=== PATIENT | female | born 1960 | race African-American/Black ===

== ENCOUNTER 2016-05-11 22:55 | Emergency (ER) | payer OTHER ==
[~2016-05-11] VITALS: Ht 167.6 cm; Wt 92.1 kg
[~2016-05-11 22:55] MED LIST: DIPHTAB; ESOM40CA39; FLUT250M9; HYDR10TA35; OXCA300T26; ROSU10TA16; VALS160T43; [UNRECOGNIZED DRUG - CODE]
[2016-05-12] LABS: Basophils # (auto) 0.1 uL; Eosinophils # (auto) 0 uL; Eosinophils % (auto) 0.5 % (0.0-7.0); Hematocrit 42.5 % (36.0-46.0); Hemoglobin 13.8 g/dL (12.2-16.2); Lymphocytes # (auto) 1.7 uL; Lymphocytes % (auto) 40.3 % (10.0-50.0); Mean Corpuscular Hemoglobin 29.3 pg (28.0-32.0); Mean Corpuscular Hgb Conc. 32.6 g/dL (32.0-36.0); Mean Platelet Volume 6.6 fL (7.4-10.4); Monocytes # (auto) 0.5 uL; Monocytes % (auto) 13.6 % (0.0-12.0); Neutrophils # (auto) 1.6 uL; Neutrophils % (auto) 42.6 % (37.0-80.0); Platelet Count (auto) 285 10^3/uL (140-450); Red Cell Distribution Width 15.3 % (11.6-16.0); White Blood Cell 3.9 10^3/uL (4.4-10.8)
[2016-05-12 00:10] LABS: Albumin 3.5 g/dL (3.4-5.0); Magnesium 2.1 mg/dL (1.6-2.6)
[2016-05-12 00:16] LABS: Potassium 2.9 mmol/L (3.5-5.1)
[2016-05-12 00:24] LABS: Bilirubin, Total 0.3 mg/dL (0.2-1.0); Calcium 8.1 mg/dL (8.5-10.1)
[2016-05-12] MEDS ORDERED: LEVETIRACETAM 500 MG TAB PO ONE (00:30)
[2016-05-12] MEDS ORDERED: POTASSIUM CHL 10% (20 MEQ/15ML) ORAL SOLN PO ONE (00:30)
[2016-05-12 01:47] VITALS: BP 108/70
== END 2016-05-12 02:18 | disposition home or self-care (01) ==
LOC: ER 23:02
DX: G40.909 Epilepsy, unspecified, not intractable, without status epilepticus (principal); E11.9 Type 2 diabetes mellitus without complications; I10 Essential (primary) hypertension; I25.2 Old myocardial infarction; F10.129 Alcohol abuse with intoxication, unspecified; F12.10 Cannabis abuse, uncomplicated; Y90.6 Blood alcohol level of 120-199 mg/100 ml; F17.210 Nicotine dependence, cigarettes, uncomplicated; Z98.61 Coronary angioplasty status
CPT/HCPCS: 36415; 80053; 80320; 82542; 83735; 85025

== ENCOUNTER 2017-04-25 13:41 | Emergency (ER) | payer OTHER ==
[~2017-04-25] VITALS: Ht 167.6 cm; Wt 88.5 kg
[2017-04-25 15:54] VITALS: BP 100/73
== END 2017-04-25 15:57 | disposition home or self-care (01) ==
LOC: ER 13:41
DX: M54.5 Low back pain (principal); G89.29 Other chronic pain; E11.9 Type 2 diabetes mellitus without complications; E78.5 Hyperlipidemia, unspecified; I10 Essential (primary) hypertension; I25.2 Old myocardial infarction; F17.210 Nicotine dependence, cigarettes, uncomplicated; Z76.0 Encounter for issue of repeat prescription

== ENCOUNTER 2017-09-25 12:37 | Emergency (ER) | payer OTHER ==
[~2017-09-25] VITALS: Ht 167.6 cm; Wt 95.3 kg
[2017-09-25 14:00] VITALS: BP 111/81
== END 2017-09-25 14:33 | disposition home or self-care (01) ==
LOC: ER 12:43
DX: G89.29 Other chronic pain (principal); M54.5 Low back pain; E11.9 Type 2 diabetes mellitus without complications; K21.9 Gastro-esophageal reflux disease without esophagitis; E78.5 Hyperlipidemia, unspecified; F17.210 Nicotine dependence, cigarettes, uncomplicated; F12.10 Cannabis abuse, uncomplicated; Z88.8 Allergy status to other drugs, medicaments and biological substances

== ENCOUNTER 2022-11-07 12:53 | Inpatient (IN) | payer OTHER ==
[~2022-11-07] VITALS: Ht 167.6 cm; Wt 131.1 kg
[~2022-11-07 12:53] MED LIST changes: -OXCA300T26; +OXCA300T4; -VALS160T43; +VALS160T6
[2022-11-07 17:00] VITALS: BP 134/77
[2022-11-07] MEDS ORDERED: ALBUTEROL SULF 2.5 MG/0.5ML(0.5%) NEB SOLN NEB ONE (17:15)
[2022-11-07] MEDS ORDERED: IPRATROPIUM BROM 0.5 MG/2.5ML INH SOL NEB ONE (17:15)
[2022-11-07] MEDS ORDERED: LORazepam 2MG/ML-1ML VIAL IV PRN (17:45)
[2022-11-07] MEDS ORDERED: ONDANSETRON HCL 4 MG/2 ML VIAL IV PRN (17:45)
[2022-11-07] MEDS ORDERED: DEXTROSE (50%) 50ML SYRG IV PRN (17:45)
[2022-11-07] MEDS ORDERED: DOCUSATE SOD 100 MG CAP PO PRN (17:45)
[2022-11-07] MEDS ORDERED: GABA-1250 PO (17:55)
[2022-11-07] MEDS ORDERED: FURO1TAB33 PO (17:55)
[2022-11-07] MEDS ORDERED: DOXY100C4 PO (17:55)
[2022-11-07] MEDS ORDERED: HYDR-3682 PO (17:55)
[2022-11-07] MEDS ORDERED: PAR20T PO (17:55)
[2022-11-07] MEDS ORDERED: ASPI-543 PO (17:55)
[2022-11-07] MEDS ORDERED: HYDR-4902 PO (17:55)
[2022-11-07] MEDS ORDERED: MAGN400T40 PO (17:55)
[2022-11-07] MEDS ORDERED: OME20T PO (17:55)
[2022-11-07] MEDS ORDERED: POTA1TAB61 PO (17:55)
[2022-11-07] MEDS ORDERED: KEP500T PO (17:55)
[2022-11-07] MEDS ORDERED: PREG200C19 PO (17:55)
[2022-11-07] MEDS: ALBUTEROL SULF 2.5 MG/0.5ML(0.5%) NEB SOLN NEB SCH ×2 (18:00→22:08)
[2022-11-07] MEDS: IPRATROPIUM BROM 0.5 MG/2.5ML INH SOL NEB SCH ×2 (18:00→22:08)
[2022-11-07 20:26] LABS: Mean Corpuscular Hemoglobin 25.8 pg (28.0-32.0)
[2022-11-07 20:28] LABS: Hematocrit 40.7 % (36.0-46.0); Hemoglobin 12.9 g/dL (12.2-16.2); Mean Corpuscular Hgb Conc. 31.7 g/dL (32.0-36.0); Mean Corpuscular Volume 81.3 fL (80.0-100.0); White Blood Cell 2.5 10^3/uL (4.4-10.8)
[2022-11-07 20:30] LABS: Albumin 2.6 g/dL (3.4-5.0); Calcium 7.6 mg/dL (8.5-10.1); Magnesium 1.2 mg/dL (1.6-2.6); Phosphorus 3.9 mg/dL (2.5-4.90); Potassium 3.5 mmol/L (3.5-5.1)
[2022-11-07 20:33] LABS: Bilirubin, Total 0.8 mg/dL (0.2-1.0)
[2022-11-07 20:40] LABS: Folate (Folic Acid) 7.43 ng/mL (5.38-24)
[2022-11-07 20:48] LABS: Band Neutrophils % (manual) 0; Basophils % (manual) 0 (0.0-2.0); Blast Cells 0; Eosinophils % (manual) 0 (0-7); Metamyelocytes % 0; Myelocytes % 0; Promyelocytes % 0; Reactive Lymphocytes 0
[2022-11-07 21:24] VITALS: BP 134/77
[2022-11-07 22:00] VITALS: BP 134/57
[2022-11-07] MEDS ORDERED: GABAPENTIN 300 MG CAP PO SCH (22:00)
[2022-11-07] MEDS ORDERED: OXcarbazepine 300 MG TAB PO SCH (22:00)
[2022-11-07] MEDS ORDERED: ATORVASTATIN 20 MG TAB PO SCH (22:00)
[2022-11-07 22:11] LABS: Lymphocytes % (manual) 13 (10.0-50.0); Monocytes % (manual) 10 (0-12)
[2022-11-08] MEDS: ENOXAPARIN SOD 40 MG/0.4 ML SYRINGE SC SCH ×2 (01:22→09:49)
[2022-11-08] MEDS: levETIRAcetam 500 MG TAB PO SCH ×2 (01:23→09:49)
[2022-11-08] MEDS: FUROSEMIDE 20 MG TAB PO SCH ×2 (01:24→09:49)
[2022-11-08] MEDS: HYDROcodone-ACET 5/325MG TAB PO SCH ×3 (01:25→13:59)
[2022-11-08] MEDS: InsuLIN REG 1unit/0.01ml Soln (100units/ml) SC SCH ×4 (01:34→16:48)
[2022-11-08] MEDS: ACCU-CHEK COMFORT CURVE STRIP VI SCH ×4 (01:35→16:48)
[2022-11-08] MEDS: PREGABALIN 200 MG PO SCH ×3 (01:38→14:45)
[2022-11-08] MEDS: NYSTATIN TOPICAL CREAM 15GM TOP SCH ×2 (01:44→09:53)
[2022-11-08] MEDS: ALBUTEROL SULF 2.5 MG/0.5ML(0.5%) NEB SOLN NEB SCH ×4 (01:58→14:00)
[2022-11-08] MEDS: IPRATROPIUM BROM 0.5 MG/2.5ML INH SOL NEB SCH ×4 (01:58→14:00)
[2022-11-08 04:49] VITALS: BP 157/88
[2022-11-08 05:35] LABS: Mean Corpuscular Volume 82.5 fL (80.0-100.0); White Blood Cell 2.4 10^3/uL (4.4-10.8)
[2022-11-08 05:38] LABS: Hematocrit 39.5 % (36.0-46.0); Hemoglobin 12.3 g/dL (12.2-16.2); Mean Corpuscular Hemoglobin 25.8 pg (28.0-32.0); Mean Corpuscular Hgb Conc. 31.2 g/dL (32.0-36.0); Red Blood Cells 4.79 10^6/uL (4.0-5.20)
[2022-11-08 05:59] LABS: Albumin 2.1 g/dL (3.4-5.0); Calcium 7.4 mg/dL (8.5-10.1); Potassium 3.1 mmol/L (3.5-5.1)
[2022-11-08 06:03] LABS: Bilirubin, Total 0.8 mg/dL (0.2-1.0); Total Protein 5.6 g/dL (6.4-8.2)
[2022-11-08 06:33] LABS: Red Cell Distribution Width 21.5 % (11.8-14.3)
[2022-11-08 06:34] LABS: Basophils % (manual) 0 (0.0-2.0); Blast Cells 0; Metamyelocytes % 0; Myelocytes % 0; Promyelocytes % 0; Reactive Lymphocytes 0
[2022-11-08 09:20] LABS: Band Neutrophils % (manual) 2; Eosinophils % (manual) 3 (0-7); Lymphocytes % (manual) 23 (10.0-50.0); Monocytes % (manual) 15 (0-12)
[2022-11-08] MEDS ORDERED: VALSARTAN 80 MG TAB PO SCH (10:00)
[2022-11-08] MEDS ORDERED: NICOTINE 21MG/24 HR TOPICAL PATCH TD SCH (10:00)
[2022-11-08] MEDS ORDERED: ASPirin-EC 81 mg tab PO SCH (10:00)
[2022-11-08] MEDS ORDERED: PARoxetine 20 MG TAB PO SCH (10:00)
[2022-11-08] MEDS ORDERED: POTASSIUM CHL 20 Meq TABLET PO ONE (10:15)
[2022-11-08 13:01] VITALS: BP 137/59
[2022-11-09] MEDS ORDERED: POTASSIUM CHL 20 Meq TABLET PO SCH (10:00)
== END 2022-11-08 17:54 | disposition home or self-care (01) | DRG 948 ==
LOC: TELE-CENTR 16:38
PROVIDERS: ADMIT Nurse Practitioner Family; ATTEND Internal Medicine Geriatric Medicine
DX: R53.1 Weakness (principal); I69.351 Hemiplegia and hemiparesis following cerebral infarction affecting right dominant side; J44.1 Chronic obstructive pulmonary disease with (acute) exacerbation; Z68.42 Body mass index [BMI] 45.0-49.9, adult; I50.42 Chronic combined systolic (congestive) and diastolic (congestive) heart failure; B35.6 Tinea cruris; F17.200 Nicotine dependence, unspecified, uncomplicated; E11.9 Type 2 diabetes mellitus without complications; E66.01 Morbid (severe) obesity due to excess calories; R56.9 Unspecified convulsions; E87.6 Hypokalemia; G89.4 Chronic pain syndrome; Z74.01 Bed confinement status; Z88.6 Allergy status to analgesic agent
CPT/HCPCS: 36415; 71045; 80053; 80320; 82607; 82746; 82962; 83735; 83880; 84100; 85007; 85027; 93971; 94640; 97163; G0378

== ENCOUNTER → 2022-11-21 | Outpatient (CLI) | payer OTHER ==
[~2022-11-21] MED LIST changes: +ASPI-543 PO; +DOXY100C4 PO; +FURO1TAB33 PO; +GABA-1250 PO; +HYDR-3682 PO; +HYDR-4902 PO; +KEP500T PO; +MAGN400T40 PO; +OME20T PO; +PAR20T PO; +POTA1TAB61 PO; +PREG200C19 PO
[2022-11-21 13:19] LABS: BUN/Creatinine Ratio 6.3 (10.0-20.0); Calcium 8.4 mg/dL (8.5-10.1); Potassium 4.3 mmol/L (3.5-5.1)
[2022-11-21 14:21] LABS: Micro Albumin 59.7 mg/L (0-30.0)
== END | disposition home or self-care (01) ==
LOC: LAB 12:12
PROVIDERS: ATTEND Nurse Practitioner Family
DX: E11.42 Type 2 diabetes mellitus with diabetic polyneuropathy (principal)
CPT/HCPCS: 36415; 80048; 82043; 82570

== ENCOUNTER 2022-12-28 17:23 | Inpatient (IN) | payer OTHER ==
[~2022-12-28] VITALS: Ht 165.1 cm; Wt 146.7 kg
[2022-12-28] MEDS ORDERED: ASPirin 81 mg TAB PO ONE (17:45)
[2022-12-28 18:17] LABS: Eosinophils # (auto) 0 10 ^3/uL (0-0.8); Hemoglobin 12.4 g/dL (12.2-16.2); Monocytes # (auto) 0.3 10 ^3/uL (0-1.3)
[2022-12-28 18:20] LABS: Basophils # (auto) 0.1 10 ^3/uL (0-0.2); Basophils % (auto) 1.7 % (0.0-2.0); Eosinophils % (auto) 0.3 % (0.0-7.0); Hematocrit 39.3 % (36.0-46.0); Lymphocytes # (auto) 1.4 10 ^3/uL (0.4-5.4); Lymphocytes % (auto) 29.8 % (10.0-50.0); Mean Corpuscular Hemoglobin 24.2 pg (28.0-32.0); Mean Corpuscular Hgb Conc. 31.5 g/dL (32.0-36.0); Mean Corpuscular Volume 76.7 fL (80.0-100.0); Neutrophils # (auto) 2.8 10 ^3/uL (1.6-8.6); Neutrophils % (auto) 61.2 % (37.0-80.0); Nucleated Red Blood Cells % 0.3 %; Red Blood Cells 5.13 10^6/uL (4.0-5.20); White Blood Cell 4.7 10^3/uL (4.4-10.8)
[2022-12-28 18:30] LABS: Red Cell Distribution Width 20.6 % (11.8-14.3)
[2022-12-28 18:35] LABS: INR 1.3 (0.9-1.15); Partial Thromboplastin Time 27.9 SEC (24.5-34.5); Prothrombin Time 13.4 sec (9.3-11.8)
[2022-12-28 18:46] LABS: Albumin 2.4 g/dL (3.4-5.0); Magnesium 1.7 mg/dL (1.6-2.6); Potassium 4.2 mmol/L (3.5-5.1)
[2022-12-28 18:49] VITALS: PULSE 108; RESP 20; O2SAT 98
[2022-12-28 18:49] LABS: BUN/Creatinine Ratio 20.8 (10.0-20.0); Bilirubin, Total 0.7 mg/dL (0.2-1.0); Total Protein 6.7 g/dL (6.4-8.2)
[2022-12-28 18:57] LABS: Anisocytosis Slight; Hypochromia Slight; Large Platelets FEW; Platelet Estimate Decreased
[2022-12-28 18:58] LABS: Ovalocytes FEW; Tear Drop Cells FEW
[2022-12-28] MEDS ORDERED: ASPirin 325 MG TAB PO ONE (19:15)
[2022-12-28 20:00] VITALS: RESP 20; O2SAT 98
[2022-12-28] MEDS ORDERED: ACETAMINOPHEN 500 MG TAB PO PRN (22:30)
[2022-12-28] MEDS ORDERED: DOCUSATE SOD 100 MG CAP PO PRN (22:30)
[2022-12-28] MEDS ORDERED: ONDANSETRON HCL 4 MG/2 ML VIAL IV PRN (22:30)
[2022-12-28] MEDS ORDERED: NITROGLYCERIN 0.4 MG SL TAB SL PRN (23:45)
[2022-12-29] MEDS ORDERED: IOHEXOL 350 MG/ML 100ML IJ ONE (02:05)
[2022-12-29 06:15] LABS: Albumin 2.2 g/dL (3.4-5.0); Calcium 7.7 mg/dL (8.5-10.1); Potassium 4.4 mmol/L (3.5-5.1)
[2022-12-29 06:17] LABS: Basophils # (auto) 0 10 ^3/uL (0-0.2); Eosinophils # (auto) 0 10 ^3/uL (0-0.8); Eosinophils % (auto) 0.4 % (0.0-7.0)
[2022-12-29 06:18] LABS: BUN/Creatinine Ratio 21.4 (10.0-20.0); Bilirubin, Total 1.2 mg/dL (0.2-1.0); Total Protein 6.2 g/dL (6.4-8.2)
[2022-12-29 06:19] LABS: Basophils % (auto) 0.6 % (0.0-2.0); Hematocrit 38.5 % (36.0-46.0); Hemoglobin 11.9 g/dL (12.2-16.2); Lymphocytes # (auto) 0.8 10 ^3/uL (0.4-5.4); Lymphocytes % (auto) 10.7 % (10.0-50.0); Mean Corpuscular Hemoglobin 23.6 pg (28.0-32.0); Mean Corpuscular Hgb Conc. 30.8 g/dL (32.0-36.0); Mean Corpuscular Volume 76.6 fL (80.0-100.0); Monocytes # (auto) 0.5 10 ^3/uL (0-1.3); Monocytes % (auto) 7.1 % (0.0-12.0); Neutrophils # (auto) 6.1 10 ^3/uL (1.6-8.6); Neutrophils % (auto) 81.2 % (37.0-80.0); Nucleated Red Blood Cells % 0.2 %; Red Blood Cells 5.02 10^6/uL (4.0-5.20); White Blood Cell 7.6 10^3/uL (4.4-10.8)
[2022-12-29 06:24] LABS: Red Cell Distribution Width 20.9 % (11.8-14.3)
[2022-12-29] MEDS: SODIUM CHLOR 0.9% PF (SALINE LOCK) 10ML VIAL/SYR IV SCH ×3 (06:28→23:19)
[2022-12-29 08:16] LABS: Platelet Estimate Decreased
[2022-12-29 08:17] LABS: Anisocytosis Slight; Hypochromia Moderate
[2022-12-29 08:18] LABS: Tear Drop Cells FEW
[2022-12-29 08:19] LABS: Ovalocytes FEW; Stomatocytes Mode
[2022-12-29] MEDS: HYDROcodone-ACET 5/325MG TAB PO PRN (08:33)
[2022-12-29 09:58] VITALS: PULSE 102; RESP 15; O2SAT 100
[2022-12-29] MEDS ORDERED: FUROSEMIDE 20 MG/2 ML VIAL IV SCH (10:00)
[2022-12-29] MEDS ORDERED: FUROSEMIDE 40 MG/4 ML VIAL IV SCH (10:00)
[2022-12-29] MEDS: ASPirin 81 mg TAB PO SCH (10:05)
[2022-12-29] MEDS: FAMOTIDINE (10MG/ML) 2ML VL IV SCH ×2 (10:05→23:19)
[2022-12-29 14:05] LABS: Cholesterol 136 mg/dL (< 200)
[2022-12-29 14:10] LABS: HDL Cholesterol 61 mg/dL (40-59); LDL Cholesterol 66 mg/dL (< 100); Triglycerides 79 mg/dL (< 150)
[2022-12-29 16:51] LABS: Urine Bacteria NONE SEEN /hpf (None Seen); Urine Blood Negative /uL (Negative); Urine Clarity Clear (Clear); Urine Color Yellow (Yellow); Urine Protein, UAD 1+ (Negative); Urine Specific Gravity 1.042 (1.001-1.035); Urine Urobilinogen Normal (Negative); Urine WBC 1 /hpf (0 - 5)
[2022-12-29 19:35] VITALS: PULSE 100; RESP 16; O2SAT 100
[2022-12-29] MEDS: MORPHINE SULFATE INJ 2 MG/ml SYRG IV PRN (21:14)
[2022-12-29] MEDS ORDERED: levETIRAcetam 500 MG/5ML INJ IV ONE (23:15)
[2022-12-30] MEDS: SODIUM CHLOR 0.9% PF (SALINE LOCK) 10ML VIAL/SYR IV SCH ×3 (05:43→22:02)
[2022-12-30] MEDS: FAMOTIDINE (10MG/ML) 2ML VL IV SCH ×2 (10:01→21:53)
[2022-12-30] MEDS: ASPirin 81 mg TAB PO SCH (10:01)
[2022-12-30] MEDS: MORPHINE SULFATE INJ 2 MG/ml SYRG IV PRN ×2 (10:11→21:54)
[2022-12-30 10:49] VITALS: PULSE 99; RESP 15; O2SAT 92
[2022-12-30 12:00] VITALS: BP 106/68; PULSE 98; RESP 20; TEMP 98.4; O2SAT 100
[2022-12-30 16:30] VITALS: BP 123/70; PULSE 84; RESP 19; TEMP 98.6; O2SAT 94
[2022-12-30 20:00] VITALS: BP 113/64; PULSE 107; PULSE 110; RESP 22; TEMP 98.4; O2SAT 99
[2022-12-30 22:00] VITALS: BP 113/64; PULSE 114; RESP 22; TEMP 98.4; O2SAT 100
[2022-12-31] VITALS (7 sets, daily range): BP systolic 110–154; BP diastolic 59–96; PULSE 92–110; RESP 15–22; TEMP 97.6–98.7; O2SAT 93–100
[2022-12-31] MEDS: SODIUM CHLOR 0.9% PF (SALINE LOCK) 10ML VIAL/SYR IV SCH ×3 (07:07→21:31)
[2022-12-31] MEDS: ASPirin 81 mg TAB PO SCH (10:47)
[2022-12-31] MEDS: FAMOTIDINE (10MG/ML) 2ML VL IV SCH ×2 (10:48→21:31)
[2022-12-31] MEDS: HYDROcodone-ACET 5/325MG TAB PO PRN ×2 (10:58→19:49)
[2022-12-31] MEDS ORDERED: POTA10TA51 PO (11:20)
[2022-12-31] MEDS ORDERED: FURO1TAB31 PO (11:20)
[2022-12-31] MEDS ORDERED: ASPI-498 OR (11:20)
[2023-01-01 04:50] VITALS: BP 148/90; PULSE 100; RESP 20; TEMP 97.6; O2SAT 86
[2023-01-01] MEDS: SODIUM CHLOR 0.9% PF (SALINE LOCK) 10ML VIAL/SYR IV SCH ×2 (05:44→14:00)
[2023-01-01 08:00] VITALS: BP 154/96; PULSE 102; PULSE 109; RESP 20; TEMP 98.7; O2SAT 98
[2023-01-01 09:00] VITALS: BP 140/89; PULSE 99; RESP 20; TEMP 98.3; O2SAT 100
[2023-01-01] MEDS: FAMOTIDINE (10MG/ML) 2ML VL IV SCH (10:21)
[2023-01-01] MEDS: ASPirin 81 mg TAB PO SCH (10:21)
[2023-01-01] MEDS: HYDROcodone-ACET 5/325MG TAB PO PRN (11:46)
[2023-01-01 12:10] LABS: COVID19 ANTIGEN SOFIA FIA NEGATIVE (NEGATIVE)
[2023-01-01 13:00] VITALS: BP 140/84; PULSE 96; RESP 18; TEMP 98.2; O2SAT 98
[2023-01-01 17:00] VITALS: BP 151/97; PULSE 93; RESP 19; TEMP 98; O2SAT 97
== END 2023-01-01 19:10 | DRG 292 ==
LOC: EDBD 17:23 → ER 17:23 → TELE 23:33 → TELE-EAST 12-30 11:13
PROVIDERS: ADMIT Nurse Practitioner Family; ATTEND Family Medicine
DX: I11.0 Hypertensive heart disease with heart failure (principal); J90 Pleural effusion, not elsewhere classified; Z68.43 Body mass index [BMI] 50.0-59.9, adult; R07.89 Other chest pain; E11.9 Type 2 diabetes mellitus without complications; E78.00 Pure hypercholesterolemia, unspecified; E66.01 Morbid (severe) obesity due to excess calories; K21.9 Gastro-esophageal reflux disease without esophagitis; Z20.822 Contact with and (suspected) exposure to COVID-19; J45.909 Unspecified asthma, uncomplicated; F17.210 Nicotine dependence, cigarettes, uncomplicated; D69.6 Thrombocytopenia, unspecified; I27.20 Pulmonary hypertension, unspecified; R56.9 Unspecified convulsions; I50.9 Heart failure, unspecified; I25.2 Old myocardial infarction; Z88.6 Allergy status to analgesic agent; Z98.61 Coronary angioplasty status; Z83.3 Family history of diabetes mellitus; Z82.49 Family history of ischemic heart disease and other diseases of the circulatory system
CPT/HCPCS: 36415; 71045; 71275; 80053; 80061; 81001; 83036; 83735; 83880; 84443; 84484; 85025; 85379; 85610; 85730; 87081; 87426; 93005; 93306; 93970; G0378; J3490; J7060

== ENCOUNTER 2023-05-13 14:46 | Inpatient (IN) | payer MEDICARE, OTHER ==
[~2023-05-13] VITALS: Ht 165.1 cm; Wt 122.7 kg
[~2023-05-13 14:46] MED LIST changes: +ASPI-498 OR; +FURO1TAB31 PO; +POTA10TA51 PO
[2023-05-13] MEDS ORDERED: SODIUM CHLORIDE 0.9% 500 ML IV ONE (21:00)
[2023-05-13 21:57] LABS: Basophils # (auto) 0 10 ^3/uL (0-0.2); Eosinophils # (auto) 0.1 10 ^3/uL (0-0.8); Eosinophils % (auto) 4.3 % (0.0-7.0); Lymphocytes # (auto) 0.6 10 ^3/uL (0.4-5.4); Monocytes # (auto) 0.4 10 ^3/uL (0-1.3); Neutrophils # (auto) 2.2 10 ^3/uL (1.6-8.6); Red Blood Cells 4.95 10^6/uL (4.0-5.20); Red Cell Distribution Width 15.4 % (11.8-14.3); White Blood Cell 3.4 10^3/uL (4.4-10.8)
[2023-05-13 21:58] LABS: Basophils % (auto) 0.9 % (0.0-2.0); Lymphocytes % (auto) 17.8 % (10.0-50.0); Mean Corpuscular Hemoglobin 26.3 pg (28.0-32.0); Mean Corpuscular Hgb Conc. 32.5 g/dL (32.0-36.0); Mean Corpuscular Volume 80.9 fL (80.0-100.0); Monocytes % (auto) 12.5 % (0.0-12.0); Neutrophils % (auto) 64.5 % (37.0-80.0); Nucleated Red Blood Cells % 0.3 %
[2023-05-13 22:16] LABS: Alanine Aminotransferase 33 U/L (7-40); Albumin 3.9 g/dL (3.2-4.8); Alkaline Phosphatase 144 U/L (46-116); Anion Gap 7 (5-15); Aspartate Aminotransferase 27 U/L (13-40); BUN/Creatinine Ratio 24.2 (10.0-20.0); Bilirubin, Total 0.3 mg/dL (0.2-1.0); Blood Urea Nitrogen 22 mg/dL (9-23); Calcium 10.9 mg/dL (8.5-10.1); Carbon Dioxide 29 mmol/L (20-30); Chloride 102 mmol/L (98-107); Glucose 107 mg/dL (74-106); Potassium 3.9 mmol/L (3.5-5.1); Sodium 138 mmol/L (136-145); Total Protein 7.3 g/dL (5.7-8.2)
[2023-05-13] MEDS ORDERED: MORPHINE SULFATE 4 MG/ML SYR/VIAL IV ONE (23:30)
[2023-05-13] MEDS ORDERED: ONDANSETRON HCL 4 MG/2 ML VIAL IV ONE (23:30)
[2023-05-14] MEDS ORDERED: DOCUSATE SOD 100 MG CAP PO PRN (05:00)
[2023-05-14] MEDS ORDERED: TEMAZEPAM 15 MG CAP PO PRN (05:00)
[2023-05-14] MEDS ORDERED: NITROGLYCERIN 0.4 MG SL TAB SL PRN (05:00)
[2023-05-14] MEDS ORDERED: ACETAMINOPHEN 325 MG TAB PO PRN (05:00)
[2023-05-14] MEDS ORDERED: FUROSEMIDE 40 MG/4 ML VIAL IV SCH (06:00)
[2023-05-14 08:04] LABS: Urine Bacteria NONE SEEN /hpf (None Seen); Urine Blood 1+ /uL (Negative); Urine Clarity Clear (Clear); Urine Color Yellow (Yellow); Urine Hyaline Cast FEW /lpf (0 - 2); Urine Mucus FEW (None Seen); Urine Protein, UAD TRACE (Negative); Urine Specific Gravity 1.021 (1.001-1.035); Urine Urobilinogen Normal (Negative); Urine WBC 6 /hpf (0 - 5)
[2023-05-14 08:07] LABS: Amphetamine Screen, Urine Neg (NEGATIVE); Barbiturate Scree,Urine Neg (NEGATIVE); Benzodiazephine Screen, Urine Neg (NEGATIVE); Cannabinoid Screen, Urine Neg (NEGATIVE); Cocaine Screen, Urine Neg (NEGATIVE); Opiate Scree,Urine Pos (NEGATIVE); Phencyclidine Screen, Urine Neg (NEGATIVE)
[2023-05-14] MEDS: ONDANSETRON HCL 4 MG/2 ML VIAL IV PRN ×2 (08:07→13:58)
[2023-05-14] MEDS: MORPHINE SULFATE INJ 2 MG/ml SYRG IV PRN ×3 (08:08→18:34)
[2023-05-14 09:02] LABS: INR 1.13 (0.9-1.15); Partial Thromboplastin Time 26.8 SEC (24.5-34.5)
[2023-05-14] MEDS ORDERED: IOHEXOL 350 MG/ML 100ML IJ ONE (12:02)
[2023-05-14] MEDS: ZINC SULFATE 220mg CAP or TAB PO SCH (12:57)
[2023-05-14] MEDS: ASCORBIC ACID 500 MG TAB PO SCH ×2 (12:57→21:11)
[2023-05-14] MEDS: MULTIPLE VITAMIN TAB PO SCH (12:57)
[2023-05-14 13:00] VITALS: PULSE 72; RESP 12; O2SAT 96
[2023-05-14] MEDS: GABAPENTIN 300 MG CAP PO SCH ×2 (15:32→21:11)
[2023-05-14 16:58] VITALS: PULSE 87
[2023-05-14 18:05] VITALS: BP 104/58; PULSE 78; RESP 20
[2023-05-14] MEDS: FUROSEMIDE 40 MG/4 ML VIAL IV SCH (18:25)
[2023-05-14 20:00] VITALS: PULSE 87
[2023-05-14 20:49] LABS: Rapid Influenza A Negative (Negative); Rapid Influenza B Negative (Negative); Respiratory Syncytial Virus Ag Negative
[2023-05-14 20:50] LABS: COVID19 ANTIGEN SOFIA FIA NEGATIVE (NEGATIVE)
[2023-05-14] MEDS: levETIRAcetam 500 MG TAB PO SCH (21:11)
[2023-05-14 22:00] VITALS: BP 99/64; PULSE 87; RESP 16; TEMP 98.2; O2SAT 100
[2023-05-15] VITALS (7 sets, daily range): BP systolic 100–117; BP diastolic 51–70; PULSE 69–84; RESP 16–22; TEMP 97.7–98; O2SAT 91–100
[2023-05-15] MEDS: MORPHINE SULFATE INJ 2 MG/ml SYRG IV PRN ×3 (02:31→17:30)
[2023-05-15] MEDS: FUROSEMIDE 40 MG/4 ML VIAL IV SCH ×2 (05:38→17:42)
[2023-05-15] MEDS: GABAPENTIN 300 MG CAP PO SCH ×3 (05:42→22:00)
[2023-05-15 06:44] LABS: Alanine Aminotransferase 32 U/L (7-40); Albumin 3.9 g/dL (3.2-4.8); Alkaline Phosphatase 137 U/L (46-116); Anion Gap 8 (5-15); Aspartate Aminotransferase 39 U/L (13-40); BUN/Creatinine Ratio 30.3 (10.0-20.0); Bilirubin, Total 0.3 mg/dL (0.2-1.0); Blood Urea Nitrogen 27 mg/dL (9-23); Calcium 10.6 mg/dL (8.7-10.4); Carbon Dioxide 29 mmol/L (20-30); Chloride 102 mmol/L (98-107); Glucose 86 mg/dL (74-106); Potassium 4.5 mmol/L (3.5-5.1); Sodium 139 mmol/L (136-145)
[2023-05-15 07:06] LABS: Basophils # (auto) 0 10 ^3/uL (0-0.2); Eosinophils # (auto) 0.2 10 ^3/uL (0-0.8); Eosinophils % (auto) 4.6 % (0.0-7.0); Hemoglobin 13.2 g/dL (12.2-16.2); Lymphocytes # (auto) 0.7 10 ^3/uL (0.4-5.4); Lymphocytes % (auto) 19.5 % (10.0-50.0); Mean Corpuscular Hgb Conc. 33.1 g/dL (32.0-36.0); Mean Corpuscular Volume 81.4 fL (80.0-100.0); Monocytes # (auto) 0.6 10 ^3/uL (0-1.3); Neutrophils # (auto) 1.9 10 ^3/uL (1.6-8.6); Neutrophils % (auto) 57.9 % (37.0-80.0); Nucleated Red Blood Cells % 0.7 %; Red Blood Cells 4.91 10^6/uL (4.0-5.20); Red Cell Distribution Width 14.9 % (11.8-14.3); White Blood Cell 3.4 10^3/uL (4.4-10.8)
[2023-05-15] MEDS: MULTIPLE VITAMIN TAB PO SCH (09:21)
[2023-05-15] MEDS: PARoxetine 20 MG TAB PO SCH (09:21)
[2023-05-15] MEDS: ASPirin-EC 81 mg tab PO SCH (09:21)
[2023-05-15] MEDS: ASCORBIC ACID 500 MG TAB PO SCH ×2 (09:21→22:00)
[2023-05-15] MEDS: levETIRAcetam 500 MG TAB PO SCH ×2 (09:22→22:00)
[2023-05-15] MEDS: ZINC SULFATE 220mg CAP or TAB PO SCH (09:22)
[2023-05-16] VITALS (7 sets, daily range): BP systolic 101–124; BP diastolic 56–69; PULSE 71–109; RESP 16–18; TEMP 98–98.3; O2SAT 92–100
[2023-05-16] MEDS: MORPHINE SULFATE INJ 2 MG/ml SYRG IV PRN ×4 (05:10→22:53)
[2023-05-16] MEDS: GABAPENTIN 300 MG CAP PO SCH (05:11)
[2023-05-16] MEDS: FUROSEMIDE 40 MG/4 ML VIAL IV SCH ×2 (05:11→18:11)
[2023-05-16] MEDS: levETIRAcetam 500 MG TAB PO SCH ×2 (10:04→22:49)
[2023-05-16] MEDS: ENOXAPARIN SOD 40 MG/0.4 ML SYRINGE SC SCH (10:04)
[2023-05-16] MEDS: PARoxetine 20 MG TAB PO SCH (10:04)
[2023-05-16] MEDS: ZINC SULFATE 220mg CAP or TAB PO SCH (10:04)
[2023-05-16] MEDS: MULTIPLE VITAMIN TAB PO SCH (10:05)
[2023-05-16] MEDS: ASCORBIC ACID 500 MG TAB PO SCH ×2 (10:05→22:49)
[2023-05-16] MEDS: ASPirin-EC 81 mg tab PO SCH (10:06)
[2023-05-16] MEDS ORDERED: cefTRIAXone 1GM/50ML D5W 50 ML IV ONE (11:30)
[2023-05-16] MEDS ORDERED: AZITHROMYCIN 500MG/ 250ML 250 ML IV ONE (12:30)
[2023-05-16] MEDS: PREGABALIN 25 MG CAP PO SCH ×2 (14:30→22:52)
[2023-05-17] VITALS (7 sets, daily range): BP systolic 100–153; BP diastolic 59–95; PULSE 74–125; RESP 16–22; TEMP 97.4–98.6; O2SAT 95–99
[2023-05-17] MEDS: FUROSEMIDE 40 MG/4 ML VIAL IV SCH ×2 (06:12→18:04)
[2023-05-17] MEDS: PREGABALIN 25 MG CAP PO SCH ×3 (06:14→22:04)
[2023-05-17] MEDS: cefTRIAXone 1GM/50ML D5W 50 ML IV SCH (09:51)
[2023-05-17] MEDS: PANTOPRAZOLE 40 MG TAB PO SCH (10:43)
[2023-05-17] MEDS: ASPirin-EC 81 mg tab PO SCH (10:43)
[2023-05-17] MEDS: MULTIPLE VITAMIN TAB PO SCH (10:43)
[2023-05-17] MEDS: PARoxetine 20 MG TAB PO SCH (10:43)
[2023-05-17] MEDS: levETIRAcetam 500 MG TAB PO SCH ×2 (10:44→22:04)
[2023-05-17] MEDS: ASCORBIC ACID 500 MG TAB PO SCH ×2 (10:44→22:04)
[2023-05-17] MEDS: ZINC SULFATE 220mg CAP or TAB PO SCH (10:44)
[2023-05-17] MEDS: ENOXAPARIN SOD 40 MG/0.4 ML SYRINGE SC SCH (10:46)
[2023-05-17] MEDS: AZITHROMYCIN 500MG/ 250ML 250 ML IV SCH (10:48)
[2023-05-17] MEDS: MORPHINE SULFATE INJ 2 MG/ml SYRG IV PRN ×2 (11:34→18:04)
[2023-05-18] VITALS (8 sets, daily range): BP systolic 95–121; BP diastolic 47–64; PULSE 72–88; RESP 17–20; TEMP 97.6–98.6; O2SAT 91–99
[2023-05-18] MEDS: PREGABALIN 25 MG CAP PO SCH ×3 (06:17→22:03)
[2023-05-18] MEDS: FUROSEMIDE 40 MG/4 ML VIAL IV SCH ×2 (06:17→17:24)
[2023-05-18] MEDS: MORPHINE SULFATE INJ 2 MG/ml SYRG IV PRN ×2 (06:31→13:15)
[2023-05-18] MEDS: ASCORBIC ACID 500 MG TAB PO SCH ×2 (09:02→22:03)
[2023-05-18] MEDS: ASPirin-EC 81 mg tab PO SCH (09:02)
[2023-05-18] MEDS: PARoxetine 20 MG TAB PO SCH (09:02)
[2023-05-18] MEDS: cefTRIAXone 1GM/50ML D5W 50 ML IV SCH (09:02)
[2023-05-18] MEDS: levETIRAcetam 500 MG TAB PO SCH ×2 (09:02→22:04)
[2023-05-18] MEDS: ENOXAPARIN SOD 40 MG/0.4 ML SYRINGE SC SCH (09:02)
[2023-05-18] MEDS: MULTIPLE VITAMIN TAB PO SCH (09:03)
[2023-05-18] MEDS: PANTOPRAZOLE 40 MG TAB PO SCH (09:03)
[2023-05-18] MEDS: ZINC SULFATE 220mg CAP or TAB PO SCH (09:03)
[2023-05-18] MEDS: AZITHROMYCIN 500MG/ 250ML 250 ML IV SCH (09:50)
[2023-05-18] MEDS: HYDROcodone-ACET 5/325MG TAB PO PRN (19:46)
[2023-05-19] VITALS (7 sets, daily range): BP systolic 91–129; BP diastolic 50–88; PULSE 71–112; RESP 17–20; TEMP 97.7–98.1; O2SAT 94–100
[2023-05-19] MEDS: FUROSEMIDE 40 MG/4 ML VIAL IV SCH (06:30)
[2023-05-19] MEDS: PREGABALIN 25 MG CAP PO SCH ×3 (06:30→20:40)
[2023-05-19] MEDS: HYDROcodone-ACET 5/325MG TAB PO PRN ×2 (06:32→15:15)
[2023-05-19] MEDS: cefTRIAXone 1GM/50ML D5W 50 ML IV SCH (09:00)
[2023-05-19] MEDS: ENOXAPARIN SOD 40 MG/0.4 ML SYRINGE SC SCH (09:39)
[2023-05-19] MEDS: PANTOPRAZOLE 40 MG TAB PO SCH (09:40)
[2023-05-19] MEDS: levETIRAcetam 500 MG TAB PO SCH ×2 (09:40→20:40)
[2023-05-19] MEDS: MULTIPLE VITAMIN TAB PO SCH (09:40)
[2023-05-19] MEDS: ASCORBIC ACID 500 MG TAB PO SCH ×2 (09:40→20:41)
[2023-05-19] MEDS: ZINC SULFATE 220mg CAP or TAB PO SCH (09:40)
[2023-05-19] MEDS: ASPirin-EC 81 mg tab PO SCH (09:40)
[2023-05-19] MEDS: PARoxetine 20 MG TAB PO SCH (09:40)
[2023-05-19] MEDS: AZITHROMYCIN 500MG/ 250ML 250 ML IV SCH (10:00)
[2023-05-19] MEDS: MORPHINE SULFATE INJ 2 MG/ml SYRG IV PRN (11:49)
[2023-05-19 13:52] LABS: COVID19 ANTIGEN SOFIA FIA NEGATIVE (NEGATIVE)
[2023-05-20 05:00] VITALS: BP 108/45; PULSE 89; RESP 16; TEMP 98.4; O2SAT 97
[2023-05-20] MEDS: PREGABALIN 25 MG CAP PO SCH ×2 (06:00→14:00)
[2023-05-20 08:00] VITALS: PULSE 90
[2023-05-20 09:00] VITALS: BP 107/63; PULSE 88; RESP 17; TEMP 97.9; O2SAT 96
[2023-05-20] MEDS: PARoxetine 20 MG TAB PO SCH (09:06)
[2023-05-20] MEDS: ASCORBIC ACID 500 MG TAB PO SCH (09:06)
[2023-05-20] MEDS: levETIRAcetam 500 MG TAB PO SCH (09:06)
[2023-05-20] MEDS: ASPirin-EC 81 mg tab PO SCH (09:06)
[2023-05-20] MEDS: ZINC SULFATE 220mg CAP or TAB PO SCH (09:06)
[2023-05-20] MEDS: MULTIPLE VITAMIN TAB PO SCH (09:06)
[2023-05-20] MEDS: PANTOPRAZOLE 40 MG TAB PO SCH (09:06)
[2023-05-20] MEDS: ENOXAPARIN SOD 40 MG/0.4 ML SYRINGE SC SCH (09:07)
[2023-05-20] MEDS: AZITHROMYCIN 500MG/ 250ML 250 ML IV SCH (09:07)
[2023-05-20] MEDS: cefTRIAXone 1GM/50ML D5W 50 ML IV SCH (09:07)
[2023-05-20] MEDS: HYDROcodone-ACET 5/325MG TAB PO PRN (09:07)
== END 2023-05-20 14:43 | DRG 177 ==
LOC: EDBD 14:46 → ER 14:46 → TELE 05-14 04:54 → TELE-WESTW 05-14 16:55
PROVIDERS: ADMIT Internal Medicine; ATTEND Family Medicine
DX: J15.69 Pneumonia due to other Gram-negative bacteria (principal); J96.21 Acute and chronic respiratory failure with hypoxia; Z68.43 Body mass index [BMI] 50.0-59.9, adult; J15.9 Unspecified bacterial pneumonia; E11.65 Type 2 diabetes mellitus with hyperglycemia; E66.01 Morbid (severe) obesity due to excess calories; E78.5 Hyperlipidemia, unspecified; I25.10 Atherosclerotic heart disease of native coronary artery without angina pectoris; F10.10 Alcohol abuse, uncomplicated; J84.10 Pulmonary fibrosis, unspecified; E11.42 Type 2 diabetes mellitus with diabetic polyneuropathy; F17.210 Nicotine dependence, cigarettes, uncomplicated; F32.A Depression, unspecified; G89.29 Other chronic pain; I27.20 Pulmonary hypertension, unspecified; J45.909 Unspecified asthma, uncomplicated; F12.90 Cannabis use, unspecified, uncomplicated; G40.909 Epilepsy, unspecified, not intractable, without status epilepticus; K21.9 Gastro-esophageal reflux disease without esophagitis; Z71.6 Tobacco abuse counseling; I50.9 Heart failure, unspecified; I11.0 Hypertensive heart disease with heart failure; M25.551 Pain in right hip; M54.50 Low back pain, unspecified; Z20.822 Contact with and (suspected) exposure to COVID-19; M79.605 Pain in left leg; G47.33 Obstructive sleep apnea (adult) (pediatric); Z74.01 Bed confinement status; Z79.899 Other long term (current) drug therapy; Z82.49 Family history of ischemic heart disease and other diseases of the circulatory system; Z83.3 Family history of diabetes mellitus; Z88.6 Allergy status to analgesic agent; Z98.61 Coronary angioplasty status; Z71.3 Dietary counseling and surveillance
CPT/HCPCS: 36415; 71045; 71275; 72131; 73502; 80053; 80307; 81001; 83880; 84484; 85025; 85379; 85610; 85730; 87081; 87426; 87804; 87807; 93005; 93306; 93925; 93970; 96361; 96374; 96375; 96376; 97110; 97116; 97163; 97530; G0378; J2405

== ENCOUNTER 2023-07-13 15:22 | Inpatient (IN) | payer OTHER ==
[~2023-07-13] VITALS: Ht 167.6 cm; Wt 122.7 kg
[~2023-07-13 15:22] MED LIST changes: +PRED20TA2 PO
[2023-07-13 16:42] VITALS: PULSE 70
[2023-07-13] MEDS: SODIUM CHLORIDE 0.9% 1,000 ML IV ONE (17:09)
[2023-07-13] MEDS: CEFEPIME 1GM/ 50ML 50 ML IV ONE (17:42)
[2023-07-13 18:05] LABS: Hemoglobin 12.6 g/dL (12.2-16.2); Mean Corpuscular Hemoglobin 25.3 pg (28.0-32.0); Mean Corpuscular Hgb Conc. 32.4 g/dL (32.0-36.0); Mean Corpuscular Volume 77.9 fL (80.0-100.0); Red Cell Distribution Width 16.8 % (11.8-14.3); White Blood Cell 9.7 10^3/uL (4.4-10.8)
[2023-07-13 18:13] LABS: Basophils % (manual) 0 (0.0-2.0); Blast Cells 0; Eosinophils % (manual) 0 (0-7); Metamyelocytes % 0; Myelocytes % 0; Promyelocytes % 0; Reactive Lymphocytes 0
[2023-07-13 18:32] LABS: Anisocytosis Slight; Band Neutrophils % (manual) 3; Lymphocytes % (manual) 12 (10.0-50.0); Monocytes % (manual) 14 (0-12); Platelet Estimate Adequate
[2023-07-13 19:11] LABS: Alanine Aminotransferase 48 U/L (7-40); Alkaline Phosphatase 216 U/L (46-116); Calcium 9.8 mg/dL (8.7-10.4); Chloride 97 mmol/L (98-107)
[2023-07-13 19:12] LABS: Albumin 4.3 g/dL (3.2-4.8); Anion Gap 6 (5-15); Aspartate Aminotransferase 34 U/L (13-40); BUN/Creatinine Ratio 20.2 (10.0-20.0); Bilirubin, Total 0.4 mg/dL (0.2-1.0); Blood Urea Nitrogen 17 mg/dL (9-23); Carbon Dioxide 30 mmol/L (20-30); Glucose 154 mg/dL (74-106); Magnesium 1.8 mg/dL (1.6-2.6); Sodium 133 mmol/L (136-145); Total Protein 8.3 g/dL (5.7-8.2)
[2023-07-13] MEDS ORDERED: ONDANSETRON HCL 4 MG/2 ML VIAL IV PRN (21:00)
[2023-07-13] MEDS ORDERED: DEXTROSE (50%) 50ML SYRG IV PRN (21:00)
[2023-07-13] MEDS ORDERED: ALBUTEROL SULF 2.5 MG/0.5ML(0.5%) NEB SOLN NEB PRN (21:00)
[2023-07-13 22:45] VITALS: PULSE 114; RESP 25; O2SAT 94
[2023-07-13] MEDS: TEMAZEPAM 15 MG CAP PO PRN (22:50)
[2023-07-13] MEDS: GABAPENTIN 300 MG CAP PO SCH (22:50)
[2023-07-13] MEDS: levETIRAcetam 500 MG TAB PO SCH (22:50)
[2023-07-13 23:27] VITALS: BP 131/77; PULSE 77; RESP 19; TEMP 98.1; O2SAT 99
[2023-07-13 23:30] VITALS: O2SAT 100
[2023-07-14] VITALS (9 sets, daily range): BP systolic 62–114; BP diastolic 51–70; PULSE 104–123; RESP 16–20; TEMP 98–103; O2SAT 90–100
[2023-07-14] MEDS: CEFEPIME 1GM/ 50ML 50 ML IV SCH (02:04)
[2023-07-14 05:19] LABS: Basophils # (auto) 0 10 ^3/uL (0-0.2); Eosinophils # (auto) 0 10 ^3/uL (0-0.8); Eosinophils % (auto) 0.1 % (0.0-7.0); Mean Corpuscular Hemoglobin 25.4 pg (28.0-32.0); Mean Corpuscular Hgb Conc. 32.4 g/dL (32.0-36.0); Mean Corpuscular Volume 78.5 fL (80.0-100.0); Monocytes # (auto) 1.2 10 ^3/uL (0-1.3)
[2023-07-14 05:24] LABS: Basophils % (auto) 0.4 % (0.0-2.0); Hematocrit 34.5 % (36.0-46.0); Hemoglobin 11.2 g/dL (12.2-16.2); Lymphocytes # (auto) 0.5 10 ^3/uL (0.4-5.4); Monocytes % (auto) 14.7 % (0.0-12.0); Neutrophils # (auto) 6.1 10 ^3/uL (1.6-8.6); Neutrophils % (auto) 77.8 % (37.0-80.0); Nucleated Red Blood Cells % 0.2 %; Red Blood Cells 4.39 10^6/uL (4.0-5.20); Red Cell Distribution Width 16.4 % (11.8-14.3); White Blood Cell 7.9 10^3/uL (4.4-10.8)
[2023-07-14 05:26] LABS: Chloride 100 mmol/L (98-107); Potassium 3.9 mmol/L (3.5-5.1); Sodium 131 mmol/L (136-145)
[2023-07-14 05:27] LABS: Anion Gap 6 (5-15); Carbon Dioxide 25 mmol/L (20-30)
[2023-07-14 05:32] LABS: BUN/Creatinine Ratio 16.1 (10.0-20.0); Blood Urea Nitrogen 15 mg/dL (9-23); Glucose 186 mg/dL (74-106)
[2023-07-14] MEDS: FUROSEMIDE 20 MG TAB PO SCH (05:50)
[2023-07-14] MEDS: ACETAMINOPHEN 325 MG TAB PO PRN (05:51)
[2023-07-14] MEDS: InsuLIN REG 1unit/0.01ml Soln (100units/ml) SC SCH (06:00)
[2023-07-14] MEDS: ACCU-CHEK COMFORT CURVE STRIP VI SCH (06:00)
[2023-07-14 08:43] LABS: Hepatitis B Surface Antigen Negative (Negative)
[2023-07-14 09:04] LABS: Hepatitis C Antibody Negative (Negative)
[2023-07-14] MEDS: ASPirin 81 mg TAB PO SCH (09:23)
[2023-07-14] MEDS: PARoxetine 20 MG TAB PO SCH (09:23)
[2023-07-14] MEDS: VALSARTAN 80 MG TAB PO SCH (09:35)
[2023-07-14] MEDS: levoFLOXacin 750MG 150 ML IV ONE (11:31)
[2023-07-14] MEDS ORDERED: LEVE100020 PO (17:09)
[2023-07-14] MEDS ORDERED: PARO-135 PO (17:09)
[2023-07-14] MEDS ORDERED: PREG-110 PO (17:09)
[2023-07-14] MEDS ORDERED: ESCI10TA PO (17:13)
[2023-07-14] MEDS ORDERED: TEMA15CA2 PO (17:13)
[2023-07-14] MEDS: PANTOPRAZOLE 40 MG TAB PO ONE (17:36)
[2023-07-14 21:17] LABS: COVID19 ANTIGEN SOFIA FIA NEGATIVE (NEGATIVE)
[2023-07-15] VITALS (9 sets, daily range): BP systolic 97–113; BP diastolic 59–69; PULSE 97–122; RESP 15–19; TEMP 97.7–101.7; O2SAT 92–97
[2023-07-15 05:31] LABS: Basophils # (auto) 0 10 ^3/uL (0-0.2); Basophils % (auto) 0.3 % (0.0-2.0); Eosinophils # (auto) 0 10 ^3/uL (0-0.8); Eosinophils % (auto) 0.1 % (0.0-7.0); Lymphocytes # (auto) 0.7 10 ^3/uL (0.4-5.4); Monocytes # (auto) 1.4 10 ^3/uL (0-1.3); White Blood Cell 11.2 10^3/uL (4.4-10.8)
[2023-07-15 05:35] LABS: Chloride 100 mmol/L (98-107); Potassium 3.3 mmol/L (3.5-5.1); Sodium 133 mmol/L (136-145)
[2023-07-15 05:36] LABS: Anion Gap 8 (5-15); Calcium 9.6 mg/dL (8.7-10.4); Carbon Dioxide 25 mmol/L (20-30)
[2023-07-15 05:37] LABS: Hematocrit 33.7 % (36.0-46.0); Lymphocytes % (auto) 5.9 % (10.0-50.0); Mean Corpuscular Hemoglobin 25.5 pg (28.0-32.0); Mean Corpuscular Hgb Conc. 32.7 g/dL (32.0-36.0); Mean Corpuscular Volume 77.9 fL (80.0-100.0); Monocytes % (auto) 12.6 % (0.0-12.0); Neutrophils # (auto) 9.1 10 ^3/uL (1.6-8.6); Neutrophils % (auto) 81.1 % (37.0-80.0); Nucleated Red Blood Cells % 0.1 %; Red Blood Cells 4.32 10^6/uL (4.0-5.20); Red Cell Distribution Width 17.3 % (11.8-14.3)
[2023-07-15 05:41] LABS: BUN/Creatinine Ratio 19.8 (10.0-20.0); Blood Urea Nitrogen 17 mg/dL (9-23); Glucose 132 mg/dL (74-106); Magnesium 1.5 mg/dL (1.6-2.6)
[2023-07-15 09:07] LABS: INR 1.39 (0.9-1.15); Partial Thromboplastin Time 33.5 SEC (24.5-34.5); Prothrombin Time 14.3 sec (9.3-11.8)
[2023-07-15] MEDS: POTASSIUM EFFERVESENT TAB 25 MEQ PO ONE (10:48)
[2023-07-15] MEDS: MAGNESIUM OXIDE 400 MG TAB PO ONE (10:48)
[2023-07-15] MEDS: levoFLOXacin 750MG 150 ML IV SCH (10:49)
[2023-07-15] MEDS: PANTOPRAZOLE 40 MG TAB PO SCH (10:49)
[2023-07-15] MEDS: ENOXAPARIN SOD 40 MG/0.4 ML SYRINGE SC ONE (10:51)
[2023-07-15] MEDS: ERTAPENEM SOD INJ 1 GM in SODIUM CHL 0.9% 50 ML IV ONE (13:15)
[2023-07-16] VITALS (9 sets, daily range): BP systolic 98–121; BP diastolic 61–68; PULSE 78–100; RESP 17–19; TEMP 98.4–98.8; O2SAT 94–100
[2023-07-16 06:24] LABS: Urine Bacteria FEW /hpf (None Seen); Urine Blood 1+ /uL (Negative); Urine Clarity HAZY (Clear); Urine Color Yellow (Yellow); Urine Hyaline Cast FEW /lpf (0 - 2); Urine Mucus FEW (None Seen); Urine Protein, UAD 1+ (Negative); Urine Specific Gravity 1.018 (1.001-1.035); Urine WBC 174 /hpf (0 - 5)
[2023-07-16 06:33] LABS: Amphetamine Screen, Urine Neg (NEGATIVE); Barbiturate Scree,Urine Neg (NEGATIVE); Benzodiazephine Screen, Urine Neg (NEGATIVE); Cocaine Screen, Urine Neg (NEGATIVE)
[2023-07-16 06:34] LABS: Cannabinoid Screen, Urine Neg (NEGATIVE); Opiate Scree,Urine Neg (NEGATIVE); Phencyclidine Screen, Urine Neg (NEGATIVE)
[2023-07-16 08:27] LABS: Chloride 102 mmol/L (98-107); Potassium 3.5 mmol/L (3.5-5.1); Sodium 134 mmol/L (136-145); White Blood Cell 12.5 10^3/uL (4.4-10.8)
[2023-07-16 08:28] LABS: Anion Gap 8 (5-15); Carbon Dioxide 24 mmol/L (20-30); Hematocrit 35.7 % (36.0-46.0); Hemoglobin 11.5 g/dL (12.2-16.2); Mean Corpuscular Hemoglobin 25.3 pg (28.0-32.0); Mean Corpuscular Hgb Conc. 32.1 g/dL (32.0-36.0); Mean Corpuscular Volume 78.9 fL (80.0-100.0); Red Blood Cells 4.52 10^6/uL (4.0-5.20); Red Cell Distribution Width 17.1 % (11.8-14.3)
[2023-07-16 08:29] LABS: Calcium 9.6 mg/dL (8.5-10.1)
[2023-07-16 08:30] LABS: Basophils % (manual) 0 (0.0-2.0); Blast Cells 0; Eosinophils % (manual) 0 (0-7); Metamyelocytes % 0; Myelocytes % 0; Promyelocytes % 0; Reactive Lymphocytes 0
[2023-07-16 08:33] LABS: BUN/Creatinine Ratio 18.4 (10.0-20.0); Blood Urea Nitrogen 16 mg/dL (9-23); Glucose 104 mg/dL (74-106)
[2023-07-16 09:16] LABS: Band Neutrophils % (manual) 8; Lymphocytes % (manual) 13 (10.0-50.0); Monocytes % (manual) 6 (0-12); Platelet Estimate Adequate
[2023-07-16] MEDS: ERTAPENEM SOD INJ 1 GM in SODIUM CHL 0.9% 50 ML IV SCH (09:29)
[2023-07-16] MEDS: ENOXAPARIN SOD 40 MG/0.4 ML SYRINGE SC SCH (09:30)
[2023-07-16 10:55] LABS: Magnesium 1.4 mg/dL (1.6-2.6)
[2023-07-16] MEDS: HYDROcodone-ACET 5/325MG TAB PO PRN (12:43)
[2023-07-16] MEDS: MAGNESIUM OXIDE 400 MG TAB PO ONE (15:17)
[2023-07-16] MEDS: POTASSIUM EFFERVESENT TAB 25 MEQ PO ONE (15:17)
[2023-07-16] MEDS: SODIUM CHLORIDE 0.9% 250 ML IV SCH (15:17)
[2023-07-16] MEDS: MAGNESIUM OXIDE 400 MG TAB PO SCH (21:29)
[2023-07-17] VITALS (8 sets, daily range): BP systolic 101–131; BP diastolic 58–75; PULSE 83–98; RESP 16–18; TEMP 36.9; O2SAT 95–100
[2023-07-17 05:50] LABS: Hematocrit 33.8 % (36.0-46.0); Mean Corpuscular Hemoglobin 25.4 pg (28.0-32.0); Mean Corpuscular Hgb Conc. 32.6 g/dL (32.0-36.0); Red Blood Cells 4.33 10^6/uL (4.0-5.20); Red Cell Distribution Width 17.1 % (11.8-14.3); White Blood Cell 11.3 10^3/uL (4.4-10.8)
[2023-07-17 06:01] LABS: Basophils % (manual) 0 (0.0-2.0); Blast Cells 0; Promyelocytes % 0; Reactive Lymphocytes 0
[2023-07-17 06:10] LABS: Chloride 102 mmol/L (98-107); Potassium 3.8 mmol/L (3.5-5.1); Sodium 136 mmol/L (136-145)
[2023-07-17 06:11] LABS: Anion Gap 10 (5-15); Calcium 9.6 mg/dL (8.7-10.4); Carbon Dioxide 24 mmol/L (20-30)
[2023-07-17 06:16] LABS: BUN/Creatinine Ratio 23.6 (10.0-20.0); Blood Urea Nitrogen 17 mg/dL (9-23); Glucose 100 mg/dL (74-106)
[2023-07-17 06:17] LABS: Magnesium 1.5 mg/dL (1.6-2.6)
[2023-07-17 07:01] LABS: Band Neutrophils % (manual) 2; Eosinophils % (manual) 1 (0-7); Lymphocytes % (manual) 10 (10.0-50.0); Metamyelocytes % 1; Monocytes % (manual) 11 (0-12); Myelocytes % 2; Platelet Estimate Adequate
[2023-07-17 07:02] LABS: Large Platelets FEW
== END 2023-07-17 18:45 | DRG 872 ==
LOC: EDBD 15:22 → ER 15:22 → OVERFLOW 21:02 → EAST 23:43
PROVIDERS: ADMIT Internal Medicine; ATTEND Internal Medicine
PROC: 05HC33Z Insertion of Infusion Device into Left Basilic Vein, Percutaneous Approach (ICD-10-PCS; principal; 2023-07-17)
PROC: B54NZZA Ultrasonography of Left Upper Extremity Veins, Guidance (ICD-10-PCS; 2023-07-17)
DX: A41.51 Sepsis due to Escherichia coli [E. coli] (principal); I50.32 Chronic diastolic (congestive) heart failure; N39.0 Urinary tract infection, site not specified; Z16.12 Extended spectrum beta lactamase (ESBL) resistance; Z68.41 Body mass index [BMI] 40.0-44.9, adult; J44.9 Chronic obstructive pulmonary disease, unspecified; K21.9 Gastro-esophageal reflux disease without esophagitis; E11.9 Type 2 diabetes mellitus without complications; E78.5 Hyperlipidemia, unspecified; I11.0 Hypertensive heart disease with heart failure; F17.210 Nicotine dependence, cigarettes, uncomplicated; Z20.822 Contact with and (suspected) exposure to COVID-19; E66.01 Morbid (severe) obesity due to excess calories; B96.89 Other specified bacterial agents as the cause of diseases classified elsewhere; I25.2 Old myocardial infarction; Z88.6 Allergy status to analgesic agent; Z95.5 Presence of coronary angioplasty implant and graft; Z86.73 Personal history of transient ischemic attack (TIA), and cerebral infarction without residual deficits
CPT/HCPCS: 36415; 36600; 71045; 80048; 80053; 80307; 81001; 82306; 82805; 82962; 83036; 83605; 83735; 83986; 84443; 85007; 85025; 85027; 85048; 85610; 85730; 86803; 87040; 87081; 87086; 87340; 87426; 87804; 93005; 94640; 96365; 96366; 96372; 96375; 97163; G0378; J1100; J1335; J1815; J1956

== ENCOUNTER 2024-10-09 05:46 | Inpatient (IN) | payer OTHER, MEDICAID ==
[~2024-10-09] VITALS: Ht 167.6 cm; Wt 148.8 kg
[2024-10-09] VITALS (7 sets, daily range): BP systolic 86–111; BP diastolic 61–86; PULSE 70–138; RESP 17–22; TEMP 96.5–98; O2SAT 92–98
[~2024-10-09 05:46] MED LIST changes: -ASPI-498 OR; -DOXY100C4 PO; +ESCI10TA PO; -FURO1TAB31 PO; -HYDR-4902 PO; -KEP500T PO; +LEVE100020 PO; -OME20T PO; -PAR20T PO; +PARO-135 PO; +POTA-215 PO; -POTA10TA51 PO; -POTA1TAB61 PO; +PREG100C66 PO; -PREG200C19 PO; +TEMA15CA2 PO
[2024-10-09 07:07] LABS: Basophils # (auto) 0 10 ^3/uL (0-0.2); Monocytes # (auto) 0.7 10 ^3/uL (0-1.3)
[2024-10-09 07:09] LABS: Basophils % (auto) 0.9 % (0.0-2.0); Eosinophils # (auto) 0 10 ^3/uL (0-0.8); Eosinophils % (auto) 0.4 % (0.0-7.0); Hematocrit 44.8 % (36.0-46.0); Hemoglobin 13.8 g/dL (12.2-16.2); Lymphocytes # (auto) 0.7 10 ^3/uL (0.4-5.4); Lymphocytes % (auto) 12.7 % (10.0-50.0); Mean Corpuscular Hemoglobin 23.6 pg (28.0-32.0); Mean Corpuscular Hgb Conc. 30.8 g/dL (32.0-36.0); Mean Corpuscular Volume 76.8 fL (80.0-100.0); Neutrophils # (auto) 4.2 10 ^3/uL (1.6-8.6); Nucleated Red Blood Cells % 0.5 %; Platelet Count (auto) 245 10^3/uL (140-450); Red Blood Cells 5.83 10^6/uL (4.0-5.20); Red Cell Distribution Width 21.6 % (11.8-14.3); White Blood Cell 5.8 10^3/uL (4.4-10.8)
--- NOTE | 2024-10-09 07:09 | ED.PDOC ---
HPI Comments 64F BIBA from home w/ prior MHx of Depression, Asthma, CHF, COPD, CVA-left sided deficits, DM, GERD, High Lipids, HTN, OR, SZ, Takes 2L of Home O2;SHx of PTCA and the c/c of chest wall pain. EMS report that the pt has had N/V/D, for 2 days and sternal chest wall pain w/ palpitations, and left flank pain which started yesterday. Pain type of a 9/10 CP. Pt notes that she is bed bound. Denies chills, fever, SOB. Denies any other associated symptom's, modifiers, or recent injuries or sick contact at this time. Chief Complaint: Chest Pain Time Seen by MD: 06:40 Primary Care Provider: YARIEL Reviewed Notes: Nurses Notes, Chemical Processing Laborer Notes, Medications, Allergies Allergies: Coded Allergies: Ibuprofen (Verified Allergy, Severe, SKIN RASHES, 02/01/10) Home Meds Active Scripts Prednisone (Prednisone) 20 Mg Tab, 60 MG PO DAILY, #15 TAB Prov:ANTHONY PERES MD 07/12/23 Reported Medications Temazepam (Restoril) 15 Mg Cp, 1 CAP PO QPM 07/14/23 Escitalopram Oxalate (Lexapro) 10 Mg Tab, 1 TAB PO DAILY 07/14/23 Paroxetine Hydrochloride (Paroxetine Hydrochloride) 40 Mg Tab, 1 TAB PO DAILY 07/14/23 Levetiracetam (Levetiracetam) 1,000 Mg Tab, 1 TAB PO BID 07/14/23 Pregabalin (Pregabalin) 100 Mg Cap, 1 CAP PO TID 07/14/23 Hydroxyzine Hcl (Hydroxyzine Hcl) 25 Mg Tab, 1 TAB PO DAILY, #30 TAB 11/07/22 Magnesium Oxide (MAGNESIUM OXIDE) 400 Mg Tab, 500 MG PO DAILY, TAB 11/07/22 Potassium Chloride (Klor-Con M10) 10 Meq Tab, 1 TAB PO BID, #30 TAB 5 Refills 11/07/22 Gabapentin (Gabapentin) 300 Mg Cap, 300 MG PO TID for 30 Days, MG 11/07/22 Furosemide (Lasix) 20 Mg Tb, 1 TAB PO BID, #90 TAB 1 Refill 11/07/22 Aspirin (Aspir-Low) 81 Mg Tab, 81 MG PO DAILY for 30 Days, MG 11/07/22 Valsartan-Hydrochlorothiazide (Diovan Hct) 160 Mg/25 Mg Tab 01/29/10 Fluticasone-Salmeterol (Advair Diskus) 250/50 Mis 01/29/10 Hydrocodone-Acetaminophen (Hydrocodone Bitartrate/Ac) 1 Tab Tab 01/29/10 Rosuvastatin Calcium (Crestor) 10 Mg Tab 01/29/10 Esomeprazole Magnesium Trihydr (Nexium) 40 Mg Cap 01/29/10 Aspirin (Aspir-Fany) 325 Mg Tab Change to 81mg daily 01/29/10 Diphenhydramine Hcl (Twilite) 50 Mg Tab 01/29/10 Oxcarbazepine (Trileptal) 300 Mg Tab 01/29/10 Information Source: Patient, Emergency Med Personnel Mode of Arrival: EMS Severity: Moderate Timing: Days Duration: Since onset, Days Prehospital treatment: None Location: Substernal Radiation: No Radiation Quality: Aching Onset: At Rest Cardiac Risk Factors: Hyperlipidemia, HTN, Diabetes PE Risk Factors: None History of: OR Associated Signs and Symptoms: Abdominal Pain, N/V Past Medical History PAST MEDICAL HISTORY: Asthma, CHF, COPD, CVA (Left Sided Deficits), Depression, DM, GERD, High Lipids, HTN, OR, Seizures Surgical History: PTCA 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 History Family History Family History: Reviewed,noncontributory to illness, Unknown Social History Smoker: Unknown Alcohol: Unknown Drugs: Unknown Lives In: Home, Assisted Care Constitutional: denies: chills, diaphoresis, fatigue, fever, malaise, sweats, weakness, others EENTM: denies: blurred vision, double vision, ear bleeding, ear discharge, ear drainage, ear pain, ear ringing, eye pain, eye redness, hearing loss, mouth pain, mouth swelling, nasal discharge, nose bleeding, nose congestion, nose pain, photophobia, tearing, throat pain, throat swelling, voice changes, others Respiratory: denies: cough, hemoptysis, orthopnea, SOB at rest, shortness of breath, SOB with excertion, stridor, wheezing, others Cardiovascular: reports: chest pain; denies: dizzy spells, diaphoresis, Dyspnea on exertion, edema, irregular heart beat, left arm pain, lightheadedness, palpitations, PND, syncope, others Gastrointestinal: reports: diarrhea, nausea, vomiting; denies: abdomen distended, abdominal pain, blood streaked bowels, constipated, dysphagia, difficulty swallowing, hematemesis, melena, poor appetite, poor fluid intake, rectal bleeding, rectal pain, others Genitourinary: reports: flank pain (left sided); denies: abnormal vagina bleeding, burning, dyspareunia, dysuria, frequency, hematuria, incontinence, pain, , vagina discharge, urgency, others Neurological: denies: dizziness, fainting, headache, left sided numbness, left sided weakness, numbness, paresthesia, pre-existing deficit, right sided numbness, right sided weakness, seizure, speech problems, tingling, tremors, weakness, others Musculoskeletal: denies: back pain, gout, joint pain, joint swelling, muscle pain, muscle stiffness, neck pain, others Integumetry: denies: bruises, change in color, change in hair/nails, dryness, laceration, lesions, lumps, rash, wounds, others Allergic/Immunocompromised: denies: Difficulty Healing, Frequent Infections, Hives, Itching, others Hematologic/Lymphatic: denies: anemia, blood clots, easy bleeding, easy bruising, swollen glands, others Endocrine: denies: excessive hunger, excessive sweating, excessive thirst, excessive urination, flushing, intolerance to cold, intolerance to heat, unexplained weight gain, unexplained weight loss, others Psychiatric: denies: anxiety, bipolar disorder, depression, hopeless, panic disorder, schizophrenia, sleepless, suicidal, others All Other Systems: Reviewed and Negative Physical Exam General Appearance: Mild Distress, Moderate Distress, Obese HEENT: Normal ENT Inspection, PERRL/EOMI, TMs Normal Neck: Limited Range of Motion, Normal, Normal Inspection, Tender Lateral Respiratory: Chest Non-Tender, Lungs Clear, No Accessory Muscle Use, No Respiratory Distress, Normal Breath Sounds Cardiovascular: Irregular, No Edema, No JVD, No Murmur, No Gallop, Normal Per ipheral Pulses, Regular Rate/Rhythm, Tachycardia, Other (Sternal pain patient tender to touch everywhere) Breast Exam: Deferred Gastrointestinal: No Organomegaly, Non Tender, No Pulsatile Mass, Normal Bowel Sounds, Soft, Other (Patient extremely obese and bed ridden) Genitalia: Deferred Pelvic: Deferred Rectal: Deferred Extremities: Decreased range of motion, Leg edema, No calf tenderness, Pedal edema, Swelling, Tender Musculoskeletal : Apperance: Normal Neurologic: Alert, hassock maker II-XII nml as Tested, Motor Weakness, Normal Affect, Normal Mood, Sensory Deficit Cerebellar Function: Unable to Test Reflexes: NOT DONE Skin: Dry, Warm, Wounds (Venous stasis dermatitis) Peripheral Pulses: 1+ carotid (R), 1+ carotid (L) Lymphatic: No Adenopathy EKG EKG : Pulse Rate (adult): 115 [place]: Normal Cardiac Rhythm: ST Block: None Hypertrophy: None ST: Normal Comments EKG #2: 156 Afib Was a procedure done? Was a procedure done?: No CP Differential Dx Differential Diagnosis: A-fib, Angina, Anxiety / Panic Attack, Electrolyte Disorder, Heart Failure, Hyperthyroidism, Hyperventilation, Pulmonary Embolus, Sinus Tachycardia Differential Diagnosis: CHF, HTN Essential Differential Diagnosis: Angina, Chest Wall Pain, Costochondritis, Esophageal reflux/spasm, Myocardial Infarction, Pneumonia, Pulmonary Embolus X-Ray, Labs, Meds, VS Vital Signs Date Time Temp Pulse Resp B/P (MAP) Pulse Ox O2 Delivery O2 Flow Rate FiO2 10/09/24 08:00 138 22 92 Nasal Cannula* 2 28 10/09/24 08:00 98.3 138 22 90/61 (71) 92 98.3 10/09/24 07:26 115 10/09/24 07:11 156 10/09/24 06:02 115 10/09/24 05:46 98.9 120 24 100/74 (83) 94 98.9 Lab Test 10/09/24 10:55 10/09/24 10:22 10/09/24 06:13 Range/Units Urine Color Pending Urine Clarity Pending Urine pH Pending Urine Specific [place] Pending Urine Protein Pending Urine Ketones Pending Urine Blood Pending Urine Nitrite Pending Urine Bilirubin Pending Urine Urobilinogen Pending Urine Leukocyte Esterase Pending Urine RBC Pending Urine Microscopic WBC Pending Urine Squamous Epithelial Cells Pending Urine Bacteria Pending Urine Glucose Pending Troponin I High Sensitivity 10 9 </=34 ng/L White Blood Count 5.8 4.4-10.8 10^3/uL Red Blood Count 5.83 H 4.0-5.20 10^6/uL Hemoglobin 13.8 12.2-16.2 g/dL Hematocrit 44.8 36.0-46.0 % Mean Corpuscular Volume 76.8 L 80.0-100.0 fL Mean Corpuscular Hemoglobin 23.6 L 28.0-32.0 pg Mean Corpuscular Hemoglobin Concent 30.8 L 32.0-36.0 g/dL Red Cell Distribution Width 21.6 H 11.8-14.3 % Platelet Count 245 140-450 10^3/uL Mean Platelet Volume 7.6 6.9-10.8 fL Neutrophils (%) (Auto) 73.0 37.0-80.0 % Lymphocytes (%) (Auto) 12.7 10.0-50.0 % Monocytes (%) (Auto) 13.0 H 0.0-12.0 % Eosinophils (%) (Auto) 0.4 0.0-7.0 % Basophils (%) (Auto) 0.9 0.0-2.0 % Neutrophils # (Auto) 4.2 1.6-8.6 10 ^3/uL Lymphocytes # (Auto) 0.7 0.4-5.4 10 ^3/uL Monocytes # (Auto) 0.7 0-1.3 10 ^3/uL Eosinophils # (Auto) 0 0-0.8 10 ^3/uL Basophils # (Auto) 0 0-0.2 10 ^3/uL Nucleated Red Blood Cells 0.5 % Platelet Estimate Adequate Clumped Platelets Few Hypochromasia (manual) Slight Anisocytosis (manual) Moderate Microcytosis Slight D-Dimer, Quantitative 2.24 H 0.0-0.49 mg/L FEU Sodium Level 142 136-145 mmol/L Potassium Level 3.8 3.5-5.1 mmol/L Chloride Level 103 98-107 mmol/L Carbon Dioxide Level 27 20-31 mmol/L Anion Gap 12 5-15 Blood Urea Nitrogen 7 L 9-23 mg/dL Creatinine 1.02 0.550-1.02 mg/dL Glomerular Filtration Rate Calc 61 >90 mL/min BUN/Creatinine Ratio 6.9 L 10.0-20.0 Serum Glucose 124 H 74-106 mg/dL Calcium Level 7.7 L 8.7-10.4 mg/dL Magnesium Level 0.8 *L 1.6-2.6 mg/dL Total Bilirubin 0.5 0.2-1.0 mg/dL Aspartate Amino Transferase (AST) 23 13-40 U/L Alanine Aminotransferase (ALT) 9 7-40 U/L Alkaline Phosphatase 104 46-116 U/L Total Protein 7.1 5.7-8.2 g/dL Albumin 3.9 3.2-4.8 g/dL Thyroid Stimulating Hormone (TSH) 0.66 0.55-4.78 uIU/mL Current Medications Medications (Trade) Dose Ordered Sig/Marck Route Start Time Stop Time Status Last Admin Aspirin 162 mg ONCE ONCE PO 10/09/24 07:00 10/09/24 07:01 DC 10/09/24 08:37 Ondansetron HCl (Zofran) 4 mg ONCE ONCE IV 10/09/24 07:00 10/09/24 07:01 DC 10/09/24 08:38 Sodium Chloride 1,000 ml @ 150 mls/hr Q6H40M ONCE IV 10/09/24 07:00 10/09/24 13:39 10/09/24 08:37 Ketorolac Tromethamine (Toradol Injection) 30 mg ONCE ONCE IV 10/09/24 07:00 10/09/24 07:01 DC 10/09/24 08:38 Diltiazem HCl (Cardizem Injection) 20 mg ONCE ONCE IV 10/09/24 11:15 10/09/24 11:16 DC 10/09/24 11:10 X-Ray, Labs, Meds, VS Comment Course in the emergency department eventful patient came in complaining of chest pain nausea vomiting diarrhea and history of seizure disorder high cholesterol CVA diabetes COPD CHF myocardial infarction hypertension GERD and depression The chest x-ray shows cardiomegaly with a pulmonary vascular congestion EKG shows sinus tachycardia at 1:15 a.m. with left ventricular hypertrophy and a QT interval prolonged the 2nd EKG shows uncontrolled atrial fibrillation at 1:56 a.m. with a bundle-branch block and right axis deviation CBC 5800 with 73% neutrophils and normal H&H D-dimer elevated at 2.24 CMP vision 0.8 Troponin nine TSH 0.66 Patient will be admitted for further care We will order V/Q scan with the patient is stable Time of 1ST Reevaluation: 07:10 Reevaluation 1ST: Unchanged Time of 2ND Reevaluation: 11:20 Reevaluation 2ND: Unchanged Patient Education/Counseling: Diagnosis, Treatment, Prognosis Family Education/Counseling: Diagnosis, Treatment, Prognosis, No Family Present Departure 1 Departure Time of Disposition: 11:22 Impression: Primary Impression: Chest pain Qualified Codes: I20.0 - Unstable angina Additional Impressions: D-dimer, elevated Generalized weakness Hypomagnesemia History of myocardial infarction Morbid obesity due to excess calories Fluid retention in legs Body fluid retention Disposition: ADMITTED INPATIENT Admit to: Tele Condition: Serious Critical Care Note Critical Care Time?: No Stability Stability form required: Yes Unstable for transfer: Telemetry monitoring (Telemetry monitoring required), Requires medication (Requires Med for stabilization) Heart Score Heart Score: Heart Score Response (Comments) Value History Moderate Suspicious 1 EKG Repolarization Disturb 1 Age 45-64 1 Risk Factors >3 or Hx ASHD 2 Troponin Normal limit 0 Total 5 I personally scribed for DAISY GARCIAS MD ([email or web address]) on 10/09/24 at 07:09. Electronically submitted by Kendrick Lieberman ([employer]). I personally scribed for DAISY GARCIAS MD ([email or web address]) on 10/09/24 at 07:26. Electronically submitted by Kendrick Lieberman ([employer]). DAISY GARCIAS MD October 09, 2024 07:09
[2024-10-09 07:21] LABS: Alkaline Phosphatase 104 U/L (46-116); Anion Gap 12 (5-15); Aspartate Aminotransferase 23 U/L (13-40); BUN/Creatinine Ratio 6.9 (10.0-20.0); Carbon Dioxide 27 mmol/L (20-31); Chloride 103 mmol/L (98-107); Potassium 3.8 mmol/L (3.5-5.1); Sodium 142 mmol/L (136-145); Total Protein 7.1 g/dL (5.7-8.2)
[2024-10-09 07:22] LABS: Alanine Aminotransferase 9 U/L (7-40); Albumin 3.9 g/dL (3.2-4.8); Bilirubin, Total 0.5 mg/dL (0.2-1.0); Blood Urea Nitrogen 7 mg/dL (9-23); Calcium 7.7 mg/dL (8.7-10.4); Glucose 124 mg/dL (74-106)
[2024-10-09 07:23] LABS: Magnesium 0.8 mg/dL (1.6-2.6)
--- NOTE | 2024-10-09 08:06 | DVH ---
EXAM: XR Chest, 1 View CLINICAL INDICATION: cp TECHNIQUE: Frontal view of the chest. COMPARISON: XY CHEST PORTABLE on DOS: 07/14/23, XY CHEST PORTABLE on DOS: 07/12/23, XY CHEST XRAY 1 VIE W on DOS: 05/19/23, XY CHEST PORTABLE on DOS: 05/13/23, XY CHEST PORTABLE on DOS: 12/28/22 FINDINGS: LUNGS AND PLEURAL SPACES: See below. HEART: Cardiomegaly with mild congestion. MEDIASTINUM: Unremarkable. Normal mediastinal contour. BONES/JOINTS: Unremarkable. No acute fracture. OTHER FINDINGS: . . . IMPRESSION: Cardiomegaly with mild congestion.
[2024-10-09] MEDS: SODIUM CHLORIDE 0.9% 1,000 ML IV ONE (08:37)
[2024-10-09] MEDS: ASPirin 81 mg TAB PO ONE (08:37)
[2024-10-09] MEDS: ONDANSETRON HCL 4 MG/2 ML VIAL IV ONE (08:38)
[2024-10-09] MEDS: KETOROLAC TROMETH 30 MG/ML 1ML VIAL IV ONE (08:38)
[2024-10-09 09:16] LABS: Anisocytosis Moderate; Hypochromia Slight; Platelet Estimate Adequate
[2024-10-09] MEDS: dilTIAZem 25 MG/5 ML VIAL IV ONE (11:10)
[2024-10-09 11:23] LABS: Urine Bacteria FEW /hpf (None Seen); Urine Blood Negative /uL (Negative); Urine Clarity Clear (Clear); Urine Color Yellow (Yellow); Urine Hyaline Cast FEW /lpf (0 - 2); Urine Mucus FEW (None Seen); Urine Protein, UAD 1+ (Negative); Urine Specific Gravity 1.018 (1.001-1.035); Urine Squamous Epithelial Cell MANY /hpf (<5); Urine Urobilinogen 3 mg/dL (Negative); Urine WBC 3 /HPF (0-5); Urine pH 5.5 (5.0-9.0)
[2024-10-09] MEDS ORDERED: NITROGLYCERIN 0.4 MG SL TAB SL PRN ×2 (11:45)
[2024-10-09] MEDS ORDERED: MORPHINE SULFATE INJ 2 MG/ml SYRG IV PRN (11:45)
[2024-10-09] MEDS ORDERED: ONDANSETRON HCL 4 MG/2 ML VIAL IV PRN (11:45)
[2024-10-09] MEDS ORDERED: MORPHINE SULFATE 4 MG/ML SYR/VIAL IV PRN (11:45)
[2024-10-09] MEDS ORDERED: MULT-1056 PO (12:15)
[2024-10-09] MEDS ORDERED: PANT40T PO (12:15)
[2024-10-09] MEDS ORDERED: AMLO1TAB23 PO (12:15)
[2024-10-09] MEDS ORDERED: DEXTROSE (50%) 50ML SYRG IV PRN (13:00)
[2024-10-09 13:05] LABS: Amphetamine Screen, Urine Neg (NEGATIVE)
[2024-10-09 13:06] LABS: Barbiturate Scree,Urine Neg (NEGATIVE); Benzodiazephine Screen, Urine Neg (NEGATIVE); Cannabinoid Screen, Urine Neg (NEGATIVE); Cocaine Screen, Urine Neg (NEGATIVE); Opiate Scree,Urine Neg (NEGATIVE); Phencyclidine Screen, Urine Neg (NEGATIVE)
[2024-10-09] MEDS: MAGNESIUM SULFATE 1GM/100ML 100 ML IV SCH (13:15)
[2024-10-09] MEDS: cefTRIAXone 1GM/50ML D5W 50 ML IV SCH (13:17)
--- NOTE | 2024-10-09 13:38 | DVHHP2 ---
History of Present Illness Reason for Visit: Chest pain History of Present Illness Sugar Hanson is a 64-year-old female with past medical history of hypertension, diabetes, COPD, CHF, MO, stroke with left-sided deficits, depression, GERD, seizure, gastritis, hiatal hernia, EGD, and status post PTCA couple years ago who presents to the ED with chest pain, nausea and vomiting x2 days. Patient reports that she was lying in bed when the pain suddenly happened. She states that that time. Pain was 9/10 pressure-like and constant however upon examination she states that there is no pain. She also reports that he she uses 2 L of oxygen via nasal cannula at home. Patient is also states that she vapes and does not smoke cigarettes but she does use marijuana and drinks occasionally. Patient reports that she lives alone in his bed-bound. She also stated that she is a paraplegic however she still able to move her lower extremities and upper extremities equally. Also when discussed about her stroke she stated that she had some left-sided deficits but both sides are equal upon examination. Patient does report left-sided flank pain. Patient denies any shortness of breath, fever, chills, recent trauma or injury, recent sick contacts, recent ingestion of spoiled food, recent travels, abdominal pain, nausea, vomiting, diarrhea, lightheadedness, weakness, or dizziness. Patient also states that she does not take any anticoagulants for the stent that she had placed in previously. 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 Psych: Depression Endocrine: Diabetes Past Medical History GERD Gastritis Hiatal hernia Past Surgical History: Other (EGDPTCA couple years ago states that she does not remember it was done) Smoke: <1 pack per day (Vape) ALCOHOL: none Drugs: Marijuana Lives: Alone Domestic Violence: Neg Review of Systems Cardiovascular: Chest Pain, Palpitations Gastrointestinal: Nausea, Vomiting Allergies: Coded Allergies: Ibuprofen (Verified Allergy, Severe, SKIN RASHES, 02/01/10) Medications Current Medications Medications Dose Ordered Sig/Marck Route Start Time Stop Time Status Last Admin Dose Admin Magnesium Sulfate/ Dextrose 100 ml @ 100 mls/hr Q1H IV 10/09/24 11:00 10/09/24 14:59 Aspirin 81 mg DAILY PO 10/10/24 10:00 UNV Atorvastatin Calcium 40 mg HS PO 10/09/24 22:00 UNV Morphine Sulfate 2 mg Q30MP PRN IV 10/09/24 11:45 UNV Acetaminophen 650 mg Q6HP PRN PO 10/09/24 11:45 UNV Nitroglycerin 0.4 mg Q5MINP PRN SL 10/09/24 11:45 UNV Ondansetron HCl 4 mg Q4HP PRN IV 10/09/24 11:45 UNV Nitroglycerin 0.4 mg Q5MINP PRN SL 10/09/24 11:45 UNV Morphine Sulfate 2 mg Q30M PRN IV 10/09/24 11:45 UNV Ceftriaxone Sodium 50 ml @ 100 mls/hr DAILY@09 IV 10/09/24 11:45 UNV Furosemide 20 mg BID PO 10/09/24 22:00 UNV Gabapentin 300 mg TID PO 10/09/24 14:00 UNV Temazepam 15 mg QPM PO 10/09/24 18:00 UNV Patient Own Medication 1 tab DAILY PO 10/10/24 10:00 UNV Patient Own Medication 1 tab BID PO 10/09/24 22:00 UNV Patient Own Medication 1 tab DAILY PO 10/10/24 10:00 UNV Patient Own Medication 1 cap TID PO 10/09/24 14:00 UNV Exam Vital Signs Vital Signs Date Time Temp Pulse Resp B/P (MAP) Pulse Ox O2 Delivery O2 Flow Rate FiO2 10/09/24 08:00 138 22 92 Nasal Cannula* 2 28 10/09/24 08:00 98.3 90/61 (71) 98.3 General Appearance: Alert, Oriented X3, Cooperative, No acute distress HEENT: Atraumatic, PERRLA, EOMI, Mucous membr. moist/pink Respiratory: Normal air movement Cardiovascular: Normal S1, Normal S2 Abdominal: Normal bowel sounds, Soft Extremities: No clubbing, No cyanosis Neuro: Normal speech, Normal tone, Sensation intact Psych/Mental Status: Mental status NL, Mood NL Labs/Xrays Labs Test 10/09/24 10:55 10/09/24 10:22 10/09/24 06:13 Range/Units Urine Color Yellow Yellow Urine Clarity Clear Clear Urine pH 5.5 5.0-9.0 Urine Specific [place] 1.018 1.001-1.035 Urine Protein 1+ H Negative Urine Ketones Negative Negative Urine Blood Negative Negative /uL Urine Nitrite Negative Negative Urine Bilirubin Negative Negative Urine Urobilinogen 3 H Negative mg/dL Urine Leukocyte Esterase Trace Negative /uL Urine RBC 2 0 - 4 /hpf Urine Microscopic WBC 3 0-5 /HPF Urine Squamous Epithelial Cells Many <5 /hpf Urine Bacteria Few H None Seen /hpf Urine Hyaline Casts Few 0 - 2 /lpf Urine Mucus Few None Seen Urine Glucose Normal Normal mg/dL Troponin I High Sensitivity 10 </=34 ng/L White Blood Count 5.8 4.4-10.8 10^3/uL Red Blood Count 5.83 H 4.0-5.20 10^6/uL Hemoglobin 13.8 12.2-16.2 g/dL Hematocrit 44.8 36.0-46.0 % Mean Corpuscular Volume 76.8 L 80.0-100.0 fL Mean Corpuscular Hemoglobin 23.6 L 28.0-32.0 pg Mean Corpuscular Hemoglobin Concent 30.8 L 32.0-36.0 g/dL Red Cell Distribution Width 21.6 H 11.8-14.3 % Platelet Count 245 140-450 10^3/uL Mean Platelet Volume 7.6 6.9-10.8 fL Neutrophils (%) (Auto) 73.0 37.0-80.0 % Lymphocytes (%) (Auto) 12.7 10.0-50.0 % Monocytes (%) (Auto) 13.0 H 0.0-12.0 % Eosinophils (%) (Auto) 0.4 0.0-7.0 % Basophils (%) (Auto) 0.9 0.0-2.0 % Neutrophils # (Auto) 4.2 1.6-8.6 10 ^3/uL Lymphocytes # (Auto) 0.7 0.4-5.4 10 ^3/uL Monocytes # (Auto) 0.7 0-1.3 10 ^3/uL Eosinophils # (Auto) 0 0-0.8 10 ^3/uL Basophils # (Auto) 0 0-0.2 10 ^3/uL Nucleated Red Blood Cells 0.5 % Platelet Estimate Adequate Clumped Platelets Few Hypochromasia (manual) Slight Anisocytosis (manual) Moderate Microcytosis Slight D-Dimer, Quantitative 2.24 H 0.0-0.49 mg/L FEU Sodium Level 142 136-145 mmol/L Potassium Level 3.8 3.5-5.1 mmol/L Chloride Level 103 98-107 mmol/L Carbon Dioxide Level 27 20-31 mmol/L Anion Gap 12 5-15 Blood Urea Nitrogen 7 L 9-23 mg/dL Creatinine 1.02 0.550-1.02 mg/dL Glomerular Filtration Rate Calc 61 >90 mL/min BUN/Creatinine Ratio 6.9 L 10.0-20.0 Serum Glucose 124 H 74-106 mg/dL Calcium Level 7.7 L 8.7-10.4 mg/dL Magnesium Level 0.8 *L 1.6-2.6 mg/dL Total Bilirubin 0.5 0.2-1.0 mg/dL Aspartate Amino Transferase (AST) 23 13-40 U/L Alanine Aminotransferase (ALT) 9 7-40 U/L Alkaline Phosphatase 104 46-116 U/L Total Protein 7.1 5.7-8.2 g/dL Albumin 3.9 3.2-4.8 g/dL Thyroid Stimulating Hormone (TSH) 0.66 0.55-4.78 uIU/mL US KIDNEY HISTORY: flank pain COMPARISON: None TECHNIQUE: Transverse and longitudinal grayscale and color doppler images were obtained of the kidneys and bladder. FINDINGS: Right kidney: Size: 10.7 cm Cortical thickness: Normal Echogenicity: Normal Stones: None Masses: None Hydronephrosis: None Ureters: Not well visualized. Other: None Left kidney: Size: 11.1 cm Cortical thickness: Normal Echogenicity: Normal Stones: None Masses: None Hydronephrosis: None Ureters: Not well visualized. Other: None Bladder: Mary. Other: None. IMPRESSION: Unremarkable renal ultrasound. EXAM: XR Chest, 1 View CLINICAL INDICATION: cp TECHNIQUE: Frontal view of the chest. COMPARISON: XY CHEST PORTABLE on DOS: 07/14/23, XY CHEST PORTABLE on DOS: 07/12/23, XY CHEST XRAY 1 VIEW on DOS: 05/19/23, XY CHEST PORTABLE on DOS: 05/13/23, XY CHEST PORTABLE on DOS: 12/28/22 FINDINGS: LUNGS AND PLEURAL SPACES: See below. HEART: Cardiomegaly with mild congestion. MEDIASTINUM: Unremarkable. Normal mediastinal contour. BONES/JOINTS: Unremarkable. No acute fracture. OTHER FINDINGS: . . . IMPRESSION: Cardiomegaly with mild congestion. Assessment/Plan Assessment/Plan Assessment Chest pain with nausea and vomiting Palpitations Intractable left flank pain Acute hypoxic respiratory failure UTI Hypomagnesemia Marijuana use Vaping use History of hypertension History of diabetes type 2 History of COPD History of CHF History of MO History of stroke with left-sided weakness History of depression History of GERD History of seizures History of gastritis History of hiatal hernia History of EGD History of PTCA couple years ago does not remember where it was done Chronic bed-bound ?Paraplegia reported per patient Plan Admit to tele Unable to find chart EKG ordered Replete lytes Supportive oxygen IV antibiotics-ceftriaxone Hemoglobin A1c ISS and Accu-Cheks Diurese Diltiazem given in ED Pain management Antiemetics Aspirin NM V/Q scan Troponin negative x2 TSH Mary catheter D-dimer RBC morphology Echo ordered Lipid panel Mag level UDS TSH Renal ultrasound Diet DVT prophylaxis-Lovenox PUD prophylaxis-PPIs Discussed plan of care with patient and nurse Rounding team Consider cardiac consult if symptoms do not improve or if troponins elevated Social work-home safety patient states that she lives alone but unsure who helps her Plan discussed with: Patient My Orders Orders - [facility] LICENSED PRACTICAL NURSE Procedure Category Date Status Time Admit ADMIT 10/09/24 Transmitted 11:32 Code Status CODE 10/09/24 Transmitted 11:32 Vital Signs STAN 10/09/24 In Process 11:32 Agents' Records Clerk STAN 10/09/24 In Process 11:32 Cardiac DIET 10/09/24 Transmitted Diet-2gna,Lofat,Lochol Lunch Aspirin Tablet PHA 10/10/24 Logged 10:00 Atorvastatin (Lipitor) PHA 10/09/24 Logged 22:00 Morphine Sulfate PHA 10/09/24 Logged Injection 11:45 Acetaminophen Tablet PHA 10/09/24 Logged (Tylenol Tablet) 11:45 Complete Blood Count LAB 10/10/24 Verified 04:00 Basic Metabolic Panel LAB 10/10/24 Verified 04:00 Magnesium LAB 10/10/24 Verified 04:00 Lipid Panel LAB 10/10/24 Verified 04:00 Echo 2d Mode Cardiac US 10/09/24 Logged DOP 11:32 Nitroglycerin PHA 10/09/24 Logged Sublingual (Ntrostat 11:45 Ondansetron Hcl PHA 10/09/24 Logged (Zofran) 11:45 Electrocardigram EKG 10/10/24 Logged 04:00 Cardiac STAN 10/09/24 In Process Rehabilitation - Outpa Nitroglycerin PHA 10/09/24 Logged Sublingual (Ntrostat 11:45 Morphine Sulfate PHA 10/09/24 Logged Injection 11:45 Stat Ekg For Chest STAN 10/09/24 In Process Pain 11:32 Notify Of Changes [facility] 10/09/24 In Process From Base 11:32 Fishing Instructor For STAN 10/09/24 In Process 24 Hours 11:32 Emergency Dysrhythmia STAN 10/09/24 In Process Protocol 11:32 Rhythm Strips Once [facility] 10/09/24 In Process Every Shift 11:32 Oxygen By Nasal RT 10/09/24 Transmitted Cannula 11:32 Drug Screen LAB 10/09/24 Logged 11:32 Hemoglobin A1c LAB 10/09/24 In Process 11:32 Ceftriaxone 1gm/50ml PHA 10/09/24 Logged D5w (Rocephin) 11:45 Furosemide Tablet PHA 10/09/24 Logged (Lasix Tablet) 22:00 Gabapentin Capsule PHA 10/09/24 Logged (Neurontin Capsule) 14:00 Temazepam (Restoril) PHA 10/09/24 Logged 18:00 (Nf) Escitalopram PHA 10/10/24 Logged Oxalate (Lexapro) 10:00 (Nf) Levetiracetam PHA 10/09/24 Logged 22:00 (Nf) Paroxetine PHA 10/10/24 Logged Hydrochloride 10:00 (Nf) Pregabalin PHA 10/09/24 Logged 14:00 Date of Service: October 09, 2024 Billing Provider: HARESH KUMAR Common Visit Codes: [id number] INP/OBS CARE (HIGH) HARESH KUMAR October 09, 2024 13:38
--- NOTE | 2024-10-09 13:40 | DVH ---
US KIDNEY HISTORY: flank pain COMPARISON: None TECHNIQUE: Transverse and longitudinal grayscale and color doppler images were obtained of the kidney s and bladder. FINDINGS: Right kidney: Size: 10.7 cm Cortical thickness: Normal Echogenicity: Normal Stones: None Masses: None Hydronephrosis: None Ureters: Not well visualized. Other: None Left kidney: Size: 11.1 cm Cortical thickness: Normal Echogenicity: Normal Stones: None Masses: None Hydronephrosis: None Ureters: Not well visualized. Other: None Bladder: Mary. Other: None. IMPRESSION: Unremarkable renal ultrasound.
[2024-10-09] MEDS: GABAPENTIN 300 MG CAP PO SCH (14:11)
[2024-10-09] MEDS: PREGABALIN 25 MG CAP PO SCH (14:12)
[2024-10-09] MEDS: FUROSEMIDE 40 MG/4 ML VIAL IV SCH (15:05)
[2024-10-09] MEDS: ACCU-CHEK COMFORT CURVE STRIP VI SCH (17:00)
[2024-10-09] MEDS: InsuLIN REG 1unit/0.01ml Soln (100units/ml) SC SCH (17:00)
--- NOTE | 2024-10-09 18:57 | ECG ---
[facility] Test Date: 2024-10-09 Test Time: 06:02:59 Pat Name: WICHO SMITH Department: ED Room: 0236T A Gender: F Patient Escort: PAUL : 1960 Requested By: MARIKA MORAN Order Number: [id number] Reading MD: Carlitos Parada Measurements Intervals [place] Rate: 115 P: 80 AK: 156 QRS: 131 QRSD: 85 T: 57 QT: 367 QTc: 508 Interpretive Statements Sinus tachycardia Low voltage, precordial leads Probable right ventricular hypertrophy Prolonged QT interval Electronically Signed On 10-10-2024 22:28:56 PDT by Carlitos Parada Please click the below link to view image of tracing.
--- NOTE | 2024-10-09 18:57 | ECG ---
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
--- NOTE | 2024-10-09 18:58 | ECG ---
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
[2024-10-09] MEDS ORDERED: FUROSEMIDE 20 MG TAB PO SCH (22:00)
[2024-10-09] MEDS ORDERED: MAGNESIUM SULFATE 1GM/100ML 100 ML IV SCH (22:00)
[2024-10-09] MEDS: levETIRAcetam 500 MG TAB PO SCH (22:08)
[2024-10-09] MEDS: ATORVASTATIN 20 MG TAB PO SCH (22:08)
[2024-10-09] MEDS: TEMAZEPAM 15 MG CAP PO SCH (22:09)
[2024-10-10] VITALS (8 sets, daily range): BP systolic 101–116; BP diastolic 64–83; PULSE 69–118; RESP 16–18; TEMP 97.1–98.4; O2SAT 93–98
[2024-10-10 06:30] LABS: Basophils # (auto) 0 10 ^3/uL (0-0.2); Basophils % (auto) 0.6 % (0.0-2.0); Eosinophils # (auto) 0.1 10 ^3/uL (0-0.8); Monocytes # (auto) 0.9 10 ^3/uL (0-1.3)
[2024-10-10 06:34] LABS: Eosinophils % (auto) 2.4 % (0.0-7.0); Hematocrit 40.6 % (36.0-46.0); Hemoglobin 12.5 g/dL (12.2-16.2); Lymphocytes # (auto) 0.6 10 ^3/uL (0.4-5.4); Lymphocytes % (auto) 12.2 % (10.0-50.0); Mean Corpuscular Hemoglobin 23.8 pg (28.0-32.0); Mean Corpuscular Hgb Conc. 30.9 g/dL (32.0-36.0); Mean Corpuscular Volume 77.1 fL (80.0-100.0); Monocytes % (auto) 16.9 % (0.0-12.0); Neutrophils # (auto) 3.6 10 ^3/uL (1.6-8.6); Neutrophils % (auto) 67.9 % (37.0-80.0); Nucleated Red Blood Cells % 0.4 %; Platelet Count (auto) 228 10^3/uL (140-450); Red Blood Cells 5.27 10^6/uL (4.0-5.20); Red Cell Distribution Width 21.3 % (11.8-14.3); White Blood Cell 5.3 10^3/uL (4.4-10.8)
[2024-10-10 06:40] LABS: Anion Gap 6 (5-15); Carbon Dioxide 30 mmol/L (20-31); Chloride 104 mmol/L (98-107); Sodium 140 mmol/L (136-145)
[2024-10-10 06:41] LABS: Calcium 7.8 mg/dL (8.7-10.4)
[2024-10-10 06:46] LABS: BUN/Creatinine Ratio 12.6 (10.0-20.0); Blood Urea Nitrogen 14 mg/dL (9-23); Glucose 129 mg/dL (74-106); LDL Cholesterol 63 mg/dL (< 100); Magnesium 1.5 mg/dL (1.6-2.6); Triglycerides 94 mg/dL (< 150)
[2024-10-10 06:47] LABS: Cholesterol 153 mg/dL (< 200); HDL Cholesterol 65 mg/dL (40-59)
[2024-10-10] MEDS: ASPirin 81 mg TAB PO SCH (08:33)
[2024-10-10] MEDS ORDERED: [UNRECOGNIZED DRUG - OTHER] PO SCH (10:00)
[2024-10-10] MEDS ORDERED: Escitalopram Oxalate (Lexapro) 10 MG TABLET PO SCH (10:00)
--- NOTE | 2024-10-10 10:42 | DVHSR ---
APPROVED REPORT EXAM: Two-dimensional and M-mode echocardiogram with Doppler and color Doppler. Blood Pressure: 90/61 mmHg INDICATION Chest Pain RISK FACTORS Obesity: Height: 5' 6", Weight: 299 DIMENSIONS LVDd4.7 (3.8-5.7cm)LA (2D)3.8 (1.9-4.0cm)Aortic Root2.9 (2.0-3.7cm) LVDs3.7 (2.5-4.0cm)LA (MM) (1.9-4.0cm)Aortic Cusp Exc1.7 (1.5-2.0cm) EF (%) 60.0 (55-70%)Rt. Atrium5.5 (1.9-4.0cm)Asc. Aorta cm IVSd0.9 (0.7-1.1cm)RV (D) (1.8-2.4cm) PWd1.0 (0.7-1.1cm) Mitral Valve MitralMitral Stenosis E wave1.00m/sMV Mean GR.mmHg A wave0.80m/sMV Peak GR.mmHg E/A ratio1.32D MVAcm2 Aortic Valve Aortic ValveAortic Stenosis V11.00m/Susanna Mean GR.12mmHg V22.50m/Susanna Peak GR.25mmHg LVOT Diameter2.2 (1.8-2.4cm)Doppler AVA1.52cm2 Pulmonic Valve V20.60m/s Tricuspid Valve TR Velocity3.70m/s [id number] Other Information Quality : Technically LimitedRhythm : Technically limited study due to body habitus. Conclusion lvef 55% flattened IV septum c/w RV overload RV marked enlarged with mild dysfunction biatrial enlargement mild tricuspd regurg moderate pulm htn, pasp > 52 mmhg
--- NOTE | 2024-10-10 13:59 | DVH ---
Indication: elevated d dimer Technique: CT axial images of the chest are obtained with intravenous contrast per CT angiogram prot ocol. Coronal and sagittal reformats were obtained. Radiation Dose Information: CTDI volume is 28.33 mGy. Dose-length product is 846.0 mGy*cm Comparison: CT CT ANGIO CHEST CONTRAST on DOS: 05/14/23, CT CT ANGIO CHEST CONTRAST on DOS: 12/29/22 FINDINGS: Pulmonary embolism within the distal right main pulmonary artery extending to the subsegmental branch es. Overall the bilateral segmental and subsegmental branches are suboptimally opacified/characterize . Trachea patent. No pneumothorax. Left upper, lower lobe airspace consolidation. Bilateral atelectasi s. Small left and tiny right pleural effusions. Cardiomegaly. Small pericardial effusion. There is a right hilar lymph node measuring 2.1 cm. Subcarinal lymph node measuring 2 cm. Pretracheal lymph node measuring 11 mm. Prevascular lymph nodes measuring up to 11 mm. No supraclavicular or axillary lymphadenopathy. Spleen measures 13 cm AP. No aggressive osseous process. IMPRESSION: 1. Pulmonary embolism to the distal right main pulmonary extending of the right lower lobe segmental branches. 2. Left upper and lower lobe airspace consolidation. Small left and tiny right pleural effusions. 3. Cardiomegaly, small pericardial effusion. 4. Mediastinal/hilar lymphadenopathy. 5. Splenomegaly. [ Pulmonary embolism finding discussed with nurse Rosales at 10/10/2024 03:55 PM, and acknowledged rece ipt and understanding of the findings. Findings will be communicated to patient's ordering doctor. ..
[2024-10-10] MEDS ORDERED: HEPARIN SODIUM (PORCINE) 5000 UNITS/ML 1ML VIAL IV ONE (14:00)
[2024-10-10 14:54] LABS: Mean Corpuscular Hemoglobin 23.3 pg (28.0-32.0); Neutrophils # (auto) 4.4 10 ^3/uL (1.6-8.6)
[2024-10-10 14:55] LABS: Basophils # (auto) 0 10 ^3/uL (0-0.2); Basophils % (auto) 0.7 % (0.0-2.0); Eosinophils # (auto) 0.1 10 ^3/uL (0-0.8); Eosinophils % (auto) 2.2 % (0.0-7.0); Hematocrit 38.8 % (36.0-46.0); Lymphocytes # (auto) 0.6 10 ^3/uL (0.4-5.4); Lymphocytes % (auto) 10.6 % (10.0-50.0); Mean Corpuscular Hgb Conc. 30.9 g/dL (32.0-36.0); Mean Corpuscular Volume 75.4 fL (80.0-100.0); Monocytes # (auto) 0.8 10 ^3/uL (0-1.3); Monocytes % (auto) 13.6 % (0.0-12.0); Neutrophils % (auto) 72.9 % (37.0-80.0); Platelet Count (auto) 228 10^3/uL (140-450); Red Blood Cells 5.14 10^6/uL (4.0-5.20); Red Cell Distribution Width 21.6 % (11.8-14.3); White Blood Cell 6.1 10^3/uL (4.4-10.8)
[2024-10-10 15:09] LABS: INR 1.33 (0.9-1.15); Partial Thromboplastin Time 29.1 SEC (24.5-34.5); Prothrombin Time 13.7 sec (9.3-11.8)
[2024-10-10] MEDS ORDERED: MORPHINE SULFATE INJ 2 MG/ml SYRG IV PRN (15:15)
[2024-10-10] MEDS ORDERED: MORPHINE SULFATE 4 MG/ML SYR/VIAL IV PRN (15:30)
[2024-10-10] MEDS: MORPHINE SULFATE 4 MG/ML SYR/VIAL IV PRN (15:32)
[2024-10-10] MEDS: HEPARIN DRIP/D5W 100UNITS/ML 250 ML IV SCH (15:42)
--- NOTE | 2024-10-10 17:53 | DVHPN2 ---
Subjective Having some SOB Reviewed: H&P, Labs Changes from previous H/P or p: No Changes Cardiovascular: Chest Pain, Palpitations Gastrointestinal: Nausea, Vomiting Objective Vitals Vital Signs Date Time Temp Pulse Resp B/P (MAP) Pulse Ox O2 Delivery O2 Flow Rate FiO2 10/10/24 17:00 98.1 118 16 108/65 (79) 98 98.1 10/10/24 08:00 Nasal Cannula* 3 32 Intake/Output Intake and Output 10/10/24 07:00 Intake Total 550 ml Output Total 550 ml Balance 0 ml Intake Oral 200 ml IV Total 350 ml Output Urine Total 550 ml # Voids 1 # Bowel Movements 1 General Appearance: Alert, Oriented X3 Cardiovascular: Regular rate, Normal S1, Normal S2 Abdomen: Normal bowel sounds Medications Current Medications Medications Dose Ordered Sig/Marck Route Start Time Stop Time Status Last Admin Dose Admin Aspirin 81 mg DAILY PO 10/10/24 10:00 10/10/24 08:33 81 MG Atorvastatin Calcium 40 mg HS PO 10/09/24 22:00 10/09/24 22:08 40 MG Acetaminophen 650 mg Q6HP PRN PO 10/09/24 11:45 Ondansetron HCl 4 mg Q4HP PRN IV 10/09/24 11:45 Nitroglycerin 0.4 mg Q5MINP PRN SL 10/09/24 11:45 Morphine Sulfate 2 mg Q30M PRN IV 10/09/24 11:45 Cancel Ceftriaxone Sodium 50 ml @ 100 mls/hr DAILY@09 IV 10/09/24 11:45 10/10/24 08:33 100 MLS/HR Gabapentin 300 mg TID PO 10/09/24 14:00 10/10/24 15:13 300 MG Temazepam 15 mg HS PO 10/09/24 22:00 10/09/24 22:09 15 MG Patient Own Medication 1 tab DAILY PO 10/10/24 10:00 Cancel Levetiracetam 1,000 mg BID PO 10/09/24 22:00 10/10/24 08:33 1,000 MG Patient Own Medication 1 tab DAILY PO 10/10/24 10:00 Cancel Pregabalin 100 mg TID PO 10/09/24 14:00 10/10/24 15:13 100 MG Diagnostic Test (Pha) 1 strip ACHS 10/09/24 17:00 10/10/24 11:30 1 STRIP Insulin Human Regular ACHS SC 10/09/24 17:00 10/10/24 11:30 2 UNITS Dextrose 50 ml UD PRN IV 10/09/24 13:00 Furosemide 40 mg DAILY IV 10/09/24 14:45 10/10/24 08:33 40 MG Heparin Sodium/ Dextrose 250 ml @ 20 mls/hr [id number] IV 10/10/24 14:00 10/10/24 15:42 20 MLS/HR Morphine Sulfate 2 mg Q4HPRN PRN IV 10/10/24 15:15 UNV Morphine Sulfate 2 mg Q4HPRN PRN IV 10/10/24 15:30 10/10/24 15:32 2 MG Morphine Sulfate 2 mg Q30M PRN IV 10/10/24 15:30 Citalopram Hydrobromide 20 mg DAILY PO 10/11/24 10:00 Paroxetine HCl 40 mg DAILY PO 10/11/24 10:00 Laboratory Results Laboratory Tests 10/10/24 05:01 10/10/24 14:47 Chemistry Test 10/10/24 05:01 Calcium Level 7.8 mg/dL (8.7-10.4) L Magnesium Level 1.5 mg/dL (1.6-2.6) L Coagulation Test 10/10/24 14:47 Prothrombin Time 13.7 sec (9.3-11.8) H Prothrombin Time INR 1.33 (0.9-1.15) H Activated Partial Thromboplast Time 29.1 SEC (24.5-34.5) Lipid panel Test 10/10/24 05:01 Cholesterol Level 153 mg/dL (< 200) HDL Cholesterol 65 mg/dL (40-59) H Triglycerides Level 94 mg/dL (< 150) Urinalysis Test 10/09/24 10:55 Urine Color Yellow (Yellow) Urine Clarity Clear (Clear) Urine pH 5.5 (5.0-9.0) Urine Specific [place] 1.018 (1.001-1.035) Urine Protein 1+ (Negative) H Urine Ketones Negative (Negative) Urine Blood Negative /uL (Negative) Urine Nitrite Negative (Negative) Urine Bilirubin Negative (Negative) Urine Urobilinogen 3 mg/dL (Negative) H Urine Leukocyte Esterase Trace /uL (Negative) Urine RBC 2 /hpf (0 - 4) Urine Microscopic WBC 3 /HPF (0-5) Urine Squamous Epithelial Cells Many /hpf (<5) Urine Bacteria Few /hpf (None Seen) H Urine Hyaline Casts Few /lpf (0 - 2) Urine Mucus Few (None Seen) Urine Glucose Normal mg/dL (Normal) Microbiology Microbiology Date/Time Source Procedure Growth Status 10/10/24 01:10 Nose MRSA Screen - Final Complete Assessment/Plan Assessment/Plan #Acute hypoxic respiratory failure #Acute PE #Chest pain CT showed right main pulmonary artery to lower lobe PE Continue oxygen echo consult pulmonary Heparin drip Chronic problems Hypomagnesemia Marijuana use Vaping use History of hypertension History of diabetes type 2 History of COPD History of CHF History of ME History of stroke with left-sided weakness History of depression History of GERD History of seizures History of gastritis History of hiatal hernia History of EGD History of PTCA couple years ago does not remember where it was done Chronic bed-bound ?Paraplegia reported per patient Plan discussed with: Patient My Orders Orders - JEN GONSALEZ MD Procedure Category Date Status Time Ct Angio Chest CT 10/10/24 Resulted Contrast 11:01 Platelet Monitoring [facility] 10/10/24 In Process 13:59 Vte Protocol Initiated [facility] 10/10/24 In Process 13:59 Heparin Per [facility] 10/10/24 In Process Standardized Proce 13:59 Discontinue All Im [facility] 10/10/24 In Process Injections 13:59 Heparin Drip/D5w [facility] 10/10/24 In Process 100units/Ml 14:00 PTPTT LAB 10/10/24 Logged 21:00 Complete Blood Count LAB 10/11/24 Verified 04:00 Heparin Per Pharmacy [facility] 10/10/24 In Process Protocol 14:42 Morphine Sulfate PHA 10/10/24 In Process Injection 15:30 Date of Service: Oct 10, 2024 Billing Provider: JEN GONSALEZ MD Common Visit Codes: [id number] INP/OBS CARE(HIGH) JEN GONSALEZ MD Oct 10, 2024 17:52
[2024-10-10 21:20] LABS: INR 1.31 (0.9-1.15); Partial Thromboplastin Time 55.5 SEC (24.5-34.5); Prothrombin Time 13.5 sec (9.3-11.8)
[2024-10-11] VITALS (8 sets, daily range): BP systolic 108–134; BP diastolic 73–89; PULSE 93–104; RESP 12–17; TEMP 95.6–98.2; O2SAT 93–97
[2024-10-11 03:13] LABS: Basophils # (auto) 0 10 ^3/uL (0-0.2); Eosinophils # (auto) 0.2 10 ^3/uL (0-0.8); Hemoglobin 11.4 g/dL (12.2-16.2); Lymphocytes # (auto) 0.8 10 ^3/uL (0.4-5.4); Mean Corpuscular Hemoglobin 23.9 pg (28.0-32.0); Monocytes # (auto) 0.6 10 ^3/uL (0-1.3); Nucleated Red Blood Cells % 0.1 %; Red Blood Cells 4.77 10^6/uL (4.0-5.20)
[2024-10-11 03:15] LABS: Basophils % (auto) 0.7 % (0.0-2.0); Eosinophils % (auto) 3.7 % (0.0-7.0); Hematocrit 37.1 % (36.0-46.0); Lymphocytes % (auto) 16.7 % (10.0-50.0); Mean Corpuscular Hgb Conc. 30.7 g/dL (32.0-36.0); Mean Corpuscular Volume 77.7 fL (80.0-100.0); Monocytes % (auto) 13.9 % (0.0-12.0); Platelet Count (auto) 190 10^3/uL (140-450); Red Cell Distribution Width 21.7 % (11.8-14.3); White Blood Cell 4.7 10^3/uL (4.4-10.8)
[2024-10-11 03:26] LABS: INR 1.31 (0.9-1.15); Partial Thromboplastin Time 59.4 SEC (24.5-34.5); Prothrombin Time 13.5 sec (9.3-11.8)
--- NOTE | 2024-10-11 08:19 | ECG ---
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
[2024-10-11] MEDS: PARoxetine 20 MG TAB PO SCH (09:36)
[2024-10-11] MEDS: CITALOPRAM HYDROBR 20 MG TAB PO SCH (09:37)
[2024-10-11 11:04] LABS: INR 1.31 (0.9-1.15); Prothrombin Time 13.5 sec (9.3-11.8)
[2024-10-11 11:10] LABS: Partial Thromboplastin Time 73.7 SEC (24.5-34.5)
--- NOTE | 2024-10-11 13:21 | DVHPN2 ---
Subjective She was diagnosed with a PE She is on heparin drip She is on oxygen She has home O2 also for her COPD She is also complaining of swelling of her left flank area that she says she had for the last month On the x-rays she also has left upper and lower lobe pneumonia She is bed-bound at home Reviewed: H&P, Labs Changes from previous H/P or p: Changes Cardiovascular: Chest Pain, Palpitations Gastrointestinal: Nausea, Vomiting Objective Vitals Vital Signs Date Time Temp Pulse Resp B/P (MAP) Pulse Ox O2 Delivery O2 Flow Rate FiO2 10/11/24 10:05 99 15 124/73 10/11/24 09:00 98.2 94 98.2 10/11/24 08:00 Nasal Cannula* 3 32 Intake/Output Intake and Output 10/11/24 07:00 Intake Total 1620 ml Output Total 1600 ml Balance 20 ml Intake Oral 1570 ml IV Total 50 ml Output Urine Total 1600 ml # Bowel Movements 1 General Appearance: Alert, Oriented X3 Cardiovascular: Regular rate, Normal S1, Normal S2 Abdomen: Normal bowel sounds Medications Current Medications Medications Dose Ordered Sig/Marck Route Start Time Stop Time Status Last Admin Dose Admin Aspirin 81 mg DAILY PO 10/10/24 10:00 10/11/24 09:37 81 MG Atorvastatin Calcium 40 mg HS PO 10/09/24 22:00 10/10/24 21:07 40 MG Acetaminophen 650 mg Q6HP PRN PO 10/09/24 11:45 Ondansetron HCl 4 mg Q4HP PRN IV 10/09/24 11:45 Nitroglycerin 0.4 mg Q5MINP PRN SL 10/09/24 11:45 Morphine Sulfate 2 mg Q30M PRN IV 10/09/24 11:45 Cancel Ceftriaxone Sodium 50 ml @ 100 mls/hr DAILY@09 IV 10/09/24 11:45 10/11/24 09:33 100 MLS/HR Gabapentin 300 mg TID PO 10/09/24 14:00 10/11/24 06:03 300 MG Temazepam 15 mg HS PO 10/09/24 22:00 10/10/24 21:08 15 MG Patient Own Medication 1 tab DAILY PO 10/10/24 10:00 Cancel Levetiracetam 1,000 mg BID PO 10/09/24 22:00 10/11/24 09:36 1,000 MG Patient Own Medication 1 tab DAILY PO 10/10/24 10:00 Cancel Pregabalin 100 mg TID PO 10/09/24 14:00 10/11/24 06:03 100 MG Diagnostic Test (Pha) 1 strip ACHS 10/09/24 17:00 10/11/24 11:30 1 STRIP Insulin Human Regular ACHS SC 10/09/24 17:00 10/11/24 12:35 2 UNITS Dextrose 50 ml UD PRN IV 10/09/24 13:00 Furosemide 40 mg DAILY IV 10/09/24 14:45 10/11/24 09:36 40 MG Heparin Sodium/ Dextrose 250 ml @ 20 mls/hr [id number] IV 10/10/24 14:00 10/11/24 04:56 20 MLS/HR Morphine Sulfate 2 mg Q4HPRN PRN IV 10/10/24 15:15 UNV Morphine Sulfate 2 mg Q4HPRN PRN IV 10/10/24 15:30 10/11/24 09:35 2 MG Morphine Sulfate 2 mg Q30M PRN IV 10/10/24 15:30 Citalopram Hydrobromide 20 mg DAILY PO 10/11/24 10:00 10/11/24 09:37 20 MG Paroxetine HCl 40 mg DAILY PO 10/11/24 10:00 10/11/24 09:36 40 MG Laboratory Results Laboratory Tests 10/10/24 05:01 10/11/24 02:55 Coagulation Test 10/10/24 14:47 10/10/24 20:53 10/11/24 02:55 10/11/24 10:06 Prothrombin Time 13.7 sec (9.3-11.8) H 13.5 sec (9.3-11.8) H 13.5 sec (9.3-11.8) H 13.5 sec (9.3-11.8) H Prothrombin Time INR 1.33 (0.9-1.15) H 1.31 (0.9-1.15) H 1.31 (0.9-1.15) H 1.31 (0.9-1.15) H Activated Partial Thromboplast Time 29.1 SEC (24.5-34.5) 55.5 SEC (24.5-34.5) H 59.4 SEC (24.5-34.5) H 73.7 SEC (24.5-34.5) *H Urinalysis Test 10/09/24 10:55 Urine Color Yellow (Yellow) Urine Clarity Clear (Clear) Urine pH 5.5 (5.0-9.0) Urine Specific [place] 1.018 (1.001-1.035) Urine Protein 1+ (Negative) H Urine Ketones Negative (Negative) Urine Blood Negative /uL (Negative) Urine Nitrite Negative (Negative) Urine Bilirubin Negative (Negative) Urine Urobilinogen 3 mg/dL (Negative) H Urine Leukocyte Esterase Trace /uL (Negative) Urine RBC 2 /hpf (0 - 4) Urine Microscopic WBC 3 /HPF (0-5) Urine Squamous Epithelial Cells Many /hpf (<5) Urine Bacteria Few /hpf (None Seen) H Urine Hyaline Casts Few /lpf (0 - 2) Urine Mucus Few (None Seen) Urine Glucose Normal mg/dL (Normal) Microbiology Microbiology Date/Time Source Procedure Growth Status 10/10/24 01:10 Nose MRSA Screen - Final Complete Assessment/Plan Assessment/Plan Acute pulmonary embolism Acute hypoxic respiratory failure Chronic respiratory failure on home O2 COPD Old CVA Bed-bound Left upper lobe pneumonia and left lower lobe pneumonia, most likely mixed Gram- negative and Gram-positive bacteria Hypertension Morbid obesity Type 2 diabetes Paraplegia Left flank swelling and pain Hypomagnesemia Chronic kidney disease Coronary artery disease status post stents on aspirin Seizures Plan IV antibiotics Rocephin Add doxycycline Discontinue heparin and start Eliquis No need for V/Q scan Oxygen as needed Get CT scan of the abdomen and pelvis to evaluate left flank swelling Continue aspirin Lasix 40 mg IV daily Continue gabapentin Continue Keppra Lipitor Monitor closely The rest of the management will depend on the hospital course Full code Advance directives discussed for 22 minutes Plan discussed with: Patient Date of Service: Oct 11, 2024 Billing Provider: JUSTA POWELL MD Common Visit Codes: [id number] INP/OBS CARE(HIGH) Secondary Visit Codes: [id number] CARE PLAN 30 MINUTES JUSTA POWELL MD Oct 11, 2024 13:21
--- NOTE | 2024-10-11 15:19 | DVH ---
Indication: abd swelling Technique: CT axial images of the abdomen and pelvis are obtained without contrast. Coronal and sagit ezekiel reformats were obtained. Radiation Dose Information: CTDI volume is 26.86 mGy. Dose-length product is 1571.37 mGy*cm Comparison: None FINDINGS: There is limited interpretation of the abdomen and pelvis without administration of intravenous contr ast. The lung bases demonstrate bibasilar atelectasis/ consolidation. Small left pleural effusion. Small p ericardial effusion. Cardiomegaly. Adrenal glands, pancreas unremarkable in shape. Liver unremarkable in shape. No CT evidence for cho lelithiasis. Borderline splenomegaly. Contrast within the kidneys from previous examination consistent with underlying renal dysfunction. Stomach partially distended. Small bowel loops are normal in caliber. Moderate volume stool within the colon. No secondary signs for appendicitis. Abdominal aortic atherosclerotic disease. Calcified uterine leiomyomas. Bladder decompressed by Fole y catheter. Contrast within the bladder. No inguinal lymphadenopathy. Soft tissue edema / anasarca. Moderate thoracolumbar degenerative disc disease chronic appearing L1 compression deformity with schm orl's node, 20% loss height. Similar chronic L4 deformity with schmorl's node, 20% loss height. IMPRESSION: 1. Bibasilar atelectasis/consolidation, [id number]. Small left pleural effusion. Follow- up to resolution to exclude underlying pulmonary lesion. 2. Soft tissue edema/ anasarca. 3. Moderate volume stool within the colon. 4. Aortic atherosclerosis, calcified leiomyomas noted. 5. Retained contrast within the kidneys from previous examination suggesting renal dysfunction. 6. Borderline splenomegaly. 7. Other findings as described.
[2024-10-11] MEDS: DOXYCYCLINE 100MG/100ML 100 ML IV SCH (16:21)
--- NOTE | 2024-10-11 21:00 | DVHINCON2 ---
Date of service: Oct 11, 2024 Referring Physician Silvana Bazan MD Reason for Consultation Acute on chronic hypoxic respiratory failure 2/2 pulmonary embolism. History of Present Illness A 64-year-old woman with past medical history of COPD, hypertension, diabetes, CHF, PA, stroke with reported left-sided deficits, depression, GERD, and seizure who presented to ED on 10/09/24 with c/o chest pain, nausea and vomiting x2 days. Patient reported lying in bed when the pain suddenly happened; pain was 9/10, pressure-like and constant. Upon examination in ED, patient denied any pain. She reported using 2 L NC at home. Patient also reported left-sided flank pain but denied any other acute complaints. She was admitted for further care, and pulmonary consultation is requested for evaluation and management of acute on chronic hypoxic respiratory failure 2/2 pulmonary embolism. Review of Systems: 14-point review of systems negative unless otherwise noted above. Past Medical History: COPD, hypertension, diabetes, CHF, PA, stroke with left-sided deficits, depression, GERD, seizure, gastritis, hiatal hernia Past Surgical History: EGD; PTCA couple years ago Medications: Reviewed. Allergies: Ibuprofen Family History: DM and hypertension. Social History: Smoker, <1 pack per day (Vape). Occasional alcohol use. Positive Marijuana use. Family History: Family history: Diabetes mellitus G8 MOTHER Family history: Hypertension G8 FATHER Allergies: Coded Allergies: Ibuprofen (Verified Allergy, Severe, SKIN RASHES, 02/01/10) Home Meds Active Scripts Furosemide (Lasix) 40 Mg Tab, 40 MG PO DAILY for 30 Days, #30 TAB 5 Refills Prov:SILVANA BAZAN MD 10/18/24 Apixaban Base (ELIQUIS) 5 Mg Tab, 5 MG PO BID for 30 Days, #60 TAB 5 Refills Prov:SILVANA BAZAN MD 10/18/24 Prednisone (Prednisone) 20 Mg Tab, 60 MG PO DAILY, #15 TAB Prov:ANTHONY PERES MD 07/12/23 Reported Medications Amlodipine Besylate (Amlodipine Besylate) 10 Mg Tab, 1 TAB PO 10/09/24 Multiple Vitamin (Multivitamin) 1 Tab Tab, 1 TAB PO DAILY 10/09/24 Pantoprazole Sodium Sesquihydr (Pantoprazole Sodium) 40 Mg Tab, 1 TAB PO DAILY 10/09/24 Temazepam (Restoril) 15 Mg Cp, 1 CAP PO QPM 07/14/23 Escitalopram Oxalate (Lexapro) 10 Mg Tab, 1 TAB PO DAILY 07/14/23 Paroxetine Hydrochloride (Paroxetine Hydrochloride) 40 Mg Tab, 1 TAB PO DAILY 07/14/23 Levetiracetam (Levetiracetam) 1,000 Mg Tab, 1 TAB PO BID 07/14/23 Pregabalin (Pregabalin) 100 Mg Cap, 1 CAP PO TID 07/14/23 Hydroxyzine Hcl (Hydroxyzine Hcl) 25 Mg Tab, 1 TAB PO DAILY, #30 TAB 11/07/22 Magnesium Oxide (MAGNESIUM OXIDE) 400 Mg Tab, 500 MG PO DAILY, TAB 11/07/22 Potassium Chloride (Klor-Con M10) 10 Meq Tab, 1 TAB PO BID, #30 TAB 5 Refills 11/07/22 Gabapentin (Gabapentin) 300 Mg Cap, 300 MG PO TID for 30 Days, MG 11/07/22 Furosemide (Lasix) 20 Mg Tb, 1 TAB PO BID, #90 TAB 1 Refill 11/07/22 Aspirin (Aspir-Low) 81 Mg Tab, 81 MG PO DAILY for 30 Days, MG 11/07/22 Valsartan-Hydrochlorothiazide (Diovan Hct) 160 Mg/25 Mg Tab 01/29/10 Fluticasone-Salmeterol (Advair Diskus) 250/50 Mis 01/29/10 Hydrocodone-Acetaminophen (Hydrocodone Bitartrate/Ac) 1 Tab Tab 01/29/10 Rosuvastatin Calcium (Crestor) 10 Mg Tab 01/29/10 Esomeprazole Magnesium Trihydr (Nexium) 40 Mg Cap 01/29/10 Aspirin (Aspir-Fany) 325 Mg Tab Change to 81mg daily 01/29/10 Diphenhydramine Hcl (Twilite) 50 Mg Tab 01/29/10 Oxcarbazepine (Trileptal) 300 Mg Tab 01/29/10 Current Medications Current Medications Medications (Trade) Dose Ordered Sig/Marck Route PRN Reason Start Time Stop Time Status Last Admin Citalopram Hydrobromide (CeleXA TABLET) 20 mg DAILY PO 10/11/24 10:00 10/11/24 09:37 Paroxetine HCl (Paxil Tablet) 40 mg DAILY PO 10/11/24 10:00 10/11/24 09:36 Apixaban (Eliquis) 10 mg BID PO 10/11/24 22:00 10/18/24 10:01 Apixaban (Eliquis) 5 mg BID PO 10/18/24 22:00 Doxycycline Hyclate 100 ml @ 50 mls/hr Q12H IV 10/11/24 13:30 10/11/24 16:21 Vital Signs Vital Signs Date Time Temp Pulse Resp B/P (MAP) Pulse Ox O2 Delivery O2 Flow Rate FiO2 10/11/24 20:00 Nasal Cannula* 3 32 10/11/24 16:58 95 12 125/75 10/11/24 16:56 97.8 97 97.8 Physical Exam Gen.: Patient lying in bed in no apparent distress. On supplemental oxygen. Head: Normocephalic, atraumatic. Eyes: EOMI/PERRLA. Ears: Normal hearing. Normal anatomy. Neck/trachea: Trachea midline, supple. Nose: Normal external anatomy. Mouth: Moist mucous membranes. Chest: Decreased air entry bilaterally. No wheezing or rhonchi. Cardiovascular: Positive S1, positive S2. Regular rate and rhythm. Abdomen: Positive bowel sounds in all 4 quadrants. Soft, non-tender, non- distended. : Deferred. Rectal: Deferred. Skin: Warm, dry. Intact. Extremities: 2+ radial pulses bilaterally. No lower extremity edema. Neuro: Awake, alert, oriented x3. No gross motor or sensory deficits. Cranial nerves II through XII intact. Gait not assessed. Labs/Diagnostic Data Labs Test 10/11/24 16:56 10/11/24 10:06 10/11/24 02:55 10/10/24 05:01 Range/Units POC Glucose 134 H 70-106 mg/dl Prothrombin Time 13.5 H 9.3-11.8 sec Prothrombin Time INR 1.31 H 0.9-1.15 Activated Partial Thromboplast Time 73.7 *H 24.5-34.5 SEC White Blood Count 4.7 4.4-10.8 10^3/uL Red Blood Count 4.77 4.0-5.20 10^6/uL Hemoglobin 11.4 L 12.2-16.2 g/dL Hematocrit 37.1 36.0-46.0 % Mean Corpuscular Volume 77.7 L 80.0-100.0 fL Mean Corpuscular Hemoglobin 23.9 L 28.0-32.0 pg Mean Corpuscular Hemoglobin Concent 30.7 L 32.0-36.0 g/dL Red Cell Distribution Width 21.7 H 11.8-14.3 % Platelet Count 190 140-450 10^3/uL Mean Platelet Volume 7.1 6.9-10.8 fL Neutrophils (%) (Auto) 65.0 37.0-80.0 % Lymphocytes (%) (Auto) 16.7 10.0-50.0 % Monocytes (%) (Auto) 13.9 H 0.0-12.0 % Eosinophils (%) (Auto) 3.7 0.0-7.0 % Basophils (%) (Auto) 0.7 0.0-2.0 % Neutrophils # (Auto) 3.0 1.6-8.6 10 ^3/uL Lymphocytes # (Auto) 0.8 0.4-5.4 10 ^3/uL Monocytes # (Auto) 0.6 0-1.3 10 ^3/uL Eosinophils # (Auto) 0.2 0-0.8 10 ^3/uL Basophils # (Auto) 0 0-0.2 10 ^3/uL Nucleated Red Blood Cells 0.1 % Sodium Level 140 136-145 mmol/L Potassium Level 4.0 3.5-5.1 mmol/L Chloride Level 104 98-107 mmol/L Carbon Dioxide Level 30 20-31 mmol/L Anion Gap 6 5-15 Blood Urea Nitrogen 14 9-23 mg/dL Creatinine 1.11 H 0.550-1.02 mg/dL Glomerular Filtration Rate Calc 56 >90 mL/min BUN/Creatinine Ratio 12.6 10.0-20.0 Serum Glucose 129 H 74-106 mg/dL Calcium Level 7.8 L 8.7-10.4 mg/dL Magnesium Level 1.5 L 1.6-2.6 mg/dL Triglycerides Level 94 < 150 mg/dL Cholesterol Level 153 < 200 mg/dL LDL Cholesterol 63 < 100 mg/dL HDL Cholesterol 65 H 40-59 mg/dL Test 10/09/24 12:27 10/09/24 10:55 10/09/24 06:13 Range/Units Troponin I High Sensitivity 9 </=34 ng/L Urine Color Yellow Yellow Urine Clarity Clear Clear Urine pH 5.5 5.0-9.0 Urine Specific Catarina 1.018 1.001-1.035 Urine Protein 1+ H Negative Urine Ketones Negative Negative Urine Blood Negative Negative /uL Urine Nitrite Negative Negative Urine Bilirubin Negative Negative Urine Urobilinogen 3 H Negative mg/dL Urine Leukocyte Esterase Trace Negative /uL Urine RBC 2 0 - 4 /hpf Urine Microscopic WBC 3 0-5 /HPF Urine Squamous Epithelial Cells Many <5 /hpf Urine Bacteria Few H None Seen /hpf Urine Hyaline Casts Few 0 - 2 /lpf Urine Mucus Few None Seen Urine Glucose Normal Normal mg/dL Urine Opiates Screen Neg NEGATIVE Urine Fentanyl Screen Neg NEGATIVE Urine Barbiturates Screen Neg NEGATIVE Urine Phencyclidine Screen Neg NEGATIVE Urine Amphetamines Screen Neg NEGATIVE Urine Benzodiazepines Screen Neg NEGATIVE Urine Cocaine Screen Neg NEGATIVE Urine Cannabinoids Screen Neg NEGATIVE Platelet Estimate Adequate Clumped Platelets Few Hypochromasia (manual) Slight Anisocytosis (manual) Moderate Microcytosis Slight D-Dimer, Quantitative 2.24 H 0.0-0.49 mg/L FEU Hemoglobin A1c 5.9 H <5.7 % A1C Total Bilirubin 0.5 0.2-1.0 mg/dL Aspartate Amino Transferase (AST) 23 13-40 U/L Alanine Aminotransferase (ALT) 9 7-40 U/L Alkaline Phosphatase 104 46-116 U/L Total Protein 7.1 5.7-8.2 g/dL Albumin 3.9 3.2-4.8 g/dL Thyroid Stimulating Hormone (TSH) 0.66 0.55-4.78 uIU/mL Microbiology Date/Time Source Procedure Growth Status 10/10/24 01:10 Nose MRSA Screen - Final Complete Assessment Impression: Acute on chronic hypoxic respiratory failure 2/2 pulmonary embolism Dependence on supplemental oxygen Acute pulmonary embolism Chronic obstructive pulmonary disease Pneumonia due to GN/GP Super morbid obesity, BMI 57.3 Pulmonary hypertension, WHO Class III Venous thromboembolism Plan: Supplemental oxygen 3 L;PM NC Titrate to keep O2 sats above 92%. Taper O2 as tolerated. Continue antibiotics Eliquis BID for PE. Diurese with Lasix Monitor renal function. Monitor electrolytes. Supplement as necessary. Monitor ins and outs. Diet and lifestyle modifications for weight reduction Super morbid obesity - complicates all care DVT prophylaxis. Prognosis: Poor given patient's multiple co-morbidities. Rest of plan per hospitalist and other consultants. Thank you Dr. Bazan, for allowing me to participate in this patient's care. Further recommendations will depend on the patient's clinical course. Please do not hesitate to contact me if you have any questions or concerns. This medical document was created using an electronic medical record system with [employer] dictation system. Although these documentations are being carefully reviewed, there may still be some phonetic and typographical changes. The errors are purely typographical, due to imperfection on the software program, and do not reflect any compromise in the patient's medical care. Plan discussed with: Patient, Other (MAYE Julien/Dr. Bazan) CHRIS FREEMAN MD Oct 11, 2024 21:00
[2024-10-11] MEDS: APIXABAN 5 MG TAB PO SCH (22:09)
[2024-10-12] VITALS (8 sets, daily range): BP systolic 105–126; BP diastolic 70–87; PULSE 82–105; RESP 17–20; TEMP 97.5–98.1; O2SAT 92–98
[2024-10-12 06:10] LABS: Alanine Aminotransferase 16 U/L (7-40); Albumin 3.9 g/dL (3.2-4.8); Alkaline Phosphatase 99 U/L (46-116); Anion Gap 9 (5-15); Bilirubin, Total 0.4 mg/dL (0.2-1.0); Blood Urea Nitrogen 15 mg/dL (9-23); Calcium 9.3 mg/dL (8.7-10.4); Carbon Dioxide 28 mmol/L (20-31); Chloride 105 mmol/L (98-107); Magnesium 1.8 mg/dL (1.6-2.6); Potassium 3.8 mmol/L (3.5-5.1); Sodium 142 mmol/L (136-145)
[2024-10-12 06:25] LABS: Aspartate Aminotransferase 9 U/L (13-40); Glucose 183 mg/dL (74-106)
--- NOTE | 2024-10-12 10:19 | DVHPN2 ---
Subjective No new complaints CT scan of the abdomen and pelvis showed no significant findings Reviewed: H&P, Labs Changes from previous H/P or p: Changes Cardiovascular: Chest Pain, Palpitations Gastrointestinal: Nausea, Vomiting Objective Vitals Vital Signs Date Time Temp Pulse Resp B/P (MAP) Pulse Ox O2 Delivery O2 Flow Rate FiO2 10/12/24 08:47 126/83 10/12/24 08:12 98.1 105 20 97 98.1 10/12/24 07:54 Nasal Cannula* 3 32 Intake/Output Intake and Output 10/12/24 07:00 Intake Total 2394 ml Output Total 2080 ml Balance 314 ml Intake Oral 2394 ml Output Urine Total 2080 ml General Appearance: Alert, Oriented X3 Cardiovascular: Regular rate, Normal S1, Normal S2 Abdomen: Normal bowel sounds Medications Current Medications Medications Dose Ordered Sig/Marck Route Start Time Stop Time Status Last Admin Dose Admin Aspirin 81 mg DAILY PO 10/10/24 10:00 10/12/24 08:46 81 MG Atorvastatin Calcium 40 mg HS PO 10/09/24 22:00 10/11/24 22:09 40 MG Acetaminophen 650 mg Q6HP PRN PO 10/09/24 11:45 Ondansetron HCl 4 mg Q4HP PRN IV 10/09/24 11:45 Nitroglycerin 0.4 mg Q5MINP PRN SL 10/09/24 11:45 Morphine Sulfate 2 mg Q30M PRN IV 10/09/24 11:45 Cancel Ceftriaxone Sodium 50 ml @ 100 mls/hr DAILY@09 IV 10/09/24 11:45 10/12/24 08:46 100 MLS/HR Gabapentin 300 mg TID PO 10/09/24 14:00 10/12/24 06:12 300 MG Temazepam 15 mg HS PO 10/09/24 22:00 10/11/24 22:08 15 MG Patient Own Medication 1 tab DAILY PO 10/10/24 10:00 Cancel Levetiracetam 1,000 mg BID PO 10/09/24 22:00 10/12/24 08:45 1,000 MG Patient Own Medication 1 tab DAILY PO 10/10/24 10:00 Cancel Pregabalin 100 mg TID PO 10/09/24 14:00 10/12/24 06:12 100 MG Diagnostic Test (Pha) 1 strip ACHS 10/09/24 17:00 10/12/24 07:10 1 STRIP Insulin Human Regular ACHS SC 10/09/24 17:00 10/11/24 22:10 2 UNITS Dextrose 50 ml UD PRN IV 10/09/24 13:00 Furosemide 40 mg DAILY IV 10/09/24 14:45 10/12/24 08:47 40 MG Morphine Sulfate 2 mg Q4HPRN PRN IV 10/10/24 15:15 UNV Morphine Sulfate 2 mg Q4HPRN PRN IV 10/10/24 15:30 10/12/24 06:29 2 MG Morphine Sulfate 2 mg Q30M PRN IV 10/10/24 15:30 Citalopram Hydrobromide 20 mg DAILY PO 10/11/24 10:00 10/12/24 08:46 20 MG Paroxetine HCl 40 mg DAILY PO 10/11/24 10:00 10/12/24 08:46 40 MG Apixaban 10 mg BID PO 10/11/24 22:00 10/18/24 10:01 10/12/24 08:49 10 MG Apixaban 5 mg BID PO 10/18/24 22:00 Doxycycline Hyclate 100 ml @ 50 mls/hr Q12H IV 10/11/24 13:30 10/12/24 01:45 50 MLS/HR Laboratory Results Laboratory Tests 10/11/24 02:55 10/12/24 05:11 Chemistry Test 10/12/24 05:11 Albumin 3.9 g/dL (3.2-4.8) Calcium Level 9.3 mg/dL (8.7-10.4) Magnesium Level 1.8 mg/dL (1.6-2.6) Total Protein 6.0 g/dL (5.7-8.2) LFT Test 10/12/24 05:11 Alanine Aminotransferase (ALT) 16 U/L (7-40) Alkaline Phosphatase 99 U/L (46-116) Aspartate Amino Transferase (AST) 9 U/L (13-40) L Total Bilirubin 0.4 mg/dL (0.2-1.0) Urinalysis Test 10/09/24 10:55 Urine Color Yellow (Yellow) Urine Clarity Clear (Clear) Urine pH 5.5 (5.0-9.0) Urine Specific Marshall 1.018 (1.001-1.035) Urine Protein 1+ (Negative) H Urine Ketones Negative (Negative) Urine Blood Negative /uL (Negative) Urine Nitrite Negative (Negative) Urine Bilirubin Negative (Negative) Urine Urobilinogen 3 mg/dL (Negative) H Urine Leukocyte Esterase Trace /uL (Negative) Urine RBC 2 /hpf (0 - 4) Urine Microscopic WBC 3 /HPF (0-5) Urine Squamous Epithelial Cells Many /hpf (<5) Urine Bacteria Few /hpf (None Seen) H Urine Hyaline Casts Few /lpf (0 - 2) Urine Mucus Few (None Seen) Urine Glucose Normal mg/dL (Normal) Microbiology Microbiology Date/Time Source Procedure Growth Status 10/10/24 01:10 Nose MRSA Screen - Final Complete Assessment/Plan Assessment/Plan Acute pulmonary embolism Acute hypoxic respiratory failure Chronic respiratory failure on home O2 COPD Old CVA Bed-bound Left upper lobe pneumonia and left lower lobe pneumonia, most likely mixed Gram- negative and Gram-positive bacteria Hypertension Morbid obesity Type 2 diabetes Paraplegia Left flank swelling and pain Hypomagnesemia Chronic kidney disease Coronary artery disease status post stents on aspirin Seizures Plan IV antibiotics Rocephin Add doxycycline Discontinue heparin and start Eliquis No need for V/Q scan Oxygen as needed Get CT scan of the abdomen and pelvis to evaluate left flank swelling Continue aspirin Lasix 40 mg IV daily Continue gabapentin Continue Keppra Lipitor Monitor closely The rest of the management will depend on the hospital course Full code Advance directives discussed for 22 minutes 10/12/2024: Generalized edema: Increase Lasix to 40 mg IV twice a day Continue IV antibiotics Oxygen as needed Monitor in the hospital 1 more day Continue Eliquis Plan discussed with: Patient My Orders Orders - JUSTA POWELL MD Procedure Category Date Status Time Ct Ab Pel Wo Con-No CT 10/11/24 Resulted Oral Or Iv 13:15 Apixaban (Eliquis) PHA 10/11/24 In Process 22:00 Doxycycline PHA 10/11/24 In Process 100mg/100ml 13:30 Apixaban (Eliquis) PHA 10/18/24 In Process 22:00 Date of Service: Oct 12, 2024 Billing Provider: JUSTA POWELL MD Common Visit Codes: [id number] INP/OBS CARE(HIGH) JUSTA POWELL MD Oct 12, 2024 10:19
[2024-10-12] MEDS: FUROSEMIDE 40 MG/4 ML VIAL IV SCH (17:50)
--- NOTE | 2024-10-12 21:46 | DVHPN2 ---
Progress Note - Dictate Date Seen: Oct 12, 2024 Medical Necessity Reason Pt with a Central, PICC or Fol: Yes The following are medically ne: Lau Catheter Reason for lau catheter: Strict I&O Subjective Patient seen and examined at bedside. Remains on supplemental oxygen Overnight events reviewed. vital signs Vital Sign Date Time Temp Pulse Resp B/P (MAP) Pulse Ox O2 Delivery O2 Flow Rate FiO2 10/12/24 20:00 88 Nasal Cannula* 3 32 10/12/24 17:50 114/87 10/12/24 17:00 97.8 20 98 97.8 Total Intake and Output 10/11/24 10/11/24 10/12/24 15:00 23:00 07:00 Intake Total 1794 ml 600 ml Output Total 1530 ml 550 ml Balance 264 ml 50 ml medications Current Medications Medications Dose Ordered Sig/Marck Route Start Time Stop Time Status Last Admin Dose Admin Aspirin 81 mg DAILY PO 10/10/24 10:00 10/12/24 08:46 81 MG Atorvastatin Calcium 40 mg HS PO 10/09/24 22:00 10/11/24 22:09 40 MG Acetaminophen 650 mg Q6HP PRN PO 10/09/24 11:45 Ondansetron HCl 4 mg Q4HP PRN IV 10/09/24 11:45 Nitroglycerin 0.4 mg Q5MINP PRN SL 10/09/24 11:45 Morphine Sulfate 2 mg Q30M PRN IV 10/09/24 11:45 Cancel Ceftriaxone Sodium 50 ml @ 100 mls/hr DAILY@09 IV 10/09/24 11:45 10/12/24 08:46 100 MLS/HR Gabapentin 300 mg TID PO 10/09/24 14:00 10/12/24 14:01 300 MG Temazepam 15 mg HS PO 10/09/24 22:00 10/11/24 22:08 15 MG Patient Own Medication 1 tab DAILY PO 10/10/24 10:00 Cancel Levetiracetam 1,000 mg BID PO 10/09/24 22:00 10/12/24 08:45 1,000 MG Patient Own Medication 1 tab DAILY PO 10/10/24 10:00 Cancel Pregabalin 100 mg TID PO 10/09/24 14:00 10/12/24 14:01 100 MG Diagnostic Test (Pha) 1 strip ACHS 10/09/24 17:00 10/12/24 17:00 1 STRIP Insulin Human Regular ACHS SC 10/09/24 17:00 10/11/24 22:10 2 UNITS Dextrose 50 ml UD PRN IV 10/09/24 13:00 Morphine Sulfate 2 mg Q4HPRN PRN IV 10/10/24 15:15 UNV Morphine Sulfate 2 mg Q4HPRN PRN IV 10/10/24 15:30 10/12/24 14:01 2 MG Morphine Sulfate 2 mg Q30M PRN IV 10/10/24 15:30 Citalopram Hydrobromide 20 mg DAILY PO 10/11/24 10:00 10/12/24 08:46 20 MG Paroxetine HCl 40 mg DAILY PO 10/11/24 10:00 10/12/24 08:46 40 MG Apixaban 10 mg BID PO 10/11/24 22:00 10/18/24 10:01 10/12/24 08:49 10 MG Apixaban 5 mg BID PO 10/18/24 22:00 Doxycycline Hyclate 100 ml @ 50 mls/hr Q12H IV 10/11/24 13:30 10/12/24 13:59 50 MLS/HR Furosemide 40 mg BIDD IV 10/12/24 18:00 10/12/24 17:50 40 MG objective Gen.: Patient lying in bed in no apparent distress. On supplemental oxygen. Head: Normocephalic, atraumatic. Eyes: EOMI/PERRLA. Ears: Normal hearing. Normal anatomy. Neck/trachea: Trachea midline, supple. Nose: Normal external anatomy. Mouth: Moist mucous membranes. Chest: Decreased air entry bilaterally. No wheezing or rhonchi. Cardiovascular: Positive S1, positive S2. Regular rate and rhythm. Abdomen: Positive bowel sounds in all 4 quadrants. Soft, non-tender, non- distended. : Deferred. Rectal: Deferred. Skin: Warm, dry. Intact. Extremities: 2+ radial pulses bilaterally. No lower extremity edema. Neuro: Awake, alert, oriented x3. No gross motor or sensory deficits. Cranial nerves II through XII intact. Gait not assessed laboratory and microbiology Laboratory Tests 10/12/24 05:11 10/11/24 02:55 Test 10/12/24 05:11 Range/Units Serum Glucose 183 H 74-106 mg/dL Assessment/Plan Impression: Acute on chronic hypoxic respiratory failure 2/2 pulmonary embolism Dependence on supplemental oxygen Acute pulmonary embolism Chronic obstructive pulmonary disease Pneumonia due to GN/GP Super morbid obesity, BMI 57.3 Pulmonary hypertension, WHO Class III Venous thromboembolism Events: Remains on supplemental oxygen, 3 LPM NC Taper O2 as tolerated Head of bed elevation Aspiration precautions Continue Eliquis Off heparin drip. Continue bronchodilators Continue antibiotics Incentive spirometry Diurese with Lasix Monitor renal function. Monitor electrolytes. Supplement as necessary. Labs and imaging reviewed. Rest of plan as noted below. Plan: Supplemental oxygen Titrate to keep O2 sats above 92%. Bronchodilators for COPD. Continue antibiotics for pneumonia Continue Eliquis BID for PE. Head of bed elevation Aspiration precautions Diurese with Lasix Monitor renal function. Monitor electrolytes. Supplement as necessary. Monitor ins and outs. Diet and lifestyle modifications for weight reduction Super morbid obesity - complicates all care DVT prophylaxis. Prognosis: Guarded given patient's multiple co-morbidities. Rest of plan per hospitalist and other consultants. Thank you Dr. Bazan, for allowing me to participate in this patient's care. Further recommendations will depend on the patient's clinical course. Please do not hesitate to contact me if you have any questions or concerns. This medical document was created using an electronic medical record system with [employer] dictation system. Although these documentations are being carefully reviewed, there may still be some phonetic and typographical changes. The errors are purely typographical, due to imperfection on the software program, and do not reflect any compromise in the patient's medical care. Plan discussed with: Patient, Other (MAYE Julien) CHRIS FREEMAN MD Oct 12, 2024 21:46
[2024-10-13] VITALS (9 sets, daily range): BP systolic 101–134; BP diastolic 59–77; PULSE 76–89; RESP 14–18; TEMP 97.5–98.3; O2SAT 94–98
[2024-10-13 06:07] LABS: Anion Gap 5 (5-15); Chloride 100 mmol/L (98-107); Potassium 4.4 mmol/L (3.5-5.1); Sodium 140 mmol/L (136-145)
[2024-10-13 06:08] LABS: Calcium 8.8 mg/dL (8.7-10.4)
[2024-10-13 06:09] LABS: Carbon Dioxide 35 mmol/L (20-31)
[2024-10-13 06:13] LABS: BUN/Creatinine Ratio 17.9 (10.0-20.0); Blood Urea Nitrogen 12 mg/dL (9-23)
[2024-10-13 06:17] LABS: Glucose 106 mg/dL (74-106)
--- NOTE | 2024-10-13 19:32 | DVHPN2 ---
Subjective No new complaints Reviewed: H&P, Labs Changes from previous H/P or p: Changes Cardiovascular: Chest Pain, Palpitations Gastrointestinal: Nausea, Vomiting Objective Vitals Vital Signs Date Time Temp Pulse Resp B/P (MAP) Pulse Ox O2 Delivery O2 Flow Rate FiO2 10/13/24 19:01 126/72 10/13/24 17:00 97.8 77 16 98 97.8 10/13/24 08:20 Nasal Cannula* 3 32 Intake/Output Intake and Output 10/13/24 07:00 Intake Total 1630 ml Output Total 4900 ml Balance -3270 ml Intake Oral 1380 ml IV Total 250 ml Output Urine Total 4900 ml General Appearance: Alert, Oriented X3 Cardiovascular: Regular rate, Normal S1, Normal S2 Abdomen: Normal bowel sounds Medications Current Medications Medications Dose Ordered Sig/Marck Route Start Time Stop Time Status Last Admin Dose Admin Aspirin 81 mg DAILY PO 10/10/24 10:00 10/13/24 11:09 81 MG Atorvastatin Calcium 40 mg HS PO 10/09/24 22:00 10/12/24 21:47 40 MG Acetaminophen 650 mg Q6HP PRN PO 10/09/24 11:45 Ondansetron HCl 4 mg Q4HP PRN IV 10/09/24 11:45 Nitroglycerin 0.4 mg Q5MINP PRN SL 10/09/24 11:45 Morphine Sulfate 2 mg Q30M PRN IV 10/09/24 11:45 Cancel Ceftriaxone Sodium 50 ml @ 100 mls/hr DAILY@09 IV 10/09/24 11:45 10/13/24 11:08 100 MLS/HR Gabapentin 300 mg TID PO 10/09/24 14:00 10/13/24 15:28 300 MG Temazepam 15 mg HS PO 10/09/24 22:00 10/12/24 21:47 15 MG Patient Own Medication 1 tab DAILY PO 10/10/24 10:00 Cancel Levetiracetam 1,000 mg BID PO 10/09/24 22:00 10/13/24 11:09 1,000 MG Patient Own Medication 1 tab DAILY PO 10/10/24 10:00 Cancel Pregabalin 100 mg TID PO 10/09/24 14:00 10/13/24 15:26 100 MG Diagnostic Test (Pha) 1 strip ACHS 10/09/24 17:00 10/13/24 17:19 1 STRIP Insulin Human Regular ACHS SC 10/09/24 17:00 10/11/24 22:10 2 UNITS Dextrose 50 ml UD PRN IV 10/09/24 13:00 Morphine Sulfate 2 mg Q4HPRN PRN IV 10/10/24 15:15 UNV Morphine Sulfate 2 mg Q4HPRN PRN IV 10/10/24 15:30 10/13/24 13:48 2 MG Morphine Sulfate 2 mg Q30M PRN IV 10/10/24 15:30 Citalopram Hydrobromide 20 mg DAILY PO 10/11/24 10:00 10/13/24 11:09 20 MG Paroxetine HCl 40 mg DAILY PO 10/11/24 10:00 10/13/24 11:08 40 MG Apixaban 10 mg BID PO 10/11/24 22:00 10/18/24 10:01 10/13/24 11:10 10 MG Apixaban 5 mg BID PO 10/18/24 22:00 Doxycycline Hyclate 100 ml @ 50 mls/hr Q12H IV 10/11/24 13:30 10/13/24 13:53 50 MLS/HR Furosemide 40 mg BIDD IV 10/12/24 18:00 10/13/24 19:01 40 MG Laboratory Results Laboratory Tests 10/11/24 02:55 10/13/24 05:00 Chemistry Test 10/13/24 05:00 Calcium Level 8.8 mg/dL (8.7-10.4) Urinalysis Test 10/09/24 10:55 Urine Color Yellow (Yellow) Urine Clarity Clear (Clear) Urine pH 5.5 (5.0-9.0) Urine Specific [place] 1.018 (1.001-1.035) Urine Protein 1+ (Negative) H Urine Ketones Negative (Negative) Urine Blood Negative /uL (Negative) Urine Nitrite Negative (Negative) Urine Bilirubin Negative (Negative) Urine Urobilinogen 3 mg/dL (Negative) H Urine Leukocyte Esterase Trace /uL (Negative) Urine RBC 2 /hpf (0 - 4) Urine Microscopic WBC 3 /HPF (0-5) Urine Squamous Epithelial Cells Many /hpf (<5) Urine Bacteria Few /hpf (None Seen) H Urine Hyaline Casts Few /lpf (0 - 2) Urine Mucus Few (None Seen) Urine Glucose Normal mg/dL (Normal) Microbiology Microbiology Date/Time Source Procedure Growth Status 10/10/24 01:10 Nose MRSA Screen - Final Complete Assessment/Plan Assessment/Plan Acute pulmonary embolism Acute hypoxic respiratory failure Chronic respiratory failure on home O2 COPD Old CVA Bed-bound Left upper lobe pneumonia and left lower lobe pneumonia, most likely mixed Gram- negative and Gram-positive bacteria Hypertension Morbid obesity Type 2 diabetes Paraplegia Left flank swelling and pain Hypomagnesemia Chronic kidney disease Coronary artery disease status post stents on aspirin Seizures Plan IV antibiotics Rocephin Add doxycycline Discontinue heparin and start Eliquis No need for V/Q scan Oxygen as needed Get CT scan of the abdomen and pelvis to evaluate left flank swelling Continue aspirin Lasix 40 mg IV daily Continue gabapentin Continue Keppra Lipitor Monitor closely The rest of the management will depend on the hospital course Full code Advance directives discussed for 22 minutes 10/12/2024: Generalized edema: Increase Lasix to 40 mg IV twice a day Continue IV antibiotics Oxygen as needed Monitor in the hospital 1 more day Continue Eliquis 10/13/24: Continue IV Rocephin and Doxycycline IV Lasix Keppra Plan discussed with: Patient Date of Service: Oct 13, 2024 Billing Provider: JUSTA POWELL MD Common Visit Codes: [id number] INP/OBS CARE(HIGH) JUSTA POWELL MD Oct 13, 2024 19:32
--- NOTE | 2024-10-13 21:15 | DVHPN2 ---
Progress Note - Dictate Date Seen: Oct 13, 2024 Medical Necessity Reason Pt with a Central, PICC or Fol: Yes The following are medically ne: Lau Catheter Reason for lau catheter: Strict I&O Subjective Patient seen and examined at bedside. Remains on supplemental oxygen Overnight events reviewed. vital signs Vital Sign Date Time Temp Pulse Resp B/P (MAP) Pulse Ox O2 Delivery O2 Flow Rate FiO2 10/13/24 20:42 97.6 78 18 108/67 (81) 98 97.6 10/13/24 08:20 Nasal Cannula* 3 32 Total Intake and Output 10/12/24 10/12/24 10/13/24 15:00 23:00 07:00 Intake Total 830 ml 800 ml Output Total 2000 ml 2900 ml Balance -1170 ml -2100 ml medications Current Medications Medications Dose Ordered Sig/Marck Route Start Time Stop Time Status Last Admin Dose Admin Aspirin 81 mg DAILY PO 10/10/24 10:00 10/13/24 11:09 81 MG Atorvastatin Calcium 40 mg HS PO 10/09/24 22:00 10/13/24 21:05 40 MG Acetaminophen 650 mg Q6HP PRN PO 10/09/24 11:45 Ondansetron HCl 4 mg Q4HP PRN IV 10/09/24 11:45 Nitroglycerin 0.4 mg Q5MINP PRN SL 10/09/24 11:45 Morphine Sulfate 2 mg Q30M PRN IV 10/09/24 11:45 Cancel Ceftriaxone Sodium 50 ml @ 100 mls/hr DAILY@09 IV 10/09/24 11:45 10/13/24 11:08 100 MLS/HR Gabapentin 300 mg TID PO 10/09/24 14:00 10/13/24 21:05 300 MG Temazepam 15 mg HS PO 10/09/24 22:00 10/13/24 21:05 15 MG Patient Own Medication 1 tab DAILY PO 10/10/24 10:00 Cancel Levetiracetam 1,000 mg BID PO 10/09/24 22:00 10/13/24 21:05 1,000 MG Patient Own Medication 1 tab DAILY PO 10/10/24 10:00 Cancel Pregabalin 100 mg TID PO 10/09/24 14:00 10/13/24 21:05 100 MG Diagnostic Test (Pha) 1 strip ACHS 10/09/24 17:00 10/13/24 21:05 1 STRIP Insulin Human Regular ACHS SC 10/09/24 17:00 10/13/24 21:10 2 UNITS Dextrose 50 ml UD PRN IV 10/09/24 13:00 Morphine Sulfate 2 mg Q4HPRN PRN IV 10/10/24 15:15 UNV Morphine Sulfate 2 mg Q4HPRN PRN IV 10/10/24 15:30 10/13/24 13:48 2 MG Morphine Sulfate 2 mg Q30M PRN IV 10/10/24 15:30 Citalopram Hydrobromide 20 mg DAILY PO 10/11/24 10:00 10/13/24 11:09 20 MG Paroxetine HCl 40 mg DAILY PO 10/11/24 10:00 10/13/24 11:08 40 MG Apixaban 10 mg BID PO 10/11/24 22:00 10/18/24 10:01 10/13/24 21:05 10 MG Apixaban 5 mg BID PO 10/18/24 22:00 Doxycycline Hyclate 100 ml @ 50 mls/hr Q12H IV 10/11/24 13:30 10/13/24 13:53 50 MLS/HR Furosemide 40 mg BIDD IV 10/12/24 18:00 10/13/24 19:01 40 MG objective Gen.: Patient lying in bed in no apparent distress. On supplemental oxygen. Head: Normocephalic, atraumatic. Eyes: EOMI/PERRLA. Ears: Normal hearing. Normal anatomy. Neck/trachea: Trachea midline, supple. Nose: Normal external anatomy. Mouth: Moist mucous membranes. Chest: Decreased air entry bilaterally. No wheezing or rhonchi. Cardiovascular: Positive S1, positive S2. Regular rate and rhythm. Abdomen: Positive bowel sounds in all 4 quadrants. Soft, non-tender, non- distended. : Deferred. Rectal: Deferred. Skin: Warm, dry. Intact. Extremities: 2+ radial pulses bilaterally. No lower extremity edema. Neuro: Awake, alert, oriented x3. No gross motor or sensory deficits. Cranial nerves II through XII intact. 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 Monitor electrolytes. Supplement as necessary. Maintain euvolemia Labs and imaging reviewed. Rest of plan as noted below. Plan: Supplemental oxygen Titrate to keep O2 sats above 92%. Bronchodilators for COPD. Continue antibiotics for pneumonia Continue Eliquis BID for PE. Head of bed elevation Aspiration precautions Diurese with Lasix Monitor renal function. Monitor electrolytes. Supplement as necessary. Monitor ins and outs. Diet and lifestyle modifications for weight reduction Super morbid obesity - complicates all care DVT prophylaxis. Prognosis: Guarded given patient's multiple co-morbidities. Rest of plan per hospitalist and other consultants. Thank you Dr. Bazan, for allowing me to participate in this patient's care. Further recommendations will depend on the patient's clinical course. Please do not hesitate to contact me if you have any questions or concerns. This medical document was created using an electronic medical record system with [employer] dictation system. Although these documentations are being carefully reviewed, there may still be some phonetic and typographical changes. The errors are purely typographical, due to imperfection on the software program, and do not reflect any compromise in the patient's medical care. Dietary Evaluation Review Comments: Wt reducing diet with 2GNA restriction Expected Outcomes/Goals: Gradual wt loss Plan discussed with: Patient, Other (MAYE Herr) CHRIS FREEMAN MD Oct 13, 2024 21:15
[2024-10-14] VITALS (8 sets, daily range): BP systolic 103–121; BP diastolic 60–83; PULSE 62–94; RESP 16–18; TEMP 97.2–98; O2SAT 94–98
--- NOTE | 2024-10-14 09:44 | DVHPN2 ---
Subjective No new complaints Edema is better Reviewed: H&P, Labs Changes from previous H/P or p: Changes Cardiovascular: Chest Pain, Palpitations Gastrointestinal: Nausea, Vomiting Objective Vitals Vital Signs Date Time Temp Pulse Resp B/P (MAP) Pulse Ox O2 Delivery O2 Flow Rate FiO2 10/14/24 09:00 97.9 84 16 121/81 (94) 98 97.9 10/13/24 20:00 Nasal Cannula* 3 32 Intake/Output Intake and Output 10/14/24 07:00 Intake Total 2700 ml Output Total 2700 ml Balance 0 ml Intake Oral 950 ml IV Total 1750 ml Output Urine Total 2700 ml # Bowel Movements 1 General Appearance: Alert, Oriented X3 Cardiovascular: Regular rate, Normal S1, Normal S2 Abdomen: Normal bowel sounds Medications Current Medications Medications Dose Ordered Sig/Marck Route Start Time Stop Time Status Last Admin Dose Admin Aspirin 81 mg DAILY PO 10/10/24 10:00 10/14/24 09:17 81 MG Atorvastatin Calcium 40 mg HS PO 10/09/24 22:00 10/13/24 21:05 40 MG Acetaminophen 650 mg Q6HP PRN PO 10/09/24 11:45 Ondansetron HCl 4 mg Q4HP PRN IV 10/09/24 11:45 Nitroglycerin 0.4 mg Q5MINP PRN SL 10/09/24 11:45 Morphine Sulfate 2 mg Q30M PRN IV 10/09/24 11:45 Cancel Ceftriaxone Sodium 50 ml @ 100 mls/hr DAILY@09 IV 10/09/24 11:45 10/14/24 09:16 100 MLS/HR Gabapentin 300 mg TID PO 10/09/24 14:00 10/14/24 06:01 300 MG Temazepam 15 mg HS PO 10/09/24 22:00 10/13/24 21:05 15 MG Patient Own Medication 1 tab DAILY PO 10/10/24 10:00 Cancel Levetiracetam 1,000 mg BID PO 10/09/24 22:00 10/14/24 09:17 1,000 MG Patient Own Medication 1 tab DAILY PO 10/10/24 10:00 Cancel Pregabalin 100 mg TID PO 10/09/24 14:00 10/14/24 06:01 100 MG Diagnostic Test (Pha) 1 strip ACHS 10/09/24 17:00 10/14/24 06:02 1 STRIP Insulin Human Regular ACHS SC 10/09/24 17:00 10/13/24 21:10 2 UNITS Dextrose 50 ml UD PRN IV 10/09/24 13:00 Morphine Sulfate 2 mg Q4HPRN PRN IV 10/10/24 15:15 UNV Morphine Sulfate 2 mg Q4HPRN PRN IV 10/10/24 15:30 10/13/24 22:07 2 MG Morphine Sulfate 2 mg Q30M PRN IV 10/10/24 15:30 Citalopram Hydrobromide 20 mg DAILY PO 10/11/24 10:00 10/14/24 09:16 20 MG Paroxetine HCl 40 mg DAILY PO 10/11/24 10:00 10/14/24 09:16 40 MG Apixaban 10 mg BID PO 10/11/24 22:00 10/18/24 10:01 10/14/24 09:17 10 MG Apixaban 5 mg BID PO 10/18/24 22:00 Doxycycline Hyclate 100 ml @ 50 mls/hr Q12H IV 10/11/24 13:30 10/14/24 01:25 50 MLS/HR Furosemide 40 mg BIDD IV 10/12/24 18:00 10/14/24 06:01 40 MG Laboratory Results Laboratory Tests 10/11/24 02:55 10/13/24 05:00 Urinalysis Test 10/09/24 10:55 Urine Color Yellow (Yellow) Urine Clarity Clear (Clear) Urine pH 5.5 (5.0-9.0) Urine Specific [place] 1.018 (1.001-1.035) Urine Protein 1+ (Negative) H Urine Ketones Negative (Negative) Urine Blood Negative /uL (Negative) Urine Nitrite Negative (Negative) Urine Bilirubin Negative (Negative) Urine Urobilinogen 3 mg/dL (Negative) H Urine Leukocyte Esterase Trace /uL (Negative) Urine RBC 2 /hpf (0 - 4) Urine Microscopic WBC 3 /HPF (0-5) Urine Squamous Epithelial Cells Many /hpf (<5) Urine Bacteria Few /hpf (None Seen) H Urine Hyaline Casts Few /lpf (0 - 2) Urine Mucus Few (None Seen) Urine Glucose Normal mg/dL (Normal) Microbiology Microbiology Date/Time Source Procedure Growth Status 10/10/24 01:10 Nose MRSA Screen - Final Complete Assessment/Plan Assessment/Plan Acute pulmonary embolism Acute hypoxic respiratory failure Chronic respiratory failure on home O2 COPD Old CVA Bed-bound Left upper lobe pneumonia and left lower lobe pneumonia, most likely mixed Gram- negative and Gram-positive bacteria Hypertension Morbid obesity Type 2 diabetes Paraplegia Left flank swelling and pain Hypomagnesemia Chronic kidney disease Coronary artery disease status post stents on aspirin Seizures Acute on chronic diastolic HF Plan IV antibiotics Rocephin Add doxycycline Discontinue heparin and start Eliquis No need for V/Q scan Oxygen as needed Get CT scan of the abdomen and pelvis to evaluate left flank swelling Continue aspirin Lasix 40 mg IV daily Continue gabapentin Continue Keppra Lipitor Monitor closely The rest of the management will depend on the hospital course Full code Advance directives discussed for 22 minutes 10/12/2024: Generalized edema: Increase Lasix to 40 mg IV twice a day Continue IV antibiotics Oxygen as needed Monitor in the hospital 1 more day Continue Eliquis 10/13/24: Continue IV Rocephin and Doxycycline IV Lasix Keppra 10/14/24: Diastolic HF: Continue IV Lasix 40 mg bid IV antibiotics Edema is better, still has significant edema in buttocks and abdominal wall and legs Fluid restriction: 1500 ml/24h Plan discussed with: Patient Date of Service: Oct 14, 2024 Billing Provider: JUSTA POWELL MD Common Visit Codes: [id number] INP/OBS CARE(MOD) JUSTA POWELL MD Oct 14, 2024 09:44
--- NOTE | 2024-10-14 23:39 | DVHPN2 ---
Progress Note - Dictate Date Seen: Oct 14, 2024 Medical Necessity Reason Pt with a Central, PICC or Fol: Yes The following are medically ne: Lau Catheter Reason for lau catheter: Strict I&O Subjective Patient seen and examined at bedside. Remains on supplemental oxygen Overnight events reviewed. vital signs Vital Sign Date Time Temp Pulse Resp B/P (MAP) Pulse Ox O2 Delivery O2 Flow Rate FiO2 10/14/24 22:03 83 16 106/69 10/14/24 21:00 98.0 98 98.0 10/14/24 20:00 Nasal Cannula* 3 32 Total Intake and Output 10/13/24 10/13/24 10/14/24 15:00 23:00 07:00 Intake Total 50 ml 2400 ml 250 ml Output Total 2400 ml 300 ml Balance 50 ml 0 ml -50 ml medications Current Medications Medications Dose Ordered Sig/Marck Route Start Time Stop Time Status Last Admin Dose Admin Aspirin 81 mg DAILY PO 10/10/24 10:00 10/14/24 09:17 81 MG Atorvastatin Calcium 40 mg HS PO 10/09/24 22:00 10/14/24 21:46 40 MG Acetaminophen 650 mg Q6HP PRN PO 10/09/24 11:45 Ondansetron HCl 4 mg Q4HP PRN IV 10/09/24 11:45 Nitroglycerin 0.4 mg Q5MINP PRN SL 10/09/24 11:45 Morphine Sulfate 2 mg Q30M PRN IV 10/09/24 11:45 Cancel Ceftriaxone Sodium 50 ml @ 100 mls/hr DAILY@09 IV 10/09/24 11:45 10/14/24 09:16 100 MLS/HR Gabapentin 300 mg TID PO 10/09/24 14:00 10/14/24 21:45 300 MG Temazepam 15 mg HS PO 10/09/24 22:00 10/14/24 21:46 15 MG Patient Own Medication 1 tab DAILY PO 10/10/24 10:00 Cancel Levetiracetam 1,000 mg BID PO 10/09/24 22:00 10/14/24 21:46 1,000 MG Patient Own Medication 1 tab DAILY PO 10/10/24 10:00 Cancel Pregabalin 100 mg TID PO 10/09/24 14:00 10/14/24 21:45 100 MG Diagnostic Test (Pha) 1 strip ACHS 10/09/24 17:00 10/14/24 21:46 1 STRIP Insulin Human Regular ACHS SC 10/09/24 17:00 10/13/24 21:10 2 UNITS Dextrose 50 ml UD PRN IV 10/09/24 13:00 Morphine Sulfate 2 mg Q4HPRN PRN IV 10/10/24 15:15 UNV Morphine Sulfate 2 mg Q4HPRN PRN IV 10/10/24 15:30 10/14/24 21:33 2 MG Morphine Sulfate 2 mg Q30M PRN IV 10/10/24 15:30 Citalopram Hydrobromide 20 mg DAILY PO 10/11/24 10:00 10/14/24 09:16 20 MG Paroxetine HCl 40 mg DAILY PO 10/11/24 10:00 10/14/24 09:16 40 MG Apixaban 10 mg BID PO 10/11/24 22:00 10/18/24 10:01 10/14/24 21:46 10 MG Apixaban 5 mg BID PO 10/18/24 22:00 Doxycycline Hyclate 100 ml @ 50 mls/hr Q12H IV 10/11/24 13:30 10/14/24 13:19 50 MLS/HR Furosemide 40 mg BIDD IV 10/12/24 18:00 10/14/24 18:00 40 MG objective Gen.: Patient lying in bed in no apparent distress. On supplemental oxygen. Head: Normocephalic, atraumatic. Eyes: EOMI/PERRLA. Ears: Normal hearing. Normal anatomy. Neck/trachea: Trachea midline, supple. Nose: Normal external anatomy. Mouth: Moist mucous membranes. Chest: Decreased air entry bilaterally. No wheezing or rhonchi. Cardiovascular: Positive S1, positive S2. Regular rate and rhythm. Abdomen: Positive bowel sounds in all 4 quadrants. Soft, non-tender, non- distended. : Deferred. Rectal: Deferred. Skin: Warm, dry. Intact. Extremities: 2+ radial pulses bilaterally. No lower extremity edema. Neuro: Awake, alert, oriented x3. No gross motor or sensory deficits. Cranial nerves II through XII intact. 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 Monitor electrolytes. Supplement as necessary. Potassium at goal Maintain euvolemia Labs and imaging reviewed. Rest of plan as noted below. Plan: Supplemental oxygen Titrate to keep O2 sats above 92%. Bronchodilators for COPD. Continue antibiotics for pneumonia Continue Eliquis BID for PE. Head of bed elevation Aspiration precautions Diurese with Lasix Monitor renal function. Monitor electrolytes. Supplement as necessary. Monitor ins and outs. Diet and lifestyle modifications for weight reduction Super morbid obesity - complicates all care DVT prophylaxis. Prognosis: Guarded given patient's multiple co-morbidities. Rest of plan per hospitalist and other consultants. Thank you Dr. Bazan, for allowing me to participate in this patient's care. Further recommendations will depend on the patient's clinical course. Please do not hesitate to contact me if you have any questions or concerns. This medical document was created using an electronic medical record system with [employer] dictation system. Although these documentations are being carefully reviewed, there may still be some phonetic and typographical changes. The errors are purely typographical, due to imperfection on the software program, and do not reflect any compromise in the patient's medical care. Dietary Evaluation Review Comments: Wt reducing diet with 2GNA restriction Expected Outcomes/Goals: Gradual wt loss Plan discussed with: Patient, Other (MAYE Stoner) CHRIS FREEMAN MD Oct 14, 2024 23:39
[2024-10-15] VITALS (8 sets, daily range): BP systolic 101–144; BP diastolic 63–85; PULSE 70–85; RESP 15–18; TEMP 97.7–98.7; O2SAT 93–99
[2024-10-15 09:54] LABS: Calcium 9.6 mg/dL (8.7-10.4)
[2024-10-15 09:59] LABS: Blood Urea Nitrogen 13 mg/dL (9-23)
[2024-10-15 10:15] LABS: Anion Gap 3.99999 (5-15); Chloride 99 mmol/L (98-107); Glucose 107 mg/dL (74-106); Potassium 4.6 mmol/L (3.5-5.1); Sodium 143 mmol/L (136-145)
[2024-10-15 10:23] LABS: Carbon Dioxide > 40 mmol/L (20-31)
--- NOTE | 2024-10-15 14:45 | DVHPN2 ---
Subjective No new complaints Edema is better Reviewed: H&P, Labs Changes from previous H/P or p: Changes Cardiovascular: Chest Pain, Palpitations Gastrointestinal: Nausea, Vomiting Objective Vitals Vital Signs Date Time Temp Pulse Resp B/P (MAP) Pulse Ox O2 Delivery O2 Flow Rate FiO2 10/15/24 13:00 97.8 70 16 133/70 (91) 97 97.8 10/15/24 08:00 Nasal Cannula* 3 32 Intake/Output Intake and Output 10/15/24 07:00 Intake Total 920 ml Output Total 1050 ml Balance -130 ml Intake Oral 620 ml IV Total 300 ml Output Urine Total 1050 ml # Bowel Movements 2 General Appearance: Alert, Oriented X3 Cardiovascular: Regular rate, Normal S1, Normal S2 Abdomen: Normal bowel sounds Medications Current Medications Medications Dose Ordered Sig/Marck Route Start Time Stop Time Status Last Admin Dose Admin Aspirin 81 mg DAILY PO 10/10/24 10:00 10/15/24 10:43 81 MG Atorvastatin Calcium 40 mg HS PO 10/09/24 22:00 10/14/24 21:46 40 MG Acetaminophen 650 mg Q6HP PRN PO 10/09/24 11:45 Ondansetron HCl 4 mg Q4HP PRN IV 10/09/24 11:45 Nitroglycerin 0.4 mg Q5MINP PRN SL 10/09/24 11:45 Morphine Sulfate 2 mg Q30M PRN IV 10/09/24 11:45 Cancel Ceftriaxone Sodium 50 ml @ 100 mls/hr DAILY@09 IV 10/09/24 11:45 10/15/24 10:42 100 MLS/HR Gabapentin 300 mg TID PO 10/09/24 14:00 10/15/24 05:26 300 MG Temazepam 15 mg HS PO 10/09/24 22:00 10/14/24 21:46 15 MG Patient Own Medication 1 tab DAILY PO 10/10/24 10:00 Cancel Levetiracetam 1,000 mg BID PO 10/09/24 22:00 10/15/24 10:42 1,000 MG Patient Own Medication 1 tab DAILY PO 10/10/24 10:00 Cancel Pregabalin 100 mg TID PO 10/09/24 14:00 10/15/24 05:26 100 MG Diagnostic Test (Pha) 1 strip ACHS 10/09/24 17:00 10/15/24 11:35 1 STRIP Insulin Human Regular ACHS SC 10/09/24 17:00 10/13/24 21:10 2 UNITS Dextrose 50 ml UD PRN IV 10/09/24 13:00 Morphine Sulfate 2 mg Q4HPRN PRN IV 10/10/24 15:15 UNV Morphine Sulfate 2 mg Q4HPRN PRN IV 10/10/24 15:30 10/15/24 10:46 2 MG Morphine Sulfate 2 mg Q30M PRN IV 10/10/24 15:30 Citalopram Hydrobromide 20 mg DAILY PO 10/11/24 10:00 10/15/24 10:42 20 MG Paroxetine HCl 40 mg DAILY PO 10/11/24 10:00 10/15/24 10:42 40 MG Apixaban 10 mg BID PO 10/11/24 22:00 10/18/24 10:01 10/15/24 10:42 10 MG Apixaban 5 mg BID PO 10/18/24 22:00 Doxycycline Hyclate 100 ml @ 50 mls/hr Q12H IV 10/11/24 13:30 10/15/24 01:51 50 MLS/HR Furosemide 40 mg BIDD IV 10/12/24 18:00 10/15/24 05:25 40 MG Laboratory Results Laboratory Tests 10/11/24 02:55 10/15/24 09:25 Chemistry Test 10/15/24 09:25 Calcium Level 9.6 mg/dL (8.7-10.4) Magnesium Level 1.0 mg/dL (1.6-2.6) L Urinalysis Test 10/09/24 10:55 Urine Color Yellow (Yellow) Urine Clarity Clear (Clear) Urine pH 5.5 (5.0-9.0) Urine Specific [place] 1.018 (1.001-1.035) Urine Protein 1+ (Negative) H Urine Ketones Negative (Negative) Urine Blood Negative /uL (Negative) Urine Nitrite Negative (Negative) Urine Bilirubin Negative (Negative) Urine Urobilinogen 3 mg/dL (Negative) H Urine Leukocyte Esterase Trace /uL (Negative) Urine RBC 2 /hpf (0 - 4) Urine Microscopic WBC 3 /HPF (0-5) Urine Squamous Epithelial Cells Many /hpf (<5) Urine Bacteria Few /hpf (None Seen) H Urine Hyaline Casts Few /lpf (0 - 2) Urine Mucus Few (None Seen) Urine Glucose Normal mg/dL (Normal) Microbiology Microbiology Date/Time Source Procedure Growth Status 10/10/24 01:10 Nose MRSA Screen - Final Complete Assessment/Plan Assessment/Plan Acute pulmonary embolism Acute hypoxic respiratory failure Chronic respiratory failure on home O2 COPD Old CVA Bed-bound Left upper lobe pneumonia and left lower lobe pneumonia, most likely mixed Gram- negative and Gram-positive bacteria Hypertension Morbid obesity Type 2 diabetes Paraplegia Left flank swelling and pain due to edema Hypomagnesemia Chronic kidney disease Coronary artery disease status post stents on aspirin Seizures Acute on chronic diastolic HF Plan IV antibiotics Rocephin Add doxycycline Discontinue heparin and start Eliquis No need for V/Q scan Oxygen as needed Get CT scan of the abdomen and pelvis to evaluate left flank swelling Continue aspirin Lasix 40 mg IV daily Continue gabapentin Continue Keppra Lipitor Monitor closely The rest of the management will depend on the hospital course Full code Advance directives discussed for 22 minutes 10/12/2024: Generalized edema: Increase Lasix to 40 mg IV twice a day Continue IV antibiotics Oxygen as needed Monitor in the hospital 1 more day Continue Eliquis 10/13/24: Continue IV Rocephin and Doxycycline IV Lasix Keppra 10/14/24: Diastolic HF: Continue IV Lasix 40 mg bid IV antibiotics Edema is better, still has significant edema in buttocks and abdominal wall and legs Fluid restriction: 1500 ml/24h 10/15/2024: Severe hypomagnesemia: Replace IV and p.o. Generalized edema: Continue Lasix IV Pneumonia: Continue IV antibiotics Monitor the electrolytes closely and replace as needed Fluid restriction Monitor closely Plan discussed with: Patient My Orders Orders - JUSTA POWELL MD Procedure Category Date Status Time Magnesium Sulfate PHA 10/15/24 Logged 1gm/100ml 15:00 Date of Service: Oct 15, 2024 Billing Provider: JUSTA POWELL MD Common Visit Codes: [id number] INP/OBS CARE(HIGH) JUSTA POWELL MD Oct 15, 2024 14:45
[2024-10-15] MEDS: MAGNESIUM OXIDE 400 MG TAB PO ONE (16:35)
[2024-10-15] MEDS: MAGNESIUM SULFATE 1GM/100ML 100 ML IV SCH (16:36)
--- NOTE | 2024-10-15 21:03 | DVHPN2 ---
Progress Note - Dictate Date Seen: Oct 15, 2024 Medical Necessity Reason Pt with a Central, PICC or Fol: Yes The following are medically ne: Lau Catheter Reason for lau catheter: Strict I&O Subjective Patient seen and examined at bedside. Remains on supplemental oxygen Overnight events reviewed. vital signs Vital Sign Date Time Temp Pulse Resp B/P (MAP) Pulse Ox O2 Delivery O2 Flow Rate FiO2 10/15/24 17:45 133/70 10/15/24 17:00 97.8 77 16 97 97.8 10/15/24 08:00 Nasal Cannula* 3 32 Total Intake and Output 10/14/24 10/14/24 10/15/24 15:00 23:00 07:00 Intake Total 100 ml 520 ml 300 ml Output Total 600 ml 450 ml Balance 100 ml -80 ml -150 ml medications Current Medications Medications Dose Ordered Sig/Marck Route Start Time Stop Time Status Last Admin Dose Admin Aspirin 81 mg DAILY PO 10/10/24 10:00 10/15/24 10:43 81 MG Atorvastatin Calcium 40 mg HS PO 10/09/24 22:00 10/14/24 21:46 40 MG Acetaminophen 650 mg Q6HP PRN PO 10/09/24 11:45 Ondansetron HCl 4 mg Q4HP PRN IV 10/09/24 11:45 Nitroglycerin 0.4 mg Q5MINP PRN SL 10/09/24 11:45 Morphine Sulfate 2 mg Q30M PRN IV 10/09/24 11:45 Cancel Ceftriaxone Sodium 50 ml @ 100 mls/hr DAILY@09 IV 10/09/24 11:45 10/15/24 10:42 100 MLS/HR Gabapentin 300 mg TID PO 10/09/24 14:00 10/15/24 14:42 300 MG Temazepam 15 mg HS PO 10/09/24 22:00 10/14/24 21:46 15 MG Patient Own Medication 1 tab DAILY PO 10/10/24 10:00 Cancel Levetiracetam 1,000 mg BID PO 10/09/24 22:00 10/15/24 10:42 1,000 MG Patient Own Medication 1 tab DAILY PO 10/10/24 10:00 Cancel Pregabalin 100 mg TID PO 10/09/24 14:00 10/15/24 14:43 100 MG Diagnostic Test (Pha) 1 strip ACHS 5/31/25 17:00 10/15/24 16:39 1 STRIP Insulin Human Regular ACHS SC 10/09/24 17:00 10/13/24 21:10 2 UNITS Dextrose 50 ml UD PRN IV 10/09/24 13:00 Morphine Sulfate 2 mg Q4HPRN PRN IV 10/10/24 15:15 UNV Morphine Sulfate 2 mg Q4HPRN PRN IV 10/10/24 15:30 10/15/24 10:46 2 MG Morphine Sulfate 2 mg Q30M PRN IV 10/10/24 15:30 Citalopram Hydrobromide 20 mg DAILY PO 10/11/24 10:00 10/15/24 10:42 20 MG Paroxetine HCl 40 mg DAILY PO 10/11/24 10:00 10/15/24 10:42 40 MG Apixaban 10 mg BID PO 10/11/24 22:00 10/18/24 10:01 10/15/24 10:42 10 MG Apixaban 5 mg BID PO 10/18/24 22:00 Doxycycline Hyclate 100 ml @ 50 mls/hr Q12H IV 10/11/24 13:30 10/15/24 14:44 50 MLS/HR Furosemide 40 mg BIDD IV 10/12/24 18:00 10/15/24 17:45 40 MG Magnesium Oxide 400 mg BID PO 10/16/24 10:00 objective Gen.: Patient lying in bed in no apparent distress. On supplemental oxygen. Head: Normocephalic, atraumatic. Eyes: EOMI/PERRLA. Ears: Normal hearing. Normal anatomy. Neck/trachea: Trachea midline, supple. Nose: Normal external anatomy. Mouth: Moist mucous membranes. Chest: Decreased air entry bilaterally. No wheezing or rhonchi. Cardiovascular: Positive S1, positive S2. Regular rate and rhythm. Abdomen: Positive bowel sounds in all 4 quadrants. Soft, non-tender, non- distended. : Deferred. Rectal: Deferred. Skin: Warm, dry. Intact. Extremities: 2+ radial pulses bilaterally. No lower extremity edema. Neuro: Awake, alert, oriented x3. No gross motor or sensory deficits. Cranial nerves II through XII intact. 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 Monitor electrolytes. Supplement as necessary. Maintain euvolemia Labs and imaging reviewed. Rest of plan as noted below. Plan: Supplemental oxygen Titrate to keep O2 sats above 92%. Bronchodilators for COPD. Continue antibiotics for pneumonia Continue Eliquis BID for PE. Head of bed elevation Aspiration precautions Diurese with Lasix Monitor renal function. Monitor electrolytes. Supplement as necessary. Monitor ins and outs. Diet and lifestyle modifications for weight reduction Super morbid obesity - complicates all care DVT prophylaxis. Prognosis: Guarded given patient's multiple co-morbidities. Rest of plan per hospitalist and other consultants. Thank you Dr. Bazan, for allowing me to participate in this patient's care. Further recommendations will depend on the patient's clinical course. Please do not hesitate to contact me if you have any questions or concerns. This medical document was created using an electronic medical record system with [employer] dictation system. Although these documentations are being carefully reviewed, there may still be some phonetic and typographical changes. The errors are purely typographical, due to imperfection on the software program, and do not reflect any compromise in the patient's medical care. Dietary Evaluation Review Comments: Wt reducing diet with 2GNA restriction Expected Outcomes/Goals: Gradual wt loss Plan discussed with: Patient, Other (MAYE Mendoza) CHRIS FREEMAN MD Oct 15, 2024 21:03
[2024-10-15] MEDS: ACETAMINOPHEN 325 MG TAB PO PRN (21:11)
[2024-10-16] VITALS (8 sets, daily range): BP systolic 91–130; BP diastolic 53–76; PULSE 70–83; RESP 15–19; TEMP 97.7–98.3; O2SAT 92–100
[2024-10-16] MEDS: MAGNESIUM OXIDE 400 MG TAB PO SCH (08:16)
[2024-10-16 10:11] LABS: Albumin 3.8 g/dL (3.2-4.8); Alkaline Phosphatase 98 U/L (46-116); Aspartate Aminotransferase 16 U/L (13-40); BUN/Creatinine Ratio 16.2 (10.0-20.0); Bilirubin, Total 0.3 mg/dL (0.2-1.0); Blood Urea Nitrogen 11 mg/dL (9-23); Calcium 9.9 mg/dL (8.7-10.4); Potassium 4.1 mmol/L (3.5-5.1); Sodium 142 mmol/L (136-145)
[2024-10-16 10:16] LABS: Alanine Aminotransferase < 9 U/L (7-40); Anion Gap 6.99999 (5-15); Chloride 95 mmol/L (98-107); Glucose 128 mg/dL (74-106); Magnesium 1.4 mg/dL (1.6-2.6)
[2024-10-16 10:17] LABS: Carbon Dioxide > 40 mmol/L (20-31)
--- NOTE | 2024-10-16 12:48 | DVHPN2 ---
Subjective The edema is improving with IV Lasix Magnesium is 1.4 today Reviewed: H&P, Labs Changes from previous H/P or p: Changes Cardiovascular: Chest Pain, Palpitations Gastrointestinal: Nausea, Vomiting Objective Vitals Vital Signs Date Time Temp Pulse Resp B/P (MAP) Pulse Ox O2 Delivery O2 Flow Rate FiO2 10/16/24 08:36 97.8 77 15 123/65 (84) 97 97.8 10/16/24 08:00 Nasal Cannula* 3 32 Intake/Output Intake and Output 10/16/24 07:00 Intake Total 2050 ml Output Total 3801 ml Balance -1751 ml Intake Oral 1600 ml IV Total 450 ml Output Urine Total 3800 ml Stool Total 1 ml General Appearance: Alert, Oriented X3 Cardiovascular: Regular rate, Normal S1, Normal S2 Abdomen: Normal bowel sounds Medications Current Medications Medications Dose Ordered Sig/Marck Route Start Time Stop Time Status Last Admin Dose Admin Aspirin 81 mg DAILY PO 10/10/24 10:00 10/16/24 08:15 81 MG Atorvastatin Calcium 40 mg HS PO 10/09/24 22:00 10/15/24 21:12 40 MG Acetaminophen 650 mg Q6HP PRN PO 10/09/24 11:45 10/15/24 21:11 650 MG Ondansetron HCl 4 mg Q4HP PRN IV 10/09/24 11:45 Nitroglycerin 0.4 mg Q5MINP PRN SL 10/09/24 11:45 Morphine Sulfate 2 mg Q30M PRN IV 10/09/24 11:45 Cancel Ceftriaxone Sodium 50 ml @ 100 mls/hr DAILY@09 IV 10/09/24 11:45 10/16/24 08:11 100 MLS/HR Gabapentin 300 mg TID PO 10/09/24 14:00 10/16/24 05:09 300 MG Temazepam 15 mg HS PO 10/09/24 22:00 10/15/24 21:13 15 MG Patient Own Medication 1 tab DAILY PO 10/10/24 10:00 Cancel Levetiracetam 1,000 mg BID PO 10/09/24 22:00 10/16/24 08:16 1,000 MG Patient Own Medication 1 tab DAILY PO 10/10/24 10:00 Cancel Pregabalin 100 mg TID PO 10/09/24 14:00 10/16/24 05:08 100 MG Diagnostic Test (Pha) 1 strip ACHS 10/09/24 17:00 10/16/24 11:15 1 STRIP Insulin Human Regular ACHS SC 10/09/24 17:00 10/13/24 21:10 2 UNITS Dextrose 50 ml UD PRN IV 10/09/24 13:00 Morphine Sulfate 2 mg Q4HPRN PRN IV 10/10/24 15:15 UNV Morphine Sulfate 2 mg Q4HPRN PRN IV 10/10/24 15:30 10/16/24 05:19 2 MG Morphine Sulfate 2 mg Q30M PRN IV 10/10/24 15:30 Citalopram Hydrobromide 20 mg DAILY PO 10/11/24 10:00 10/16/24 08:16 20 MG Paroxetine HCl 40 mg DAILY PO 10/11/24 10:00 10/16/24 08:16 40 MG Apixaban 10 mg BID PO 10/11/24 22:00 10/18/24 10:01 10/16/24 08:15 10 MG Apixaban 5 mg BID PO 10/18/24 22:00 Doxycycline Hyclate 100 ml @ 50 mls/hr Q12H IV 10/11/24 13:30 10/16/24 01:50 50 MLS/HR Furosemide 40 mg BIDD IV 10/12/24 18:00 10/16/24 05:10 40 MG Magnesium Oxide 400 mg BID PO 10/16/24 10:00 10/16/24 08:16 400 MG Laboratory Results Laboratory Tests 10/11/24 02:55 10/16/24 09:42 Chemistry Test 10/16/24 09:42 Albumin 3.8 g/dL (3.2-4.8) Calcium Level 9.9 mg/dL (8.7-10.4) Magnesium Level 1.4 mg/dL (1.6-2.6) L Total Protein 7.0 g/dL (5.7-8.2) LFT Test 10/16/24 09:42 Alanine Aminotransferase (ALT) < 9 U/L (7-40) Alkaline Phosphatase 98 U/L (46-116) Aspartate Amino Transferase (AST) 16 U/L (13-40) Total Bilirubin 0.3 mg/dL (0.2-1.0) Urinalysis Test 10/09/24 10:55 Urine Color Yellow (Yellow) Urine Clarity Clear (Clear) Urine pH 5.5 (5.0-9.0) Urine Specific [place] 1.018 (1.001-1.035) Urine Protein 1+ (Negative) H Urine Ketones Negative (Negative) Urine Blood Negative /uL (Negative) Urine Nitrite Negative (Negative) Urine Bilirubin Negative (Negative) Urine Urobilinogen 3 mg/dL (Negative) H Urine Leukocyte Esterase Trace /uL (Negative) Urine RBC 2 /hpf (0 - 4) Urine Microscopic WBC 3 /HPF (0-5) Urine Squamous Epithelial Cells Many /hpf (<5) Urine Bacteria Few /hpf (None Seen) H Urine Hyaline Casts Few /lpf (0 - 2) Urine Mucus Few (None Seen) Urine Glucose Normal mg/dL (Normal) Microbiology Microbiology Date/Time Source Procedure Growth Status 10/10/24 01:10 Nose MRSA Screen - Final Complete Assessment/Plan Assessment/Plan Acute pulmonary embolism Acute hypoxic respiratory failure Chronic respiratory failure on home O2 COPD Old CVA Bed-bound Left upper lobe pneumonia and left lower lobe pneumonia, most likely mixed Gram- negative and Gram-positive bacteria Hypertension Morbid obesity Type 2 diabetes Paraplegia Left flank swelling and pain due to edema Hypomagnesemia Chronic kidney disease Coronary artery disease status post stents on aspirin Seizures Acute on chronic diastolic HF Plan IV antibiotics Rocephin Add doxycycline Discontinue heparin and start Eliquis No need for V/Q scan Oxygen as needed Get CT scan of the abdomen and pelvis to evaluate left flank swelling Continue aspirin Lasix 40 mg IV daily Continue gabapentin Continue Keppra Lipitor Monitor closely The rest of the management will depend on the hospital course Full code Advance directives discussed for 22 minutes 10/12/2024: Generalized edema: Increase Lasix to 40 mg IV twice a day Continue IV antibiotics Oxygen as needed Monitor in the hospital 1 more day Continue Eliquis 10/13/24: Continue IV Rocephin and Doxycycline IV Lasix Keppra 10/14/24: Diastolic HF: Continue IV Lasix 40 mg bid IV antibiotics Edema is better, still has significant edema in buttocks and abdominal wall and legs Fluid restriction: 1500 ml/24h 10/15/2024: Severe hypomagnesemia: Replace IV and p.o. Generalized edema: Continue Lasix IV Pneumonia: Continue IV antibiotics Monitor the electrolytes closely and replace as needed Fluid restriction Monitor closely 10/16/2024: Hypomagnesemia: Replace IV and p.o. Generalized edema: Continue Lasix Pneumonia: Continue IV antibiotics Monitor closely The rest of the management will depend on the hospital course Plan discussed with: Patient My Orders Orders - JUSTA POWELL MD Procedure Category Date Status Time Magnesium Oxide PHA 10/16/24 In Process Tablet (Mag-Ox Tablet) 10:00 Date of Service: Oct 16, 2024 Billing Provider: JUSTA POWELL MD Common Visit Codes: [id number] INP/OBS CARE(HIGH) JUSTA POWELL MD Oct 16, 2024 12:48
[2024-10-16] MEDS ORDERED: HYDROcodone-ACET 10/325MG TAB PO PRN (14:30)
[2024-10-16] MEDS: MAGNESIUM SULFATE 1GM/100ML 100 ML IV SCH (14:37)
--- NOTE | 2024-10-16 18:04 | DVHPN2 ---
Progress Note - Dictate Date Seen: Oct 16, 2024 Medical Necessity Reason Pt with a Central, PICC or Fol: Yes The following are medically ne: Lau Catheter Reason for lau catheter: Strict I&O Subjective Patient seen and examined at bedside. Remains on supplemental oxygen Overnight events reviewed. vital signs Vital Sign Date Time Temp Pulse Resp B/P (MAP) Pulse Ox O2 Delivery O2 Flow Rate FiO2 10/16/24 16:53 97.7 75 15 91/53 (66) 98 97.7 10/16/24 08:00 Nasal Cannula* 3 32 Total Intake and Output 10/15/24 10/15/24 10/16/24 15:00 23:00 07:00 Intake Total 50 ml 1460 ml 540 ml Output Total 1700 ml 2101 ml Balance 50 ml -240 ml -1561 ml medications Current Medications Medications Dose Ordered Sig/Marck Route Start Time Stop Time Status Last Admin Dose Admin Aspirin 81 mg DAILY PO 10/10/24 10:00 10/16/24 08:15 81 MG Atorvastatin Calcium 40 mg HS PO 10/09/24 22:00 10/15/24 21:12 40 MG Acetaminophen 650 mg Q6HP PRN PO 10/09/24 11:45 10/15/24 21:11 650 MG Ondansetron HCl 4 mg Q4HP PRN IV 10/09/24 11:45 Nitroglycerin 0.4 mg Q5MINP PRN SL 10/09/24 11:45 Morphine Sulfate 2 mg Q30M PRN IV 10/09/24 11:45 Cancel Ceftriaxone Sodium 50 ml @ 100 mls/hr DAILY@09 IV 10/09/24 11:45 10/16/24 08:11 100 MLS/HR Gabapentin 300 mg TID PO 10/09/24 14:00 10/16/24 14:37 300 MG Temazepam 15 mg HS PO 10/09/24 22:00 10/15/24 21:13 15 MG Patient Own Medication 1 tab DAILY PO 10/10/24 10:00 Cancel Levetiracetam 1,000 mg BID PO 10/09/24 22:00 10/16/24 08:16 1,000 MG Patient Own Medication 1 tab DAILY PO 10/10/24 10:00 Cancel Pregabalin 100 mg TID PO 10/09/24 14:00 10/16/24 14:37 100 MG Diagnostic Test (Pha) 1 strip ACHS 10/09/24 17:00 10/16/24 11:15 1 STRIP Insulin Human Regular ACHS SC 10/09/24 17:00 10/13/24 21:10 2 UNITS Dextrose 50 ml UD PRN IV 10/09/24 13:00 Morphine Sulfate 2 mg Q4HPRN PRN IV 10/10/24 15:15 UNV Morphine Sulfate 2 mg Q30M PRN IV 10/10/24 15:30 Citalopram Hydrobromide 20 mg DAILY PO 10/11/24 10:00 10/16/24 08:16 20 MG Paroxetine HCl 40 mg DAILY PO 10/11/24 10:00 10/16/24 08:16 40 MG Apixaban 10 mg BID PO 10/11/24 22:00 10/18/24 10:01 10/16/24 08:15 10 MG Apixaban 5 mg BID PO 10/18/24 22:00 Doxycycline Hyclate 100 ml @ 50 mls/hr Q12H IV 10/11/24 13:30 10/16/24 14:37 50 MLS/HR Furosemide 40 mg BIDD IV 10/12/24 18:00 10/16/24 05:10 40 MG Magnesium Oxide 400 mg BID PO 10/16/24 10:00 10/16/24 08:16 400 MG Acetaminophen/ Hydrocodone Bitart 1 tab Q6HP PRN PO 10/16/24 14:30 objective Gen.: Patient lying in bed in no apparent distress. On supplemental oxygen. Head: Normocephalic, atraumatic. Eyes: EOMI/PERRLA. Ears: Normal hearing. Normal anatomy. Neck/trachea: Trachea midline, supple. Nose: Normal external anatomy. Mouth: Moist mucous membranes. Chest: Decreased air entry bilaterally. No wheezing or rhonchi. Cardiovascular: Positive S1, positive S2. Regular rate and rhythm. Abdomen: Positive bowel sounds in all 4 quadrants. Soft, non-tender, non- distended. : Deferred. Rectal: Deferred. Skin: Warm, dry. Intact. Extremities: 2+ radial pulses bilaterally. No lower extremity edema. Neuro: Awake, alert, oriented x3. No gross motor or sensory deficits. Cranial nerves II through XII intact. 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 Continue Eliquis Continue antibiotics Incentive spirometry Lasix on hold d/t blood pressure Labs and imaging reviewed. Rest of plan as noted below. Plan: Supplemental oxygen Titrate to keep O2 sats above 92%. Bronchodilators for COPD. Continue antibiotics for pneumonia Continue Eliquis BID for PE. Head of bed elevation Aspiration precautions Monitor renal function. Monitor electrolytes. Supplement as necessary. Monitor ins and outs. Diet and lifestyle modifications for weight reduction Super morbid obesity - complicates all care DVT prophylaxis. Prognosis: Guarded given patient's multiple co-morbidities. Rest of plan per hospitalist and other consultants. Thank you Dr. Bazan, for allowing me to participate in this patient's care. Further recommendations will depend on the patient's clinical course. Please do not hesitate to contact me if you have any questions or concerns. This medical document was created using an electronic medical record system with [employer] dictation system. Although these documentations are being carefully reviewed, there may still be some phonetic and typographical changes. The errors are purely typographical, due to imperfection on the software program, and do not reflect any compromise in the patient's medical care. Dietary Evaluation Review Comments: Wt reducing diet with 2GNA restriction Expected Outcomes/Goals: Gradual wt loss Plan discussed with: Patient, Other (MAYE Mendoza) CHRIS FREEMAN MD Oct 16, 2024 18:04
[2024-10-17] VITALS (8 sets, daily range): BP systolic 103–127; BP diastolic 64–82; PULSE 63–74; RESP 17–20; TEMP 97.7–98.3; O2SAT 94–98
[2024-10-17 05:41] LABS: Potassium 4.6 mmol/L (3.5-5.1); Sodium 141 mmol/L (136-145)
[2024-10-17 05:43] LABS: Calcium 10.2 mg/dL (8.7-10.4)
[2024-10-17 05:47] LABS: Blood Urea Nitrogen 13 mg/dL (9-23); Glucose 102 mg/dL (74-106)
[2024-10-17 05:48] LABS: Chloride 95 mmol/L (98-107); Magnesium 1.9 mg/dL (1.6-2.6)
[2024-10-17 05:50] LABS: Anion Gap 5.99999 (5-15); Carbon Dioxide > 40 mmol/L (20-31)
--- NOTE | 2024-10-17 12:54 | DVHPN2 ---
Subjective The edema is improving with IV Lasix Magnesium is better Reviewed: H&P, Labs Changes from previous H/P or p: Changes Cardiovascular: Chest Pain, Palpitations Gastrointestinal: Nausea, Vomiting Objective Vitals Vital Signs Date Time Temp Pulse Resp B/P (MAP) Pulse Ox O2 Delivery O2 Flow Rate FiO2 10/17/24 09:00 97.8 64 18 103/67 (79) 96 97.8 10/17/24 08:00 Nasal Cannula* 3 32 Intake/Output Intake and Output 10/17/24 07:00 Intake Total 1290 ml Output Total 2400 ml Balance -1110 ml Intake Oral 840 ml IV Total 450 ml Output Urine Total 2400 ml General Appearance: Alert, Oriented X3 Cardiovascular: Regular rate, Normal S1, Normal S2 Abdomen: Normal bowel sounds Medications Current Medications Medications Dose Ordered Sig/Marck Route Start Time Stop Time Status Last Admin Dose Admin Aspirin 81 mg DAILY PO 10/10/24 10:00 10/17/24 09:48 81 MG Atorvastatin Calcium 40 mg HS PO 10/09/24 22:00 10/16/24 21:33 40 MG Acetaminophen 650 mg Q6HP PRN PO 10/09/24 11:45 10/15/24 21:11 650 MG Ondansetron HCl 4 mg Q4HP PRN IV 10/09/24 11:45 Nitroglycerin 0.4 mg Q5MINP PRN SL 10/09/24 11:45 Morphine Sulfate 2 mg Q30M PRN IV 10/09/24 11:45 Cancel Ceftriaxone Sodium 50 ml @ 100 mls/hr DAILY@09 IV 10/09/24 11:45 10/17/24 08:08 100 MLS/HR Gabapentin 300 mg TID PO 10/09/24 14:00 10/17/24 04:55 300 MG Patient Own Medication 1 tab DAILY PO 10/10/24 10:00 Cancel Levetiracetam 1,000 mg BID PO 10/09/24 22:00 10/17/24 09:50 1,000 MG Patient Own Medication 1 tab DAILY PO 10/10/24 10:00 Cancel Pregabalin 100 mg TID PO 10/09/24 14:00 10/17/24 04:55 100 MG Diagnostic Test (Pha) 1 strip ACHS 10/09/24 17:00 10/17/24 11:53 1 STRIP Insulin Human Regular ACHS SC 10/09/24 17:00 10/16/24 18:14 2 UNITS Dextrose 50 ml UD PRN IV 10/09/24 13:00 Morphine Sulfate 2 mg Q4HPRN PRN IV 10/10/24 15:15 UNV Morphine Sulfate 2 mg Q30M PRN IV 10/10/24 15:30 Citalopram Hydrobromide 20 mg DAILY PO 10/11/24 10:00 10/17/24 09:47 20 MG Paroxetine HCl 40 mg DAILY PO 10/11/24 10:00 10/17/24 09:48 40 MG Apixaban 10 mg BID PO 10/11/24 22:00 10/18/24 10:01 10/17/24 09:47 10 MG Apixaban 5 mg BID PO 10/18/24 22:00 Doxycycline Hyclate 100 ml @ 50 mls/hr Q12H IV 10/11/24 13:30 10/17/24 12:22 50 MLS/HR Furosemide 40 mg BIDD IV 10/12/24 18:00 10/17/24 04:55 40 MG Magnesium Oxide 400 mg BID PO 10/16/24 10:00 10/17/24 09:48 400 MG Acetaminophen/ Hydrocodone Bitart 1 tab Q6HP PRN PO 10/16/24 14:30 Laboratory Results Laboratory Tests 10/11/24 02:55 10/17/24 04:53 Chemistry Test 10/17/24 04:53 Calcium Level 10.2 mg/dL (8.7-10.4) Magnesium Level 1.9 mg/dL (1.6-2.6) Urinalysis Test 10/09/24 10:55 Urine Color Yellow (Yellow) Urine Clarity Clear (Clear) Urine pH 5.5 (5.0-9.0) Urine Specific [place] 1.018 (1.001-1.035) Urine Protein 1+ (Negative) H Urine Ketones Negative (Negative) Urine Blood Negative /uL (Negative) Urine Nitrite Negative (Negative) Urine Bilirubin Negative (Negative) Urine Urobilinogen 3 mg/dL (Negative) H Urine Leukocyte Esterase Trace /uL (Negative) Urine RBC 2 /hpf (0 - 4) Urine Microscopic WBC 3 /HPF (0-5) Urine Squamous Epithelial Cells Many /hpf (<5) Urine Bacteria Few /hpf (None Seen) H Urine Hyaline Casts Few /lpf (0 - 2) Urine Mucus Few (None Seen) Urine Glucose Normal mg/dL (Normal) Microbiology Microbiology Date/Time Source Procedure Growth Status 10/10/24 01:10 Nose MRSA Screen - Final Complete Assessment/Plan Assessment/Plan Acute pulmonary embolism Acute hypoxic respiratory failure Chronic respiratory failure on home O2 COPD Old CVA Bed-bound Left upper lobe pneumonia and left lower lobe pneumonia, most likely mixed Gram- negative and Gram-positive bacteria Hypertension Morbid obesity Type 2 diabetes Paraplegia Left flank swelling and pain due to edema Hypomagnesemia Chronic kidney disease Coronary artery disease status post stents on aspirin Seizures Acute on chronic diastolic HF Plan IV antibiotics Rocephin Add doxycycline Discontinue heparin and start Eliquis No need for V/Q scan Oxygen as needed Get CT scan of the abdomen and pelvis to evaluate left flank swelling Continue aspirin Lasix 40 mg IV daily Continue gabapentin Continue Keppra Lipitor Monitor closely The rest of the management will depend on the hospital course Full code Advance directives discussed for 22 minutes 10/12/2024: Generalized edema: Increase Lasix to 40 mg IV twice a day Continue IV antibiotics Oxygen as needed Monitor in the hospital 1 more day Continue Eliquis 10/13/24: Continue IV Rocephin and Doxycycline IV Lasix Keppra 10/14/24: Diastolic HF: Continue IV Lasix 40 mg bid IV antibiotics Edema is better, still has significant edema in buttocks and abdominal wall and legs Fluid restriction: 1500 ml/24h 10/15/2024: Severe hypomagnesemia: Replace IV and p.o. Generalized edema: Continue Lasix IV Pneumonia: Continue IV antibiotics Monitor the electrolytes closely and replace as needed Fluid restriction Monitor closely 10/16/2024: Hypomagnesemia: Replace IV and p.o. Generalized edema: Continue Lasix Pneumonia: Continue IV antibiotics Monitor closely The rest of the management will depend on the hospital course 10/17/2024: Continue IV Lasix IV antibiotics Monitor closely Morbid obesity Discharge planning for tomorrow Plan discussed with: Patient Date of Service: Oct 17, 2024 Billing Provider: JUSTA POWELL MD Common Visit Codes: [id number] INP/OBS CARE(HIGH) JUSTA POWELL MD Oct 17, 2024 12:53
--- NOTE | 2024-10-17 20:43 | DVHPN2 ---
Progress Note - Dictate Date Seen: Oct 17, 2024 Medical Necessity Reason Pt with a Central, PICC or Fol: Yes The following are medically ne: Lau Catheter Reason for lau catheter: Strict I&O Subjective Patient seen and examined at bedside. Remains on supplemental oxygen Overnight events reviewed. vital signs Vital Sign Date Time Temp Pulse Resp B/P (MAP) Pulse Ox O2 Delivery O2 Flow Rate FiO2 10/17/24 18:25 118/77 10/17/24 17:00 97.7 68 18 95 97.7 10/17/24 08:00 Nasal Cannula* 3 32 Total Intake and Output 10/16/24 10/16/24 10/17/24 15:00 23:00 07:00 Intake Total 50 ml 940 ml 300 ml Output Total 1600 ml 800 ml Balance 50 ml -660 ml -500 ml medications Current Medications Medications Dose Ordered Sig/Marck Route Start Time Stop Time Status Last Admin Dose Admin Aspirin 81 mg DAILY PO 10/10/24 10:00 10/17/24 09:48 81 MG Atorvastatin Calcium 40 mg HS PO 10/09/24 22:00 10/16/24 21:33 40 MG Acetaminophen 650 mg Q6HP PRN PO 10/09/24 11:45 10/15/24 21:11 650 MG Ondansetron HCl 4 mg Q4HP PRN IV 10/09/24 11:45 Nitroglycerin 0.4 mg Q5MINP PRN SL 10/09/24 11:45 Morphine Sulfate 2 mg Q30M PRN IV 10/09/24 11:45 Cancel Ceftriaxone Sodium 50 ml @ 100 mls/hr DAILY@09 IV 10/09/24 11:45 10/17/24 08:08 100 MLS/HR Gabapentin 300 mg TID PO 10/09/24 14:00 10/17/24 13:29 300 MG Patient Own Medication 1 tab DAILY PO 10/10/24 10:00 Cancel Levetiracetam 1,000 mg BID PO 10/09/24 22:00 10/17/24 09:50 1,000 MG Patient Own Medication 1 tab DAILY PO 10/10/24 10:00 Cancel Pregabalin 100 mg TID PO 10/09/24 14:00 10/17/24 13:29 100 MG Diagnostic Test (Pha) 1 strip ACHS 10/09/24 17:00 10/17/24 16:58 1 STRIP Insulin Human Regular ACHS SC 10/09/24 17:00 10/16/24 18:14 2 UNITS Dextrose 50 ml UD PRN IV 10/09/24 13:00 Morphine Sulfate 2 mg Q4HPRN PRN IV 10/10/24 15:15 UNV Morphine Sulfate 2 mg Q30M PRN IV 10/10/24 15:30 Citalopram Hydrobromide 20 mg DAILY PO 10/11/24 10:00 10/17/24 09:47 20 MG Paroxetine HCl 40 mg DAILY PO 10/11/24 10:00 10/17/24 09:48 40 MG Apixaban 10 mg BID PO 10/11/24 22:00 10/18/24 10:01 10/17/24 09:47 10 MG Apixaban 5 mg BID PO 10/18/24 22:00 Doxycycline Hyclate 100 ml @ 50 mls/hr Q12H IV 10/11/24 13:30 10/17/24 12:22 50 MLS/HR Furosemide 40 mg BIDD IV 10/12/24 18:00 10/17/24 18:25 40 MG Magnesium Oxide 400 mg BID PO 10/16/24 10:00 10/17/24 09:48 400 MG Acetaminophen/ Hydrocodone Bitart 1 tab Q6HP PRN PO 10/16/24 14:30 objective Gen.: Patient lying in bed in no apparent distress. On supplemental oxygen. Head: Normocephalic, atraumatic. Eyes: EOMI/PERRLA. Ears: Normal hearing. Normal anatomy. Neck/trachea: Trachea midline, supple. Nose: Normal external anatomy. Mouth: Moist mucous membranes. Chest: Decreased air entry bilaterally. No wheezing or rhonchi. Cardiovascular: Positive S1, positive S2. Regular rate and rhythm. Abdomen: Positive bowel sounds in all 4 quadrants. Soft, non-tender, non- distended. : Deferred. Rectal: Deferred. Skin: Warm, dry. Intact. Extremities: 2+ radial pulses bilaterally. No lower extremity edema. Neuro: Awake, alert, oriented x3. No gross motor or sensory deficits. Cranial nerves II through XII intact. Gait not assessed laboratory and microbiology Laboratory Tests 10/17/24 04:53 10/11/24 02:55 Test 10/17/24 04:53 Range/Units Serum Glucose 102 74-106 mg/dL Assessment/Plan Impression: Acute on chronic hypoxic respiratory failure 2/2 pulmonary embolism Dependence on supplemental oxygen Acute pulmonary embolism Chronic obstructive pulmonary disease Pneumonia due to GN/GP Super morbid obesity, BMI 57.3 Pulmonary hypertension, WHO Class III Venous thromboembolism Events: Remains on supplemental oxygen, 3 LPM NC Taper O2 as tolerated Head of bed elevation Aspiration precautions Pain control Avoid oversedation [place] 10/325 mg for severe pain. Continue Eliquis Continue antibiotics Incentive spirometry Diurese with Lasix Monitor renal function Monitor electrolytes. Supplement as necessary. Monitor ins and outs Labs and imaging reviewed. Rest of plan as noted below. Plan: Supplemental oxygen Titrate to keep O2 sats above 92%. Bronchodilators for COPD. Continue antibiotics for pneumonia Continue Eliquis BID for PE. Head of bed elevation Aspiration precautions Monitor renal function. Monitor electrolytes. Supplement as necessary. Monitor ins and outs. Diet and lifestyle modifications for weight reduction Super morbid obesity - complicates all care DVT prophylaxis. Prognosis: Guarded given patient's multiple co-morbidities. Rest of plan per hospitalist and other consultants. Thank you Dr. Bazan, for allowing me to participate in this patient's care. Further recommendations will depend on the patient's clinical course. Please do not hesitate to contact me if you have any questions or concerns. This medical document was created using an electronic medical record system with [employer] dictation system. Although these documentations are being carefully reviewed, there may still be some phonetic and typographical changes. The errors are purely typographical, due to imperfection on the software program, and do not reflect any compromise in the patient's medical care. Dietary Evaluation Review Comments: Wt reducing diet with 2GNA restriction Expected Outcomes/Goals: Gradual wt loss Plan discussed with: Patient, Other (MAYE Vazquez) CHRIS FREEMAN MD Oct 17, 2024 20:43
[2024-10-18 01:00] VITALS: BP 112/62; PULSE 78; RESP 17; TEMP 97.5; O2SAT 92
[2024-10-18 05:00] VITALS: BP 109/54; PULSE 72; RESP 17; TEMP 98.2; O2SAT 100
[2024-10-18 05:36] LABS: Potassium 4.3 mmol/L (3.5-5.1); Sodium 140 mmol/L (136-145)
[2024-10-18 05:37] LABS: Chloride 94 mmol/L (98-107)
[2024-10-18 05:38] LABS: Calcium 9.8 mg/dL (8.7-10.4)
[2024-10-18 05:43] LABS: BUN/Creatinine Ratio 20.5 (10.0-20.0); Blood Urea Nitrogen 15 mg/dL (9-23)
[2024-10-18 05:51] LABS: Glucose 112 mg/dL (74-106)
[2024-10-18 06:07] LABS: Anion Gap 7 (5-15)
[2024-10-18 06:11] LABS: Carbon Dioxide 39 mmol/L (20-31)
[2024-10-18 08:00] VITALS: PULSE 72
[2024-10-18 09:00] VITALS: BP 138/80; PULSE 81; RESP 18; TEMP 98.5; O2SAT 98
--- NOTE | 2024-10-18 10:35 | DVHDS2 ---
Discharge Summary Date of Admission October 09, 2024 at 11:32 Date of Discharge: Oct 18, 2024 Labs/Diagnostic Data: Laboratory Results Test 10/18/24 06:03 10/18/24 05:05 10/17/24 04:53 10/16/24 09:42 POC Glucose 117 mg/dl (70-106) Sodium Level 140 mmol/L (136-145) Potassium Level 4.3 mmol/L (3.5-5.1) Chloride Level 94 mmol/L (98-107) Carbon Dioxide Level 39 mmol/L (20-31) Anion Gap 7 (5-15) Blood Urea Nitrogen 15 mg/dL (9-23) Creatinine 0.73 mg/dL (0.550-1.02) Glomerular Filtration Rate Calc 92 mL/min (>90) BUN/Creatinine Ratio 20.5 (10.0-20.0) Serum Glucose 112 mg/dL (74-106) Calcium Level 9.8 mg/dL (8.7-10.4) Magnesium Level 1.9 mg/dL (1.6-2.6) Total Bilirubin 0.3 mg/dL (0.2-1.0) Aspartate Amino Transferase (AST) 16 U/L (13-40) Alanine Aminotransferase (ALT) < 9 U/L (7-40) Alkaline Phosphatase 98 U/L (46-116) Total Protein 7.0 g/dL (5.7-8.2) Albumin 3.8 g/dL (3.2-4.8) Test 10/11/24 10:06 10/11/24 02:55 10/10/24 05:01 10/09/24 12:27 Prothrombin Time 13.5 sec (9.3-11.8) Prothrombin Time INR 1.31 (0.9-1.15) Activated Partial Thromboplast Time 73.7 SEC (24.5-34.5) White Blood Count 4.7 10^3/uL (4.4-10.8) Red Blood Count 4.77 10^6/uL (4.0-5.20) Hemoglobin 11.4 g/dL (12.2-16.2) Hematocrit 37.1 % (36.0-46.0) Mean Corpuscular Volume 77.7 fL (80.0-100.0) Mean Corpuscular Hemoglobin 23.9 pg (28.0-32.0) Mean Corpuscular Hemoglobin Concent 30.7 g/dL (32.0-36.0) Red Cell Distribution Width 21.7 % (11.8-14.3) Platelet Count 190 10^3/uL (140-450) Mean Platelet Volume 7.1 fL (6.9-10.8) Neutrophils (%) (Auto) 65.0 % (37.0-80.0) Lymphocytes (%) (Auto) 16.7 % (10.0-50.0) Monocytes (%) (Auto) 13.9 % (0.0-12.0) Eosinophils (%) (Auto) 3.7 % (0.0-7.0) Basophils (%) (Auto) 0.7 % (0.0-2.0) Neutrophils # (Auto) 3.0 10 ^3/uL (1.6-8.6) Lymphocytes # (Auto) 0.8 10 ^3/uL (0.4-5.4) Monocytes # (Auto) 0.6 10 ^3/uL (0-1.3) Eosinophils # (Auto) 0.2 10 ^3/uL (0-0.8) Basophils # (Auto) 0 10 ^3/uL (0-0.2) Nucleated Red Blood Cells 0.1 % Triglycerides Level 94 mg/dL (< 150) Cholesterol Level 153 mg/dL (< 200) LDL Cholesterol 63 mg/dL (< 100) HDL Cholesterol 65 mg/dL (40-59) Troponin I High Sensitivity 9 ng/L (</=34) Test 10/09/24 10:55 10/09/24 06:13 Urine Color Yellow (Yellow) Urine Clarity Clear (Clear) Urine pH 5.5 (5.0-9.0) Urine Specific [place] 1.018 (1.001-1.035) Urine Protein 1+ (Negative) Urine Ketones Negative (Negative) Urine Blood Negative /uL (Negative) Urine Nitrite Negative (Negative) Urine Bilirubin Negative (Negative) Urine Urobilinogen 3 mg/dL (Negative) Urine Leukocyte Esterase Trace /uL (Negative) Urine RBC 2 /hpf (0 - 4) Urine Microscopic WBC 3 /HPF (0-5) Urine Squamous Epithelial Cells Many /hpf (<5) Urine Bacteria Few /hpf (None Seen) Urine Hyaline Casts Few /lpf (0 - 2) Urine Mucus Few (None Seen) Urine Glucose Normal mg/dL (Normal) Urine Opiates Screen Neg (NEGATIVE) Urine Fentanyl Screen Neg (NEGATIVE) Urine Barbiturates Screen Neg (NEGATIVE) Urine Phencyclidine Screen Neg (NEGATIVE) Urine Amphetamines Screen Neg (NEGATIVE) Urine Benzodiazepines Screen Neg (NEGATIVE) Urine Cocaine Screen Neg (NEGATIVE) Urine Cannabinoids Screen Neg (NEGATIVE) Platelet Estimate Adequate Clumped Platelets Few Hypochromasia (manual) Slight Anisocytosis (manual) Moderate Microcytosis Slight D-Dimer, Quantitative 2.24 mg/L FEU (0.0-0.49) Hemoglobin A1c 5.9 % A1C (<5.7) Thyroid Stimulating Hormone (TSH) 0.66 uIU/mL (0.55-4.78) Other Laboratory Tests 10/18/24 05:05 10/11/24 02:55 Brief Hx & Hospital Course: Final diagnoses: Acute pulmonary embolism Acute hypoxic respiratory failure Chronic respiratory failure on home O2 COPD Old CVA Bed-bound Left upper lobe pneumonia and left lower lobe pneumonia, most likely mixed Gram- negative and Gram-positive bacteria Hypertension Morbid obesity Type 2 diabetes Paraplegia Left flank swelling and pain due to edema Hypomagnesemia Chronic kidney disease Coronary artery disease status post stents on aspirin Seizures Acute on chronic diastolic HF 64-year-old female who was admitted for shortness of breaths and hypoxia She is on home O2 for COPD however she was more hypoxic here and she had fluid overload also due to acute on chronic diastolic heart failure She was started on anticoagulation and then she was switched to Eliquis After that she was also given IV Lasix Her edema improved significantly and she remained stable after that She is bed-bound and she lives in a board and assisted She had an old CVA and she is paraplegic She was taking Lasix 20 mg at home, it will be increased to 40 mg daily Also take Eliquis 5 mg twice a day Resume other home medications Follow up with the primary care physician as soon as possible Condition at Discharge: Stable Final Diagnosis/Problems List Acute pulmonary embolism Acute hypoxic respiratory failure Chronic respiratory failure on home O2 COPD Old CVA Bed-bound Left upper lobe pneumonia and left lower lobe pneumonia, most likely mixed Gram-negative and Gram-positive bacteria Hypertension Morbid obesity Type 2 diabetes Paraplegia Left flank swelling and pain due to edema Hypomagnesemia Chronic kidney disease Coronary artery disease status post stents on aspirin Seizures Acute on chronic diastolic HF Discharge Disposition: Home SNF Discharge Will this Physician continue t: No Discharge Statement: "Patient was advised to return to the ER or call 911 if any headaches, dizziness, shortness of breath, chest pain, abdominal pain, bleeding, fevers, or worsening of medical condition. Patient was counseled about treatment plan, medications, possible side effects, patientverbalized understanding. All questions were answered to the best of my ability. This discharge took greater then 30 minutes in planning, reviewing documentation, counseling the patient, and discussing with other team members." ASSESSMENT ASSESSMENT Assessment Date of Service: Oct 18, 2024 Billing Provider: JUSTA POWELL MD Common Visit Codes: [id number] DISCH DAY >30min JUSTA POWELL MD Oct 18, 2024 10:35
[2024-10-18] MEDS ORDERED: APIX5TAB PO (10:36)
[2024-10-18] MEDS ORDERED: FURO1TAB31 PO (10:36)
[2024-10-18 11:15] VITALS: BP 125/78; TEMP 36.9
[2024-10-18] MEDS ORDERED: HYDR-4902 PO (13:49)
--- NOTE | 2024-10-18 21:32 | DVHPN2 ---
Progress Note - Dictate Date Seen: Oct 18, 2024 Medical Necessity Reason Pt with a Central, PICC or Fol: Yes The following are medically ne: Lau Catheter Reason for lau catheter: Strict I&O Subjective Patient seen and examined at bedside. Remains on supplemental oxygen Overnight events reviewed. vital signs Vital Sign Date Time Temp Pulse Resp B/P (MAP) Pulse Ox O2 Delivery O2 Flow Rate FiO2 10/18/24 11:15 36.9 10/18/24 09:00 81 18 138/80 (99) 98 10/18/24 07:33 Nasal Cannula* 3 32 Total Intake and Output 10/17/24 10/17/24 10/18/24 15:00 23:00 07:00 Intake Total 150 ml 920 ml 700 ml Output Total 2300 ml 1800 ml Balance 150 ml -1380 ml -1100 ml medications Current Medications Medications Dose Ordered Sig/Marck Route Start Time Stop Time Status Last Admin Dose Admin Morphine Sulfate 2 mg Q30M PRN IV 10/09/24 11:45 Cancel Patient Own Medication 1 tab DAILY PO 10/10/24 10:00 Cancel Patient Own Medication 1 tab DAILY PO 10/10/24 10:00 Cancel Morphine Sulfate 2 mg Q4HPRN PRN IV 10/10/24 15:15 UNV objective Gen.: Patient lying in bed in no apparent distress. On supplemental oxygen. Head: Normocephalic, atraumatic. Eyes: EOMI/PERRLA. Ears: Normal hearing. Normal anatomy. Neck/trachea: Trachea midline, supple. Nose: Normal external anatomy. Mouth: Moist mucous membranes. Chest: Decreased air entry bilaterally. No wheezing or rhonchi. Cardiovascular: Positive S1, positive S2. Regular rate and rhythm. Abdomen: Positive bowel sounds in all 4 quadrants. Soft, non-tender, non- distended. : Deferred. Rectal: Deferred. Skin: Warm, dry. Intact. Extremities: 2+ radial pulses bilaterally. No lower extremity edema. Neuro: Awake, alert, oriented x3. No gross motor or sensory deficits. Cranial nerves II through XII intact. Gait not assessed laboratory and microbiology Laboratory Tests 10/18/24 05:05 10/11/24 02:55 Test 10/18/24 05:05 Range/Units Serum Glucose 112 H 74-106 mg/dL Assessment/Plan Impression: Acute on chronic hypoxic respiratory failure 2/2 pulmonary embolism Dependence on supplemental oxygen Acute pulmonary embolism Chronic obstructive pulmonary disease Pneumonia due to GN/GP Super morbid obesity, BMI 57.3 Pulmonary hypertension, WHO Class III Venous thromboembolism Events: Remains on supplemental oxygen, 3 LPM NC Taper O2 as tolerated Head of bed elevation Aspiration precautions Pain control Avoid oversedation [place] 10/325 mg PRN for severe pain. Continue Eliquis for PE. Complete antibiotics Incentive spirometry Maintain euvolemia with Lasix Monitor renal function Monitor electrolytes. Supplement as necessary. Monitor ins and outs Labs and imaging reviewed. Rest of plan as noted below. Plan: Supplemental oxygen Titrate to keep O2 sats above 92%. Bronchodilators for COPD. Continue antibiotics for pneumonia Continue Eliquis BID for PE. Head of bed elevation Aspiration precautions Monitor renal function. Monitor electrolytes. Supplement as necessary. Monitor ins and outs. Diet and lifestyle modifications for weight reduction Super morbid obesity - complicates all care DVT prophylaxis. Prognosis: Guarded given patient's multiple co-morbidities. Rest of plan per hospitalist and other consultants. Thank you Dr. Bazan, for allowing me to participate in this patient's care. Further recommendations will depend on the patient's clinical course. Please do not hesitate to contact me if you have any questions or concerns. This medical document was created using an electronic medical record system with [employer] dictation system. Although these documentations are being carefully reviewed, there may still be some phonetic and typographical changes. The errors are purely typographical, due to imperfection on the software program, and do not reflect any compromise in the patient's medical care. Dietary Evaluation Review Comments: Wt reducing diet with 2GNA restriction Expected Outcomes/Goals: Gradual wt loss Plan discussed with: Patient, Other (MAYE Vazquez) CHRIS FREEMAN MD Oct 18, 2024 21:32
[2024-10-18] MEDS ORDERED: APIXABAN 5 MG TAB PO SCH (22:00)
== END 2024-10-18 16:00 | disposition home or self-care (01) | DRG 177 ==
LOC: EDBD 05:46 → ER 05:50 → OVERFLOW 11:32 → TELE-EAST 17:30
PROVIDERS: ADMIT Internal Medicine Geriatric Medicine; ATTEND Internal Medicine Geriatric Medicine
DX: J15.69 Pneumonia due to other Gram-negative bacteria (principal); I26.99 Other pulmonary embolism without acute cor pulmonale; J96.21 Acute and chronic respiratory failure with hypoxia; I50.33 Acute on chronic diastolic (congestive) heart failure; I13.0 Hypertensive heart and chronic kidney disease with heart failure and stage 1 through stage 4 chronic kidney disease, or unspecified chronic kidney disease; N39.0 Urinary tract infection, site not specified; G82.20 Paraplegia, unspecified; Z68.43 Body mass index [BMI] 50.0-59.9, adult; I69.354 Hemiplegia and hemiparesis following cerebral infarction affecting left non-dominant side; I25.110 Atherosclerotic heart disease of native coronary artery with unstable angina pectoris; J44.0 Chronic obstructive pulmonary disease with (acute) lower respiratory infection; I74.9 Embolism and thrombosis of unspecified artery; J15.9 Unspecified bacterial pneumonia; F12.90 Cannabis use, unspecified, uncomplicated; E66.01 Morbid (severe) obesity due to excess calories; E83.42 Hypomagnesemia; F17.210 Nicotine dependence, cigarettes, uncomplicated; E11.22 Type 2 diabetes mellitus with diabetic chronic kidney disease; F32.A Depression, unspecified; K21.9 Gastro-esophageal reflux disease without esophagitis; I27.20 Pulmonary hypertension, unspecified; N18.9 Chronic kidney disease, unspecified; R56.9 Unspecified convulsions; Z74.01 Bed confinement status; I25.2 Old myocardial infarction; Z88.6 Allergy status to analgesic agent; Z79.899 Other long term (current) drug therapy; Z79.82 Long term (current) use of aspirin; Z79.1 Long term (current) use of non-steroidal anti-inflammatories (NSAID); Z83.3 Family history of diabetes mellitus; Z82.49 Family history of ischemic heart disease and other diseases of the circulatory system; Z99.81 Dependence on supplemental oxygen; Z79.01 Long term (current) use of anticoagulants; Z95.5 Presence of coronary angioplasty implant and graft
CPT/HCPCS: 36415; 71045; 71275; 74176; 76775; 80048; 80053; 80061; 80307; 81001; 82962; 83036; 83735; 84443; 84484; 85025; 85379; 85610; 85730; 87081; 93005; 93306; 96361; 96374; 96375; G0378; J1815; J1885; J2405

== ENCOUNTER 2024-12-31 18:13 | Inpatient (IN) | payer OTHER, MEDICAID ==
[~2024-12-31] VITALS: Ht 167.6 cm; Wt 155.0 kg
[~2024-12-31 18:13] MED LIST changes: +AMLO1TAB23 PO; +APIX5TAB PO; +FLUO-470 PO; +FURO1TAB31 PO; +HYDR-4902 PO; +MECL-126 PO; +MULT-1056 PO; +OMEP-448 PO; +PANT40T PO
--- NOTE | 2024-12-31 18:39 | ED.PDOC ---
HPI Comments HPI: 64-year-old female came to ER via EMS for palpitations. Patient is morbidly obese, wheelchair-bound, diagnosed with chronic back pain, neck pain, CHF, AFib, hypertension and diabetes. Patient has not been taking her Eliquis and Lasix for the past 2 months. She on home oxygen at 2.5 L/min. Patient was at a pain management clinic earlier, when she accidentally bumped her left toe, head, and lower abdomen on the door. Patient complaining of left toe pain so paramedics were called. Upon arrival patient, noted to be on AFib in RVR Patient denies any history of brain surgery, any recent surgeries, or any active GI bleeding at this time Patient discharged your last October 18, 2024, diagnosed with Final diagnoses: Acute pulmonary embolism Acute hypoxic respiratory failure Chronic respiratory failure on home O2 COPD Old CVA Bed-bound Left upper lobe pneumonia and left lower lobe pneumonia, most likely mixed Gram- negative and Gram-positive bacteria Hypertension Morbid obesity Type 2 diabetes Paraplegia Left flank swelling and pain due to edema Hypomagnesemia Chronic kidney disease Coronary artery disease status post stents on aspirin Seizures Acute on chronic diastolic HF Initial Vitals BP:103/70 HR: 146 RR: 22 O2: 90% Temp: 98.8 Past Medical History: chronic back pain, neck pain, CHF, COPD, AFib, hypertension and diabetes. Past Surgical History: Denies Social History: Denies ETOH, smoking, and drug use. Medications: Amlodipine, insulin, aspirin Allergies: COUNTS: HPI: Poor Historian. REVIEW OF SYSTEMS: CONSTITUTIONAL: Denies acute: fever, diaphoresis, chills, HEAD: Denies acute: headache, photophobia Eyes: Denies acute: Double vision, vision loss, eye pain, eye discharge. EARS: Denies acute: tinnitus, hearing loss, ear discharge, ear pain, THROAT: Denies acute: sore throat, swelling, difficulty swallowing , pain with swallowing, change in voice. NECK: Denies acute: neck pain, neck swelling, stiff neck. HEART: Denies acute : chest pain, palpitations, LUNGS: Denies acute: SOB, wheezing, cough, hemoptysis ABDOMEN: Denies acute: abdominal pain, Nausea, Vomiting, diarrhea, melena , hematemesis, hematochezia SKIN: Denies acute: rash, redness, lesions, itchiness. EXTREMITIES: Denies acute: calf pain, numbness, tingling, weakness, denies pain in extremity. Denies acute: Low back pain. Neuro: Denies acute: focal neurological deficit, motor or sensory focal neurological deficit, tremors, seizure like activity, confusion, dizziness, change in mental status, loss of bowel or bladder function, cauda equina like symptoms. : Denies acute: dysuria, hematuria, flank pain, increase in urinary frequency. PSYCH: Denies acute: hallucination, suicidal ideation, homicidal ideation. FEMALE: Denies acute: abnormal vaginal bleeding, foul odor, unusual discharge. PHYSICAL EXAM: General: -----moderate---acute distress, awake and alert. Head: normocephalic, atraumatic. Neck: supple, trachea is midline, no swelling. Throat: Normal phonation. Eyes:, no erythema, no purulent discharge, no proptosis, no icterus. Heart: regular tachycardia, no significant murmur appreciated. Lungs: no apparent respiratory distress, Able to speak in full sentences. No wheezing, no rhonchi, mild crackles. No stridors Clear to auscultation bilaterally. Abdomen: non tender to palpation, non distended, soft, no guarding, no rebound, + bowel sounds. morbidly obese. Neuro: Awake, Alert, oriented to name, self, situation, follows commands GCS=15. Speech is normal. Skin: no petechia, no purpura, no cyanosis, non-pale, not jaundice. Lower extremities: --2/4 b/l - Pitting edema no deformity, no focal swelling, no calf TTP. Makes eye contact. moves all four extremities. Face: no apparent facial droop. No nuchal rigidity, Kernig's sign, Brudzinski's sign, no meningeal signs. ED COURSE: DISCLAIMER: This medical document was created using an electronic medical record system with voice recognition software and computerized dictation system. Although this document has been carefully reviewed, there might still be some phonetic and typographical errors. Occasional wrong-word or "sound-alike" substitutions may have occurred due to the inherent limitations of voice recognition software. These areas are purely typographical due to imperfections of the software programs and do not reflect any compromise in the patient's medical care. Please read the chart carefully and recognize, using context, where these substitutions have occurred. 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, Allergies Allergies: Coded Allergies: Ibuprofen (Verified Allergy, Severe, SKIN RASHES, 02/01/10) Home Meds Active Scripts Furosemide (Lasix) 40 Mg Tab, 40 MG PO DAILY for 30 Days, #30 TAB 5 Refills Prov:JUSTA POWELL MD 10/18/24 Apixaban Base (ELIQUIS) 5 Mg Tab, 5 MG PO BID for 30 Days, #60 TAB 5 Refills Prov:JUSTA POWELL MD 10/18/24 Reported Medications Omeprazole (Omeprazole Dr) 40 Mg Cap, 1 CAP PO DAILY for 90 Days, #90 01/03/25 Fluoxetine HCl (Fluoxetine HCl) 20 Mg Cap, 1 CAP PO DAILY for 30 Days, #30 01/03/25 Meclizine HCl (Meclizine Hydrochloride) 25 Mg Tab, 1 TAB PO TID PRN for 30 Days, #90 01/03/25 Hydrocodone-Acetaminophen (Hydrocodone/Acetaminophen 10-325 mg) 1 Tab Tab, 1 TAB PO Q6HR PRN for PAIN IN THORACIC SPINE for 30 Days, #120 01/03/25 Amlodipine Besylate (Amlodipine Besylate) 10 Mg Tab, 1 TAB PO DAILY for 30 Days, #30 10/09/24 Multiple Vitamin (Multivitamin) 1 Tab Tab, 1 TAB PO DAILY for 30 Days, #30 10/09/24 Temazepam (Restoril) 15 Mg Cp, 1 CAP PO QPM 07/14/23 Escitalopram Oxalate (Lexapro) 10 Mg Tab, 1 TAB PO DAILY 07/14/23 Paroxetine Hydrochloride (Paroxetine Hydrochloride) 40 Mg Tab, 1 TAB PO DAILY 07/14/23 Levetiracetam (Levetiracetam) 1,000 Mg Tab, 1 TAB PO Q12HR for 30 Days, #60 07/14/23 Hydroxyzine Hcl (Hydroxyzine Hcl) 25 Mg Tab, 1 TAB PO DAILY, #30 TAB 11/07/22 Magnesium Oxide (MAGNESIUM OXIDE) 400 Mg Tab, 500 MG PO DAILY, TAB 11/07/22 Potassium Chloride (Klor-Con M10) 10 Meq Tab, 1 TAB PO BID, #30 TAB 5 Refills 11/07/22 Gabapentin (Gabapentin) 300 Mg Cap, 1 CAP PO TID for 30 Days, #90 11/07/22 Aspirin (Aspir-Low) 81 Mg Tab, 1 TAB PO DAILY for 30 Days, #30 11/07/22 Valsartan-Hydrochlorothiazide (Diovan Hct) 160 Mg/25 Mg Tab 01/29/10 Fluticasone-Salmeterol (Advair Diskus) 250/50 Mis 01/29/10 Rosuvastatin Calcium (Crestor) 10 Mg Tab 01/29/10 Esomeprazole Magnesium Trihydr (Nexium) 40 Mg Cap 01/29/10 Diphenhydramine Hcl (Twilite) 50 Mg Tab 01/29/10 Oxcarbazepine (Trileptal) 300 Mg Tab 01/29/10 Information Source: Patient, Emergency Med Personnel Mode of Arrival: EMS Past Medical History PAST MEDICAL HISTORY: Asthma, CHF, COPD, CVA, Depression, DM, GERD, High Lipids, HTN, CO, Seizures Surgical History: 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 Was a procedure done?: No CP Differential Dx Differential Diagnosis: A-fib, A-Flutter, Anxiety / Panic Attack, Atrial Dysrhythmia, Digoxin Toxicity, Electrolyte Disorder, Heart Failure, Hyperthyroidism, Hyperventilation, Hypoxia, MAT, CO, PAC's, Pacemaker Malfunction, PSVT, Pulmonary Embolus, PVC's, Renal Failure, Sinus Tachycardia, Torsades De Pointes, Ventricular Dysrhythmia, V-Fib, V-Tach X-Ray, Labs, Meds, VS Vital Signs Date Time Temp Pulse Resp B/P (MAP) Pulse Ox O2 Delivery O2 Flow Rate FiO2 01/01/25 00:00 146 12/31/24 20:00 148 12/31/24 19:15 92 Nasal Cannula* 2 28 12/31/24 19:10 151 18 92 Nasal Cannula* 2 28 12/31/24 19:09 98.7 155 19 116/54 (74) 92 98.7 12/31/24 19:05 116/46 12/31/24 18:47 151 12/31/24 18:16 98.8 146 22 103/70 90 98.8 12/31/24 18:14 151 Lab Test 12/31/24 21:30 12/31/24 19:34 12/31/24 18:41 Range/Units Prothrombin Time 15.6 H 9.3-11.8 sec Prothrombin Time INR 1.54 H 0.9-1.15 Activated Partial Thromboplast Time 28.3 24.5-34.5 SEC Troponin I High Sensitivity 30 28 24 </=34 ng/L White Blood Count 6.4 4.4-10.8 10^3/uL Red Blood Count 5.22 H 4.0-5.20 10^6/uL Hemoglobin 12.1 L 12.2-16.2 g/dL Hematocrit 39.1 36.0-46.0 % Mean Corpuscular Volume 75.0 L 80.0-100.0 fL Mean Corpuscular Hemoglobin 23.3 L 28.0-32.0 pg Mean Corpuscular Hemoglobin Concent 31.0 L 32.0-36.0 g/dL Red Cell Distribution Width 21.4 H 11.8-14.3 % Platelet Count 268 140-450 10^3/uL Mean Platelet Volume 8.0 6.9-10.8 fL Neutrophils (%) (Auto) 77.5 37.0-80.0 % Lymphocytes (%) (Auto) 9.5 L 10.0-50.0 % Monocytes (%) (Auto) 11.3 0.0-12.0 % Eosinophils (%) (Auto) 0.4 0.0-7.0 % Basophils (%) (Auto) 1.3 0.0-2.0 % Neutrophils # (Auto) 5.0 1.6-8.6 10 ^3/uL Lymphocytes # (Auto) 0.6 0.4-5.4 10 ^3/uL Monocytes # (Auto) 0.7 0-1.3 10 ^3/uL Eosinophils # (Auto) 0 0-0.8 10 ^3/uL Basophils # (Auto) 0.1 0-0.2 10 ^3/uL Nucleated Red Blood Cells 0.2 % Sodium Level 140 136-145 mmol/L Potassium Level 4.6 3.5-5.1 mmol/L Chloride Level 106 98-107 mmol/L Carbon Dioxide Level 22 20-31 mmol/L Anion Gap 12 5-15 Blood Urea Nitrogen 18 9-23 mg/dL Creatinine 0.83 0.550-1.02 mg/dL Glomerular Filtration Rate Calc 79 >90 mL/min BUN/Creatinine Ratio 21.7 H 10.0-20.0 Serum Glucose 82 74-106 mg/dL Calcium Level 8.2 L 8.7-10.4 mg/dL Magnesium Level 1.1 L 1.6-2.6 mg/dL Total Bilirubin 0.9 0.2-1.0 mg/dL Aspartate Amino Transferase (AST) 22 13-40 U/L Alanine Aminotransferase (ALT) 9 7-40 U/L Alkaline Phosphatase 124 H 46-116 U/L B-Type Natriuretic Peptide 812.39 0-100 pg/mL Total Protein 6.3 5.7-8.2 g/dL Albumin 3.4 3.2-4.8 g/dL Thyroid Stimulating Hormone (TSH) 2.02 0.55-4.78 uIU/mL [place] [address] Ph: [phone] DIAGNOSTIC IMAGING Diagnostic Imaging Report : [id number] Signed PATIENT: WICHO SMITH ACCT: [id number] UNIT: [id number] : 1960 LOC: ER ROOM / BED: / AGE / SEX: 64 / F ADM STATUS: REG ER SERVICE 1832 ORDERING PHYSICIAN: PARAM BERG DO PROCEDURE(s): LFOT2 - L FOOT 2 VIEW XRAY REASON: TOE NAIL INJURY ORDER NUMBER(s): [id number], ACCESSION NUMBER(s): [id number] CLINICAL INDICATION: TOE NAIL INJURY TECHNIQUE: 3 radiographic views of the left foot were obtained. Comparison: None FINDINGS/IMPRESSION: There is no evidence of acute fracture or dislocation. The images appear to be of the ankle. Limited evaluation of the toes. [id number]-bn-jymufeuk degenerative changes of the ankle. Harini deformity of the calcaneus. Small plantar calcaneal bony spur. Moderate soft tissue edema of the foot ankle and visualized lower leg. ATED BY: AMBER TORREZ DO DICTATED DATE/TIME: 12/31/241910 SIGNED BY: AMBER TORREZ DO SIGNED DATE/TIME: 12/31/241910 CC: [place] [id number] Ph: [phone] DIAGNOSTIC IMAGING Diagnostic Imaging Report : [id number] Signed PATIENT: WICHO SMITH ACCT: [id number] UNIT: [id number] : 1960 LOC: ER ROOM / BED: / AGE / SEX: 64 / F ADM STATUS: REG ER SERVICE 39 ORDERING PHYSICIAN: PARAM BERG DO PROCEDURE(s): CTACH - CT ANGIO CHEST CONTRAST REASON: TACHY, H/O PE ORDER NUMBER(s): [id number], ACCESSION NUMBER(s): [id number] Procedure: CT CT ANGIO CHEST CONTRAST Study Date and Requested Time: 12/31/2024 08:07 PM History: TACHY, H/O PE Comparison: XY CHEST PORTABLE on DOS: 12/31/24, CT CT ANGIO CHEST CONTRAST on DOS: 10/10/24, XY CHEST PORTABLE on DOS: 10/09/24 Dose: CTDI: 32.56 mGy DLP: 2.54 mGycm Technique: Multiplanar images of the chest are obtained with contrast. 3-D MIP image postprocessing was performed and images were used for interpretation and reporting. Findings: 2.3 cm left thyroid lobe nodule. Filling defects within the left upper lobe segmental pulmonary artery, right middle lobe segmental pulmonary artery and right distal pulmonary artery extending into The right lower lobe segmental pulmonary arteries. Pulmonary trunk is normal in size. Unchanged cardiomegaly with large mint of the right atrium and right ventricle. No evidence of aortic aneurysm or dissection. Mild atherosclerotic calcification of the aorta. Mediastinal lymphadenopathy measuring up to 1.4 cm. Moderate left with small right-sided pleural effusion and associated atelectasis. Reflux of contrast into the IVC and hepatic veins consistent with right heart dysfunction. Mild splenomegaly. Mild gastric wall thickening which may be due to inadequate distention/mild gastritis. Punctate bilateral breast calcifications. Moderate lateral mid to lower chest and upper abdominal body wall edema with mild posterior body mid to lower chest wall and upper abdominal wall edema. No evidence of acute osseous abnormalities. There appears to be superior endplate Schmorl node of L1 with the L1 vertebral body not completely imaged. Impression: Pulmonary embolism involving the Left upper lobe segmental pulmonary arteries, right middle lobe segmental pulmonary artery and distal right lower lobe pulmonary artery extending into the right lower lobe Segmental pulmonary arteries. Reflux of contrast into the IVC and hepatic veins consistent with right heart dysfunction. Mediastinal lymphadenopathy which may be reactive/neoplastic. Moderate left with Small right sided pleural effusion still associated atelectasis/ pneumonia. Critical Result: Pulmonary embolism Findings discussed with PARAM BERG at 12/31/2024 09:15 PM, and acknowledged receipt and understanding of the findings. .. ATED BY: AMBER TORREZ DO DICTATED DATE/TIME: 12/31/242114 SIGNED BY: ABMER TORREZ DO SIGNED DATE/TIME: 12/31/242114 CC: [place] [address] Ph: [phone] DIAGNOSTIC IMAGING Diagnostic Imaging Report : [id number] Signed PATIENT: WICHO SMITH ACCT: [id number] UNIT: [id number] : 1960 LOC: ER ROOM / BED: / AGE / SEX: 64 / F ADM STATUS: REG ER SERVICE 22 ORDERING PHYSICIAN: PRAAM BERG DO PROCEDURE(s): CXRP - CHEST PORTABLE REASON: TACHY ORDER NUMBER(s): [id number], ACCESSION NUMBER(s): [id number] CHEST RADIOGRAPH Indication: TACHY Technique: Single frontal view of the chest was obtained Comparison: CT CT ANGIO CHEST CONTRAST on DOS: 10/10/24, XY CHEST PORTABLE on DOS: 10/09/24, XY CHEST PORTABLE on DOS: 07/14/23 FINDINGS: Lines and Tubes: None Lungs: No focal consolidation. Mild interstitial prominence. Pleura: No effusion. No pneumothorax. Cardiomediastinal contours: Moderate cardiomegaly. Obscuration of the left hemidiaphragm. Nonspecific density overlying the cardiac silhouette which is most likely external to the patient. Bones: No acute osseous abnormality. IMPRESSION: Mild cardiomegaly with mild pulmonary vascular congestion. Obscuration of the left hemidiaphragm which may be from overlying cardiac silhouette. Underlying pleural effusion with associated atelectasis /pneumonia can not be excluded. ATED BY: AMBER TORREZ DO DICTATED DATE/TIME: 12/31/241850 SIGNED BY: AMBER TORREZ DO SIGNED DATE/TIME: 12/31/241850 CC: Time of 1ST Reevaluation: 18:38 Reevaluation 1ST: Unchanged Time of 2ND Reevaluation: 21:51 (Earlier I contacted Kevin for [facility]. for clot removal. He reached back to me and said that both interventional radiologist in our hospital are out of town. He recommended I reach out to Dr. Oakley say. I did call Dr. Parada who said that best bed I have is to start the patient on tPA per our hospital protocol. I initiated the protocol. CT scan report does not show any heart strain. ) Patient Education/Counseling: Diagnosis, Treatment Family Education/Counseling: No Family Present Comments MDM: patient presented with the above HPI.--asymptomatic tachycardia----workup was initiated. patient was found with the above mentioned diagnosis. the following medications were ordered: please refer to order lists of meds and tests obtained by myself Dr. Berg. Patient ED course and VS have been stabilized. Patient has been reassessed in the ED and remained in a stable condition. Pertinent incidental findings were discussed with the patient and/or family. Patient/family voices understanding and is agreeable with plan. Patient has been observed in the ED adequate length of time to insure i mprovement/stability. Escalation of care considered: Consideration of escalation to observation or admission Interventional Radiology was consulted. Cardiology was consulted. Patient is started on heparin bolus and a drip. Patient is unaware that she is tachycardic. No right heart straining on CT scan. Patient was ADMITTED to the medicine team for further evaluation and treatment of their presentation. All the reports of any imaging studies that were ordered by myself were reviewed by myself. SEPSIS Sepsis Screen Date sepsis recognized/suspect: Dec 31, 2024 Time Sepsis recognized/suspect: 1819 Recent Procedure: No On Antibiotic Therapy: No Respiratory Rate >20: Yes Heart Rate >90: Yes Temp<36 C (96.8 F) or >38.3 C: No SBP <90 or MAP <65 mmHG: No New Acute Mental Status Change: No Is the patient on CPAP, BIPAP,: No Physician Orders House Superintendent (12/31/24 ) Chest Portable (12/31/24 18:23) L Foot 2 View Xray (12/31/24 18:32) Ct Angio Chest Contrast (12/31/24 18:40) * Radiologist Consult (12/31/24 21:16) Platelet Monitoring (12/31/24 23:45) Vte Protocol Initiated (12/31/24 23:45) Discontinue All Im Injections (12/31/24 21:45) Imaging Transfer Request (12/31/24 21:47) Head Without Contrast (12/31/24 23:02) Heparin Per Standardized Proce (12/31/24 23:21) Heparin Per Pharmacy Protocol (01/01/25 00:41) Vital Signs Date Time Temp Pulse Resp B/P (MAP) Pulse Ox O2 Delivery O2 Flow Rate FiO2 01/01/25 00:00 146 12/31/24 20:00 148 12/31/24 19:15 92 Nasal Cannula* 2 28 12/31/24 19:10 151 18 92 Nasal Cannula* 2 28 12/31/24 19:09 98.7 155 19 116/54 (74) 92 98.7 12/31/24 19:05 116/46 12/31/24 18:47 151 12/31/24 18:16 98.8 146 22 103/70 90 98.8 12/31/24 18:14 151 Laboratory Tests Test 12/31/24 18:41 White Blood Count 6.4 10^3/uL (4.4-10.8) Departure 1 Departure Time of Disposition: 21:11 Impression: Primary Impression: Sinus tachycardia Additional Impressions: History of medication noncompliance CHF exacerbation Pulmonary embolus Pleural effusion Disposition: ADMITTED INPATIENT Admit to: [facility] Condition: Guarded Discharged With: Self Critical Care Note Critical Care Time?: Yes (>90min-critical care time only) Heart Score Heart Score: Heart Score Response (Comments) Value History Moderate Suspicious 1 EKG Repolarization Disturb 1 Age 45-64 1 Risk Factors >3 or Hx ASHD 2 Troponin Normal limit 0 Total 5 I personally scribed for PARAM BERG DO ([email or web address]) on 12/31/24 at 18:38. Electronically submitted by Santiago Cisneros ([email or web address]). I personally scribed for PARAM BERG DO ([email or web address]) on 12/31/24 at 18:41. Electronically submitted by Santiago Cisneros ([email or web address]). I personally scribed for PARAM BERG DO ([email or web address]) on 12/31/24 at 18:47. Electronically submitted by Santiago Cisneros ([email or web address]). I personally scribed for PARAM BERG DO ([email or web address]) on 12/31/24 at 20:55. Electronically submitted by Santiago Cisneros ([email or web address]). I personally scribed for PARAM BERG DO ([email or web address]) on 12/31/24 at 21:48. Electronically submitted by Santiago Cisneros ([email or web address]). I personally scribed for PARAM BERG DO ([email or web address]) on 12/31/24 at 21:58. Electronically submitted by Santiago Cisneros ([email or web address]). I personally scribed for PARAM BERG DO ([email or web address]) on 12/31/24 at 23:37. Electronically submitted by Santiago Cisneros ([email or web address]). PARAM BERG DO Dec 31, 2024 18:38
--- NOTE | 2024-12-31 18:53 | DVH ---
CHEST RADIOGRAPH Indication: TACHY Technique: Single frontal view of the chest was obtained Comparison: CT CT ANGIO CHEST CONTRAST on DOS: 10/10/24, XY CHEST PORTABLE on DOS: 10/09/24, XY CHEST PO RTABLE on DOS: 07/14/23 FINDINGS: Lines and Tubes: None Lungs: No focal consolidation. Mild interstitial prominence. Pleura: No effusion. No pneumothorax. Cardiomediastinal contours: Moderate cardiomegaly. Obscuration of the left hemidiaphragm. Nonspecifi c density overlying the cardiac silhouette which is most likely external to the patient. Bones: No acute osseous abnormality. IMPRESSION: Mild cardiomegaly with mild pulmonary vascular congestion. Obscuration of the left hemidiaphragm which may be from overlying cardiac silhouette. Underlying ple ural effusion with associated atelectasis /pneumonia can not be excluded.
[2024-12-31 19:03] LABS: Hematocrit 39.1 % (36.0-46.0); Hemoglobin 12.1 g/dL (12.2-16.2); Mean Corpuscular Hemoglobin 23.3 pg (28.0-32.0); Mean Corpuscular Volume 75.0 fL (80.0-100.0); Nucleated Red Blood Cells % 0.2 %
[2024-12-31] MEDS: FUROSEMIDE 100 MG/10ML VIAL IV ONE (19:05)
[2024-12-31 19:10] VITALS: PULSE 151; RESP 18; O2SAT 92
--- NOTE | 2024-12-31 19:13 | DVH ---
CLINICAL INDICATION: TOE NAIL INJURY TECHNIQUE: 3 radiographic views of the left foot were obtained. Comparison: None FINDINGS/IMPRESSION: There is no evidence of acute fracture or dislocation. The images appear to be of the ankle. Limited evaluation of the toes. Dykb-tl-lrsyeibl degenerative changes of the ankle. Harini deformity of the calcaneus. Small plantar calcaneal bony spur. Moderate soft tissue edema of the foot ankle and visualized lower leg.
[2024-12-31 19:14] LABS: Albumin 3.4 g/dL (3.2-4.8); Anion Gap 12 (5-15); BUN/Creatinine Ratio 21.7 (10.0-20.0); Bilirubin, Total 0.9 mg/dL (0.2-1.0); Blood Urea Nitrogen 18 mg/dL (9-23); Carbon Dioxide 22 mmol/L (20-31); Chloride 106 mmol/L (98-107); Glucose 82 mg/dL (74-106); Potassium 4.6 mmol/L (3.5-5.1); Sodium 140 mmol/L (136-145); Total Protein 6.3 g/dL (5.7-8.2)
[2024-12-31 19:20] LABS: Alanine Aminotransferase 9 U/L (7-40); Alkaline Phosphatase 124 U/L (46-116); Calcium 8.2 mg/dL (8.7-10.4); Magnesium 1.1 mg/dL (1.6-2.6)
[2024-12-31] MEDS: IOHEXOL 300 MG/ML 100ML BOTTLE IJ ONE (20:15)
[2024-12-31] MEDS ORDERED: ENOXAPARIN SOD 100 MG/1 ML SYRINGE SC ONE (21:15)
--- NOTE | 2024-12-31 21:17 | DVH ---
Procedure: CT CT ANGIO CHEST CONTRAST Study Date and Requested Time: 12/11 08:07 PM History: TACHY, H/O PE Comparison: XY CHEST PORTABLE on DOS: 12/31/24, CT CT ANGIO CHEST CONTRAST on DOS: 10/10/24, XY CHEST PO RTABLE on DOS: 10/09/24 Dose: CTDI: 32.56 mGy DLP: 2.54 mGycm Technique: Multiplanar images of the chest are obtained with contrast. 3-D MIP image postprocessing w as performed and images were used for interpretation and reporting. Findings: 2.3 cm left thyroid lobe nodule. Filling defects within the left upper lobe segmental pulmonary artery, right middle lobe segmental pu lmonary artery and right distal pulmonary artery extending into The right lower lobe segmental pulm onary arteries. Pulmonary trunk is normal in size. Unchanged cardiomegaly with large mint of the righ t atrium and right ventricle. No evidence of aortic aneurysm or dissection. Mild atherosclerotic calc ification of the aorta. Mediastinal lymphadenopathy measuring up to 1.4 cm. Moderate left with small right-sided pleural effusion and associated atelectasis. Reflux of contrast into the IVC and hepatic veins consistent with right heart dysfunction. Mild splen omegaly. Mild gastric wall thickening which may be due to inadequate distention/mild gastritis. Punctate bilateral breast calcifications. Moderate lateral mid to lower chest and upper abdominal bod y wall edema with mild posterior body mid to lower chest wall and upper abdominal wall edema. No evid ence of acute osseous abnormalities. There appears to be superior endplate Schmorl node of L1 with th e L1 vertebral body not completely imaged. Impression: Pulmonary embolism involving the Left upper lobe segmental pulmonary arteries, right middle lobe segm ental pulmonary artery and distal right lower lobe pulmonary artery extending into the right lower lo be Segmental pulmonary arteries. Reflux of contrast into the IVC and hepatic veins consistent with right heart dysfunction. Mediastinal lymphadenopathy which may be reactive/neoplastic. Moderate left with Small right sided pleural effusion still associated atelectasis/ pneumonia. Critical Result: Pulmonary embolism Findings discussed with PARAM BERG at 12/31/2024 09:15 PM, and acknowledged receipt and understandin g of the findings. ..
[2024-12-31] MEDS: ALTEPLASE (RECOMBINANT) 100 MG in STERILE WATER 100 ML IV ONE (21:45)
[2024-12-31 22:38] LABS: INR 1.54 (0.9-1.15); Partial Thromboplastin Time 28.3 SEC (24.5-34.5); Prothrombin Time 15.6 sec (9.3-11.8)
[2024-12-31] MEDS: HEPARIN SODIUM (PORCINE) 5000 UNITS/ML 1ML VIAL IV ONE (23:30)
--- NOTE | 2024-12-31 23:40 | DVH ---
CT HEAD WITHOUT CONTRAST INDICATION: INJURY COMPARISON: None TECHNIQUE: CT of the head without intravenous contrast. RADIATION DOSE: CTDIvol: 56 mGy, DLP: 989 mGy*cm FINDINGS: There is no evidence of acute intracranial hemorrhage, extra-axial collection, mass effect, midline s hift, herniation or hydrocephalus. The ventricles, sulci and cisterns are age appropriate. The martinez -white differentiation is intact. The visualized paranasal sinuses and mastoid air cells are clear. The surrounding soft tissues and osseous structures are unremarkable. IMPRESSION: 1. No evidence of acute intracranial hemorrhage, mass effect or hydrocephalus.
[2024-12-31] MEDS ORDERED: HEPARIN DRIP/D5W 100UNITS/ML 250 ML IV SCH (23:45)
[2025-01-01] VITALS (12 sets, daily range): BP systolic 94–116; BP diastolic 54–69; PULSE 105–152; RESP 12–20; TEMP 97.7–98.7; O2SAT 89–100
[2025-01-01] MEDS: HEPARIN DRIP/D5W 100UNITS/ML 250 ML IV SCH ×2 (00:29→10:40)
[2025-01-01] MEDS: HEPARIN SODIUM (PORCINE) 5000 UNITS/ML 1ML VIAL IV ONE (00:45)
--- NOTE | 2025-01-01 00:46 | CONS ---
Pharmacy Clinical Information: Chemistry Test 12/31/24 18:41 Albumin 3.4 g/dL (3.2-4.8) Calcium Level 8.2 mg/dL (8.7-10.4) L Magnesium Level 1.1 mg/dL (1.6-2.6) L Total Protein 6.3 g/dL (5.7-8.2) Coagulation Test 12/31/24 21:30 Prothrombin Time 15.6 sec (9.3-11.8) H Prothrombin Time INR 1.54 (0.9-1.15) H Activated Partial Thromboplast Time 28.3 SEC (24.5-34.5) Cardiac Markers Test 12/31/24 18:41 B-Type Natriuretic Peptide 812.39 pg/mL (0-100) LFT Test 12/31/24 18:41 Alanine Aminotransferase (ALT) 9 U/L (7-40) Alkaline Phosphatase 124 U/L (46-116) H Aspartate Amino Transferase (AST) 22 U/L (13-40) Total Bilirubin 0.9 mg/dL (0.2-1.0) HgA1c, TSH Test 12/31/24 18:41 Thyroid Stimulating Hormone (TSH) 2.02 uIU/mL (0.55-4.78) B/L PE INDICATION: DVT/PE PROTOCOL BOLUS 10,000 UNITS X 1 STARTING RATE = 2000 UNITS/HR NEXT PTT @ 0700 CONFIRMED WITH ANA QUIJANO Jan 01, 2025 00:46
[2025-01-01] MEDS ORDERED: ONDANSETRON HCL 4 MG/2 ML VIAL IV PRN (03:45)
[2025-01-01] MEDS ORDERED: NITROGLYCERIN 0.4 MG SL TAB SL PRN (03:45)
[2025-01-01] MEDS ORDERED: DEXTROSE (50%) 50ML SYRG IV PRN (03:45)
[2025-01-01] MEDS ORDERED: DOCUSATE SOD 100 MG CAP PO PRN (03:45)
--- NOTE | 2025-01-01 03:47 | DVHHP2 ---
History of Present Illness Reason for Visit: Pulmonary embolism History of Present Illness The patient is a 64-year-old female wheelchair/bed-bound with multiple past medical history including morbid obesity, CHF, COPD, CVA, GERD, and hypertension who presented to [facility] ED with complaint of palpitations. Patient admits to not been taking Eliquis and Lasix for the past 2 months, currently on home oxygen 2.5 L/min. Patient was at pain management clinic when she accidentally bumped her left toe and lower abdomen on the door, she started complaining of left toe pain and called paramedics. When paramedics arrived on the scene, patient was noted to be on AFib with RVR and was stabilized EN route to our facility ED. patient was seen and evaluated in the ED, laboratory data shows WBC 6.4, platelets 268, sodium 140, potassium 4.6, BUN 18, creatinine 0.83, glucose 82, calcium 8.2, magnesium 1.1, TSH 2.02, troponin 30, BNP 812.39, blood pressure 103/70, heart rate 146, temperature 98.8 F, O2 saturation 92% on oxygen. CT Angiography revealing pulmonary embolism involving the left upper lobe segmental pulmonary arteries, right middle lobe segmental pulmonary artery and distal right lower lobe pulmonary artery extending into the right lower lobe segmental pulmonary arteries; reflux of contrast into the IVC and hepatic veins consistent with right heart dysfunction. Patient was started on heparin drip, please see medication orders section in the computer. On my assessment, patient denied chest pain, no headache, no dizziness, no diaphoresis, currently on oxygen, no abdominal pain, no diarrhea, no nausea, no vomiting, no fever, no chills. Patient was admitted for further evaluation and medical management. Past Medical History Asthma, CHF, COPD, CVA, Depression, DM, GERD, High Lipids, HTN, CT, Seizures Past Surgical History PTCA Family History Reviewed, noncontributory to the management of this case. Past Social History The patient lives at home, denies smoking, alcohol or illicit drugs abuse. Review of Systems Constitutional: Yes: Weakness; No: Fever, Chills, Sweats, Malaise, Other Eyes: No: Pain, Vision change, Conjunctivae inflammation, Eyelid inflammation, Other, Redness ENT: No: Ear pain, Ear discharge, Nose pain, Nose discharge, Nose congestion, Mouth pain, Mouth swelling, Throat pain, Throat swelling, Other Respiratory: Shortness of breath; No: Cough, Dry, SOB with excertion, Wheezing, Hemoptysis, Pleuritic Pain, Sputum, Wheezing, Other Cardiovascular: Palpitations; No: Chest Pain, Orthopnea, Paroxysmal Noc. Dyspnea, Edema, Lt Headedness, Other Gastrointestinal: No: Nausea, Vomiting, Abdominal Pain, Diarrhea, Constipation, Melena, Hematochezia, Other Genitourinary: No Dysuria, No Frequency, No Incontinence, No Hematuria, No Retention; Other (Mary catheter in place) Musculoskeletal: No: other, neck pain, shoulder pain, arm pain, back pain, hand pain, leg pain, foot pain Skin: No: Rash, Lesions, Jaundice, Bruising, Other Neurological: No: Weakness, Numbness, Incoordination, Change in speech, Confusion, Seizures, Other Allergies: Coded Allergies: Ibuprofen (Verified Allergy, Severe, SKIN RASHES, 02/01/10) Medications Current Medications Medications Dose Ordered Sig/Marck Route Start Time Stop Time Status Last Admin Dose Admin Heparin Sodium/ Dextrose 250 ml @ 20 mls/hr [id number] IV 01/01/25 00:29 01/01/25 00:29 20 MLS/HR Exam Vital Signs Vital Signs Date Time Temp Pulse Resp B/P (MAP) Pulse Ox O2 Delivery O2 Flow Rate FiO2 12/31/24 20:00 148 12/31/24 19:15 92 Nasal Cannula* 2 28 12/31/24 19:10 18 12/31/24 19:09 98.7 116/54 (74) 98.7 General Appearance: Alert, Oriented X3, Cooperative, No acute distress HEENT: Atraumatic, PERRLA, EOMI, Mucous membr. moist/pink Respiratory: Normal air movement, Other (Diminished breath sounds) Cardiovascular: Regular rate, Normal S1, Normal S2, No murmurs Abdominal: Normal bowel sounds, Soft, No tenderness, No hepatospenomegaly, No masses Extremities: No clubbing, No cyanosis, No edema, Normal pulses, No tenderness/swelling Skin: No rashes, No significant lesion Neuro: Normal speech, Normal tone, Sensation intact, Cranial nerves 3-12 NL, Reflexes 2+, Other (Generalized weakness) Psych/Mental Status: Mental status NL, Mood NL Labs/Xrays Labs Test 12/31/24 21:30 12/31/24 18:41 Range/Units Prothrombin Time 15.6 H 9.3-11.8 sec Prothrombin Time INR 1.54 H 0.9-1.15 Activated Partial Thromboplast Time 28.3 24.5-34.5 SEC Troponin I High Sensitivity 30 </=34 ng/L White Blood Count 6.4 4.4-10.8 10^3/uL Red Blood Count 5.22 H 4.0-5.20 10^6/uL Hemoglobin 12.1 L 12.2-16.2 g/dL Hematocrit 39.1 36.0-46.0 % Mean Corpuscular Volume 75.0 L 80.0-100.0 fL Mean Corpuscular Hemoglobin 23.3 L 28.0-32.0 pg Mean Corpuscular Hemoglobin Concent 31.0 L 32.0-36.0 g/dL Red Cell Distribution Width 21.4 H 11.8-14.3 % Platelet Count 268 140-450 10^3/uL Mean Platelet Volume 8.0 6.9-10.8 fL Neutrophils (%) (Auto) 77.5 37.0-80.0 % Lymphocytes (%) (Auto) 9.5 L 10.0-50.0 % Monocytes (%) (Auto) 11.3 0.0-12.0 % Eosinophils (%) (Auto) 0.4 0.0-7.0 % Basophils (%) (Auto) 1.3 0.0-2.0 % Neutrophils # (Auto) 5.0 1.6-8.6 10 ^3/uL Lymphocytes # (Auto) 0.6 0.4-5.4 10 ^3/uL Monocytes # (Auto) 0.7 0-1.3 10 ^3/uL Eosinophils # (Auto) 0 0-0.8 10 ^3/uL Basophils # (Auto) 0.1 0-0.2 10 ^3/uL Nucleated Red Blood Cells 0.2 % Sodium Level 140 136-145 mmol/L Potassium Level 4.6 3.5-5.1 mmol/L Chloride Level 106 98-107 mmol/L Carbon Dioxide Level 22 20-31 mmol/L Anion Gap 12 5-15 Blood Urea Nitrogen 18 9-23 mg/dL Creatinine 0.83 0.550-1.02 mg/dL Glomerular Filtration Rate Calc 79 >90 mL/min BUN/Creatinine Ratio 21.7 H 10.0-20.0 Serum Glucose 82 74-106 mg/dL Calcium Level 8.2 L 8.7-10.4 mg/dL Magnesium Level 1.1 L 1.6-2.6 mg/dL Total Bilirubin 0.9 0.2-1.0 mg/dL Aspartate Amino Transferase (AST) 22 13-40 U/L Alanine Aminotransferase (ALT) 9 7-40 U/L Alkaline Phosphatase 124 H 46-116 U/L B-Type Natriuretic Peptide 812.39 0-100 pg/mL Total Protein 6.3 5.7-8.2 g/dL Albumin 3.4 3.2-4.8 g/dL Thyroid Stimulating Hormone (TSH) 2.02 0.55-4.78 uIU/mL PATIENT: WICHO SMITH ACCT: [id number] UNIT: [id number] : 1960 LOC: ER ROOM / BED: / AGE / SEX: 64 / F ADM STATUS: REG ER SERVICE 1840 ORDERING PHYSICIAN: PARAM BERG DO PROCEDURE(s): CTACH - CT ANGIO CHEST CONTRAST REASON: TACHY, H/O PE ORDER NUMBER(s): [id number], ACCESSION NUMBER(s): [id number] Procedure: CT CT ANGIO CHEST CONTRAST Study Date and Requested Time: 12/31/2024 08:07 PM History: TACHY, H/O PE Comparison: XY CHEST PORTABLE on DOS: 12/31/24, CT CT ANGIO CHEST CONTRAST on DOS: 10/10/24, XY CHEST PORTABLE on DOS: 10/09/24 Dose: CTDI: 32.56 mGy DLP: 2.54 mGycm Technique: Multiplanar images of the chest are obtained with contrast. 3-D MIP image postprocessing was performed and images were used for interpretation and reporting. Findings: 2.3 cm left thyroid lobe nodule. Filling defects within the left upper lobe segmental pulmonary artery, right middle lobe segmental pulmonary artery and right distal pulmonary artery extending into The right lower lobe segmental pulmonary arteries. Pulmonary trunk is normal in size. Unchanged cardiomegaly with large mint of the right atrium and right ventricle. No evidence of aortic aneurysm or dissection. Mild atherosclerotic calcification of the aorta. Mediastinal lymphadenopathy measuring up to 1.4 cm. Moderate left with small right-sided pleural effusion and associated atelectasis. Reflux of contrast into the IVC and hepatic veins consistent with right heart dysfunction. Mild splenomegaly. Mild gastric wall thickening which may be due to inadequate distention/mild gastritis. Punctate bilateral breast calcifications. Moderate lateral mid to lower chest and upper abdominal body wall edema with mild posterior body mid to lower chest wall and upper abdominal wall edema. No evidence of acute osseous abnormalities. There appears to be superior endplate Schmorl node of L1 with the L1 vertebral b angelo not completely imaged. Impression: Pulmonary embolism involving the Left upper lobe segmental pulmonary arteries, right middle lobe segmental pulmonary artery and distal right lower lobe pulmonary artery extending into the right lower lobe Segmental pulmonary arteries. Reflux of contrast into the IVC and hepatic veins consistent with right heart dysfunction. Mediastinal lymphadenopathy which may be reactive/neoplastic. Moderate left with Small right sided pleural effusion still associated atelectasis/ pneumonia. Critical Result: Pulmonary embolism ORDERING PHYSICIAN: PARAM BERG DO PROCEDURE(s): HWOCT - HEAD WITHOUT CONTRAST REASON: INJURY ORDER NUMBER(s): [id number], ACCESSION NUMBER(s): [id number] CT HEAD WITHOUT CONTRAST INDICATION: INJURY COMPARISON: None TECHNIQUE: CT of the head without intravenous contrast. RADIATION DOSE: CTDIvol: 56 mGy, DLP: 989 mGy*cm FINDINGS: There is no evidence of acute intracranial hemorrhage, extra-axial collection, mass effect, midline shift, herniation or hydrocephalus. The ventricles, sulci and cisterns are age appropriate. The martinez-white differentiation is intact. The visualized paranasal sinuses and mastoid air cells are clear. The surrounding soft tissues and osseous structures are unremarkable. IMPRESSION: 1. No evidence of acute intracranial hemorrhage, mass effect or hydrocephalus. ORDERING PHYSICIAN: PARAM BERG DO PROCEDURE(s): LFOT2 - L FOOT 2 VIEW XRAY REASON: TOE NAIL INJURY ORDER NUMBER(s): [id number], ACCESSION NUMBER(s): [id number] CLINICAL INDICATION: TOE NAIL INJURY TECHNIQUE: 3 radiographic views of the left foot were obtained. Comparison: None FINDINGS/IMPRESSION: There is no evidence of acute fracture or dislocation. The images appear to be of the ankle. Limited evaluation of the toes. [id number] degenerative changes of the ankle. Harini deformity of the calcaneus. Small plantar calcaneal bony spur. Moderate soft tissue edema of the foot ankle and visualized lower leg. SEPSIS Sepsis Screen Date sepsis recognized/suspect: Dec 31, 2024 Time Sepsis recognized/suspect: 1913 Recent Procedure: No On Antibiotic Therapy: No Respiratory Rate >20: No Heart Rate >90: No Temp<36 C (96.8 F) or >38.3 C: No SBP <90 or MAP <65 mmHG: No New Acute Mental Status Change: No Is the patient on CPAP, BIPAP,: No Physician Orders * Radiologist Consult (12/31/24 21:16) Platelet Monitoring (12/31/24 23:45) Vte Protocol Initiated (12/31/24 23:45) Discontinue All Im Injections (12/31/24 21:45) Imaging Transfer Request (12/31/24 21:47) Head Without Contrast (12/31/24 23:02) Heparin Per Standardized Proce (12/31/24 23:21) Heparin Drip/D5w 100units/Ml (01/01/25 00:29) Partial Thromboplastin Time (01/01/25 07:00) Heparin Per Pharmacy Protocol (01/01/25 00:41) *Consult / (01/01/25 03:33) Complete Blood Count (01/01/25 04:00) Comprehensive Metabolic Panel (01/01/25 04:00) Magnesium Alex (01/01/25 03:45) Furosemide Injection (Lasix Injection) (01/01/25 10:00) Calcium Ivpb (01/01/25 03:45) * Cardiology Consult (01/01/25 03:33) Diltiazem Injection (Cardizem Injection) (01/01/25 03:45) Consistent Carb(Ccho)Diabetes (01/01/25 Breakfast) Levalbuterol Hcl (Xopenex Medneb) (01/01/25 06:00) Glucose Blood (Accu-Chek Comfort Curve T (01/01/25 07:00) Mild Sliding Scale (01/01/25 07:00) Dextrose 50% Syringe (01/01/25 03:45) Admit (01/01/25 03:33) Allergies (01/01/25 03:33) Code Status (01/01/25 03:33) Sodium Chloride Lock (Saline Lock Ns) (01/01/25 06:00) Oxygen Per Hour (01/01/25 03:33) Hydrocodone-Acet 5/325mg Tab (Ft Mitchell 5/32 (01/01/25 03:45) Ondansetron Hcl (Zofran) (01/01/25 03:45) Docusate Sodium Capsule (Colace Capsule) (01/01/25 03:45) Fall Risk Precautions In Place QSHIFT (01/01/25 03:33) Complete Blood Count (01/02/25 04:00) Comprehensive Metabolic Panel (01/02/25 04:00) Condition: Serious (01/01/25 03:33) Acetaminophen Tablet (Tylenol Tablet) (01/01/25 03:45) Nitroglycerin Sublingual (Ntrostat Subli (01/01/25 03:45) Morphine Sulfate Injection (01/01/25 03:45) Stat Ekg For Chest Pain (01/01/25 03:33) Notify Md Of Changes From Base (01/01/25 03:33) Weed Thinner For 24 Hours (01/01/25 03:33) Emergency Dysrhythmia Protocol (01/01/25 03:33) Rhythm Strips Once Every Shift (01/01/25 03:33) Oxygen By Nasal Cannula (01/01/25 03:33) Famotidine Injection (Pepcid Injection) (01/01/25 10:00) Maintain Bed Rest (01/01/25 03:33) Sequential Compression Device (01/01/25 ) Vital Signs Date Time Temp Pulse Resp B/P (MAP) Pulse Ox O2 Delivery O2 Flow Rate FiO2 12/31/24 20:00 148 Laboratory Tests Test 12/31/24 18:41 White Blood Count 6.4 10^3/uL (4.4-10.8) Medications Medications Dose Ordered Sig/Marck Route Start Time Stop Time Status Last Admin Dose Admin Furosemide 60 mg ONCE ONCE IV 12/31/24 18:45 12/31/24 18:46 DC 12/31/24 19:05 60 MG Heparin Sodium/ Dextrose 250 ml @ 20 mls/hr [id number] IV 01/01/25 00:29 01/01/25 00:29 20 MLS/HR Assessment/Plan Assessment/Plan Pulmonary embolus Sinus tachycardia Morbid obesity Generalized weakness Pleural effusion History of medication noncompliance Acute exacerbation of congestive heart failure COPD with acute exacerbation Plan 1. Admit to telemetry unit 2. Breathing treatment 3. Pain control management 4. Management of fluids and electrolytes 5. Consultation for radiologist/lumber stacker/cardiology 6. Diagnostic tests CT angiography 7. DVT prophylaxis-on heparin drip 8. Repeat labs CBC, CMP in a.m. 9. Continue with current medical management 10. Treatment plan discussed with patient and RN. Patient verbalized understanding. Plan discussed with: Patient, Other (RN) My Orders Orders - KARLA VICK DNP Procedure Category Date Status Time *Consult CONS 01/01/25 Transmitted / 03:33 Complete Blood Count LAB 01/01/25 Transmitted 04:00 Comprehensive LAB 01/01/25 Transmitted Metabolic Panel 04:00 Magnesium Alex PHA 01/01/25 Transmitted 03:45 Furosemide Injection PHA 01/01/25 Transmitted (Lasix Injection) 10:00 Calcium Ivpb PHA 01/01/25 Transmitted 03:45 * Cardiology Consult CONS 01/01/25 Transmitted 03:33 Diltiazem Injection PHA 01/01/25 Transmitted (Cardizem Injection) 03:45 Consistent DIET 01/01/25 Transmitted Carb(Ccho)Diabetes Breakfast Levalbuterol Hcl PHA 01/01/25 Transmitted (Xopenex Medneb) 06:00 Glucose Blood PHA 01/01/25 Transmitted (Accu-Chek Comfort 07:00 Mild Sliding Scale PHA 01/01/25 Transmitted 07:00 Dextrose 50% Syringe PHA 01/01/25 Transmitted 03:45 Admit ADMIT 01/01/25 Transmitted 03:33 Allergies STAN 01/01/25 Transmitted 03:33 Code Status CODE 01/01/25 Transmitted 03:33 Sodium Chloride Lock PHA 01/01/25 Transmitted (Saline Lock Ns) 06:00 Oxygen Per Hour RT 01/01/25 Transmitted 03:33 Hydrocodone-Acet PHA 01/01/25 Transmitted 5/325mg Tab (Ft Mitchell 03:45 Ondansetron Hcl PHA 01/01/25 Transmitted (Zofran) 03:45 Docusate Sodium PHA 01/01/25 Transmitted Capsule (Colace 03:45 Fall Risk Precautions [facility] 01/01/[address] 03:33 Complete Blood Count LAB 01/02/25 Verified 04:00 Comprehensive LAB 01/02/25 Verified Metabolic Panel 04:00 Condition: Serious [facility] 01/01/25 Transmitted 03:33 Acetaminophen Tablet [facility] 01/01/25 Transmitted (Tylenol Tablet) 03:45 Nitroglycerin [facility] 01/01/25 Transmitted Sublingual (Ntrostat 03:45 Morphine Sulfate PHA 01/01/25 Transmitted Injection 03:45 Stat Ekg For Chest [facility] 01/01/25 Transmitted Pain 03:33 Notify Md Of Changes [facility] 01/01/25 Transmitted From Base 03:33 Weed Thinner For [facility] 01/01/25 Transmitted 24 Hours 03:33 Emergency Dysrhythmia [facility] 01/01/25 Transmitted Protocol 03:33 Rhythm Strips Once [facility] 01/01/25 Transmitted Every Shift 03:33 Oxygen By Nasal 01/01/25 Transmitted Cannula 03:33 Famotidine Injection [facility] 01/01/25 Transmitted (Pepcid Injection) 10:00 Maintain Bed Rest [facility] 01/01/25 Transmitted 03:33 Sequential [facility] 01/01/25 Transmitted Compression Device Problem List: (1) Pulmonary embolus (2) Pleural effusion (3) Morbid obesity (4) Sinus tachycardia (5) Generalized weakness (6) History of medication noncompliance (7) Acute exacerbation of congestive heart failure (8) COPD with acute exacerbation Date of Service: Jan 01, 2025 Billing Provider: KARLA VICK DNP Common Visit Codes: [id number] INP/OBS CARE (HIGH) KARLA VICK DNP Jan 01, 2025 03:47
[2025-01-01 05:31] LABS: Hematocrit 38.1 % (36.0-46.0); Hemoglobin 11.7 g/dL (12.2-16.2); Mean Corpuscular Hemoglobin 23.3 pg (28.0-32.0); Mean Corpuscular Volume 76.0 fL (80.0-100.0); Nucleated Red Blood Cells % 0.3 %
[2025-01-01 05:37] LABS: Albumin 3.5 g/dL (3.2-4.8); Alkaline Phosphatase 111 U/L (46-116); Anion Gap 10 (5-15); BUN/Creatinine Ratio 13.3 (10.0-20.0); Bilirubin, Total 0.8 mg/dL (0.2-1.0); Blood Urea Nitrogen 14 mg/dL (9-23); Carbon Dioxide 24 mmol/L (20-31); Potassium 3.9 mmol/L (3.5-5.1); Sodium 142 mmol/L (136-145); Total Protein 6.2 g/dL (5.7-8.2)
[2025-01-01 05:39] LABS: Alanine Aminotransferase < 9 U/L (7-40); Calcium 8.3 mg/dL (8.7-10.4); Chloride 108 mmol/L (98-107); Glucose 116 mg/dL (74-106)
[2025-01-01] MEDS: CALCIUM GLUC 1,000mg/50ml-NS 50 ML IV ONE (05:39)
[2025-01-01] MEDS: SODIUM CHLOR 0.9% PF (SALINE LOCK) 10ML VIAL/SYR IV SCH ×2 (06:00→20:17)
[2025-01-01] MEDS: LEVALBUTEROL HCL 1.25 MG/3 ML NEB NEB SCH (06:39)
[2025-01-01] MEDS: MAGNESIUM SULFATE 1GM/100ML 100 ML IV SCH ×2 (07:40→14:30)
[2025-01-01] MEDS: dilTIAZem 25 MG/5 ML VIAL IV ONE (07:45)
[2025-01-01] MEDS: MAGNESIUM SULFATE 1GM/100ML 100 ML IV ONE (07:55)
[2025-01-01] MEDS: ACCU-CHEK COMFORT CURVE STRIP VI SCH (08:45)
[2025-01-01] MEDS: InsuLIN REG 1unit/0.01ml Soln (100units/ml) SC SCH (08:45)
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
[2025-01-01] MEDS ORDERED: HEPARIN DRIP/D5W 100UNITS/ML 250 ML IV SCH (09:45)
--- NOTE | 2025-01-01 09:51 | CONS ---
Pharmacy Clinical Information: HEPARIN DRIP, DVT/PE PROTOCOL APTT draw @0755 was 1700 - hold heparin for 1 hour, decrease rate by 300 units to 1700 units/hr (17mls/hr). Notified Nurse Samaria at 0940. Heparin held starting at 0930, will resume new rate at 1030. Next PT/PTT scheduled for 1630 per PRx protocol Confirmed and read back by MAYE Mera. ANA MARÍA POP PHARMACIST Jan 01, 2025 09:51
[2025-01-01] MEDS: AMIODARONE BOLUS KIT 100 ML IV ONE (10:45)
[2025-01-01] MEDS: HYDROcodone-ACET 5/325MG TAB PO PRN (11:41)
[2025-01-01] MEDS: DIGOXIN (250MCG/ML) 2 ML AMPULE IV ONE (11:44)
[2025-01-01] MEDS: FAMOTIDINE (10MG/ML) 2ML VL IV SCH (11:45)
[2025-01-01] MEDS: FUROSEMIDE 40 MG/4 ML VIAL IV SCH (11:46)
[2025-01-01 12:57] LABS: Triglycerides 87 mg/dL (< 150)
[2025-01-01 12:59] LABS: Cholesterol 138 mg/dL (< 200)
[2025-01-01 13:00] LABS: HDL Cholesterol 38 mg/dL (40-59)
[2025-01-01] MEDS: LIDOCAINE 1% (LOCAL ANESTH.) PF 5ml SDV ID ONE (13:10)
--- NOTE | 2025-01-01 13:28 | DVH ---
CHEST RADIOGRAPH Indication: PICC LINE PLACEMENT. Technique: Single frontal view of the chest was obtained COMPARISON: CT CT ANGIO CHEST CONTRAST on DOS: 12/31/24, XY CHEST PORTABLE on DOS: 12/31/24, CT CT LITZY O CHEST CONTRAST on DOS: 10/10/24, XY CHEST PORTABLE on DOS: 10/09/24, XY CHEST PORTABLE on DOS: 07/14/23 FINDINGS: Lines and Tubes: PICC line ends in the superior vena cava. Left basilar atelectasis. Mild obscuration of the left hemidiaphragm Lungs: Clear Pleura: No effusion. No pneumothorax. Cardiomediastinal contours: Unremarkable Bones: Unremarkable IMPRESSION: 1. Right-sided PICC line is in the superior vena cava.
[2025-01-01] MEDS: AMIODARONE 360mg/200mL PREMIX 200 ML IV ONE (13:29)
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
--- NOTE | 2025-01-01 16:41 | DVHSR ---
APPROVED REPORT EXAM: Two-dimensional and M-mode echocardiogram with Doppler and color Doppler. Blood Pressure: 116/54 mmHg INDICATION Evaluate cardiac function Assess for right sided heart failure RISK FACTORS Obesity: Height: 5' 6", Weight: 348 DIMENSIONS LVDd3.7 (3.8-5.7cm)LA (2D)3.6 (1.9-4.0cm)Aortic Root2.7 (2.0-3.7cm) LVDs2.7 (2.5-4.0cm)LA (MM) (1.9-4.0cm)Aortic Cusp Exc1.4 (1.5-2.0cm) EF (%) 55.0 (55-70%)Rt. Atrium6.4 (1.9-4.0cm)Asc. Aorta cm IVSd0.9 (0.7-1.1cm)RV (D) (1.8-2.4cm) PWd0.9 (0.7-1.1cm) Mitral Valve MitralMitral Stenosis E wave1.20m/sMV Mean GR.mmHg E/A ratio0.02D MVAcm2 Aortic Valve Aortic ValveAortic Stenosis V10.40m/Susanna Mean GR.6mmHg V21.60m/Susanna Peak GR.10mmHg Tricuspid Valve TR Velocity3.50m/s [id number] Other Information Quality : Technically LimitedRhythm : Technically limited study due to body habitus. Conclusion HEART RATE IS 150 DURING STUDY THIS IS A SUBOPTIMAL STUDY PLEASE REVIEW PREVIOUS ECHO REPORT LVEF LIKELY 50% FLATTENED IV SEPTUM SEVERE RV ENLARGMENT RV DYSFUNCTOIN SEVERE TRICUSPID REGURG SEVERE PULM HTN, PASP >60 COULD BE WORSE SIGNIFICANT L SIDED PLEURAL EFFUSION NOTED
[2025-01-01 17:16] LABS: INR 1.39 (0.9-1.15); Partial Thromboplastin Time 51.8 SEC (24.5-34.5); Prothrombin Time 14.3 sec (9.3-11.8)
[2025-01-01] MEDS: AMIODARONE 360mg/200mL PREMIX 200 ML IV SCH (17:30)
--- NOTE | 2025-01-01 23:12 | DVHINCON2 ---
Date of service: Jan 01, 2025 Referring Physician JENNIFER Garay Reason for Consultation Acute hypoxic respiratory failure, pulmonary embolism History of Present Illness A 64-year-old woman, wheelchair/bed-bound with multiple past medical history including COPD, CHF, CVA, hypertension and GERD, who presented to the ED on 12/31/24 with complaint of palpitations. Patient admits to not been taking Eliquis and Lasix for the past 2 months, currently on home oxygen 2.5 L/min. Patient was at pain management clinic when she accidentally bumped her left toe and lower abdomen on the door, developed left toe pain and called paramedics. When paramedics arrived on the scene, patient was noted to be in AFib with RVR and was stabilized en route to ED. Workup in ED shows WBC 6.4, platelets 268, sodium 140, potassium 4.6, BUN 18, creatinine 0.83, glucose 82, calcium 8.2, magnesium 1.1, TSH 2.02, troponin 30, BNP 812.39. Blood pressure of 103/70, heart rate 146, temperature 98.8 F, O2 saturation 92% on oxygen. CT Angiography revealing pulmonary embolism involving the left upper lobe segmental pulmonary arteries, right middle lobe segmental pulmonary artery and distal right lower lobe pulmonary artery extending into the right lower lobe segmental pulmonary arteries; reflux of contrast into the IVC and hepatic veins consistent with right heart dysfunction. Patient was started on heparin drip and admitted for further care. Pulmonary consultation is requested for evaluation and management of acute hypoxic respiratory failure and pulmonary embolism. Review of Systems: 14-point review of systems negative unless otherwise noted above. Past Medical History Asthma, CHF, COPD, CVA, Depression, DM, GERD, High Lipids, HTN, TN, Seizures Past Surgical History PTCA. Medications: Reviewed. Allergies: Ibuprofen. Family History: No family history of premature CAD. No family history of lung disorders. Social History: Nonsmoker. No alcohol or illicit drug use. Family History: Family history: Diabetes mellitus G8 MOTHER Family history: Hypertension G8 FATHER Allergies: Coded Allergies: Ibuprofen (Verified Allergy, Severe, SKIN RASHES, 02/01/10) Home Meds Active Scripts Amiodarone Hcl (Amiodarone Hcl) 200 Mg Tab, 1 TAB PO BID, #90 TAB 1 Refill Prov:SNOW SALDIVAR MD 01/07/25 Hydrocodone-Acetaminophen (Hydrocodone Bitartrate/AC 5-325 mg) 1 Tab Tab, 1 TAB PO QID PRN, #40 TAB Prov:SNOW SALDIVAR MD 01/07/25 Apixaban Base (ELIQUIS) 5 Mg Tab, 10 MG PO BID for 7 Days, #28 TAB 10MG BID X 7 DAYS THEN 5MG PO BID FOR AT LEAST 6 MONTHS FOR DVT/PE TREATMENT Prov:SNOW SALDIVAR MD 01/07/25 Apixaban Base (ELIQUIS) 5 Mg Tab, 5 MG PO BID, #180 TAB Prov:SNOW SALDIVAR MD 01/07/25 Furosemide (Lasix) 40 Mg Tab, 40 MG PO DAILY for 30 Days, #30 TAB 5 Refills Prov:JUSTA POWELL MD 10/18/24 Apixaban Base (ELIQUIS) 5 Mg Tab, 5 MG PO BID for 30 Days, #60 TAB 5 Refills Prov:JUSTA POWELL MD 10/18/24 Reported Medications Omeprazole (Omeprazole Dr) 40 Mg Cap, 1 CAP PO DAILY for 90 Days, #90 01/03/25 Fluoxetine HCl (Fluoxetine HCl) 20 Mg Cap, 1 CAP PO DAILY for 30 Days, #30 01/03/25 Meclizine HCl (Meclizine Hydrochloride) 25 Mg Tab, 1 TAB PO TID PRN for 30 Days, #90 01/03/25 Hydrocodone-Acetaminophen (Hydrocodone/Acetaminophen 10-325 mg) 1 Tab Tab, 1 TAB PO Q6HR PRN for PAIN IN THORACIC SPINE for 30 Days, #120 01/03/25 Amlodipine Besylate (Amlodipine Besylate) 10 Mg Tab, 1 TAB PO DAILY for 30 Days, #30 10/09/24 Multiple Vitamin (Multivitamin) 1 Tab Tab, 1 TAB PO DAILY for 30 Days, #30 10/09/24 Temazepam (Restoril) 15 Mg Cp, 1 CAP PO QPM 07/14/23 Escitalopram Oxalate (Lexapro) 10 Mg Tab, 1 TAB PO DAILY 07/14/23 Paroxetine Hydrochloride (Paroxetine Hydrochloride) 40 Mg Tab, 1 TAB PO DAILY 07/14/23 Levetiracetam (Levetiracetam) 1,000 Mg Tab, 1 TAB PO Q12HR for 30 Days, #60 07/14/23 Hydroxyzine Hcl (Hydroxyzine Hcl) 25 Mg Tab, 1 TAB PO DAILY, #30 TAB 11/07/22 Magnesium Oxide (MAGNESIUM OXIDE) 400 Mg Tab, 500 MG PO DAILY, TAB 11/07/22 Potassium Chloride (Klor-Con M10) 10 Meq Tab, 1 TAB PO BID, #30 TAB 5 Refills 11/07/22 Gabapentin (Gabapentin) 300 Mg Cap, 1 CAP PO TID for 30 Days, #90 11/07/22 Aspirin (Aspir-Low) 81 Mg Tab, 1 TAB PO DAILY for 30 Days, #30 11/07/22 Valsartan-Hydrochlorothiazide (Diovan Hct) 160 Mg/25 Mg Tab 01/29/10 Fluticasone-Salmeterol (Advair Diskus) 250/50 Mis 01/29/10 Rosuvastatin Calcium (Crestor) 10 Mg Tab 01/29/10 Esomeprazole Magnesium Trihydr (Nexium) 40 Mg Cap 01/29/10 Diphenhydramine Hcl (Twilite) 50 Mg Tab 01/29/10 Oxcarbazepine (Trileptal) 300 Mg Tab 01/29/10 Current Medications Current Medications Medications (Trade) Dose Ordered Sig/Marck Route PRN Reason Start Time Stop Time Status Last Admin Heparin Sodium/ Dextrose 250 ml @ 26.172 mls/ hr [id number] IV 12/31/24 23:45 12/31/24 23:33 DC Heparin Sodium/ Dextrose 250 ml @ 20 mls/hr [id number] IV 01/01/25 00:29 01/01/25 09:41 DC 01/01/25 00:29 Magnesium Sulfate/ Dextrose 100 ml @ 100 mls/hr Q1H IV 01/01/25 03:45 01/01/25 05:44 DC 01/01/25 07:40 Furosemide (Lasix Injection) 40 mg DAILY IV 01/01/25 10:00 01/01/25 11:46 Levalbuterol HCl (Xopenex Medneb) 0.625 mg Q6HR NEB 01/01/25 06:00 01/01/25 19:42 Diagnostic Test (Pha) (Accu-Chek Comfort Curve T) 1 strip ACHS 01/01/25 07:00 01/01/25 20:30 Insulin Human Regular (InsuLIN R) ACHS SC 01/01/25 07:00 01/01/25 20:36 Dextrose 50 ml UD PRN IV Blood Sugar LESS THAN 60 01/01/25 03:45 Sodium Chloride (Saline Lock Ns) 10 ml Q8HR IV 01/01/25 06:00 01/01/25 12:58 DC 01/01/25 06:00 Acetaminophen/ Hydrocodone Bitart ([place] 5/325MG Tab) 1 tab Q4HP PRN PO MODERATE PAIN (4-6 PAIN SCALE) 01/01/25 03:45 01/01/25 20:18 Ondansetron HCl (Zofran) 4 mg Q4HP PRN IV NAUSEA / VOMITING 01/01/25 03:45 Docusate Sodium (Colace Capsule) 100 mg BIDPRN PRN PO FOR CONSTIPATION 01/01/25 03:45 Acetaminophen (Tylenol Tablet) 650 mg Q6HP PRN PO PAIN SCALE 1-3 OR TEMP>100.4 01/01/25 03:45 Nitroglycerin (Ntrostat Sublingual) 0.4 mg Q5MINP PRN SL FOR CHEST PAIN 01/01/25 03:45 Morphine Sulfate 2 mg Q30M PRN IV FOR CHEST PAIN 01/01/25 03:45 Famotidine (Pepcid Injection) 20 mg Q12HR IV 01/01/25 10:00 01/01/25 11:46 Heparin Sodium/ Dextrose 250 ml @ 17 mls/hr [id number] IV 01/01/25 09:45 01/01/25 10:35 DC Heparin Sodium/ Dextrose 250 ml @ 17 mls/hr [id number] IV 01/01/25 10:40 01/01/25 16:33 Sodium Chloride (Saline Lock Ns) 10 ml QSHIFT@10,22 IV 01/01/25 22:00 01/01/25 20:17 Magnesium Sulfate/ Dextrose 100 ml @ 100 mls/hr Q1H IV 01/01/25 14:30 01/01/25 15:29 DC 01/01/25 14:30 Vital Signs Vital Signs Date Time Temp Pulse Resp B/P (MAP) Pulse Ox O2 Delivery O2 Flow Rate FiO2 01/01/25 21:00 97.7 110 17 94/61 (72) 95 97.7 01/01/25 19:42 Nasal Cannula* 4 36 Physical Exam Gen.: Patient lying in bed in no apparent distress. On supplemental oxygen. Head: Normocephalic, atraumatic. Eyes: EOMI/PERRLA. Ears: Normal hearing. Normal anatomy. Neck/trachea: Trachea midline, supple. Nose: Normal external anatomy. Mouth: Moist mucous membranes. Chest: Decreased air entry bilaterally. No wheezing or rhonchi. Cardiovascular: Positive S1, positive S2. Regular rate and rhythm. Abdomen: Positive bowel sounds in all 4 quadrants. Soft, non-tender, non- distended. : Deferred. Rectal: Deferred. Skin: Warm, dry. Intact. Extremities: 2+ radial pulses bilaterally. No lower extremity edema. Neuro: Awake, alert, oriented x3. No gross motor or sensory deficits. Cranial nerves II through XII intact. Gait not assessed. Labs/Diagnostic Data Labs Test 01/01/25 17:36 01/01/25 16:48 01/01/25 04:52 12/31/24 21:30 Range/Units POC Glucose 133 H 70-106 mg/dl Prothrombin Time 14.3 H 9.3-11.8 sec Prothrombin Time INR 1.39 H 0.9-1.15 Activated Partial Thromboplast Time 51.8 H 24.5-34.5 SEC White Blood Count 4.7 # 4.4-10.8 10^3/uL Red Blood Count 5.01 4.0-5.20 10^6/uL Hemoglobin 11.7 L 12.2-16.2 g/dL Hematocrit 38.1 36.0-46.0 % Mean Corpuscular Volume 76.0 L 80.0-100.0 fL Mean Corpuscular Hemoglobin 23.3 L 28.0-32.0 pg Mean Corpuscular Hemoglobin Concent 30.7 L 32.0-36.0 g/dL Red Cell Distribution Width 21.7 H 11.8-14.3 % Platelet Count 251 140-450 10^3/uL Mean Platelet Volume 7.9 6.9-10.8 fL Neutrophils (%) (Auto) 64.8 37.0-80.0 % Lymphocytes (%) (Auto) 16.2 10.0-50.0 % Monocytes (%) (Auto) 12.9 H 0.0-12.0 % Eosinophils (%) (Auto) 3.8 0.0-7.0 % Basophils (%) (Auto) 2.3 H 0.0-2.0 % Neutrophils # (Auto) 3.0 1.6-8.6 10 ^3/uL Lymphocytes # (Auto) 0.8 0.4-5.4 10 ^3/uL Monocytes # (Auto) 0.6 0-1.3 10 ^3/uL Eosinophils # (Auto) 0.2 0-0.8 10 ^3/uL Basophils # (Auto) 0.1 0-0.2 10 ^3/uL Nucleated Red Blood Cells 0.3 % Sodium Level 142 136-145 mmol/L Potassium Level 3.9 3.5-5.1 mmol/L Chloride Level 108 H 98-107 mmol/L Carbon Dioxide Level 24 20-31 mmol/L Anion Gap 10 5-15 Blood Urea Nitrogen 14 9-23 mg/dL Creatinine 1.05 H 0.550-1.02 mg/dL Glomerular Filtration Rate Calc 59 >90 mL/min BUN/Creatinine Ratio 13.3 10.0-20.0 Serum Glucose 116 H 74-106 mg/dL Hemoglobin A1c 6.5 H <5.7 % A1C Calcium Level 8.3 L 8.7-10.4 mg/dL Total Bilirubin 0.8 0.2-1.0 mg/dL Aspartate Amino Transferase (AST) 23 13-40 U/L Alanine Aminotransferase (ALT) < 9 7-40 U/L Alkaline Phosphatase 111 46-116 U/L Total Protein 6.2 5.7-8.2 g/dL Albumin 3.5 3.2-4.8 g/dL Triglycerides Level 87 < 150 mg/dL Cholesterol Level 138 < 200 mg/dL LDL Cholesterol 86 < 100 mg/dL HDL Cholesterol 38 L 40-59 mg/dL Troponin I High Sensitivity 30 </=34 ng/L Test 12/31/24 18:41 Range/Units Magnesium Level 1.1 L 1.6-2.6 mg/dL B-Type Natriuretic Peptide 812.39 0-100 pg/mL Thyroid Stimulating Hormone (TSH) 2.02 0.55-4.78 uIU/mL Assessment Impression: Acute hypoxic respiratory failure Dependence on supplemental oxygen Pulmonary embolism Morbid obesity BMI 57.5 Non-adherence Atelectasis Plan: Supplemental oxygen Currently on 3 LPM NC Titrate to keep O2 sats above 92%. Taper O2 as tolerated. CT Angiography revealing pulmonary embolism involving the left upper lobe segmental pulmonary arteries, right middle lobe segmental pulmonary artery and distal right lower lobe pulmonary artery extending into the right lower lobe segmental pulmonary arteries; reflux of contrast into the IVC and hepatic veins consistent with right heart dysfunction. On heparin drip for anticoagulation Amiodarone drip for AFib. Follow up echocardiogram Follow up Cardiology recommendations. Continue bronchodilators. Pepcid for GI ppx Accu-Cheks, ISS. Diurese with Lasix Monitor renal function. Monitor electrolytes. Supplement as necessary. Monitor ins and outs. Diet and lifestyle modifications for weight reduction Obesity complicates all care GI/DVT prophylaxis. Prognosis: Poor given patient's multiple co-morbidities. Rest of plan per hospitalist and other consultants. Thank you, JENNIFER Garay, for allowing me to participate in this patient's care. Further recommendations will depend on the patient's clinical course. Please do not hesitate to contact me if you have any questions or concerns. This medical document was created using an electronic medical record system with [employer] computerized dictation system. Although these documentations are being carefully reviewed, there may still be some phonetic and typographical changes. The errors are purely typographical, due to imperfection on the software program, and do not reflect any compromise in the patient's medical care. Plan discussed with: Patient, Other (RN/JENNIFER Garay/) CHRIS FREEMAN MD Jan 01, 2025 23:11
[2025-01-01 23:39] LABS: INR 1.43 (0.9-1.15); Partial Thromboplastin Time 60.9 SEC (24.5-34.5); Prothrombin Time 14.6 sec (9.3-11.8)
[2025-01-02] VITALS (16 sets, daily range): BP systolic 91–150; BP diastolic 66–113; PULSE 60–134; RESP 16–19; TEMP 97.5–98.3; O2SAT 94–100
[2025-01-02 08:58] LABS: Alanine Aminotransferase 10 U/L (7-40); Albumin 3.5 g/dL (3.2-4.8); Alkaline Phosphatase 109 U/L (46-116); Anion Gap 11 (5-15); BUN/Creatinine Ratio 18.5 (10.0-20.0); Blood Urea Nitrogen 20 mg/dL (9-23); Carbon Dioxide 25 mmol/L (20-31); Chloride 103 mmol/L (98-107); Potassium 4.0 mmol/L (3.5-5.1); Sodium 139 mmol/L (136-145); Total Protein 6.1 g/dL (5.7-8.2)
[2025-01-02 08:59] LABS: Bilirubin, Total 0.5 mg/dL (0.2-1.0)
[2025-01-02 09:03] LABS: Calcium 8.3 mg/dL (8.7-10.4); Glucose 223 mg/dL (74-106); Magnesium 1.2 mg/dL (1.6-2.6)
[2025-01-02 09:06] LABS: Hematocrit 36.6 % (36.0-46.0); Hemoglobin 11.0 g/dL (12.2-16.2); Mean Corpuscular Hemoglobin 22.9 pg (28.0-32.0); Mean Corpuscular Volume 76.5 fL (80.0-100.0); Nucleated Red Blood Cells % 0.3 %
[2025-01-02 09:12] LABS: INR 1.41 (0.9-1.15); Prothrombin Time 14.4 sec (9.3-11.8)
[2025-01-02 09:19] LABS: Partial Thromboplastin Time > 139.0 SEC (24.5-34.5)
--- NOTE | 2025-01-02 09:47 | CONS ---
Pharmacy Clinical Information: HEPARIN DVT/PE PROTOCOL: APTT result >139 received from 0823 draw. Please hold heparin for 1 hour, then adjust rate to 1400 units per hour (14mL/hr) per PRx protocol. Nurse Don stopped drip @ 0922, will resume at 1022 with new rate. APTT/PT ordered for 1630 per PRx protocol. ANA MARÍA POP PHARMACIST Jan 02, 2025 09:47
[2025-01-02] MEDS: HEPARIN DRIP/D5W 100UNITS/ML 250 ML IV SCH ×2 (10:28→18:50)
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
[2025-01-02] MEDS: MORPHINE SULFATE INJ 2 MG/ml SYRG IV PRN ×2 (14:43→20:44)
[2025-01-02] MEDS: MAGNESIUM SULFATE 1GM/100ML 100 ML IV SCH (15:06)
[2025-01-02] MEDS: METOPROLOL TARTRATE 25 MG TAB PO ONE (15:12)
[2025-01-02 17:29] LABS: INR 1.33 (0.9-1.15); Prothrombin Time 13.7 sec (9.3-11.8)
[2025-01-02 17:43] LABS: Partial Thromboplastin Time > 139.0 SEC (24.5-34.5)
--- NOTE | 2025-01-02 18:25 | CONS ---
Pharmacy Clinical Information: PER HEPARIN PROTOCOL (DVT/PE): APTT result >139 received from 1640 draw. Please hold heparin for 1 hour, then adjust to 1100 units per hour (11mL/hr). Nurse Don confirmed heparin stopped at 1745, will resume @1845 with rate 1100. APTT/PT ordered for 0045 per PRx protocol. ANA MARÍA POP PHARMACIST Jan 02, 2025 18:25
[2025-01-02] MEDS: METOPROLOL TARTRATE 25 MG TAB PO SCH (22:41)
[2025-01-03] VITALS (19 sets, daily range): BP systolic 79–112; BP diastolic 40–67; PULSE 53–120; RESP 14–19; TEMP 97.6–98.1; O2SAT 87–100
--- NOTE | 2025-01-03 00:05 | DVHPN2 ---
Progress Note - Dictate Date Seen: Jan 02, 2025 Medical Necessity Reason Pt with a Central, PICC or Fol: Yes The following are medically ne: Lau Catheter Reason for lau catheter: Strict I&O Subjective Patient seen and examined at bedside Remains on supplemental oxygen Overnight events reviewed. vital signs Vital Sign Date Time Temp Pulse Resp B/P (MAP) Pulse Ox O2 Delivery O2 Flow Rate FiO2 01/02/25 22:41 92 150/113 01/02/25 21:00 98.3 16 94 98.3 01/02/25 18:43 Nasal Cannula* 4 36 Total Intake and Output 01/02/25 01/02/25 01/03/25 15:00 23:00 07:00 Intake Total 51 ml 433 ml Balance 51 ml 433 ml medications Current Medications Medications Dose Ordered Sig/Marck Route Start Time Stop Time Status Last Admin Dose Admin Furosemide 40 mg DAILY IV 01/01/25 10:00 01/02/25 10:24 40 MG Levalbuterol HCl 0.625 mg Q6HR NEB 01/01/25 06:00 01/02/25 18:43 0.625 MG Diagnostic Test (Pha) 1 strip ACHS 01/01/25 07:00 01/02/25 22:00 1 STRIP Insulin Human Regular ACHS SC 01/01/25 07:00 01/02/25 22:49 2 UNITS Dextrose 50 ml UD PRN IV 01/01/25 03:45 Acetaminophen/ Hydrocodone Bitart 1 tab Q4HP PRN PO 01/01/25 03:45 01/02/25 22:42 1 TAB Ondansetron HCl 4 mg Q4HP PRN IV 01/01/25 03:45 Docusate Sodium 100 mg BIDPRN PRN PO 01/01/25 03:45 Acetaminophen 650 mg Q6HP PRN PO 01/01/25 03:45 Nitroglycerin 0.4 mg Q5MINP PRN SL 01/01/25 03:45 Morphine Sulfate 2 mg Q30M PRN IV 01/01/25 03:45 01/02/25 14:43 2 MG Famotidine 20 mg Q12HR IV 01/01/25 10:00 01/02/25 22:41 20 MG Sodium Chloride 10 ml QSHIFT@10,22 IV 01/01/25 22:00 01/02/25 22:41 10 ML Morphine Sulfate 2 mg Q4HPRN PRN IV 01/02/25 12:30 01/02/25 20:44 2 MG Metoprolol Tartrate 12.5 mg BID PO 01/02/25 22:00 01/02/25 22:41 12.5 MG Heparin Sodium/ Dextrose 250 ml @ 11 mls/hr [id number] IV 01/02/25 18:45 01/02/25 18:50 11 MLS/HR objective Gen.: Patient lying in bed in no apparent distress. On supplemental oxygen. Head: Normocephalic, atraumatic. Eyes: EOMI/PERRLA. Ears: Normal hearing. Normal anatomy. Neck/trachea: Trachea midline, supple. Nose: Normal external anatomy. Mouth: Moist mucous membranes. Chest: Decreased air entry bilaterally. No wheezing or rhonchi. Cardiovascular: Positive S1, positive S2. Regular rate and rhythm. Abdomen: Positive bowel sounds in all 4 quadrants. Soft, non-tender, non- distended. : Deferred. Rectal: Deferred. Skin: Warm, dry. Intact. Extremities: 2+ radial pulses bilaterally. No lower extremity edema. Neuro: Awake, alert, oriented x3. No gross motor or sensory deficits. Cranial nerves II through XII intact. Gait not assessed. laboratory and microbiology Laboratory Tests 01/02/25 08:23 Test 01/02/25 08:23 Range/Units Serum Glucose 223 H 74-106 mg/dL Assessment/Plan Impression: Acute hypoxic respiratory failure Dependence on supplemental oxygen Pulmonary embolism Morbid obesity Events: Remains on supplemental oxygen Currently on 4 LPM NC Taper O2 as tolerated. Continue heparin drip Amiodarone drip for AFib. Cardiology recs appreciated. Incentive spirometry Continue bronchodilators. Pain control Avoid oversedation. Continue to diurese with Lasix Monitor renal function Labs and imaging reviewed. Rest of plan as noted below. Plan: Supplemental oxygen Titrate to keep O2 sats above 92%. CT Angiography revealing pulmonary embolism involving the left upper lobe segmental pulmonary arteries, right middle lobe segmental pulmonary artery and distal right lower lobe pulmonary artery extending into the right lower lobe segmental pulmonary arteries; reflux of contrast into the IVC and hepatic veins consistent with right heart dysfunction. On heparin drip for anticoagulation Amiodarone drip for AFib. Follow up echocardiogram Follow up Cardiology recommendations. Continue bronchodilators. Pepcid for GI ppx Accu-Cheks, ISS. Diurese with Lasix Monitor renal function. Monitor electrolytes. Supplement as necessary. Monitor ins and outs. Diet and lifestyle modifications for weight reduction Obesity complicates all care GI/DVT prophylaxis. Prognosis: Poor given patient's multiple co-morbidities. Rest of plan per hospitalist and other consultants. Thank you, NEUROSURGERY PHYSICIAN Jarrod, for allowing me to participate in this patient's care. Further recommendations will depend on the patient's clinical course. Please do not hesitate to contact me if you have any questions or concerns. This medical document was created using an electronic medical record system with [employer] dictation system. Although these documentations are being carefully reviewed, there may still be some phonetic and typographical changes. The errors are purely typographical, due to imperfection on the software program, and do not reflect any compromise in the patient's medical care. Plan discussed with: Patient, Other (MAYE Hooper) CHRIS FREEMAN MD Jan 03, 2025 00:05
[2025-01-03 01:25] LABS: INR 1.36 (0.9-1.15); Partial Thromboplastin Time 38.2 SEC (24.5-34.5); Prothrombin Time 14.0 sec (9.3-11.8)
[2025-01-03] MEDS: HEPARIN DRIP/D5W 100UNITS/ML 250 ML IV SCH ×2 (01:59→22:46)
--- NOTE | 2025-01-03 08:25 | ECG ---
[facility] Test Date: 2024-12-31 Test Time: 18:14:59 Pat Name: WICHO SMITH Department: Room: 0286T Gender: F [employer] Operator: BARBIE : 1960 Requested By: PARAM BERG Order Number: [id number] Reading MD: Carlitos Parada Measurements Intervals [place] Rate: 151 P: 0 IA: 69 QRS: 145 QRSD: 172 T: -75 QT: 359 QTc: 570 Interpretive Statements ectopic atrial and/or junctional tachycardia Ventricular premature complex RBBB and LPFB Electronically Signed On 01-04-2025 14:34:29 PDT by Carlitos Parada Please click the below link to view image of tracing.
[2025-01-03 09:29] LABS: Hematocrit 36.6 % (36.0-46.0); Hemoglobin 11.1 g/dL (12.2-16.2); Mean Corpuscular Hemoglobin 23.3 pg (28.0-32.0); Mean Corpuscular Volume 76.6 fL (80.0-100.0)
[2025-01-03 09:32] LABS: Chloride 104 mmol/L (98-107); Potassium 4.5 mmol/L (3.5-5.1); Sodium 138 mmol/L (136-145)
[2025-01-03 09:33] LABS: Anion Gap 9 (5-15); Carbon Dioxide 25 mmol/L (20-31)
[2025-01-03 09:34] LABS: Calcium 8.8 mg/dL (8.7-10.4)
[2025-01-03 09:38] LABS: BUN/Creatinine Ratio 14.1 (10.0-20.0); Blood Urea Nitrogen 18 mg/dL (9-23)
[2025-01-03 09:39] LABS: Glucose 111 mg/dL (74-106); Magnesium 1.5 mg/dL (1.6-2.6)
[2025-01-03 09:41] LABS: INR 1.39 (0.9-1.15); Partial Thromboplastin Time 38.4 SEC (24.5-34.5); Prothrombin Time 14.3 sec (9.3-11.8)
[2025-01-03 10:48] LABS: Total Cells Counted 100.0 (100)
[2025-01-03 10:49] LABS: Anisocytosis Slight
--- NOTE | 2025-01-03 11:56 | DVHPN2 ---
Progress Note Date Seen: Jan 03, 2025 Medical Necessity Reason Pt with a Central, PICC or Fol: Yes The following are medically ne: Lau Catheter Reason for lau catheter: Strict I&O Subjective Other Systems: AFL better today rate of 80s Objective vital signs Vital Sign Date Time Temp Pulse Resp B/P (MAP) Pulse Ox O2 Delivery O2 Flow Rate FiO2 01/03/25 11:39 68 20 105/74 01/03/25 10:14 96 Nasal Cannula 4.0 01/03/25 10:13 36 01/03/25 09:00 97.8 97.8 Total Intake and Output 01/02/25 01/02/25 01/03/25 15:00 23:00 07:00 Intake Total 51 ml 433 ml 51 ml Balance 51 ml 433 ml 51 ml medications Current Medications Medications Dose Ordered Sig/Marck Route Start Time Stop Time Status Last Admin Dose Admin Furosemide 40 mg DAILY IV 01/01/25 10:00 01/03/25 10:53 40 MG Levalbuterol HCl 0.625 mg Q6HR NEB 01/01/25 06:00 01/03/25 07:36 0.625 MG Diagnostic Test (Pha) 1 strip ACHS 01/01/25 07:00 01/03/25 11:00 1 STRIP Insulin Human Regular ACHS SC 01/01/25 07:00 01/02/25 22:49 2 UNITS Dextrose 50 ml UD PRN IV 01/01/25 03:45 Acetaminophen/ Hydrocodone Bitart 1 tab Q4HP PRN PO 01/01/25 03:45 01/02/25 22:42 1 TAB Ondansetron HCl 4 mg Q4HP PRN IV 01/01/25 03:45 Docusate Sodium 100 mg BIDPRN PRN PO 01/01/25 03:45 Acetaminophen 650 mg Q6HP PRN PO 01/01/25 03:45 Nitroglycerin 0.4 mg Q5MINP PRN SL 01/01/25 03:45 Morphine Sulfate 2 mg Q30M PRN IV 01/01/25 03:45 01/02/25 14:43 2 MG Famotidine 20 mg Q12HR IV 01/01/25 10:00 01/03/25 10:53 20 MG Sodium Chloride 10 ml QSHIFT@ IV 01/01/25 22:00 01/03/25 10:19 10 ML Morphine Sulfate 2 mg Q4HPRN PRN IV 01/02/25 12:30 01/03/25 11:39 2 MG Metoprolol Tartrate 12.5 mg BID PO 01/02/25 22:00 01/03/25 10:54 12.5 MG Heparin Sodium/ Dextrose 250 ml @ 13 mls/hr [id number] IV 01/03/25 01:45 01/03/25 07:44 13 MLS/HR Examination: GENERAL:Abnormal, HEENT:Abnormal, LUNGS:Abnormal, CVS:Abnormal, ABDOMEN:Abnormal laboratory and microbiology Laboratory Tests 01/03/25 08:55 Test 01/03/25 08:55 Range/Units Serum Glucose 111 H 74-106 mg/dL Microbiology Date/Time Source Procedure Growth Status 01/01/25 18:40 Nose MRSA Screen - Final Methicillin Resistant S.aureus Complete Problem List/Assessment/Plan Problem List/Assessment/Plan chronic PE paraplegic morbid obesity afib/ flutter dc amio gtt po amio po BB cont lasix, diuretic transition to doac for PE pt wasnt getting her doac at her home facility either Plan discussed with: Patient Date of Service: Jan 03, 2025 Billing Provider: GIUSEPPE GLEZ MD Common Visit Codes: NOT BILLABLE GIUSEPPE GLEZ MD Jan 03, 2025 11:56
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
[2025-01-03 14:51] LABS: INR 1.42 (0.9-1.15); Partial Thromboplastin Time 50.4 SEC (24.5-34.5); Prothrombin Time 14.5 sec (9.3-11.8)
[2025-01-03] MEDS ORDERED: HYDR-4072 PO (15:15)
--- NOTE | 2025-01-03 15:21 | CONS ---
Pharmacy Clinical Information: HEPARIN DRIP, PULMONARY EMBOLISM PROTOCOL @1425 APTT 50.4 - NO BOLUS, NO CHANGE NEXT APTT DRAW SCHEDULED @2024 PER RX PROTOCOL CONFIRMED AND READ BACK WITH RN SHAYLA CHANG PHARMACIST Jan 03, 2025 15:21
[2025-01-03 21:38] LABS: INR 1.72 (0.9-1.15); Prothrombin Time 17.3 sec (9.3-11.8)
[2025-01-03] MEDS: AMIODARONE HCL 200 MG TAB PO SCH (21:39)
[2025-01-03 21:43] LABS: Partial Thromboplastin Time > 139.0 SEC (24.5-34.5)
--- NOTE | 2025-01-03 21:52 | DVHPN2 ---
Progress Note - Dictate Date Seen: Jan 03, 2025 Medical Necessity Reason Pt with a Central, PICC or Fol: Yes The following are medically ne: Lau Catheter Reason for lau catheter: Strict I&O Subjective Patient seen and examined at bedside Remains on supplemental oxygen Overnight events reviewed. vital signs Vital Sign Date Time Temp Pulse Resp B/P (MAP) Pulse Ox O2 Delivery O2 Flow Rate FiO2 01/03/25 21:00 97.6 114 19 93/67 (76) 98 97.6 01/03/25 18:27 Nasal Cannula 3.0 01/03/25 18:27 32 Total Intake and Output 01/02/25 01/02/25 01/03/25 15:00 23:00 07:00 Intake Total 51 ml 433 ml 51 ml Balance 51 ml 433 ml 51 ml medications Current Medications Medications Dose Ordered Sig/Marck Route Start Time Stop Time Status Last Admin Dose Admin Furosemide 40 mg DAILY IV 01/01/25 10:00 01/03/25 10:53 40 MG Levalbuterol HCl 0.625 mg Q6HR NEB 01/01/25 06:00 01/03/25 18:27 0.625 MG Diagnostic Test (Pha) 1 strip ACHS 01/01/25 07:00 01/03/25 17:23 1 STRIP Insulin Human Regular ACHS SC 01/01/25 07:00 01/02/25 22:49 2 UNITS Dextrose 50 ml UD PRN IV 01/01/25 03:45 Acetaminophen/ Hydrocodone Bitart 1 tab Q4HP PRN PO 01/01/25 03:45 01/02/25 22:42 1 TAB Ondansetron HCl 4 mg Q4HP PRN IV 01/01/25 03:45 Docusate Sodium 100 mg BIDPRN PRN PO 01/01/25 03:45 Acetaminophen 650 mg Q6HP PRN PO 01/01/25 03:45 Nitroglycerin 0.4 mg Q5MINP PRN SL 01/01/25 03:45 Morphine Sulfate 2 mg Q30M PRN IV 01/01/25 03:45 01/02/25 14:43 2 MG Famotidine 20 mg Q12HR IV 01/01/25 10:00 01/03/25 21:39 20 MG Sodium Chloride 10 ml QSHIFT@10,22 IV 01/01/25 22:00 01/03/25 10:19 10 ML Morphine Sulfate 2 mg Q4HPRN PRN IV 01/02/25 12:30 01/03/25 11:39 2 MG Metoprolol Tartrate 12.5 mg BID PO 01/02/25 22:00 01/03/25 10:54 12.5 MG Heparin Sodium/ Dextrose 250 ml @ 13 mls/hr [id number] IV 01/03/25 01:45 01/03/25 07:44 13 MLS/HR Amiodarone HCl 200 mg Q12HR PO 01/03/25 22:00 01/03/25 21:39 200 MG objective Gen.: Patient lying in bed in no apparent distress. On supplemental oxygen. Head: Normocephalic, atraumatic. Eyes: EOMI/PERRLA. Ears: Normal hearing. Normal anatomy. Neck/trachea: Trachea midline, supple. Nose: Normal external anatomy. Mouth: Moist mucous membranes. Chest: Decreased air entry bilaterally. No wheezing or rhonchi. Cardiovascular: Positive S1, positive S2. Regular rate and rhythm. Abdomen: Positive bowel sounds in all 4 quadrants. Soft, non-tender, non- distended. : Deferred. Rectal: Deferred. Skin: Warm, dry. Intact. Extremities: 2+ radial pulses bilaterally. No lower extremity edema. Neuro: Awake, alert, oriented x3. No gross motor or sensory deficits. Cranial nerves II through XII intact. Gait not assessed. laboratory and microbiology Laboratory Tests 01/03/25 08:55 Test 01/03/25 08:55 Range/Units Serum Glucose 111 H 74-106 mg/dL Assessment/Plan Impression: Acute hypoxic respiratory failure Dependence on supplemental oxygen Pulmonary embolism Morbid obesity Events: Remains on supplemental oxygen Currently on 3 LPM NC Taper O2 as tolerated. Continue heparin drip AFib - Transitioned from Amiodarone drip to Amiodarone PO. Cardiology recs appreciated. Incentive spirometry Continue bronchodilators. Pain control Avoid oversedation. Continue Lasix to maintain euvolemia Monitor renal function Labs and imaging reviewed. Rest of plan as noted below. Plan: Supplemental oxygen Titrate to keep O2 sats above 92%. CT Angiography revealing pulmonary embolism involving the left upper lobe segmental pulmonary arteries, right middle lobe segmental pulmonary artery and distal right lower lobe pulmonary artery extending into the right lower lobe segmental pulmonary arteries; reflux of contrast into the IVC and hepatic veins consistent with right heart dysfunction. On heparin drip for anticoagulation Amiodarone PO for AFib. Follow up echocardiogram Follow up Cardiology recommendations. Continue bronchodilators. Pepcid for GI ppx Accu-Cheks, ISS. Diurese with Lasix Monitor renal function. Monitor electrolytes. Supplement as necessary. Monitor ins and outs. Diet and lifestyle modifications for weight reduction Obesity complicates all care GI/DVT prophylaxis. Prognosis: Poor given patient's multiple co-morbidities. Rest of plan per hospitalist and other consultants. Thank you, JENNIFER Garay, for allowing me to participate in this patient's care. Further recommendations will depend on the patient's clinical course. Please do not hesitate to contact me if you have any questions or concerns. This medical document was created using an electronic medical record system with [employer] dictation system. Although these documentations are being carefully reviewed, there may still be some phonetic and typographical changes. The errors are purely typographical, due to imperfection on the software program, and do not reflect any compromise in the patient's medical care. Plan discussed with: Patient, Other (MAYE Johns) CHRIS FREEMAN MD Jan 03, 2025 21:52
[2025-01-04] VITALS (16 sets, daily range): BP systolic 94–113; BP diastolic 62–74; PULSE 66–138; RESP 12–20; TEMP 97.6–98.3; O2SAT 93–100
[2025-01-04 09:25] LABS: Anion Gap 11 (5-15); Carbon Dioxide 22 mmol/L (20-31); Chloride 105 mmol/L (98-107); Potassium 4.8 mmol/L (3.5-5.1); Sodium 138 mmol/L (136-145)
[2025-01-04 09:29] LABS: Hematocrit 39.6 % (36.0-46.0); Hemoglobin 11.7 g/dL (12.2-16.2); Mean Corpuscular Hemoglobin 23.5 pg (28.0-32.0); Mean Corpuscular Volume 79.6 fL (80.0-100.0); Nucleated Red Blood Cells % 0.6 %
[2025-01-04 09:30] LABS: Glucose 104 mg/dL (74-106)
[2025-01-04 09:31] LABS: BUN/Creatinine Ratio 23.9 (10.0-20.0)
[2025-01-04 09:32] LABS: Blood Urea Nitrogen 26 mg/dL (9-23); Calcium 8.6 mg/dL (8.7-10.4)
[2025-01-04 11:14] LABS: INR 1.47 (0.9-1.15); Partial Thromboplastin Time 28.9 SEC (24.5-34.5); Prothrombin Time 15.0 sec (9.3-11.8)
[2025-01-04] MEDS: HEPARIN DRIP/D5W 100UNITS/ML 250 ML IV SCH ×2 (12:15→20:24)
--- NOTE | 2025-01-04 12:24 | CONS ---
Pharmacy Clinical Information: HEPARIN DRIP, PULMONARY EMBOLISM PROTOCOL @1011 APTT 28.9 - GIVE 5000u BOLUS, INCREASE TO 1300u/HR NEXT APTT DRAW SCHEDULED @1900 PER RX PROTOCOL CONFIRMED AND READ BACK WITH RN LAVINIA SESAY [facility] RESIDENT Jan 04, 2025 12:24
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
[2025-01-04] MEDS: HEPARIN SODIUM (PORCINE) 5000 UNITS/ML 1ML VIAL IV ONE ×2 (13:11→20:25)
--- NOTE | 2025-01-04 19:13 | DVHPN2 ---
Progress Note - Dictate Date Seen: Jan 04, 2025 Medical Necessity Reason Pt with a Central, PICC or Fol: Yes The following are medically ne: Lau Catheter Reason for lau catheter: Strict I&O Subjective Patient seen and examined at bedside Remains on supplemental oxygen Overnight events reviewed. vital signs Vital Sign Date Time Temp Pulse Resp B/P (MAP) Pulse Ox O2 Delivery O2 Flow Rate FiO2 01/04/25 19:01 136 19 100/64 01/04/25 17:00 98.2 93 98.2 01/04/25 11:56 Nasal Cannula 2.0 01/04/25 11:56 28 Total Intake and Output 01/03/25 01/03/25 01/04/25 15:00 23:00 07:00 Intake Total 0 ml Balance 0 ml medications Current Medications Medications Dose Ordered Sig/Marck Route Start Time Stop Time Status Last Admin Dose Admin Furosemide 40 mg DAILY IV 01/01/25 10:00 01/04/25 09:35 40 MG Levalbuterol HCl 0.625 mg Q6HR NEB 01/01/25 06:00 01/04/25 18:52 0.625 MG Diagnostic Test (Pha) 1 strip ACHS 01/01/25 07:00 01/04/25 17:00 1 STRIP Insulin Human Regular ACHS SC 01/01/25 07:00 01/02/25 22:49 2 UNITS Dextrose 50 ml UD PRN IV 01/01/25 03:45 Acetaminophen/ Hydrocodone Bitart 1 tab Q4HP PRN PO 01/01/25 03:45 01/02/25 22:42 1 TAB Ondansetron HCl 4 mg Q4HP PRN IV 01/01/25 03:45 Docusate Sodium 100 mg BIDPRN PRN PO 01/01/25 03:45 Acetaminophen 650 mg Q6HP PRN PO 01/01/25 03:45 Nitroglycerin 0.4 mg Q5MINP PRN SL 01/01/25 03:45 Morphine Sulfate 2 mg Q30M PRN IV 01/01/25 03:45 01/02/25 14:43 2 MG Famotidine 20 mg Q12HR IV 01/01/25 10:00 01/04/25 09:35 20 MG Sodium Chloride 10 ml QSHIFT@, IV 01/01/25 22:00 01/04/25 09:35 10 ML Morphine Sulfate 2 mg Q4HPRN PRN IV 01/02/25 12:30 01/04/25 19:01 2 MG Metoprolol Tartrate 12.5 mg BID PO 01/02/25 22:00 01/04/25 09:35 12.5 MG Amiodarone HCl 200 mg Q12HR PO 01/03/25 22:00 01/04/25 09:35 200 MG Heparin Sodium/ Dextrose 250 ml @ 13 mls/hr [id number] IV 01/04/25 12:15 01/04/25 12:15 13 MLS/HR Mupirocin 1 applic BID EACHNOSTRI 01/04/25 22:00 01/09/25 21:59 objective Gen.: Patient lying in bed in no apparent distress. On supplemental oxygen. Head: Normocephalic, atraumatic. Eyes: EOMI/PERRLA. Ears: Normal hearing. Normal anatomy. Neck/trachea: Trachea midline, supple. Nose: Normal external anatomy. Mouth: Moist mucous membranes. Chest: Decreased air entry bilaterally. No wheezing or rhonchi. Cardiovascular: Positive S1, positive S2. Regular rate and rhythm. Abdomen: Positive bowel sounds in all 4 quadrants. Soft, non-tender, non- distended. : Deferred. Rectal: Deferred. Skin: Warm, dry. Intact. Extremities: 2+ radial pulses bilaterally. No lower extremity edema. Neuro: Awake, alert, oriented x3. No gross motor or sensory deficits. Cranial nerves II through XII intact. Gait not assessed. laboratory and microbiology Laboratory Tests 01/04/25 08:52 Test 01/04/25 08:52 Range/Units Serum Glucose 104 74-106 mg/dL Assessment/Plan Impression: Acute hypoxic respiratory failure Dependence on supplemental oxygen Pulmonary embolism Morbid obesity Events: Remains on supplemental oxygen On 3 LPM NC Taper O2 as tolerated. On heparin drip - recommend transition to Eliquis 10 mg PO BID for 7 days, then Eliquis 5 mg PO BID. AFib - On Amiodarone PO. Incentive spirometry Continue bronchodilators. Pain control Avoid oversedation. Continue Lasix to maintain euvolemia Monitor renal function Labs and imaging reviewed. Rest of plan as noted below. Plan: Supplemental oxygen Titrate to keep O2 sats above 92%. CT Angiography revealing pulmonary embolism involving the left upper lobe segmental pulmonary arteries, right middle lobe segmental pulmonary artery and distal right lower lobe pulmonary artery extending into the right lower lobe segmental pulmonary arteries; reflux of contrast into the IVC and hepatic veins consistent with right heart dysfunction. Heparin drip for anticoagulation - recommend transition to Eliquis PO Amiodarone PO for AFib. Follow up echocardiogram Follow up Cardiology recommendations. Continue bronchodilators. Pepcid for GI ppx Accu-Cheks, ISS. Diurese with Lasix Monitor renal function. Monitor electrolytes. Supplement as necessary. Monitor ins and outs. Diet and lifestyle modifications for weight reduction Obesity complicates all care GI/DVT prophylaxis. Prognosis: Poor given patient's multiple co-morbidities. Rest of plan per hospitalist and other consultants. Thank you, JENNIFER Garay, for allowing me to participate in this patient's care. Further recommendations will depend on the patient's clinical course. Please do not hesitate to contact me if you have any questions or concerns. This medical document was created using an electronic medical record system with [employer] computerized dictation system. Although these documentations are being carefully reviewed, there may still be some phonetic and typographical changes. The errors are purely typographical, due to imperfection on the software program, and do not reflect any compromise in the patient's medical care. Plan discussed with: Patient, Other (MAYE Wolfe) CHRIS FREEMAN MD Jan 04, 2025 19:13
[2025-01-04 19:43] LABS: INR 1.48 (0.9-1.15); Partial Thromboplastin Time 32.5 SEC (24.5-34.5); Prothrombin Time 15.1 sec (9.3-11.8)
--- NOTE | 2025-01-04 20:59 | CONS ---
Pharmacy Clinical Information: CHANGED OF HEPARIN RATE FROM 13 ML/HR TO 1600 UNITS/HR OR 16 ML/HR SINCE APTT = 32.5 @1917 ON 01/04 PER RX PROTOCOL GIVE HEPARIN BOLUS 5000 UNITS IV ONCE NEXT APTT NANCY @0230 ON 01/05 ORDER REPEATED BACK OF NEW RATE 16 ML/HR BY PLOO BARNES RN PHARMACIST Jan 04, 2025 20:59
[2025-01-04] MEDS: MUPIROCIN 2% OINT 15gm or 22gm FOR MRSA NARES EACHNOSTRI SCH (21:32)
[2025-01-05] VITALS (14 sets, daily range): BP systolic 99–123; BP diastolic 67–90; PULSE 91–136; RESP 16–20; TEMP 96.9–98; O2SAT 92–100
[2025-01-05 03:22] LABS: INR 1.43 (0.9-1.15); Partial Thromboplastin Time 30.1 SEC (24.5-34.5); Prothrombin Time 14.6 sec (9.3-11.8)
[2025-01-05] MEDS: HEPARIN DRIP/D5W 100UNITS/ML 250 ML IV SCH ×2 (04:10→12:06)
[2025-01-05] MEDS: HEPARIN SODIUM (PORCINE) 5000 UNITS/ML 1ML VIAL IV ONE (04:14)
[2025-01-05 05:35] LABS: Hematocrit 35.8 % (36.0-46.0); Hemoglobin 11.1 g/dL (12.2-16.2); Mean Corpuscular Hemoglobin 23.3 pg (28.0-32.0); Mean Corpuscular Volume 75.3 fL (80.0-100.0); Nucleated Red Blood Cells % 0.3 %
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
[2025-01-05 10:56] LABS: INR 1.52 (0.9-1.15); Prothrombin Time 15.5 sec (9.3-11.8)
[2025-01-05 11:04] LABS: Partial Thromboplastin Time 110.2 SEC (24.5-34.5)
--- NOTE | 2025-01-05 11:23 | CONS ---
Pharmacy Clinical Information: HEPARIN DRIP, DVT PROTOCOL @1000 APTT 110.2 => HOLD HEPARIN DRIP FOR 1 HR, RESTART HEPARIN DRIP AT RATE 1600 UNITS/HR NEXT APTT DRAW SCHEDULED @1800 PER RX PROTOCOL CONFIRMED AND READ BACK WITH [facility] Jan 05, 2025 11:23
[2025-01-05 20:27] LABS: INR 1.49 (0.9-1.15); Partial Thromboplastin Time 62.0 SEC (24.5-34.5); Prothrombin Time 15.2 sec (9.3-11.8)
--- NOTE | 2025-01-05 22:54 | DVHPN2 ---
Progress Note - Dictate Date Seen: Jan 05, 2025 Medical Necessity Reason Pt with a Central, PICC or Fol: Yes The following are medically ne: Lau Catheter Reason for lau catheter: Strict I&O Subjective Patient seen and examined at bedside Remains on supplemental oxygen Overnight events reviewed. vital signs Vital Sign Date Time Temp Pulse Resp B/P (MAP) Pulse Ox O2 Delivery O2 Flow Rate FiO2 01/05/25 22:16 120 20 123/84 01/05/25 21:00 97.6 97 97.6 01/05/25 20:00 Nasal Cannula* 3 32 Total Intake and Output 01/04/25 01/04/25 01/05/25 15:00 23:00 07:00 Intake Total 480 ml Output Total 250 ml Balance 230 ml medications Current Medications Medications Dose Ordered Sig/Marck Route Start Time Stop Time Status Last Admin Dose Admin Furosemide 40 mg DAILY IV 01/01/25 10:00 01/05/25 11:03 40 MG Levalbuterol HCl 0.625 mg Q6HR NEB 01/01/25 06:00 01/05/25 19:04 0.625 MG Diagnostic Test (Pha) 1 strip ACHS 01/01/25 07:00 01/05/25 22:10 1 STRIP Insulin Human Regular ACHS SC 01/01/25 07:00 01/02/25 22:49 2 UNITS Dextrose 50 ml UD PRN IV 01/01/25 03:45 Acetaminophen/ Hydrocodone Bitart 1 tab Q4HP PRN PO 01/01/25 03:45 01/02/25 22:42 1 TAB Ondansetron HCl 4 mg Q4HP PRN IV 01/01/25 03:45 Docusate Sodium 100 mg BIDPRN PRN PO 01/01/25 03:45 Acetaminophen 650 mg Q6HP PRN PO 01/01/25 03:45 Nitroglycerin 0.4 mg Q5MINP PRN SL 01/01/25 03:45 Morphine Sulfate 2 mg Q30M PRN IV 01/01/25 03:45 01/02/25 14:43 2 MG Famotidine 20 mg Q12HR IV 01/01/25 10:00 01/05/25 22:06 20 MG Sodium Chloride 10 ml QSHIFT@10,22 IV 01/01/25 22:00 01/05/25 21:56 10 ML Morphine Sulfate 2 mg Q4HPRN PRN IV 01/02/25 12:30 01/05/25 22:16 2 MG Metoprolol Tartrate 12.5 mg BID PO 01/02/25 22:00 01/05/25 22:07 12.5 MG Amiodarone HCl 200 mg Q12HR PO 01/03/25 22:00 01/05/25 22:06 200 MG Mupirocin 1 applic BID EACHNOSTRI 01/04/25 22:00 01/09/25 21:59 01/05/25 21:56 1 APPLIC Heparin Sodium/ Dextrose 250 ml @ 16 mls/hr [id number] IV 01/05/25 12:00 01/05/25 12:06 16 MLS/HR objective Gen.: Patient lying in bed in no apparent distress. On supplemental oxygen. Head: Normocephalic, atraumatic. Eyes: EOMI/PERRLA. Ears: Normal hearing. Normal anatomy. Neck/trachea: Trachea midline, supple. Nose: Normal external anatomy. Mouth: Moist mucous membranes. Chest: Decreased air entry bilaterally. No wheezing or rhonchi. Cardiovascular: Positive S1, positive S2. Regular rate and rhythm. Abdomen: Positive bowel sounds in all 4 quadrants. Soft, non-tender, non- distended. : Deferred. Rectal: Deferred. Skin: Warm, dry. Intact. Extremities: 2+ radial pulses bilaterally. No lower extremity edema. Neuro: Awake, alert, oriented x3. No gross motor or sensory deficits. Cranial nerves II through XII intact. Gait not assessed. laboratory and microbiology Laboratory Tests 01/05/25 05:12 01/04/25 08:52 Test 01/04/25 08:52 Range/Units Serum Glucose 104 74-106 mg/dL Assessment/Plan Impression: Acute hypoxic respiratory failure Dependence on supplemental oxygen Pulmonary embolism Morbid obesity Events: Remains on supplemental oxygen On 3 LPM NC Taper O2 as tolerated. Patient complains of BLE pain - pain management. Continues on heparin drip - recommend transition to Eliquis 10 mg PO BID for 7 days, then Eliquis 5 mg PO BID. Patient with tachycardia Continue amiodarone PO. Positive MRSA. Follow up ID recommendations Incentive spirometry Continue bronchodilators. Pain control Avoid oversedation. Continue Lasix to maintain euvolemia Monitor renal function Labs and imaging reviewed. Rest of plan as noted below. Plan: Supplemental oxygen Titrate to keep O2 sats above 92%. CT Angiography revealing pulmonary embolism involving the left upper lobe segmental pulmonary arteries, right middle lobe segmental pulmonary artery and distal right lower lobe pulmonary artery extending into the right lower lobe segmental pulmonary arteries; reflux of contrast into the IVC and hepatic veins consistent with right heart dysfunction. Heparin drip for anticoagulation - recommend transition to Eliquis PO Amiodarone PO for AFib. Follow up echocardiogram Follow up Cardiology recommendations. Continue bronchodilators. Pepcid for GI ppx Accu-Cheks, ISS. Diurese with Lasix Monitor renal function. Monitor electrolytes. Supplement as necessary. Monitor ins and outs. Diet and lifestyle modifications for weight reduction Obesity complicates all care GI/DVT prophylaxis. Prognosis: Poor given patient's multiple co-morbidities. Rest of plan per hospitalist and other consultants. Thank you, JENNIFER Garay, for allowing me to participate in this patient's care. Further recommendations will depend on the patient's clinical course. Please do not hesitate to contact me if you have any questions or concerns. This medical document was created using an electronic medical record system with [employer] dictation system. Although these documentations are being carefully reviewed, there may still be some phonetic and typographical changes. The errors are purely typographical, due to imperfection on the software program, and do not reflect any compromise in the patient's medical care. Plan discussed with: Patient, Other (MAYE Loera) CHRIS FREEMAN MD Jan 05, 2025 22:54
[2025-01-06] VITALS (13 sets, daily range): BP systolic 106–121; BP diastolic 55–96; PULSE 48–137; RESP 16–20; TEMP 97.6–98.1; O2SAT 92–100
[2025-01-06 02:37] LABS: INR 1.48 (0.9-1.15); Partial Thromboplastin Time 65.3 SEC (24.5-34.5); Prothrombin Time 15.1 sec (9.3-11.8)
[2025-01-06 09:20] LABS: INR 1.48 (0.9-1.15); Partial Thromboplastin Time 59.3 SEC (24.5-34.5); Prothrombin Time 15.1 sec (9.3-11.8)
--- NOTE | 2025-01-06 09:36 | CONS ---
Pharmacy Clinical Information: HEPARIN DRIP, DVT PROTOCOL @08:40 APTT 59.3 - NO BOLUS / NO CHANGE 3 CONSECUTIVE APTT THERAPEUTIC => APTT EVERY 24 HRS NEXT APTT DRAW SCHEDULED @0500 PER RX PROTOCOL CONFIRMED AND READ BACK WITH MAYE WILKERSONCO PHY RESIDENT Jan 06, 2025 09:36
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
[2025-01-06] MEDS: APIXABAN 5 MG TAB PO SCH (12:07)
--- NOTE | 2025-01-06 23:52 | DVHPN2 ---
Progress Note - Dictate Date Seen: Jan 06, 2025 Medical Necessity Reason Pt with a Central, PICC or Fol: Yes The following are medically ne: Lau Catheter Reason for lau catheter: Strict I&O Subjective Patient seen and examined at bedside Remains on supplemental oxygen Overnight events reviewed. vital signs Vital Sign Date Time Temp Pulse Resp B/P (MAP) Pulse Ox O2 Delivery O2 Flow Rate FiO2 01/06/25 21:15 137 127/96 01/06/25 21:14 18 01/06/25 21:00 97.6 96 97.6 01/06/25 18:01 Nasal Cannula 2.0 01/06/25 18:01 28 Total Intake and Output 01/05/25 01/05/25 01/06/25 15:00 23:00 07:00 Intake Total 225 ml 290 ml Output Total 900 ml 525 ml Balance -675 ml -235 ml medications Current Medications Medications Dose Ordered Sig/Marck Route Start Time Stop Time Status Last Admin Dose Admin Furosemide 40 mg DAILY IV 01/01/25 10:00 01/06/25 09:45 40 MG Levalbuterol HCl 0.625 mg Q6HR NEB 01/01/25 06:00 01/06/25 10:55 0.625 MG Diagnostic Test (Pha) 1 strip ACHS 01/01/25 07:00 01/06/25 22:00 1 STRIP Insulin Human Regular ACHS SC 01/01/25 07:00 01/02/25 22:49 2 UNITS Dextrose 50 ml UD PRN IV 01/01/25 03:45 Acetaminophen/ Hydrocodone Bitart 1 tab Q4HP PRN PO 01/01/25 03:45 01/02/25 22:42 1 TAB Ondansetron HCl 4 mg Q4HP PRN IV 01/01/25 03:45 Docusate Sodium 100 mg BIDPRN PRN PO 01/01/25 03:45 Acetaminophen 650 mg Q6HP PRN PO 01/01/25 03:45 Nitroglycerin 0.4 mg Q5MINP PRN SL 01/01/25 03:45 Morphine Sulfate 2 mg Q30M PRN IV 01/01/25 03:45 01/02/25 14:43 2 MG Famotidine 20 mg Q12HR IV 01/01/25 10:00 01/06/25 23:14 20 MG Sodium Chloride 10 ml QSHIFT@10,22 IV 01/01/25 22:00 01/06/25 23:15 10 ML Morphine Sulfate 2 mg Q4HPRN PRN IV 01/02/25 12:30 01/06/25 21:14 2 MG Metoprolol Tartrate 12.5 mg BID PO 01/02/25 22:00 01/06/25 21:15 12.5 MG Amiodarone HCl 200 mg Q12HR PO 01/03/25 22:00 01/06/25 21:14 200 MG Mupirocin 1 applic BID EACHNOSTRI 01/04/25 22:00 01/09/25 21:59 01/06/25 23:14 1 APPLIC Patient Own Medication 10 mg BID PO 01/06/25 10:00 01/13/25 10:00 UNV Apixaban 10 mg Q12H PO 01/06/25 10:00 01/13/25 10:00 01/06/25 21:14 10 MG Diphenhydramine HCl 50 mg Q8HPRN PRN PO 01/06/25 11:00 01/06/25 21:28 50 MG objective Gen.: Patient lying in bed in no apparent distress. On supplemental oxygen. Head: Normocephalic, atraumatic. Eyes: EOMI/PERRLA. Ears: Normal hearing. Normal anatomy. Neck/trachea: Trachea midline, supple. Nose: Normal external anatomy. Mouth: Moist mucous membranes. Chest: Decreased air entry bilaterally. No wheezing or rhonchi. Cardiovascular: Positive S1, positive S2. Regular rate and rhythm. Abdomen: Positive bowel sounds in all 4 quadrants. Soft, non-tender, non- distended. : Deferred. Rectal: Deferred. Skin: Warm, dry. Intact. Extremities: 2+ radial pulses bilaterally. No lower extremity edema. Neuro: Awake, alert, oriented x3. No gross motor or sensory deficits. Cranial nerves II through XII intact. Gait not assessed. laboratory and microbiology Laboratory Tests 01/05/25 05:12 01/04/25 08:52 Test 01/04/25 08:52 Range/Units Serum Glucose 104 74-106 mg/dL Assessment/Plan Impression: Acute hypoxic respiratory failure Dependence on supplemental oxygen Pulmonary embolism Morbid obesity Events: Remains on supplemental oxygen On 3 LPM NC Taper O2 as tolerated. BLE pain - continue with pain management. Transitioned from heparin drip to Eliquis 10 mg PO BID for 7 days, then Eliquis 5 mg PO BID. Patient with tachycardia Continue amiodarone PO. Continue bronchodilators. Incentive spirometry Pain control Avoid oversedation. Continue Lasix to maintain euvolemia Monitor renal function Physical Therapy evaluation. Labs and imaging reviewed. Rest of plan as noted below. Plan: Supplemental oxygen Titrate to keep O2 sats above 92%. CT Angiography revealing pulmonary embolism involving the left upper lobe segmental pulmonary arteries, right middle lobe segmental pulmonary artery and distal right lower lobe pulmonary artery extending into the right lower lobe segmental pulmonary arteries; reflux of contrast into the IVC and hepatic veins consistent with right heart dysfunction. On Eliquis PO BID Amiodarone PO for AFib. Follow up echocardiogram Follow up Cardiology recommendations. Continue bronchodilators. Positive MRSA (01/01). Pepcid for GI ppx Eliquis for DVT ppx Accu-Cheks, ISS PRN. Diurese with Lasix Monitor renal function. Monitor electrolytes. Supplement as necessary. Monitor ins and outs. Diet and lifestyle modifications for weight reduction Obesity complicates all care GI/DVT prophylaxis. Prognosis: Poor given patient's multiple co-morbidities. Rest of plan per hospitalist and other consultants. Thank you, JENNIFER Garay, for allowing me to participate in this patient's care. Further recommendations will depend on the patient's clinical course. Please do not hesitate to contact me if you have any questions or concerns. This medical document was created using an electronic medical record system with [employer] dictation system. Although these documentations are being carefully reviewed, there may still be some phonetic and typographical changes. The errors are purely typographical, due to imperfection on the software program, and do not reflect any compromise in the patient's medical care. Dietary Evaluation Review Comments: CCHO-60 cardiac diet Wt management upon D/C Expected Outcomes/Goals: gradual wt loss, controlled DM, improved nutrition related lab values Plan discussed with: Patient, Other (MAYE Daugherty) CHRIS FREEMAN MD Jan 06, 2025 23:52
[2025-01-07] VITALS (14 sets, daily range): BP systolic 108–132; BP diastolic 60–87; PULSE 62–138; RESP 14–22; TEMP 97.9–98.4; O2SAT 90–100
[2025-01-07 07:20] LABS: Mean Corpuscular Volume 77.8 fL (80.0-100.0)
[2025-01-07 07:22] LABS: Hematocrit 38.7 % (36.0-46.0); Mean Corpuscular Hemoglobin 23.4 pg (28.0-32.0); Nucleated Red Blood Cells % 0.6 %
[2025-01-07 07:42] LABS: Hemoglobin 11.7 g/dL (12.2-16.2)
--- NOTE | 2025-01-07 09:31 | ECG ---
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
[2025-01-07] MEDS ORDERED: HYDR-4902 PO (10:47)
[2025-01-07] MEDS ORDERED: APIX5TAB PO (10:47)
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
[2025-01-07] MEDS ORDERED: AMIO200T33 PO (10:54)
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
--- NOTE | 2025-01-07 23:14 | DVHPN2 ---
Progress Note - Dictate Date Seen: Jan 07, 2025 Medical Necessity Reason Pt with a Central, PICC or Fol: Yes The following are medically ne: Lau Catheter Reason for lau catheter: Strict I&O Subjective Patient seen and examined at bedside Remains on supplemental oxygen Overnight events reviewed. vital signs Vital Sign Date Time Temp Pulse Resp B/P (MAP) Pulse Ox O2 Delivery O2 Flow Rate FiO2 01/07/25 21:31 135 20 124/87 01/07/25 19:18 100 01/07/25 19:12 Nasal Cannula 3.0 01/07/25 19:12 32 01/07/25 16:56 98.0 98.0 Total Intake and Output 01/06/25 01/06/25 01/07/25 15:00 23:00 07:00 Intake Total 520 ml Output Total 1200 ml Balance -680 ml medications Current Medications Medications Dose Ordered Sig/Marck Route Start Time Stop Time Status Last Admin Dose Admin Furosemide 40 mg DAILY IV 01/01/25 10:00 01/07/25 10:25 40 MG Levalbuterol HCl 0.625 mg Q6HR NEB 01/01/25 06:00 01/07/25 19:12 0.625 MG Diagnostic Test (Pha) 1 strip ACHS 01/01/25 07:00 01/07/25 21:25 1 STRIP Insulin Human Regular ACHS SC 01/01/25 07:00 01/02/25 22:49 2 UNITS Dextrose 50 ml UD PRN IV 01/01/25 03:45 Acetaminophen/ Hydrocodone Bitart 1 tab Q4HP PRN PO 01/01/25 03:45 01/02/25 22:42 1 TAB Ondansetron HCl 4 mg Q4HP PRN IV 01/01/25 03:45 Docusate Sodium 100 mg BIDPRN PRN PO 01/01/25 03:45 Acetaminophen 650 mg Q6HP PRN PO 01/01/25 03:45 Nitroglycerin 0.4 mg Q5MINP PRN SL 01/01/25 03:45 Morphine Sulfate 2 mg Q30M PRN IV 01/01/25 03:45 01/02/25 14:43 2 MG Famotidine 20 mg Q12HR IV 01/01/25 10:00 01/07/25 21:24 20 MG Sodium Chloride 10 ml QSHIFT@, IV 01/01/25 22:00 01/07/25 21:25 10 ML Morphine Sulfate 2 mg Q4HPRN PRN IV 01/02/25 12:30 01/07/25 21:31 2 MG Metoprolol Tartrate 12.5 mg BID PO 01/02/25 22:00 01/07/25 21:26 12.5 MG Amiodarone HCl 200 mg Q12HR PO 01/03/25 22:00 01/07/25 21:23 200 MG Mupirocin 1 applic BID EACHNOSTRI 01/04/25 22:00 01/09/25 21:59 01/07/25 21:57 1 APPLIC Patient Own Medication 10 mg BID PO 01/06/25 10:00 01/13/25 10:00 UNV Apixaban 10 mg Q12H PO 01/06/25 10:00 01/13/25 10:00 01/07/25 21:24 10 MG Diphenhydramine HCl 50 mg Q8HPRN PRN PO 01/06/25 11:00 01/07/25 21:24 50 MG objective Gen.: Patient lying in bed in no apparent distress. On supplemental oxygen. Head: Normocephalic, atraumatic. Eyes: EOMI/PERRLA. Ears: Normal hearing. Normal anatomy. Neck/trachea: Trachea midline, supple. Nose: Normal external anatomy. Mouth: Moist mucous membranes. Chest: Decreased air entry bilaterally. No wheezing or rhonchi. Cardiovascular: Positive S1, positive S2. Regular rate and rhythm. Abdomen: Positive bowel sounds in all 4 quadrants. Soft, non-tender, non- distended. : Deferred. Rectal: Deferred. Skin: Warm, dry. Intact. Extremities: 2+ radial pulses bilaterally. No lower extremity edema. Neuro: Awake, alert, oriented x3. No gross motor or sensory deficits. Cranial nerves II through XII intact. Gait not assessed. laboratory and microbiology Laboratory Tests 01/07/25 06:29 01/04/25 08:52 Test 01/04/25 08:52 Range/Units Serum Glucose 104 74-106 mg/dL Assessment/Plan Impression: Acute hypoxic respiratory failure Dependence on supplemental oxygen Pulmonary embolism Morbid obesity Events: Remains on supplemental oxygen On 3 LPM NC - stable oxygen requirements Taper O2 as tolerated. Continue Eliquis (10 mg PO BID for 7 days, then Eliquis 5 mg PO BID) Patient with tachycardia Continue amiodarone PO. Continue bronchodilators PRN. Incentive spirometry Pain control Avoid oversedation. Continue Lasix to maintain euvolemia Monitor renal function Physical Therapy evaluation. Labs and imaging reviewed. Rest of plan as noted below. Plan: Supplemental oxygen Titrate to keep O2 sats above 92%. CT Angiography revealing pulmonary embolism involving the left upper lobe segmental pulmonary arteries, right middle lobe segmental pulmonary artery and distal right lower lobe pulmonary artery extending into the right lower lobe segmental pulmonary arteries; reflux of contrast into the IVC and hepatic veins consistent with right heart dysfunction. On Eliquis PO BID Amiodarone PO for AFib. Follow up echocardiogram Follow up Cardiology recommendations. Bronchodilators PRN. Positive MRSA (01/01). Pepcid for GI ppx Eliquis for DVT ppx Accu-Cheks, ISS PRN. Diurese with Lasix Monitor renal function. Monitor electrolytes. Supplement as necessary. Monitor ins and outs. Diet and lifestyle modifications for weight reduction Obesity complicates all care GI/DVT prophylaxis. Prognosis: Poor given patient's multiple co-morbidities. Rest of plan per hospitalist and other consultants. Thank you, JENNIFER Garay, for allowing me to participate in this patient's care. Further recommendations will depend on the patient's clinical course. Please do not hesitate to contact me if you have any questions or concerns. This medical document was created using an electronic medical record system with [employer] dictation system. Although these documentations are being carefully reviewed, there may still be some phonetic and typographical changes. The errors are purely typographical, due to imperfection on the software program, and do not reflect any compromise in the patient's medical care. Dietary Evaluation Review Comments[facility] Wt management upon D/C Expected Outcomes/Goals: gradual wt loss, controlled DM, improved nutrition related lab values Plan discussed with: Patient, Other (MAYE Kim) CHRIS FREEMAN MD Jan 07, 2025 23:14
[2025-01-07] MEDS: dilTIAZem 25 MG/5 ML VIAL IV ONE (23:56)
[2025-01-08] VITALS (16 sets, daily range): BP systolic 99–132; BP diastolic 68–83; PULSE 111–136; RESP 16–22; TEMP 97.4–98.2; O2SAT 84–100
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
[2025-01-08] MEDS: DIGOXIN (250MCG/ML) 2 ML AMPULE IV ONE (11:48)
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
--- NOTE | 2025-01-08 22:56 | DVHPN2 ---
Progress Note - Dictate Date Seen: Jan 08, 2025 Medical Necessity Reason Pt with a Central, PICC or Fol: Yes The following are medically ne: Lau Catheter Reason for lau catheter: Strict I&O Subjective Patient seen and examined at bedside Remains on supplemental oxygen Overnight events reviewed. vital signs Vital Sign Date Time Temp Pulse Resp B/P (MAP) Pulse Ox O2 Delivery O2 Flow Rate FiO2 01/08/25 22:40 136 116/68 01/08/25 22:39 20 01/08/25 19:28 100 01/08/25 19:18 Room Air 0.0 01/08/25 19:18 21 01/08/25 16:55 98.0 98.0 Total Intake and Output 01/07/25 01/07/25 01/08/25 15:00 23:00 07:00 Intake Total 950 ml 300 ml Output Total 1200 ml 350 ml Balance -250 ml -50 ml medications Current Medications Medications Dose Ordered Sig/Marck Route Start Time Stop Time Status Last Admin Dose Admin Furosemide 40 mg DAILY IV 01/01/25 10:00 01/08/25 09:38 40 MG Levalbuterol HCl 0.625 mg Q6HR NEB 01/01/25 06:00 01/08/25 19:18 0.625 MG Diagnostic Test (Pha) 1 strip ACHS 01/01/25 07:00 01/08/25 22:21 1 STRIP Insulin Human Regular ACHS SC 01/01/25 07:00 01/02/25 22:49 2 UNITS Dextrose 50 ml UD PRN IV 01/01/25 03:45 Acetaminophen/ Hydrocodone Bitart 1 tab Q4HP PRN PO 01/01/25 03:45 01/02/25 22:42 1 TAB Ondansetron HCl 4 mg Q4HP PRN IV 01/01/25 03:45 Docusate Sodium 100 mg BIDPRN PRN PO 01/01/25 03:45 Acetaminophen 650 mg Q6HP PRN PO 01/01/25 03:45 Nitroglycerin 0.4 mg Q5MINP PRN SL 01/01/25 03:45 Morphine Sulfate 2 mg Q30M PRN IV 01/01/25 03:45 01/02/25 14:43 2 MG Famotidine 20 mg Q12HR IV 01/01/25 10:00 01/08/25 22:39 20 MG Sodium Chloride 10 ml QSHIFT@10,22 IV 01/01/25 22:00 01/08/25 22:23 10 ML Morphine Sulfate 2 mg Q4HPRN PRN IV 01/02/25 12:30 01/08/25 22:39 2 MG Metoprolol Tartrate 12.5 mg BID PO 01/02/25 22:00 01/08/25 22:40 12.5 MG Amiodarone HCl 200 mg Q12HR PO 01/03/25 22:00 01/08/25 22:39 200 MG Mupirocin 1 applic BID EACHNOSTRI 01/04/25 22:00 01/09/25 21:59 01/08/25 22:43 1 APPLIC Patient Own Medication 10 mg BID PO 01/06/25 10:00 01/13/25 10:00 UNV Apixaban 10 mg Q12H PO 01/06/25 10:00 01/13/25 10:00 01/08/25 22:39 10 MG Diphenhydramine HCl 50 mg Q8HPRN PRN PO 01/06/25 11:00 01/08/25 10:39 50 MG objective Gen.: Patient lying in bed in no apparent distress. On supplemental oxygen. Head: Normocephalic, atraumatic. Eyes: EOMI/PERRLA. Ears: Normal hearing. Normal anatomy. Neck/trachea: Trachea midline, supple. Nose: Normal external anatomy. Mouth: Moist mucous membranes. Chest: Decreased air entry bilaterally. No wheezing or rhonchi. Cardiovascular: Positive S1, positive S2. Regular rate and rhythm. Abdomen: Positive bowel sounds in all 4 quadrants. Soft, non-tender, non- distended. : Deferred. Rectal: Deferred. Skin: Warm, dry. Intact. Extremities: 2+ radial pulses bilaterally. No lower extremity edema. Neuro: Awake, alert, oriented x3. No gross motor or sensory deficits. Cranial nerves II through XII intact. Gait not assessed. laboratory and microbiology Laboratory Tests 01/07/25 06:29 01/04/25 08:52 Test 01/04/25 08:52 Range/Units Serum Glucose 104 74-106 mg/dL Assessment/Plan Impression: Acute hypoxic respiratory failure Dependence on supplemental oxygen Pulmonary embolism Morbid obesity Events: Remains on supplemental oxygen On 2 LPM NC Taper O2 as tolerated. Continue Eliquis (10 mg PO BID for 7 days, then Eliquis 5 mg PO BID) Monitor tachycardia Continue amiodarone PO. Continue bronchodilators PRN. Incentive spirometry Pain control Avoid oversedation. Continue Lasix to maintain euvolemia Monitor renal function Fluid resuscitation Patient is stable for discharge from the pulmonary standpoint. Arrange PT, home health. Labs and imaging reviewed. Rest of plan as noted below. Plan: Supplemental oxygen Titrate to keep O2 sats above 92%. CT Angiography revealing pulmonary embolism involving the left upper lobe segmental pulmonary arteries, right middle lobe segmental pulmonary artery and distal right lower lobe pulmonary artery extending into the right lower lobe segmental pulmonary arteries; reflux of contrast into the IVC and hepatic veins consistent with right heart dysfunction. On Eliquis PO BID Amiodarone PO for AFib. Follow up echocardiogram Follow up Cardiology recommendations. Bronchodilators PRN. Positive MRSA (01/01). Pepcid for GI ppx Eliquis for DVT ppx Accu-Cheks, ISS PRN. Diurese with Lasix Monitor renal function. Monitor electrolytes. Supplement as necessary. Monitor ins and outs. Diet and lifestyle modifications for weight reduction Obesity complicates all care GI/DVT prophylaxis. Prognosis: Poor given patient's multiple co-morbidities. Rest of plan per hospitalist and other consultants. Thank you, JENNIFER Garay, for allowing me to participate in this patient's care. Further recommendations will depend on the patient's clinical course. Please do not hesitate to contact me if you have any questions or concerns. This medical document was created using an electronic medical record system with [employer] dictation system. Although these documentations are being carefully reviewed, there may still be some phonetic and typographical changes. The errors are purely typographical, due to imperfection on the software program, and do not reflect any compromise in the patient's medical care. [facility] Evaluation [facility] Wt management upon D/C Expected Outcomes/Goals: gradual wt loss, controlled DM, improved nutrition related lab values Plan discussed with: Patient, Other (MAYE Stevens) CHRIS FREEMAN MD Jan 08, 2025 22:56
[2025-01-09] VITALS (16 sets, daily range): BP systolic 104–115; BP diastolic 66–83; PULSE 73–135; RESP 18–20; TEMP 97.5–98.3; O2SAT 90–100
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
[2025-01-09] MEDS ORDERED: guaiFENesin-DM 100/10mg/5ml SYR PO PRN (11:15)
--- NOTE | 2025-01-09 23:33 | DVHPN2 ---
Progress Note - Dictate Date Seen: Jan 09, 2025 Medical Necessity Reason Pt with a Central, PICC or Fol: Yes The following are medically ne: Lau Catheter Reason for lau catheter: Strict I&O Subjective Patient seen and examined at bedside Remains on supplemental oxygen Overnight events reviewed. vital signs Vital Sign Date Time Temp Pulse Resp B/P (MAP) Pulse Ox O2 Delivery O2 Flow Rate FiO2 01/09/25 21:42 100 101/66 01/09/25 20:41 18 100 01/09/25 20:35 Nasal Cannula* 3 32 01/09/25 17:00 98.3 98.3 Total Intake and Output 01/08/25 01/08/25 01/09/25 15:00 23:00 07:00 Intake Total 375 ml Output Total 575 ml Balance -200 ml medications Current Medications Medications Dose Ordered Sig/Marck Route Start Time Stop Time Status Last Admin Dose Admin Furosemide 40 mg DAILY IV 01/01/25 10:00 01/09/25 09:56 40 MG Levalbuterol HCl 0.625 mg Q6HR NEB 01/01/25 06:00 01/09/25 20:35 0.625 MG Diagnostic Test (Pha) 1 strip ACHS 01/01/25 07:00 01/09/25 21:43 1 STRIP Insulin Human Regular ACHS SC 01/01/25 07:00 01/02/25 22:49 2 UNITS Dextrose 50 ml UD PRN IV 01/01/25 03:45 Acetaminophen/ Hydrocodone Bitart 1 tab Q4HP PRN PO 01/01/25 03:45 01/02/25 22:42 1 TAB Ondansetron HCl 4 mg Q4HP PRN IV 01/01/25 03:45 Docusate Sodium 100 mg BIDPRN PRN PO 01/01/25 03:45 Acetaminophen 650 mg Q6HP PRN PO 01/01/25 03:45 Nitroglycerin 0.4 mg Q5MINP PRN SL 01/01/25 03:45 Morphine Sulfate 2 mg Q30M PRN IV 01/01/25 03:45 01/09/25 18:42 2 MG Famotidine 20 mg Q12HR IV 01/01/25 10:00 01/09/25 21:42 20 MG Sodium Chloride 10 ml QSHIFT@10,22 IV 01/01/25 22:00 01/09/25 21:43 10 ML Morphine Sulfate 2 mg Q4HPRN PRN IV 01/02/25 12:30 01/08/25 22:39 2 MG Metoprolol Tartrate 12.5 mg BID PO 01/02/25 22:00 01/09/25 21:42 12.5 MG Amiodarone HCl 200 mg Q12HR PO 01/03/25 22:00 01/09/25 21:43 200 MG Patient Own Medication 10 mg BID PO 01/06/25 10:00 01/13/25 10:00 UNV Apixaban 10 mg Q12H PO 01/06/25 10:00 01/13/25 10:00 01/09/25 21:43 10 MG Diphenhydramine HCl 50 mg Q8HPRN PRN PO 01/06/25 11:00 01/09/25 18:44 50 MG Guaifenesin/ Dextromethorphan 10 ml Q6HP PRN PO 01/09/25 11:15 objective Gen.: Patient lying in bed in no apparent distress. On supplemental oxygen. Head: Normocephalic, atraumatic. Eyes: EOMI/PERRLA. Ears: Normal hearing. Normal anatomy. Neck/trachea: Trachea midline, supple. Nose: Normal external anatomy. Mouth: Moist mucous membranes. Chest: Decreased air entry bilaterally. No wheezing or rhonchi. Cardiovascular: Positive S1, positive S2. Regular rate and rhythm. Abdomen: Positive bowel sounds in all 4 quadrants. Soft, non-tender, non- distended. : Deferred. Rectal: Deferred. Skin: Warm, dry. Intact. Extremities: 2+ radial pulses bilaterally. No lower extremity edema. Neuro: Awake, alert, oriented x3. No gross motor or sensory deficits. Cranial nerves II through XII intact. Gait not assessed. laboratory and microbiology Laboratory Tests 01/07/25 06:29 01/04/25 08:52 Test 01/04/25 08:52 Range/Units Serum Glucose 104 74-106 mg/dL Assessment/Plan Impression: Acute hypoxic respiratory failure Dependence on supplemental oxygen Pulmonary embolism Morbid obesity BMI 57.5 Non-adherence Atelectasis Events: Remains on supplemental oxygen On 3 LPM NC Taper O2 as tolerated. Continue Eliquis (10 mg PO BID for 7 days, then Eliquis 5 mg PO BID) Continue amiodarone PO. Follow up Cardiology recommendations Continue bronchodilators PRN. Antitussive PRN cough Incentive spirometry Pain control Avoid oversedation. Continue Lasix to maintain euvolemia Monitor renal function Fluid resuscitation Patient is stable for discharge from the pulmonary standpoint. Arrange PT, home health. Labs and imaging reviewed. Rest of plan as noted below. Plan: Supplemental oxygen Titrate to keep O2 sats above 92%. CT Angiography revealing pulmonary embolism involving the left upper lobe segmental pulmonary arteries, right middle lobe segmental pulmonary artery and distal right lower lobe pulmonary artery extending into the right lower lobe segmental pulmonary arteries; reflux of contrast into the IVC and hepatic veins consistent with right heart dysfunction. On Eliquis PO BID Amiodarone PO for AFib. Follow up echocardiogram Follow up Cardiology recommendations. Bronchodilators PRN. Positive MRSA (01/01). Pepcid for GI ppx Eliquis for DVT ppx Accu-Cheks, ISS PRN. Diurese with Lasix Monitor renal function. Monitor electrolytes. Supplement as necessary. Monitor ins and outs. Diet and lifestyle modifications for weight reduction Obesity complicates all care GI/DVT prophylaxis. Prognosis: Poor given patient's multiple co-morbidities. Rest of plan per hospitalist and other consultants. Thank you, DISTRICT OR DISTRICT OFFICE DIRECTOR Jarrod, for allowing me to participate in this patient's care. Further recommendations will depend on the patient's clinical course. Please do not hesitate to contact me if you have any questions or concerns. This medical document was created using an electronic medical record system with [employer] dictation system. Although these documentations are being carefully reviewed, there may still be some phonetic and typographical changes. The errors are purely typographical, due to imperfection on the software program, and do not reflect any compromise in the patient's medical care. Dietary Evaluation Review Comments[facility] Wt management upon D/C Expected Outcomes/Goals: gradual wt loss, controlled DM, improved nutrition related lab values Plan discussed with: Patient, Other (MAYE [place]) CHRIS FREEMAN MD Jan 09, 2025 23:33
[2025-01-10] VITALS (16 sets, daily range): BP systolic 97–136; BP diastolic 59–78; PULSE 71–98; RESP 17–20; TEMP 97.6–98.2; O2SAT 93–100
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
[2025-01-10 15:05] LABS: Potassium 3.6 mmol/L (3.5-5.1)
[2025-01-10 15:30] LABS: Magnesium 1.0 mg/dL (1.6-2.6)
[2025-01-10] MEDS: FLECAINIDE ACETATE 50 MG TAB PO SCH (20:55)
--- NOTE | 2025-01-10 22:41 | DVHPN2 ---
Progress Note - Dictate Date Seen: Jan 10, 2025 Medical Necessity Reason Pt with a Central, PICC or Fol: Yes The following are medically ne: Lau Catheter Reason for lau catheter: Strict I&O Subjective Patient seen and examined at bedside Remains on supplemental oxygen Overnight events reviewed. vital signs Vital Sign Date Time Temp Pulse Resp B/P (MAP) Pulse Ox O2 Delivery O2 Flow Rate FiO2 01/10/25 21:00 97.9 71 19 99/59 (72) 98 97.9 01/10/25 20:00 Nasal Cannula* 3 32 medications Current Medications Medications Dose Ordered Sig/Marck Route Start Time Stop Time Status Last Admin Dose Admin Furosemide 40 mg DAILY IV 01/01/25 10:00 01/10/25 09:10 40 MG Levalbuterol HCl 0.625 mg Q6HR NEB 01/01/25 06:00 01/10/25 13:37 0.625 MG Diagnostic Test (Pha) 1 strip ACHS 01/01/25 07:00 01/10/25 20:55 1 STRIP Insulin Human Regular ACHS SC 01/01/25 07:00 01/02/25 22:49 2 UNITS Dextrose 50 ml UD PRN IV 01/01/25 03:45 Ondansetron HCl 4 mg Q4HP PRN IV 01/01/25 03:45 Docusate Sodium 100 mg BIDPRN PRN PO 01/01/25 03:45 Acetaminophen 650 mg Q6HP PRN PO 01/01/25 03:45 Nitroglycerin 0.4 mg Q5MINP PRN SL 01/01/25 03:45 Famotidine 20 mg Q12HR IV 01/01/25 10:00 01/10/25 20:55 20 MG Sodium Chloride 10 ml QSHIFT@10,22 IV 01/01/25 22:00 01/10/25 20:58 10 ML Morphine Sulfate 2 mg Q4HPRN PRN IV 01/02/25 12:30 01/10/25 17:56 2 MG Patient Own Medication 10 mg BID PO 01/06/25 10:00 01/13/25 10:00 UNV Apixaban 10 mg Q12H PO 01/06/25 10:00 01/13/25 10:00 01/10/25 20:54 10 MG Diphenhydramine HCl 50 mg Q8HPRN PRN PO 01/06/25 11:00 01/10/25 17:53 50 MG Guaifenesin/ Dextromethorphan 10 ml Q6HP PRN PO 01/09/25 11:15 Flecainide Acetate 50 mg Q12HR PO 01/10/25 22:00 01/10/25 20:55 50 MG Metoprolol Succinate 25 mg DAILY PO 01/11/25 10:00 objective Gen.: Patient lying in bed in no apparent distress. On supplemental oxygen. Head: Normocephalic, atraumatic. Eyes: EOMI/PERRLA. Ears: Normal hearing. Normal anatomy. Neck/trachea: Trachea midline, supple. Nose: Normal external anatomy. Mouth: Moist mucous membranes. Chest: Decreased air entry bilaterally. No wheezing or rhonchi. Cardiovascular: Positive S1, positive S2. Regular rate and rhythm. Abdomen: Positive bowel sounds in all 4 quadrants. Soft, non-tender, non- distended. : Deferred. Rectal: Deferred. Skin: Warm, dry. Intact. Extremities: 2+ radial pulses bilaterally. No lower extremity edema. Neuro: Awake, alert, oriented x3. No gross motor or sensory deficits. Cranial nerves II through XII intact. Gait not assessed. laboratory and microbiology Laboratory Tests 01/10/25 14:25 01/07/25 06:29 01/04/25 08:52 Test 01/04/25 08:52 Range/Units Serum Glucose 104 74-106 mg/dL Assessment/Plan Impression: Acute hypoxic respiratory failure Dependence on supplemental oxygen Pulmonary embolism Morbid obesity BMI 57.5 Non-adherence Atelectasis Events: Remains on supplemental oxygen On 2 LPM NC Taper O2 as tolerated. Check labs, CBC/BMP. Continue Eliquis for PE (10 mg PO BID for 7 days, then Eliquis 5 mg PO BID) Continue amiodarone PO. Follow up Cardiology recommendations Continue bronchodilators Antitussive PRN cough Incentive spirometry Pain control Avoid oversedation. Continue Lasix to maintain euvolemia Monitor renal function Fluid resuscitation Supportive care. Patient is stable for discharge from the pulmonary standpoint. Disposition per hospitalist. Arrange PT, home health. Labs and imaging reviewed. Rest of plan as noted below. Plan: Supplemental oxygen Titrate to keep O2 sats above 92%. CT Angiography revealing pulmonary embolism involving the left upper lobe segmental pulmonary arteries, right middle lobe segmental pulmonary artery and distal right lower lobe pulmonary artery extending into the right lower lobe segmental pulmonary arteries; reflux of contrast into the IVC and hepatic veins consistent with right heart dysfunction. On Eliquis PO BID Amiodarone PO for AFib. Follow up echocardiogram Follow up Cardiology recommendations. Bronchodilators PRN. Positive MRSA (01/01). Pepcid for GI ppx Eliquis for DVT ppx Accu-Cheks, ISS PRN. Diurese with Lasix Monitor renal function. Monitor electrolytes. Supplement as necessary. Monitor ins and outs. Diet and lifestyle modifications for weight reduction Obesity complicates all care GI/DVT prophylaxis. Prognosis: Poor given patient's multiple co-morbidities. Rest of plan per hospitalist and other consultants. Thank you, JENNIFER Garay, for allowing me to participate in this patient's care. Further recommendations will depend on the patient's clinical course. Please do not hesitate to contact me if you have any questions or concerns. This medical document was created using an electronic medical record system with [employer] computerized dictation system. Although these documentations are being carefully reviewed, there may still be some phonetic and typographical changes. The errors are purely typographical, due to imperfection on the software program, and do not reflect any compromise in the patient's medical care. Dietary Evaluation Review Comments: CCHO-60 cardiac diet Wt management upon D/C Expected Outcomes/Goals: gradual wt loss, controlled DM, improved nutrition related lab values Plan discussed with: Patient, Other (MA[place]) CHRIS FREEMAN MD Jan 10, 2025 22:41
[2025-01-11] VITALS (12 sets, daily range): BP systolic 102–123; BP diastolic 37–81; PULSE 71–82; RESP 16–19; TEMP 97.5–98.7; O2SAT 92–100
[2025-01-11] MEDS: METOPROLOL SUCCINATE XL 50 MG TAB PO SCH (09:25)
[2025-01-11 10:23] LABS: Hematocrit 37.8 % (36.0-46.0); Mean Corpuscular Hemoglobin 23.0 pg (28.0-32.0); Mean Corpuscular Volume 75.4 fL (80.0-100.0); Nucleated Red Blood Cells % 0.2 %
[2025-01-11 10:24] LABS: Hemoglobin 11.5 g/dL (12.2-16.2)
[2025-01-11 10:35] LABS: Albumin 3.5 g/dL (3.2-4.8); Alkaline Phosphatase 88 U/L (46-116); Anion Gap 9 (5-15); BUN/Creatinine Ratio 8.6 (10.0-20.0); Chloride 100 mmol/L (98-107); Glucose 86 mg/dL (74-106); Potassium 3.6 mmol/L (3.5-5.1); Sodium 141 mmol/L (136-145); Total Protein 6.9 g/dL (5.7-8.2)
[2025-01-11 10:36] LABS: Alanine Aminotransferase < 9 U/L (7-40); Bilirubin, Total 0.9 mg/dL (0.2-1.0); Blood Urea Nitrogen 7 mg/dL (9-23); Calcium 8.3 mg/dL (8.7-10.4); Carbon Dioxide 32 mmol/L (20-31)
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
--- NOTE | 2025-01-11 23:40 | DVHPN2 ---
Progress Note - Dictate Date Seen: Jan 11, 2025 Medical Necessity Reason Pt with a Central, PICC or Fol: Yes The following are medically ne: Lau Catheter Reason for lau catheter: Strict I&O Subjective Patient seen and examined at bedside Remains on supplemental oxygen Overnight events reviewed. vital signs Vital Sign Date Time Temp Pulse Resp B/P (MAP) Pulse Ox O2 Delivery O2 Flow Rate FiO2 01/11/25 21:00 97.8 73 19 122/37 (65) 97 97.8 01/11/25 18:52 Nasal Cannula 3.0 01/11/25 18:52 32 Total Intake and Output 01/10/25 01/10/25 01/11/25 15:00 23:00 07:00 Intake Total 240 ml 250 ml Balance 240 ml 250 ml medications Current Medications Medications Dose Ordered Sig/Marck Route Start Time Stop Time Status Last Admin Dose Admin Furosemide 40 mg DAILY IV 01/01/25 10:00 01/11/25 09:25 40 MG Levalbuterol HCl 0.625 mg Q6HR NEB 01/01/25 06:00 01/11/25 11:22 0.625 MG Diagnostic Test (Pha) 1 strip ACHS 01/01/25 07:00 01/11/25 22:26 1 STRIP Insulin Human Regular ACHS SC 01/01/25 07:00 01/02/25 22:49 2 UNITS Dextrose 50 ml UD PRN IV 01/01/25 03:45 Ondansetron HCl 4 mg Q4HP PRN IV 01/01/25 03:45 Docusate Sodium 100 mg BIDPRN PRN PO 01/01/25 03:45 Acetaminophen 650 mg Q6HP PRN PO 01/01/25 03:45 Nitroglycerin 0.4 mg Q5MINP PRN SL 01/01/25 03:45 Famotidine 20 mg Q12HR IV 01/01/25 10:00 01/11/25 21:12 20 MG Sodium Chloride 10 ml QSHIFT@10,22 IV 01/01/25 22:00 01/11/25 21:13 10 ML Patient Own Medication 10 mg BID PO 01/06/25 10:00 01/13/25 10:00 UNV Apixaban 10 mg Q12H PO 01/06/25 10:00 01/13/25 10:00 01/11/25 21:13 10 MG Diphenhydramine HCl 50 mg Q8HPRN PRN PO 01/06/25 11:00 01/11/25 21:51 50 MG Guaifenesin/ Dextromethorphan 10 ml Q6HP PRN PO 01/09/25 11:15 Flecainide Acetate 50 mg Q12HR PO 01/10/25 22:00 01/11/25 21:13 50 MG Metoprolol Succinate 25 mg DAILY PO 01/11/25 10:00 01/11/25 09:25 25 MG objective Gen.: Patient lying in bed in no apparent distress. On supplemental oxygen. Head: Normocephalic, atraumatic. Eyes: EOMI/PERRLA. Ears: Normal hearing. Normal anatomy. Neck/trachea: Trachea midline, supple. Nose: Normal external anatomy. Mouth: Moist mucous membranes. Chest: Decreased air entry bilaterally. No wheezing or rhonchi. Cardiovascular: Positive S1, positive S2. Regular rate and rhythm. Abdomen: Positive bowel sounds in all 4 quadrants. Soft, non-tender, non- distended. : Deferred. Rectal: Deferred. Skin: Warm, dry. Intact. Extremities: 2+ radial pulses bilaterally. No lower extremity edema. Neuro: Awake, alert, oriented x3. No gross motor or sensory deficits. Cranial nerves II through XII intact. Gait not assessed. laboratory and microbiology Laboratory Tests 01/11/25 10:00 Test 01/11/25 10:00 Range/Units Serum Glucose 86 74-106 mg/dL Assessment/Plan Impression: Acute hypoxic respiratory failure Dependence on supplemental oxygen Pulmonary embolism Morbid obesity BMI 57.5 Non-adherence Atelectasis Events: Remains on supplemental oxygen On 3 LPM NC Taper O2 as tolerated. Check labs, CBC/BMP. Continue Eliquis for PE (10 mg PO BID for 7 days, then Eliquis 5 mg PO BID) Continue bronchodilators Antitussive PRN cough Incentive spirometry Pain control Avoid oversedation. Continue Lasix to maintain euvolemia Monitor renal function Fluid resuscitation Supportive care. Patient is stable for discharge from the pulmonary standpoint. Disposition per hospitalist. Arrange PT, home health. Labs - CBC, BMP reviewed. Rest of plan as noted below. Plan: Supplemental oxygen Titrate to keep O2 sats above 92%. CT Angiography revealing pulmonary embolism involving the left upper lobe segmental pulmonary arteries, right middle lobe segmental pulmonary artery and distal right lower lobe pulmonary artery extending into the right lower lobe segmental pulmonary arteries; reflux of contrast into the IVC and hepatic veins consistent with right heart dysfunction. On Eliquis PO BID Amiodarone PO for AFib. Follow up echocardiogram Follow up Cardiology recommendations. Bronchodilators PRN. Positive MRSA (01/01). Pepcid for GI ppx Eliquis for DVT ppx Accu-Cheks, ISS PRN. Diurese with Lasix Monitor renal function. Monitor electrolytes. Supplement as necessary. Monitor ins and outs. Diet and lifestyle modifications for weight reduction Obesity complicates all care GI/DVT prophylaxis. Prognosis: Poor given patient's multiple co-morbidities. Rest of plan per hospitalist and other consultants. Thank you, JENNIFER Garay, for allowing me to participate in this patient's care. Further recommendations will depend on the patient's clinical course. Please do not hesitate to contact me if you have any questions or concerns. This medical document was created using an electronic medical record system with [employer] computerized dictation system. Although these documentations are being carefully reviewed, there may still be some phonetic and typographical changes. The errors are purely typographical, due to imperfection on the software program, and do not reflect any compromise in the patient's medical care. Dietary Evaluation Review Comments: CCHO-60 cardiac diet Wt management upon D/C Expected Outcomes/Goals: gradual wt loss, controlled DM, improved nutrition related lab values Plan discussed with: Patient, Other (MA[place]) CHRIS FREEMAN MD Jan 11, 2025 23:40
[2025-01-12] VITALS (12 sets, daily range): BP systolic 103–120; BP diastolic 53–87; PULSE 65–80; RESP 17–22; TEMP 36.6; O2SAT 93–100
[2025-01-12] MEDS ORDERED: FLEC100T PO (10:21)
[2025-01-12] MEDS ORDERED: METO25TA93 PO (10:21)
[2025-01-12] MEDS: ACETAMINOPHEN 325 MG TAB PO PRN (12:34)
--- NOTE | 2025-01-12 20:26 | DVHPN2 ---
Progress Note - Dictate Date Seen: Jan 12, 2025 Medical Necessity Reason Pt with a Central, PICC or Fol: Yes The following are medically ne: Lau Catheter Reason for lau catheter: Strict I&O Subjective Patient seen and examined at bedside Remains on supplemental oxygen Overnight events reviewed. vital signs Vital Sign Date Time Temp Pulse Resp B/P (MAP) Pulse Ox O2 Delivery O2 Flow Rate FiO2 01/12/25 17:00 97.8 74 18 103/79 (87) 98 97.8 01/12/25 11:10 Nasal Cannula* 3 32 medications Current Medications Medications Dose Ordered Sig/Marck Route Start Time Stop Time Status Last Admin Dose Admin Furosemide 40 mg DAILY IV 01/01/25 10:00 01/12/25 09:47 40 MG Levalbuterol HCl 0.625 mg Q6HR NEB 01/01/25 06:00 01/12/25 11:10 0.625 MG Diagnostic Test (Pha) 1 strip ACHS 01/01/25 07:00 01/12/25 11:30 1 STRIP Insulin Human Regular ACHS SC 01/01/25 07:00 01/02/25 22:49 2 UNITS Dextrose 50 ml UD PRN IV 01/01/25 03:45 Ondansetron HCl 4 mg Q4HP PRN IV 01/01/25 03:45 Docusate Sodium 100 mg BIDPRN PRN PO 01/01/25 03:45 Acetaminophen 650 mg Q6HP PRN PO 01/01/25 03:45 01/12/25 12:34 650 MG Nitroglycerin 0.4 mg Q5MINP PRN SL 01/01/25 03:45 Famotidine 20 mg Q12HR IV 01/01/25 10:00 01/12/25 09:47 20 MG Sodium Chloride 10 ml QSHIFT@10,22 IV 01/01/25 22:00 01/12/25 09:48 10 ML Patient Own Medication 10 mg BID PO 01/06/25 10:00 01/13/25 10:00 UNV Apixaban 10 mg Q12H PO 01/06/25 10:00 01/13/25 10:00 01/12/25 09:47 10 MG Diphenhydramine HCl 50 mg Q8HPRN PRN PO 01/06/25 11:00 01/11/25 21:51 50 MG Guaifenesin/ Dextromethorphan 10 ml Q6HP PRN PO 01/09/25 11:15 Flecainide Acetate 50 mg Q12HR PO 01/10/25 22:00 01/12/25 09:47 50 MG Metoprolol Succinate 25 mg DAILY PO 01/11/25 10:00 01/12/25 09:38 25 MG objective Gen.: Patient lying in bed in no apparent distress. On supplemental oxygen. Head: Normocephalic, atraumatic. Eyes: EOMI/PERRLA. Ears: Normal hearing. Normal anatomy. Neck/trachea: Trachea midline, supple. Nose: Normal external anatomy. Mouth: Moist mucous membranes. Chest: Decreased air entry bilaterally. No wheezing or rhonchi. Cardiovascular: Positive S1, positive S2. Regular rate and rhythm. Abdomen: Positive bowel sounds in all 4 quadrants. Soft, non-tender, non- distended. : Deferred. Rectal: Deferred. Skin: Warm, dry. Intact. Extremities: 2+ radial pulses bilaterally. No lower extremity edema. Neuro: Awake, alert, oriented x3. No gross motor or sensory deficits. Cranial nerves II through XII intact. Gait not assessed. laboratory and microbiology Laboratory Tests 01/11/25 10:00 Test 01/11/25 10:00 Range/Units Serum Glucose 86 74-106 mg/dL Assessment/Plan Impression: Acute hypoxic respiratory failure Dependence on supplemental oxygen Pulmonary embolism Morbid obesity BMI 57.5 Non-adherence Atelectasis Events: Remains on supplemental oxygen On 3 LPM NC Taper O2 as tolerated. Continue Eliquis for VTE (10 mg PO BID for 7 days, then Eliquis 5 mg PO BID) Continue bronchodilators Antitussive PRN cough Incentive spirometry Pain control Avoid oversedation. Continue Lasix to maintain euvolemia Monitor renal function Fluid resuscitation Supportive care. Physical therapy. Patient is stable for discharge from the pulmonary standpoint. Disposition per hospitalist. Arrange PT, home health. Labs reviewed. Rest of plan as noted below. Plan: Supplemental oxygen Titrate to keep O2 sats above 92%. CT Angiography revealing pulmonary embolism involving the left upper lobe segmental pulmonary arteries, right middle lobe segmental pulmonary artery and distal right lower lobe pulmonary artery extending into the right lower lobe segmental pulmonary arteries; reflux of contrast into the IVC and hepatic veins consistent with right heart dysfunction. On Eliquis PO BID Transthoracic echocardiogram revealed LVEF of 50%, RVSP >60mmHg with RV dysfunction. Pulmonary embolism severity index (PESI score): 134 points, Class V Follow up Cardiology recommendations. Bronchodilators PRN. Positive MRSA (01/01). Pepcid for GI ppx Eliquis for DVT ppx Accu-Cheks, ISS PRN. Diurese with Lasix Monitor renal function. Monitor electrolytes. Supplement as necessary. Monitor ins and outs. Diet and lifestyle modifications for weight reduction Obesity complicates all care GI/DVT prophylaxis. Prognosis: Poor given patient's multiple co-morbidities. Rest of plan per hospitalist and other consultants. Thank you, JENNIFER Garay, for allowing me to participate in this patient's care. Further recommendations will depend on the patient's clinical course. Please do not hesitate to contact me if you have any questions or concerns. This medical document was created using an electronic medical record system with [employer] dictation system. Although these documentations are being carefully reviewed, there may still be some phonetic and typographical changes. The errors are purely typographical, due to imperfection on the software program, and do not reflect any compromise in the patient's medical care. Dietary Evaluation Review Comments[facility] diet Wt management upon D/C Expected Outcomes/Goals: gradual wt loss, controlled DM, improved nutrition related lab values Plan discussed with: Patient, Other (RN) CHRIS FREEMAN MD Jan 12, 2025 20:26
--- NOTE | 2025-01-17 15:32 | CODING ---
Date of Service: Jan 10, 2025 Billing Provider: CHRIS FREEMAN MD Common Visit Codes: [id number] INP/OBS CARE(HIGH) CHRIS FREEMAN MD Jan 17, 2025 15:32
--- NOTE | 2025-01-17 15:32 | CODING ---
Date of Service: Jan 11, 2025 Billing Provider: CHRIS FREEMAN MD Common Visit Codes: [id number] INP/OBS CARE(HIGH) CHRIS FREEMAN MD Jan 17, 2025 15:32
--- NOTE | 2025-01-17 15:34 | CODING ---
Date of Service: Jan 12, 2025 Billing Provider: CHRIS FREEMAN MD Common Visit Codes: [id number] INP/OBS CARE(HIGH) CHRIS FREEMAN MD Jan 17, 2025 15:34
--- NOTE | 2025-01-19 15:52 | ECG ---
[facility] Test Date: 2025-01-01 Test Time: 09:31:56 Pat Name: WICHO SMITH Department: ER Room: 0216T B Gender: F Director Of Graduate Admissions: SCOOBY : 1960 Requested By: PARAM BERG Order Number: [id number] Reading MD: Measurements Intervals [place] Rate: 151 P: 180 ND: 159 QRS: 170 QRSD: 142 T: 238 QT: 335 QTc: 532 Interpretive Statements Ectopic atrial tachycardia, unifocal RBBB and LPFB Please click the below link to view image of tracing.
== END 2025-01-12 21:40 | disposition home health service (06) | DRG 291 ==
LOC: ER 18:13 → EDBD 18:13 → OVERFLOW 01-01 03:33 → TELE-EAST 01-01 03:46 → TELE-WESTW 01-01 15:59 → TELE-EAST 01-04 17:56 → TELE-WESTW 01-06 22:00 → TELE-CENTR 01-07 20:18
PROVIDERS: ADMIT Family Medicine; ATTEND Family Medicine
PROC: 02HV33Z Insertion of Infusion Device into Superior Vena Cava, Percutaneous Approach (ICD-10-PCS; principal; 2025-01-01)
PROC: B548ZZA Ultrasonography of Superior Vena Cava, Guidance (ICD-10-PCS; 2025-01-01)
DX: I11.0 Hypertensive heart disease with heart failure (principal); I26.99 Other pulmonary embolism without acute cor pulmonale; I50.23 Acute on chronic systolic (congestive) heart failure; J96.01 Acute respiratory failure with hypoxia; R65.11 Systemic inflammatory response syndrome (SIRS) of non-infectious origin with acute organ dysfunction; I48.92 Unspecified atrial flutter; G82.20 Paraplegia, unspecified; J44.1 Chronic obstructive pulmonary disease with (acute) exacerbation; J98.11 Atelectasis; Z68.43 Body mass index [BMI] 50.0-59.9, adult; J84.10 Pulmonary fibrosis, unspecified; E78.5 Hyperlipidemia, unspecified; G89.29 Other chronic pain; K21.9 Gastro-esophageal reflux disease without esophagitis; I25.10 Atherosclerotic heart disease of native coronary artery without angina pectoris; E83.42 Hypomagnesemia; I27.23 Pulmonary hypertension due to lung diseases and hypoxia; I07.1 Rheumatic tricuspid insufficiency; E11.9 Type 2 diabetes mellitus without complications; E66.813 Obesity, class 3; Z74.01 Bed confinement status; Z99.81 Dependence on supplemental oxygen; Z95.5 Presence of coronary angioplasty implant and graft; Z88.6 Allergy status to analgesic agent; Z82.49 Family history of ischemic heart disease and other diseases of the circulatory system; Z83.3 Family history of diabetes mellitus; Z79.01 Long term (current) use of anticoagulants; Z79.82 Long term (current) use of aspirin; Z79.899 Other long term (current) drug therapy; Z99.3 Dependence on wheelchair; Z86.73 Personal history of transient ischemic attack (TIA), and cerebral infarction without residual deficits
CPT/HCPCS: 36415; 36569; 36600; 70450; 71045; 71275; 73620; 76937; 80048; 80053; 80061; 82805; 82962; 83036; 83735; 83880; 84132; 84443; 84484; 85007; 85025; 85027; 85610; 85730; 87081; 93005; 93306; 94640; 96374; 97163; 99291; G0378; J1815; J3490

== ENCOUNTER 2025-02-28 15:34 | Inpatient (IN) | payer OTHER, MEDICAID ==
[~2025-02-28] VITALS: Ht 167.6 cm; Wt 168.1 kg
[~2025-02-28 15:34] MED LIST changes: +AMIO200T33 PO; +FLEC100T PO; -FURO1TAB33 PO; +HYDR-4072 PO; -HYDR10TA35; +METO25TA93 PO; -PANT40T PO; -PRED20TA2 PO; -PREG100C66 PO; -[UNRECOGNIZED DRUG - CODE]
--- NOTE | 2025-02-28 16:40 | DVH ---
CLINICAL HISTORY: right arm weakness TECHNIQUE: Helical scanning was performed of the head from the skull base to the vertex. Multiplanar reconstructions were performed. This exam was performed according to our departmental dose optimizat ion program. Up-to-date CT equipment and radiation dose reduction techniques are utilized as appropri ate. CTDI 62 DLP 1074 COMPARISON: CT HEAD WITHOUT CONTRAST on DOS: 12/31/24, CT BRAIN on DOS: 10/24/23, MRI BRAIN WO on DOS: 10/24/23, CT BRAIN on DOS: 10/24/23 FINDINGS: There is no evidence for acute intracranial hemorrhage, acute ischemic changes, mass, mass effect, or extra-axial fluid collection. There is no hydrocephalus or midline shift. There is no effacement of the cerebral sulci and basal subarachnoid cisterns. The martinez-white matter differentiation is well chalino ntained. The imaged paranasal sinuses are clear. IMPRESSION: NO ACUTE INTRACRANIAL ABNORMALITY SEEN.
[2025-02-28 16:46] LABS: Hematocrit 34.3 % (36.0-46.0); Hemoglobin 10.3 g/dL (12.2-16.2); Mean Corpuscular Hemoglobin 23.4 pg (28.0-32.0); Mean Corpuscular Volume 77.7 fL (80.0-100.0); Nucleated Red Blood Cells % 0.5 %
--- NOTE | 2025-02-28 16:57 | DVH ---
CHEST RADIOGRAPH Indication: right arm weakness Technique: Single frontal view of the chest was obtained COMPARISON: XY CHEST PORTABLE on DOS: 01/01/25, CT CT ANGIO CHEST CONTRAST on DOS: 12/31/24, XY CHEST P ORTABLE on DOS: 12/31/24, CT CT ANGIO CHEST CONTRAST on DOS: 10/10/24, XY CHEST PORTABLE on DOS: 10/09/24 FINDINGS: Lines and Tubes: None Lungs: Clear Pleura: No effusion. No pneumothorax. Cardiomediastinal contours: Cardiomegaly Bones: Unremarkable IMPRESSION: Cardiomegaly
[2025-02-28 17:03] LABS: Chloride 103 mmol/L (98-107); Potassium 4.9 mmol/L (3.5-5.1); Sodium 143 mmol/L (136-145)
[2025-02-28 17:05] LABS: Anion Gap 8 (5-15)
[2025-02-28 17:10] LABS: BUN/Creatinine Ratio 17.0 (10.0-20.0); Blood Urea Nitrogen 16 mg/dL (9-23); Glucose 89 mg/dL (74-106)
[2025-02-28 17:25] LABS: Calcium 8.1 mg/dL (8.7-10.4); Carbon Dioxide 32 mmol/L (20-31)
[2025-02-28 18:09] LABS: Anisocytosis Slight
--- NOTE | 2025-02-28 18:13 | ED.PDOC ---
History of Present Illness HPI Comments 64F bed-bound with multiple medical problems presents with worsening right arm weakness for the last day and a half. Patient also reports she has been so weak she in general she could not get a bed. Patient denies any fever chills nausea vomiting diarrhea dysuria or polyuria sick contact Chief Complaint: Body Pain Time Seen by MD: 15:57 Primary Care Provider: YARIEL Allergies: Coded Allergies: Ibuprofen (Verified Allergy, Severe, SKIN RASHES, 02/01/10) Home Meds Active Scripts Flecainide Acetate (Flecainide Acetate) 100 Mg Tab, 0.5 TAB PO BID, #60 TAB 5 Refills Prov:SNOW SALDIVAR MD 01/12/25 Metoprolol Succinate (Metoprolol Succinate Er) 25 Mg Tab, 1 TAB PO DAILY, #30 TAB 5 Refills Prov:SNOW SALDIVAR MD 01/12/25 Amiodarone Hcl (Amiodarone Hcl) 200 Mg Tab, 1 TAB PO BID, #90 TAB 1 Refill Prov:SNOW SALDIVAR MD 01/07/25 Hydrocodone-Acetaminophen (Hydrocodone Bitartrate/AC 5-325 mg) 1 Tab Tab, 1 TAB PO QID PRN, #40 TAB Prov:SNOW SALDIVAR MD 01/07/25 Apixaban Base (ELIQUIS) 5 Mg Tab, 10 MG PO BID for 7 Days, #28 TAB 10MG BID X 7 DAYS THEN 5MG PO BID FOR AT LEAST 6 MONTHS FOR DVT/PE TREATMENT Prov:SNOW SALDIVAR MD 01/07/25 Apixaban Base (ELIQUIS) 5 Mg Tab, 5 MG PO BID, #180 TAB Prov:SNOW SALDIVAR MD 01/07/25 Furosemide (Lasix) 40 Mg Tab, 40 MG PO DAILY for 30 Days, #30 TAB 5 Refills Prov:JUSTA POWELL MD 10/18/24 Apixaban Base (ELIQUIS) 5 Mg Tab, 5 MG PO BID for 30 Days, #60 TAB 5 Refills Prov:JUSTA POWELL MD 10/18/24 Reported Medications Omeprazole (Omeprazole Dr) 40 Mg Cap, 1 CAP PO DAILY for 90 Days, #90 01/03/25 Fluoxetine HCl (Fluoxetine HCl) 20 Mg Cap, 1 CAP PO DAILY for 30 Days, #30 01/03/25 Meclizine HCl (Meclizine Hydrochloride) 25 Mg Tab, 1 TAB PO TID PRN for 30 Days, #90 01/03/25 Hydrocodone-Acetaminophen (Hydrocodone/Acetaminophen 10-325 mg) 1 Tab Tab, 1 TAB PO Q6HR PRN for PAIN IN THORACIC SPINE for 30 Days, #120 01/03/25 Amlodipine Besylate (Amlodipine Besylate) 10 Mg Tab, 1 TAB PO DAILY for 30 Days, #30 10/09/24 Multiple Vitamin (Multivitamin) 1 Tab Tab, 1 TAB PO DAILY for 30 Days, #30 10/09/24 Temazepam (Restoril) 15 Mg Cp, 1 CAP PO QPM 07/14/23 Escitalopram Oxalate (Lexapro) 10 Mg Tab, 1 TAB PO DAILY 07/14/23 Paroxetine Hydrochloride (Paroxetine Hydrochloride) 40 Mg Tab, 1 TAB PO DAILY 07/14/23 Levetiracetam (Levetiracetam) 1,000 Mg Tab, 1 TAB PO Q12HR for 30 Days, #60 07/14/23 Hydroxyzine Hcl (Hydroxyzine Hcl) 25 Mg Tab, 1 TAB PO DAILY, #30 TAB 11/07/22 Magnesium Oxide (MAGNESIUM OXIDE) 400 Mg Tab, 500 MG PO DAILY, TAB 11/07/22 Potassium Chloride (Klor-Con M10) 10 Meq Tab, 1 TAB PO BID, #30 TAB 5 Refills 11/07/22 Gabapentin (Gabapentin) 300 Mg Cap, 1 CAP PO TID for 30 Days, #90 11/07/22 Aspirin (Aspir-Low) 81 Mg Tab, 1 TAB PO DAILY for 30 Days, #30 11/07/22 Valsartan-Hydrochlorothiazide (Diovan Hct) 160 Mg/25 Mg Tab 01/29/10 Fluticasone-Salmeterol (Advair Diskus) 250/50 Mis 01/29/10 Rosuvastatin Calcium (Crestor) 10 Mg Tab 01/29/10 Esomeprazole Magnesium Trihydr (Nexium) 40 Mg Cap 01/29/10 Diphenhydramine Hcl (Twilite) 50 Mg Tab 01/29/10 Oxcarbazepine (Trileptal) 300 Mg Tab 01/29/10 Mode of Arrival: EMS Past Medical History PAST MEDICAL HISTORY: Asthma, CHF, COPD, CVA, Depression, DM, GERD, High Lipids, HTN, UT, Seizures Surgical History: PTCA CERTIFIED LACTATION EDUCATOR History: No Pertinent CERTIFIED LACTATION EDUCATOR History Family History Family History: Reviewed,noncontributory to illness Social History Smoker: Non-Smoker Alcohol: Denies ETOH Use Drugs: Denies Drug Use Lives In: Home All Other Systems: Reviewed and Negative Physical Exam General Appearance: Mild Distress HEENT: Pharynx Normal Neck: Normal Inspection Respiratory: No Respiratory Distress Cardiovascular: No Edema Breast Exam: Deferred Gastrointestinal: No Organomegaly Genitalia: Deferred Pelvic: Deferred Rectal: Deferred Extremities: No pedal edema Neurologic: Other (right arm weakness) Cerebellar Function: NOT DONE Reflexes: NOT DONE Skin: Normal Color Lymphatic: NOT DONE Was a procedure done? Was a procedure done?: No Differential Dx Considerations may include: acs, cva, tia, viral illness, electrolyte abnormality X-Ray, Labs, Meds, VS Vital Signs Date Time Temp Pulse Resp B/P (MAP) Pulse Ox O2 Delivery O2 Flow Rate FiO2 02/28/25 15:36 98.5 105 16 119/70 95 98.5 Lab Test 02/28/25 17:16 02/28/25 16:38 Range/Units Troponin I High Sensitivity 44 *H 41 *H </=34 ng/L White Blood Count 5.5 4.4-10.8 10^3/uL Red Blood Count 4.42 4.0-5.20 10^6/uL Hemoglobin 10.3 L 12.2-16.2 g/dL Hematocrit 34.3 L 36.0-46.0 % Mean Corpuscular Volume 77.7 L 80.0-100.0 fL Mean Corpuscular Hemoglobin 23.4 L 28.0-32.0 pg Mean Corpuscular Hemoglobin Concent 30.1 L 32.0-36.0 g/dL Red Cell Distribution Width 23.6 H 11.8-14.3 % Platelet Count 177 140-450 10^3/uL Mean Platelet Volume 7.3 6.9-10.8 fL Neutrophils (%) (Auto) 73.8 37.0-80.0 % Lymphocytes (%) (Auto) 10.8 10.0-50.0 % Monocytes (%) (Auto) 12.1 H 0.0-12.0 % Eosinophils (%) (Auto) 2.7 0.0-7.0 % Basophils (%) (Auto) 0.6 0.0-2.0 % Neutrophils # (Auto) 4.1 1.6-8.6 10 ^3/uL Lymphocytes # (Auto) 0.6 0.4-5.4 10 ^3/uL Monocytes # (Auto) 0.7 0-1.3 10 ^3/uL Eosinophils # (Auto) 0.2 0-0.8 10 ^3/uL Basophils # (Auto) 0 0-0.2 10 ^3/uL Nucleated Red Blood Cells 0.5 % Platelet Estimate Pending Sodium Level 143 136-145 mmol/L Potassium Level 4.9 3.5-5.1 mmol/L Chloride Level 103 98-107 mmol/L Carbon Dioxide Level 32 H 20-31 mmol/L Anion Gap 8 5-15 Blood Urea Nitrogen 16 9-23 mg/dL Creatinine 0.94 0.550-1.02 mg/dL Glomerular Filtration Rate Calc 68 >90 mL/min BUN/Creatinine Ratio 17.0 10.0-20.0 Serum Glucose 89 74-106 mg/dL Calcium Level 8.1 L 8.7-10.4 mg/dL B-Type Natriuretic Peptide 466.78 0-100 pg/mL Time of 1ST Reevaluation: 18:11 Reevaluation 1ST: Improved Patient Education/Counseling: Diagnosis, Treatment Family Education/Counseling: No Family Present SEPSIS Sepsis Screen Date sepsis recognized/suspect: Feb 28, 2025 Time Sepsis recognized/suspect: 1534 Recent Procedure: No On Antibiotic Therapy: No Respiratory Rate >20: No Heart Rate >90: No Temp<36 C (96.8 F) or >38.3 C: No SBP <90 or MAP <65 mmHG: No New Acute Mental Status Change: No Is the patient on CPAP, BIPAP,: No Physician Orders Complete Blood Count (02/28/25 16:02) Urinalysis (02/28/25 16:02) Chest Portable (02/28/25 16:02) Head Without Contrast (02/28/25 16:02) Electrocardigram (02/28/25 16:02) Troponin-I Hs (02/28/25 19:02) Electrocardigram (02/28/25 17:02) Electrocardigram (02/28/25 19:02) Rbc Morphology (02/28/25 16:38) Vital Signs Date Time Temp Pulse Resp B/P (MAP) Pulse Ox O2 Delivery O2 Flow Rate FiO2 02/28/25 15:36 98.5 105 16 119/70 95 98.5 Laboratory Tests Test 02/28/25 16:38 White Blood Count 5.5 10^3/uL (4.4-10.8) Departure 1 Departure Time of Disposition: 18:11 (Patient with right arm weakness with concern for tia, cva. Patient with elevated troponin. will admit patient for further workup. ) Impression: Primary Impression: Right arm weakness Additional Impressions: Generalized weakness Elevated troponin Disposition: ADMITTED INPATIENT Admit to: Tele Condition: Guarded Critical Care Note Critical Care Time?: Yes Critical care comment: Concern for CVA Authorized and Performed by: Marika Diallo MD Total critical care time: Approximately 39 minutes Due to a high probability of clinically significant, life threatening deterioration, the patient required my highest level of preparedness to intervene emergently and I personally spent this critical care time directly and personally managing the patient. This critical care time included obtaining a history; examining the patient; pulse oximetry; ordering and review of studies; arranging urgent treatment with development of a management plan; evaluation of patient's response to treatment; frequent reassessment; and, discussions with other providers. This critical care time was performed to assess and manage the high probability of imminent, life-threatening deterioration that could result in multi-organ failure. It was exclusive of separately billable procedures and treating other patients and teaching time. Please see my other sections and the rest of the note for further information on patient assessment and treatment. Stability Stability form required: MARIKA Juan MD Feb 28, 2025 18:13
[2025-02-28 21:02] VITALS: PULSE 63; RESP 14; O2SAT 94
[2025-02-28] MEDS ORDERED: ALBUTEROL SULF 2.5 MG/0.5ML(0.5%) NEB SOLN NEB PRN (22:00)
[2025-02-28] MEDS ORDERED: IPRATROPIUM BROM 0.5 MG/2.5ML INH SOL NEB PRN (22:00)
[2025-02-28] MEDS: SODIUM CHLOR 0.9% PF (SALINE LOCK) 10ML VIAL/SYR IV SCH (22:00)
[2025-02-28] MEDS: FUROSEMIDE 40 MG/4 ML VIAL IV ONE (22:00)
[2025-02-28] MEDS: HYDROmorphone HCL 2 MG/ML VL/or syr IV ONE (22:00)
[2025-02-28 22:40] VITALS: BP 145/82; PULSE 63; RESP 18; TEMP 98.4; O2SAT 94
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
[2025-02-28 23:30] LABS: Hematocrit 38.3 % (36.0-46.0); Hemoglobin 11.6 g/dL (12.2-16.2)
[2025-02-28 23:45] LABS: Alanine Aminotransferase 10.0 U/L (7-40); Albumin 3.8 g/dL (3.2-4.8); Alkaline Phosphatase 164.0 U/L (46-116); Bilirubin, Direct 0.5 mg/dL (<0.3); Bilirubin, Total 1.0 mg/dL (0.2-1.0); INR 1.71 (0.9-1.15); Partial Thromboplastin Time 26.8 SEC (24.5-34.5); Prothrombin Time 17.2 sec (9.3-11.8); Total Protein 7.5 g/dL (5.7-8.2)
[2025-03-01] VITALS (11 sets, daily range): BP systolic 87–136; BP diastolic 47–81; PULSE 89–131; RESP 11–24; O2SAT 92–100
--- NOTE | 2025-03-01 00:19 | DVH ---
RIGHT Upper Extremity Venous Duplex Clinical History: right arm pain and swelling Comparison: US US GUIDED VASCULAR ACCESS on DOS: 01/01/25, US BILAT LOWER DVT on DOS: 05/13/23, US BILAT LOWER DVT on DOS: 12/28/22, US RT LOWER DVT on DOS: 11/07/22 Technique: Duplex Doppler evaluation of the venous system of the RIGHT lower neck and upper extremity including color Doppler and spectral/pulsed waveform analysis was performed. Findings: Possible occlusive thrombus identified within the internal jugular, subclavian, axillary, brachial an d radial veins. The cephalic vein demonstrates appropriate compressibility and patency on Doppler evaluation. The basilic vein was not adequately visualized. Impression: 1. Possible occlusive thrombus identified within the internal jugular, subclavian, axillary, brachial and radial veins.
[2025-03-01 00:20] LABS: Total Iron Binding Capacity 346.0 ug/dL (250-425)
[2025-03-01 00:28] LABS: Iron 30.0 ug/dL (50-170)
--- NOTE | 2025-03-01 00:31 | DVH ---
ULTRASOUND SOFT TISSUE HEAD AND NECK CLINICAL INDICATION: PALPABLE LT NECK LUMP TECHNIQUE: Multiple real time sonographic images of the thyroid were obtained. Comparison: None FINDINGS: The right thyroid gland measures 2.5 x 2.3 x 1.9 cm with diffusely heterogeneous parenchymal echotext ure. The left thyroid gland measures approximately 4.1 x 2.0 x 1.5 cm with diffusely heterogeneous parench ymal echotexture. 3.2 x 2.8 x 2.5 cm complex nodule comprised of solid and cystic components demonstr ating vascularity. The isthmus measures 0.8 cm with diffusely heterogeneous parenchymal echotexture. IMPRESSION: 1. 3.2 x 2.8 x 2.5 cm complex nodule comprised of solid and cystic components demonstrating vasculari ty. 2. TI-RADS 3. Moderately Suspicious: FNA if = 1.5 cm; Follow if = 1 cm at 1, 2, 3, and 5 y. 4. Moderately heterogeneous parenchymal echotexture. [employer] TI-RADS Categories and Recommendations (2017): TR1: 0 points, Benign, No FNA TR2: 2 points, Not suspicious, No FNA TR3: 3 points, Mildly suspicious, FNA if > or = 2.5 cm, Follow if > or = 1.5 cm TR4: 4-6 points, Moderately Suspicious, FNA if > or = 1.5 cm, Follow if > or = 1.0 cm TR5: 7+ points, Highly Suspicious, FNA if > or = 1.0 cm, Follow if > or = 0.5 cm Follow-up ultrasound guidelines: TR5: yearly for 5 years, if no growth or change in TI-RADS level TR4: at 1, 2, 3 and 5 years, if no growth or change in TI-RADS level TR3: at 1, 3 and 5 years, if no growth or change in TI-RADS level If increased but below threshold for FNA, repeat in one year. Source: ACR Thyroid Imaging, Reporting and Data System (TI-RADS): White Paper of the ACR TI-RADS Committee. Colette et al., J Am Mateo Radiol 2017;14:587-595.
[2025-03-01] MEDS ORDERED: HYDROcodone-ACET 5/325MG TAB PO PRN (00:45)
--- NOTE | 2025-03-01 01:11 | DVH ---
Carotid Duplex Clinical History: TIA Comparison: US RT UPPER DVT on DOS: 02/28/25, US ECHO 2D MODE CARDIAC DOP on DOS: 01/01/25, US ECHO 2D MODE CARDIAC DOP on DOS: 10/09/24, US BILAT LOW EXT ART DUPLEX on DOS: 05/17/23, US BILAT LOWER DVT on DOS: 05/13/23 Technique: Duplex Doppler evaluation of the extracranial carotid and vertebral arteries including color Doppler and spectral/pulsed waveform analysis was performed. Findings: RIGHT SIDE: The peak systolic velocities are 66 cm/s in the CCA, 87 cm/s in the ICA. The ICA/CCA ratio is 1.3. The peak systolic velocity of the external carotid artery was not characterized. There is appropriate antegrade flow in the right vertebral artery. LEFT SIDE: The peak systolic velocities are 84 cm/s in the CCA, 122 cm/s in the ICA. The ICA/CCA ratio is 1.5. The external carotid artery is patent with peak systolic velocity of 136 cm/s proximally. There is appropriate antegrade flow in the left vertebral artery. IMPRESSION: 1. No hemodynamically significant stenosis noted in the right carotid system. 2. No hemodynamically significant stenosis noted in the left carotid system. Reference: Radiology 2003; 229:340-346 Normal ICA PSV is <125 cm/sec and no plaque or intimal thickening is visible sonographically additional criteria include ICA/CCA PSV ratio <2.0 and ICA EDV <40 cm/sec <50% ICA stenosis ICA PSV is <125 cm/sec and plaque or intimal thickening is visible sonographically additional criteria include ICA/CCA PSV ratio <2.0 and ICA EDV <40 cm/sec 50-69% ICA stenosis ICA PSV is 125-230 cm/sec and plaque is visible sonographically additional criteria include ICA/CCA PSV ratio of 2.0-4.0 and ICA EDV of 40-100 cm/sec 70% ICA stenosis but less than near occlusion ICA PSV is >230 cm/sec and visible plaque and luminal narrowing are seen at martinez-scale and color Dopp ler ultrasound (the higher the Doppler parameters lie above the threshold of 230 cm/sec, the greater the likelihood of severe disease) additional criteria include ICA/CCA PSV ratio >4 and ICA EDV >100 cm/sec
[2025-03-01] MEDS: ENOXAPARIN SOD 100 MG/1 ML SYRINGE SC ONE (01:28)
[2025-03-01] MEDS: FLECAINIDE ACETATE 50 MG TAB PO ONE (02:15)
[2025-03-01 03:47] LABS: Amphetamine Screen, Urine Neg (NEGATIVE); Opiate Scree,Urine Neg (NEGATIVE); Phencyclidine Screen, Urine Neg (NEGATIVE)
[2025-03-01 03:50] LABS: Urine Amorphous Crystal FEW /hpf (None Seen); Urine Protein, UAD 1+ (Negative)
[2025-03-01 03:53] LABS: Barbiturate Scree,Urine Neg (NEGATIVE); Benzodiazephine Screen, Urine Neg (NEGATIVE); Cannabinoid Screen, Urine Neg (NEGATIVE); Cocaine Screen, Urine Neg (NEGATIVE)
--- NOTE | 2025-03-01 04:11 | ECG ---
[facility] Test Date: 2025-02-28 Test Time: 23:08:28 Pat Name: WICHO SMITH Department: [facility] ED Patient ID: [facility]-[id number] Room: [address] [place] [address] Gender: F Inspector Clip On Sunglasses: DARRICK : 1960 Requested By: MARIKA MORAN Order Number: [id number] Reading MD: Measurements Intervals Pooler Rate: 110 P: 39 CT: 140 QRS: 127 QRSD: 81 T: 45 QT: 345 QTc: 467 Interpretive Statements Sinus tachycardia Right axis deviation Low voltage, extremity and precordial leads Please click the below link to view image of tracing.
[2025-03-01 04:37] LABS: Hematocrit 36.7 % (36.0-46.0); Nucleated Red Blood Cells % 0.5 %
[2025-03-01 04:38] LABS: Hemoglobin 11.3 g/dL (12.2-16.2); Mean Corpuscular Hemoglobin 23.9 pg (28.0-32.0); Mean Corpuscular Volume 77.8 fL (80.0-100.0)
[2025-03-01 04:49] LABS: Albumin 3.6 g/dL (3.2-4.8); Anion Gap 10 (5-15); BUN/Creatinine Ratio 11.7 (10.0-20.0); Bilirubin, Total 0.8 mg/dL (0.2-1.0); Blood Urea Nitrogen 11 mg/dL (9-23); Carbon Dioxide 27 mmol/L (20-31); Chloride 103 mmol/L (98-107); Potassium 4.4 mmol/L (3.5-5.1); Sodium 140 mmol/L (136-145); Total Protein 7.3 g/dL (5.7-8.2)
[2025-03-01 04:55] LABS: Alanine Aminotransferase 9 U/L (7-40); Alkaline Phosphatase 149 U/L (46-116); Calcium 8.6 mg/dL (8.7-10.4); Glucose 115 mg/dL (74-106)
[2025-03-01 05:49] LABS: Free T4 (Free Thyroxine) 1.32 ng/dL (0.89-1.76)
[2025-03-01] MEDS: FUROSEMIDE 40 MG/4 ML VIAL IV SCH (06:29)
[2025-03-01 07:36] LABS: Base Excess -1.7 mmol/L (-2.0-3.0)
--- NOTE | 2025-03-01 08:29 | DVH ---
CLINICAL INFORMATION: Rule out stroke. TECHNIQUE: Axial CTA images of the head and neck were obtained after the uneventful administration o f 100 mL Omnipaque 350 IV contrast. Coronal and sagittal reformatted images and MIP images were obtai mahsa, reviewed, and stored. Measurements of carotid stenosis are made per NASCET criteria. All CT scan s at this medical facility are performed using dose modulation techniques as appropriate to a perform ed exam including the following: Automated exposure control was utilized; adjustment of the MA and/or KV according to patient size; and use of iterative reconstruction technique. CTDIvol = 36.23 mGy DLP = 36.23 mGy-cm COMPARISON: US CAROTID DUPLX W COLOR DOP on DOS: 02/28/25, CT HEAD WITHOUT CONTRAST on DOS: 02/28/25, CT HEAD WITHOUT CONTRAST on DOS: 12/31/24 FINDINGS: There is prominent venous opacification, partially obscuring visualization of portions of t he arteries CTA HEAD: Posterior cerebral arteries, basilar artery, and intracranial segments of the distal verteb ral arteries are normal in caliber and course with no evidence of aneurysm, large vessel occlusion, s ignificant stenosis, or vascular malformation. The anterior and middle cerebral arteries and intracra nial segments of the distal internal carotid arteries are normal in caliber and course with no eviden ce of aneurysm, large vessel occlusion, or significant stenosis. There is a dilated superior ophthalm ic vein in the right orbit measuring up to 7 mm in diameter. CTA NECK: Normal configuration of the aortic arch with patent origins of the brachiocephalic artery, left common carotid artery, and left subclavian artery. Subclavian arteries are patent with no signif icant stenosis. There is dense atherosclerotic calcification at the carotid bifurcations and proximal internal carotid arteries bilaterally with less than 50% stenosis in the right proximal internal car otid artery and up to approximately 50% stenosis in the right proximal internal carotid artery. The b ilateral common carotid, internal carotid, and external carotid arteries are otherwise patent with no significant stenosis or evidence of dissection. Vertebral arteries are patent with no significant st enosis or evidence of dissection. Partially visualized bilateral pleural effusions in the upper lungs and overlying atelectasis and/or consolidation. There is partially visualized moderate cardiomegaly. IMPRESSION: 1. Examination is limited due to the timing of contrast, with prominent venous opacification at the t kartik of imaging. 2. CTA head demonstrates no evidence of large vessel occlusion, aneurysm, or significant stenosis. 3. CTA neck demonstrates calcified plaque at the carotid bifurcations and proximal internal carotid a rteries with up to 50% stenosis in the left proximal internal carotid artery and less than 50% stenos is in the right proximal internal carotid artery. No evidence of carotid or vertebral dissection or o cclusion. 4. Dilated right superior ophthalmic vein, may be due to vascular malformation or indirect caroticoca vernous fistula. No thrombosis is seen. This finding appears to be present on previous CT head exams dating back to Correlate with clinical findings. Additional findings as detailed above.
[2025-03-01] MEDS: METOPROLOL SUCCINATE XL 50 MG TAB PO SCH (10:00)
[2025-03-01] MEDS ORDERED: IPRATROPIUM BROM 0.5 MG/2.5ML INH SOL NEB SCH (10:00)
[2025-03-01] MEDS ORDERED: PATIENTS OWN MEDICATION (Paroxetine Hydrochloride 1 TAB) PO SCH (10:00)
[2025-03-01] MEDS ORDERED: PATIENTS OWN MEDICATION (Levetiracetam 1 TAB) PO SCH (10:00)
[2025-03-01] MEDS ORDERED: FLECAINIDE ACETATE PO SCH (10:00)
[2025-03-01] MEDS ORDERED: levETIRAcetam 500 MG TAB PO SCH (10:00)
[2025-03-01] MEDS ORDERED: PATIENTS OWN MEDICATION (Amlodipine Besylate 1 TAB) PO SCH (10:00)
[2025-03-01] MEDS: PANTOPRAZOLE 40 MG TAB PO SCH (10:00)
[2025-03-01 10:11] LABS: Base Excess 0.9 mmol/L (-2.0-3.0)
[2025-03-01] MEDS: ENOXAPARIN SOD 100 MG/1 ML SYRINGE SC SCH (10:34)
[2025-03-01] MEDS: FLECAINIDE ACETATE 50 MG TAB PO SCH (10:44)
[2025-03-01] MEDS: PARoxetine 20 MG TAB PO SCH (10:45)
[2025-03-01] MEDS: ASPirin-EC 81 mg tab PO SCH (10:45)
[2025-03-01] MEDS: levETIRAcetam 1000 mg/100ml 100 ML IV SCH (10:48)
[2025-03-01] MEDS: IOHEXOL 350 MG/ML 100ML IJ ONE (10:50)
--- NOTE | 2025-03-01 11:34 | DVHPNRES ---
Progress Note Date Seen: Mar 01, 2025 Resident Creating Document: BUCKY BARRIGA RESIDENT Medical Necessity Reason Pt with a Central, PICC or Fol: Yes The following are medically ne: Mary Catheter Subjective Review of Systems Brief history on admission: Patient is a 64-year-old female with past medical history of paroxysmal atrial fibrillation on Eliquis, atrial flutter, hypertension, hyperlipidemia, pulmonary embolism, pulmonary fibrosis on 3 L home oxygen, stroke, paraplegia, JESSIE, bed- bound, presented with complaints of body pain and worsening right arm weakness. 2 days ago, the patient awoke with an inability to move both arms and legs, with more pronounced weakness on the right side. She also reported 1 episode of hematemesis and right-sided neck pain. She complains of intermittent fever, chills, nausea, diarrhea, unable to further elaborate on the symptoms. The patient described profound generalized weakness, stating she was too weak to get out of bed. She denied dysuria, polyuria, or sick contacts. Initial labs show significant normocytic anemia, elevated troponin level. Head CT shows no acute intracranial abnormality seen. U/S shows 3.2 x 2.8 x 2.5 cm complex nodule comprised of solid and cystic components demonstrating vascularity. Right Upper Extremity Venous Duplex shows possible occlusive thrombus identified within the internal jugular, subclavian, axillary, brachial and radial veins. No hemodynamically significant stenosis noted on Carotid Duplex. CXR shows Cardiomegaly. Previous hospitalization: In January 2025 for acute pulmonary emboli PMHx: Paroxysmal atrial fibrillation on Eliquis, atrial flutter, hypertension, hyperlipidemia, pulmonary embolism, pulmonary fibrosis on 3 L home oxygen, stroke, paraplegia, bed-bound, JESSIE on CPAP (noncompliant), history of MRSA in nose Home medication: Amiodarone, amlodipine, apixaban, aspirin, escitalopram, flecainide, fluoxetine, furosemide, [place], hydroxyzine, rosuvastatin Allergic history: Ibuprofen Code: Full code. Next to kin is sister ROS: Constitutional: Denies weight loss, fever and chills. HEENT: Denies changes in vision and hearing. Respiratory: Denies shortness of breath and cough Cardiovascular: Denies chest discomfort or palpitations GI: Hematemesis. Denies abdominal pain, nausea, vomiting and diarrhea. : Denies dysuria and urinary frequency. Musculoskeletal: Neck pain, shoulder pain, arm pain, back pain, hand pain, leg pain, foot pain. Skin: Denies rash and pruritus. Neurological: Denies dizziness, headache, vision or hearing problems 03/01/25: Patient was examined at bedside today. Vitals show tachycardia, tachypnea. She continues to complain of right arm pain and weakness. Patient reportedly on CPAP, evaluating for intubation. Objective vital signs Vital Sign Date Time Temp Pulse Resp B/P (MAP) Pulse Ox O2 Delivery O2 Flow Rate FiO2 03/01/25 10:13 131 132/80 93 Facial BiPAP Mask 35 03/01/25 08:00 24 03/01/25 07:30 4 02/28/25 22:51 98.7 98.7 medications Current Medications Medications Dose Ordered Sig/Marck Route Start Time Stop Time Status Last Admin Dose Admin Sodium Chloride 10 ml Q8HR IV 02/28/25 22:00 03/01/25 06:29 10 ML Hydromorphone HCl 0.25 mg Q4HPRN PRN IV 02/28/25 22:00 Albuterol 2.5 mg Q6HPRN PRN NEB 02/28/25 22:00 Ipratropium [place] 0.5 mg Q6HPRN PRN NEB 02/28/25 22:00 Enoxaparin Sodium 170 mg Q12HR SC 03/01/25 10:00 03/01/25 10:34 170 MG Aspirin 81 mg DAILY PO 03/01/25 10:00 03/01/25 10:45 81 MG Acetaminophen/ Hydrocodone Bitart 1 tab QID PRN PO 03/01/25 00:45 Patient Own Medication 1 tab DAILY PO 03/01/25 10:00 UNV Patient Own Medication 0.5 tab BID PO 03/01/25 10:00 UNV Patient Own Medication 1 tab Q12HR PO 03/01/25 10:00 UNV Metoprolol Succinate 25 mg DAILY PO 03/01/25 10:00 Pantoprazole Sodium 40 mg DAILY PO 03/01/25 10:00 Patient Own Medication 1 tab DAILY PO 03/01/25 10:00 UNV Amlodipine Besylate 10 mg DAILY PO 03/01/25 10:00 Flecainide Acetate 50 mg BID PO 03/01/25 10:00 03/01/25 10:44 50 MG Paroxetine HCl 40 mg DAILY PO 03/01/25 10:00 03/01/25 10:45 40 MG Ceftriaxone Sodium 50 ml @ 100 mls/hr DAILY@09 IV 03/01/25 09:00 UNV Ceftriaxone Sodium 50 ml @ 100 mls/hr DAILY@09 IV 03/02/25 09:00 Furosemide 40 mg BIDD IV 03/01/25 06:00 03/01/25 06:29 40 MG Ipratropium [place] 0.5 mg Q4HR NEB 03/01/25 10:00 Cancel Levalbuterol HCl 1.25 mg Q6HR NEB 03/01/25 12:00 Cancel Levetiracetam 100 ml @ 400 mls/hr BID IV 03/01/25 10:30 03/01/25 10:48 400 MLS/HR Examination General: Patient alert and oriented in person, place and time. Patient following commands. HEENT: Tender lump in the neck. Normocephalic, atraumatic, moist mucous membranes Respiratory/pulmonary: Reduced breath sounds in left lung field. Normal breath sounds in right lung field. Cardiovascular: Normal heart sounds S1 and S2 with no associated murmurs Abdomen: Generalized abdominal tenderness on palpation Extremities: Right Upper extremity swelling and tenderness to palpitation. B/L Lower extremity edema. Tender to palpitation lower extremity Skin: No rashes or pruritus, there is no sacral edema present at this time. Neurological: Paraplegia laboratory and microbiology Laboratory Tests 03/01/25 04:13 Test 03/01/25 04:13 Range/Units Serum Glucose 115 H 74-106 mg/dL Problem List/Assessment/Plan Problem List/Assessment/Plan Right upper extremity DVT History of PE Paroxysmal atrial fibrillation on Eliquis History of Atrial flutter Extremity Venous Study: Possible occlusive thrombus identified within the internal jugular, subclavian, axillary, brachial and radial veins. Carotid Doppler Study: No hemodynamically significant stenosis noted in the left/right carotid system. Enoxaparin therapeutic dose, flecainide Pain management with Dilaudid 0.5 mg and [place] 5/325 mg Acute hypoxic respiratory failure Obesity hypoventilation, possible Pulmonary fibrosis on 3 L home oxygen Acute CHF exacerbation HFpEF, EF 50% (01/01/25) Troponin 41 > 44 > 43 BNP 497.48 Albuterol Medneb 2.5 MG neb q6h Ipratropium Medneb 0.5 MG Rocephin IV 1 Gm On CPAP, ABG shows respiratory acidosis Hypertension Metoprolol 25 MG Thyroid nodules Thyroid US: 3.2 x 2.8 x 2.5 cm complex nodule comprised of solid and cystic components demonstrating vascularity. TSH, Free T4, Total T3 pending Complicated UTI U/A: positive for UTI Blood culture, urine culture ordered Continue IV ceftriaxone Hyperlipidemia History of seizures History of stroke Paraplegia JESSIE on CPAP Noncompliance History of MRSA nose Anxiety and depression Continue home medication DIET: NPO DVT PROPHYLAXIS: Lovenox GI PROPHYLAXIS: Protonix CODE STATUS: Goals of care discussed with patient at bedside for more than 20 minutes. Full code DISPOSITION: Telemetry This medical document was created using an electronic medical record system with [email or web address] computerized dictation system. Although this document has been carefully reviewed, there may still be some phonetic and typographical errors. These areas are purely typographical due to imperfections of the software programs, and do not reflect any compromise in the patient's medical care. Patient's status and plan discussed with the patient. Case discussed with Dr. Bazan Plan discussed with: Patient, Other (Nurses) My Orders My Orders Orders - BUCKY BARRIGA Procedure Category Date Status Time * Wound Consult CONS 03/01/25 Transmitted Complete Blood Count LAB 03/02/25 Verified 04:00 Comprehensive LAB 03/02/25 Verified Metabolic Panel 04:00 *Consult CONS 03/01/25 Transmitted 11:14 Date of Service: Mar 01, 2025 Billing Provider: JUSTA BAZAN MD Common Visit Codes: [id number] INP/OBS CARE(HIGH) BUCKY BARRIGA RESIDENT Mar 01, 2025 11:34
[2025-03-01] MEDS ORDERED: LEVALBUTEROL HCL 1.25 MG/3 ML NEB NEB SCH (12:00)
[2025-03-01 15:03] LABS: Base Excess -2.8 mmol/L (-2.0-3.0)
[2025-03-01] MEDS: HYDROmorphone HCL 2 MG/ML VL/or syr IV PRN (16:01)
--- NOTE | 2025-03-01 16:14 | DVHINCON2 ---
Date of service: Mar 01, [address] Perez Reason for Consultation Acute respiratory failure History of Present Illness History Source: Patient Exam Limitations: No limitations HPI Patient is a 64-year old lady with a history of morbid obesity, previous PE, CVA. COPD and chronic pain who presented with right arm weakness. Was seen in the emergency room where CT of the brain was negative for acute abnormalities and she was admitted for further workup. ABG was obtained and patient was found to be hypercapnic and was started on bipap 15/5. Chest x-ray showed pulmonary congestion and pulmonology was consulted to assist in management. Home Meds Active Scripts Flecainide Acetate (Flecainide Acetate) 100 Mg Tab, 0.5 TAB PO BID, #60 TAB 5 Refills Prov:SNOW SALDIVAR MD 01/12/25 Metoprolol Succinate (Metoprolol Succinate Er) 25 Mg Tab, 1 TAB PO DAILY, #30 TAB 5 Refills Prov:SNOW SALDIVAR MD 01/12/25 Amiodarone Hcl (Amiodarone Hcl) 200 Mg Tab, 1 TAB PO BID, #90 TAB 1 Refill Prov:SNOW SALDIVAR MD 01/07/25 Hydrocodone-Acetaminophen (Hydrocodone Bitartrate/AC 5-325 mg) 1 Tab Tab, 1 TAB PO QID PRN, #40 TAB Prov:SNOW SALDIVAR MD 01/07/25 Apixaban Base (ELIQUIS) 5 Mg Tab, 10 MG PO BID for 7 Days, #28 TAB 10MG BID X 7 DAYS THEN 5MG PO BID FOR AT LEAST 6 MONTHS FOR DVT/PE TREATMENT Prov:SNOW SALDIVAR MD 01/07/25 Apixaban Base (ELIQUIS) 5 Mg Tab, 5 MG PO BID, #180 TAB Prov:SNOW SALDIVAR MD 01/07/25 Furosemide (Lasix) 40 Mg Tab, 40 MG PO DAILY for 30 Days, #30 TAB 5 Refills Prov:JUSTA POWELL MD 10/18/24 Apixaban Base (ELIQUIS) 5 Mg Tab, 5 MG PO BID for 30 Days, #60 TAB 5 Refills Prov:JUSTA POWELL MD 10/18/24 Reported Medications Omeprazole (Omeprazole Dr) 40 Mg Cap, 1 CAP PO DAILY for 90 Days, #90 01/03/25 Fluoxetine HCl (Fluoxetine HCl) 20 Mg Cap, 1 CAP PO DAILY for 30 Days, #30 01/03/25 Meclizine HCl (Meclizine Hydrochloride) 25 Mg Tab, 1 TAB PO TID PRN for 30 Days, #90 01/03/25 Hydrocodone-Acetaminophen (Hydrocodone/Acetaminophen 10-325 mg) 1 Tab Tab, 1 TAB PO Q6HR PRN for PAIN IN THORACIC SPINE for 30 Days, #120 01/03/25 Amlodipine Besylate (Amlodipine Besylate) 10 Mg Tab, 1 TAB PO DAILY for 30 Days, #30 10/09/24 Multiple Vitamin (Multivitamin) 1 Tab Tab, 1 TAB PO DAILY for 30 Days, #30 10/09/24 Temazepam (Restoril) 15 Mg Cp, 1 CAP PO QPM 07/14/23 Escitalopram Oxalate (Lexapro) 10 Mg Tab, 1 TAB PO DAILY 07/14/23 Paroxetine Hydrochloride (Paroxetine Hydrochloride) 40 Mg Tab, 1 TAB PO DAILY 07/14/23 Levetiracetam (Levetiracetam) 1,000 Mg Tab, 1 TAB PO Q12HR for 30 Days, #60 07/14/23 Hydroxyzine Hcl (Hydroxyzine Hcl) 25 Mg Tab, 1 TAB PO DAILY, #30 TAB 11/07/22 Magnesium Oxide (MAGNESIUM OXIDE) 400 Mg Tab, 500 MG PO DAILY, TAB 11/07/22 Potassium Chloride (Klor-Con M10) 10 Meq Tab, 1 TAB PO BID, #30 TAB 5 Refills 11/07/22 Gabapentin (Gabapentin) 300 Mg Cap, 1 CAP PO TID for 30 Days, #90 11/07/22 Aspirin (Aspir-Low) 81 Mg Tab, 1 TAB PO DAILY for 30 Days, #30 11/07/22 Valsartan-Hydrochlorothiazide (Diovan Hct) 160 Mg/25 Mg Tab 01/29/10 Fluticasone-Salmeterol (Advair Diskus) 250/50 Mis 01/29/10 Rosuvastatin Calcium (Crestor) 10 Mg Tab 01/29/10 Esomeprazole Magnesium Trihydr (Nexium) 40 Mg Cap 01/29/10 Diphenhydramine Hcl (Twilite) 50 Mg Tab 01/29/10 Oxcarbazepine (Trileptal) 300 Mg Tab 01/29/10 Past Medical History Cardiac: No pertinent Hx Pulmonary: COPD, Pulmonary embolus Central Nervous System: CVA GI: No pertinent Hx Hemotology/Oncology: No pertinent Hx Hepatobiliary: No pertinent Hx Psychiatric: No pertinent Hx Musculoskeletal: No pertinent Hx Rheumotologic: No pertinent Hx Infectious Disease: No peritnent Hx ENT: No pertinent Hx Renal/: No pertinent Hx Endocrine: No pertinent Hx Dermatology: No pertinent Hx Past Surgical History: No pertinent Hx Family History: DM, Hypertension Patient Family History: Family history: Diabetes mellitus G8 MOTHER Family history: Hypertension G8 FATHER Smoker: No Hx (Negative) Alocohol: None Drugs: None Lives with: With family Domestic Violence: Neg Review of Systems Constitutional: Weakness Ears, Nose, & Throat: No symptom reported Eyes: No symptom reported Pulmonary/Respiratory: Dyspnea Cardiovascular: No symptom reported Gastrointestinal: No symptom reported Genitourinary: No symptom reported Musculoskeletal: No symptom reported Skin: No symptom reported Psychiatric: No symptom reported Endocrine: No symptom reported Hemotologic/Lymphatic: No symptom reported H&P Exam Vital Signs Vital Signs Date Time Temp Pulse Resp B/P (MAP) Pulse Ox O2 Delivery O2 Flow Rate FiO2 03/01/25 15:15 94 14 114/62 (79) 97 03/01/25 13:54 Facial BiPAP Mask 35 03/01/25 07:30 4 02/28/25 22:51 98.7 98.7 General Appeara: Well developed, Well nourished, Normal Appearance Head Exam: Normal inspection Neck Exam: Normal inspection, Non-tender, Normal alignment Eye Exam: bilateral eye Normal inspection, bilateral eye PERRL, bilateral eye EOMI Ear Exam: bilateral ear Auricle normal, bilateral ear Canal normal, bilateral ear TM normal Nasal Exam: Normal inspection Mouth: Normal Inspection Pulmonary/Respiratory: Decreased breath sounds Cardiovascular/Chest: Normal inspection Peripheral Pulses: 4+ Radial (R), 4+ Radial (L), 4+ Brachial (R), 4+ Brachial (L) Abdominal Exam: Normal bowel sounds Labs/Xrays Labs Test 03/01/25 15:00 03/01/25 10:04 03/01/25 09:24 03/01/25 07:31 Range/Units Blood Gas Specimen Type Arterial Blood Gas Sample Site Left radial Blood Gas Patient Temperature 37.0 Arterial Blood Date Drawn [id number] Arterial Blood pH 7.293 L 7.350-7.450 Arterial Blood Partial Pressure CO2 50.9 H 32.0-45.0 mmHg Arterial Blood Partial Pressure O2 59.4 L 83.0-108.0 mmHg Arterial Blood HCO3 24.1 21.0-28.0 mmol/L Arterial Blood Oxygen Saturation 85.9 L 94.0-98.0 % Arterial Blood Base Excess -2.8 L -2.0-3.0 mmol/L Arterial Blood Oxyhemoglobin 84.3 L 94.0-98.0 % Arterial Blood Carboxyhemoglobin 1.1 0.5-1.5 % Arterial Blood Methemoglobin 0.8 0.0-1.5 % Yassine Test Yes Blood Gas Total Hemoglobin 11.70 L 12.0-16.0 g/dL Blood Gas Modality Mask - bipap FiO2 % 30.0 Blood Gas Pressure Support 10 Blood Gas EPAP 5 Blood Gas IPAP 15 Blood Gas Critical Value Read Back Yes Blood Gas Notified Whom Dr. salazar Blood Gas Notified Time [id number] Blood Gas Notified By Silvino boyd, warner POC Glucose 110 H 70-106 mg/dl Blood Gas Liter Flow 6.00 Test 03/01/25 05:22 03/01/25 04:13 03/01/25 03:21 02/28/25 23:05 Range/Units Lactic Acid Level 1.4 0.4-2.0 mmol/L White Blood Count 7.6 # 4.4-10.8 10^3/uL Red Blood Count 4.72 4.0-5.20 10^6/uL Hemoglobin 11.3 L 12.2-16.2 g/dL Hematocrit 36.7 36.0-46.0 % Mean Corpuscular Volume 77.8 L 80.0-100.0 fL Mean Corpuscular Hemoglobin 23.9 L 28.0-32.0 pg Mean Corpuscular Hemoglobin Concent 30.7 L 32.0-36.0 g/dL Red Cell Distribution Width 22.9 H 11.8-14.3 % Platelet Count 211 140-450 10^3/uL Mean Platelet Volume 7.3 6.9-10.8 fL Neutrophils (%) (Auto) 71.2 37.0-80.0 % Lymphocytes (%) (Auto) 12.9 10.0-50.0 % Monocytes (%) (Auto) 12.9 H 0.0-12.0 % Eosinophils (%) (Auto) 2.2 0.0-7.0 % Basophils (%) (Auto) 0.8 0.0-2.0 % Neutrophils # (Auto) 5.4 1.6-8.6 10 ^3/uL Lymphocytes # (Auto) 1.0 0.4-5.4 10 ^3/uL Monocytes # (Auto) 1.0 0-1.3 10 ^3/uL Eosinophils # (Auto) 0.2 0-0.8 10 ^3/uL Basophils # (Auto) 0.1 0-0.2 10 ^3/uL Nucleated Red Blood Cells 0.5 % Sodium Level 140 136-145 mmol/L Potassium Level 4.4 3.5-5.1 mmol/L Chloride Level 103 98-107 mmol/L Carbon Dioxide Level 27 20-31 mmol/L Anion Gap 10 5-15 Blood Urea Nitrogen 11 9-23 mg/dL Creatinine 0.94 0.550-1.02 mg/dL Glomerular Filtration Rate Calc 68 >90 mL/min BUN/Creatinine Ratio 11.7 10.0-20.0 Serum Glucose 115 H 74-106 mg/dL Calcium Level 8.6 L 8.7-10.4 mg/dL Total Bilirubin 0.8 0.2-1.0 mg/dL Aspartate Amino Transferase (AST) 26 13-40 U/L Alanine Aminotransferase (ALT) 9 7-40 U/L Alkaline Phosphatase 149 H 46-116 U/L Total Protein 7.3 5.7-8.2 g/dL Albumin 3.6 3.2-4.8 g/dL Thyroid Stimulating Hormone (TSH) 6.39 H 0.55-4.78 uIU/mL Free Thyroxine (T4) Calculated 1.32 0.89-1.76 ng/dL Total Triiodothyronine (TT3) 0.68 0.60-1.81 ng/mL Urine Color Yellow Yellow Urine Clarity Turbid H Clear Urine pH 5.5 5.0-9.0 Urine Specific [place] 1.020 1.001-1.035 Urine Protein 1+ H Negative Urine Ketones Trace Negative Urine Blood Negative Negative /uL Urine Nitrite Negative Negative Urine Bilirubin Negative Negative Urine Urobilinogen 3 H Negative mg/dL Urine Leukocyte Esterase 3+ Negative /uL Urine RBC 2 0 - 4 /hpf Urine Microscopic WBC 70 H 0-5 /HPF Urine Squamous Epithelial Cells Many <5 /hpf Urine Amorphous Crystals Few None Seen /hpf Urine Bacteria Few H None Seen /hpf Urine Hyaline Casts Few 0 - 2 /lpf Urine Mucus Few None Seen Urine Glucose Normal Normal mg/dL Urine Opiates Screen Neg NEGATIVE Urine Fentanyl Screen Neg NEGATIVE Urine Barbiturates Screen Neg NEGATIVE Urine Phencyclidine Screen Neg NEGATIVE Urine Amphetamines Screen Neg NEGATIVE Urine Benzodiazepines Screen Neg NEGATIVE Urine Cocaine Screen Neg NEGATIVE Urine Cannabinoids Screen Neg NEGATIVE Erythrocyte Sedimentation Rate 4 0-20 mm/hr Prothrombin Time 17.2 H 9.3-11.8 sec Prothrombin Time INR 1.71 H 0.9-1.15 Activated Partial Thromboplast Time 26.8 24.5-34.5 SEC Iron Level 30 L 50-170 ug/dL Total Iron Binding Capacity 346 250-425 ug/dL Percent Iron Saturation 8.7 L 15-50 % Ferritin 49.6 10-291 ng/mL Direct Bilirubin 0.5 H <0.3 mg/dL C-Reactive Protein High Sensitivity 10.66 H <1.0 mg/dL B-Type Natriuretic Peptide 497.48 0-100 pg/mL Test 02/28/25 19:30 02/28/25 16:38 Range/Units Troponin I High Sensitivity 43 *H </=34 ng/L Platelet Estimate Adequate Hypochromasia (manual) Moderate Poikilocytosis (manual) Slight Anisocytosis (manual) Slight Microcytosis Slight Assessment/Plan Plan Impression Acute hypoxemic respiratory failure Altered mental status Morbid obesity Hx of PE Patient seen and examined Events High oxygen requirements On bipap settings 15/5 Respiratory status tenuous Labs and imaging reviewed CTA from 12/2024 shows pulmonary embolism- transitioned to LMWH Chest x-ray shows pulmonology congestion ABG reviewed pH 7.24, pCO2 64, pO2 68 Management Supplemental oxygen Titrate to maintain sats 90% or above Incentive spirometry Prn bipap Antibiotics Bronchodilators Monitor renal function Monitor electrolytes Supplement as needed DVT prophylaxis Critical care time 35 minutes Plan discussed with: Patient CHERYL VALDES MD Mar 01, 2025 16:14
[2025-03-01 18:29] LABS: COVID19 ANTIGEN SOFIA FIA NEGATIVE (NEGATIVE)
[2025-03-02] VITALS (9 sets, daily range): BP systolic 94–106; BP diastolic 64–76; PULSE 73–96; RESP 12–17; TEMP 97.2–98.3; O2SAT 90–98
--- NOTE | 2025-03-02 06:52 | DVHPNRES ---
Progress Note Date Seen: Mar 02, 2025 Resident Creating Document: ADRIÁN FORTE RESIDENT Medical Necessity Reason Pt with a Central, PICC or Fol: Yes The following are medically ne: Mary Catheter Subjective Review of Systems Patient seen and examined at bedside Improved mentation and alertness today, use BiPAP for couple hours overnight Currently on O2 via NC 4 L Patient complaining of pain, however, no objective signs of pain noted, owing to her obesity hypoventilation and tendency to have respiratory acidosis, we will avoid opioids, increased Broadalbin to 10 mg q.4 hours PRN Objective vital signs Vital Sign Date Time Temp Pulse Resp B/P (MAP) Pulse Ox O2 Delivery O2 Flow Rate FiO2 03/02/25 06:30 98.6 93 11 121/72 (88) 96 98.6 03/02/25 00:40 Nasal Cannula* 4 36 Total Intake and Output 03/01/25 03/01/25 03/02/25 15:00 23:00 07:00 Output Total 1000 ml Balance -1000 ml medications Current Medications Medications Dose Ordered Sig/Marck Route Start Time Stop Time Status Last Admin Dose Admin Sodium Chloride 10 ml Q8HR IV 02/28/25 22:00 03/02/25 06:17 10 ML Hydromorphone HCl 0.25 mg Q4HPRN PRN IV 02/28/25 22:00 Hold 03/01/25 16:01 0.25 MG Albuterol 2.5 mg Q6HPRN PRN NEB 02/28/25 22:00 Ipratropium [place] 0.5 mg Q6HPRN PRN NEB 02/28/25 22:00 Enoxaparin Sodium 170 mg Q12HR SC 03/01/25 10:00 03/02/25 00:40 170 MG Aspirin 81 mg DAILY PO 03/01/25 10:00 03/01/25 10:45 81 MG Acetaminophen/ Hydrocodone Bitart 1 tab QID PRN PO 03/01/25 00:45 Patient Own Medication 1 tab DAILY PO 03/01/25 10:00 UNV Patient Own Medication 0.5 tab BID PO 03/01/25 10:00 UNV Patient Own Medication 1 tab Q12HR PO 03/01/25 10:00 UNV Metoprolol Succinate 25 mg DAILY PO 03/01/25 10:00 Pantoprazole Sodium 40 mg DAILY PO 03/01/25 10:00 Patient Own Medication 1 tab DAILY PO 03/01/25 10:00 UNV Amlodipine Besylate 10 mg DAILY PO 03/01/25 10:00 Flecainide Acetate 50 mg BID PO 03/01/25 10:00 03/02/25 01:00 50 MG Paroxetine HCl 40 mg DAILY PO 03/01/25 10:00 03/01/25 10:45 40 MG Ceftriaxone Sodium 50 ml @ 100 mls/hr DAILY@09 IV 03/01/25 09:00 UNV Ceftriaxone Sodium 50 ml @ 100 mls/hr DAILY@09 IV 03/02/25 09:00 Furosemide 40 mg BIDD IV 03/01/25 06:00 03/02/25 06:17 40 MG Ipratropium [place] 0.5 mg Q4HR NEB 03/01/25 10:00 Cancel Levalbuterol HCl 1.25 mg Q6HR NEB 03/01/25 12:00 Cancel Levetiracetam 100 ml @ 400 mls/hr BID IV 03/01/25 10:30 03/02/25 00:38 400 MLS/HR Examination General: Patient alert and oriented in person, place and time. Patient following commands. HEENT: Tender lump in the neck. Normocephalic, atraumatic, moist mucous membranes Respiratory/pulmonary: Reduced breath sounds in left lung field. Normal breath sounds in right lung field. Cardiovascular: Normal heart sounds S1 and S2 with no associated murmurs Abdomen: Generalized abdominal tenderness on palpation Extremities: Right Upper extremity swelling and tenderness to palpitation. B/L Lower extremity edema. Tender to palpitation lower extremity Skin: No rashes or pruritus, there is no sacral edema present at this time. Neurological: Paraplegia laboratory and microbiology Laboratory Tests 03/01/25 04:13 Test 03/01/25 04:13 Range/Units Serum Glucose 115 H 74-106 mg/dL Microbiology Date/Time Source Procedure Growth Status 03/01/25 05:22 Blood Blood Culture - Preliminary NO GROWTH AFTER 24 HOURS OF INCUBATION. Resulted Problem List/Assessment/Plan Problem List/Assessment/Plan Neurology Acute metabolic encephalopathy, now improving Ruled out stroke History of seizures History of anxiety and depression History of CVA, residual paraplegia and deficits Bed-bound at baseline - head CT: No acute intracranial abnormality - head and neck CT angiography: Examination is limited due to the timing of contrast, with prominent venous opacification at the time of imaging. CTA head demonstrates no evidence of large vessel occlusion, aneurysm, or significant stenosis. CTA neck demonstrates calcified plaque at the carotid bifurcations and proximal internal carotid arteries with up to 50% stenosis in the left proximal internal carotid artery and less than 50% stenosis in the right proximal internal carotid artery. No evidence of carotid or vertebral dissection or occlusion. Dilated right superior ophthalmic vein, may be due to vascular malformation or indirect caroticocavernous fistula. No thrombosis is seen. This finding appears to be present on previous CT head exams dating back to Correlate with clinical findings. Additional findings as detailed above. - carotid Doppler: No hemodynamically significant stenosis in the right and left carotid system. - IV levetiracetam 1000 mg b.i.d. Cardiovascular # chronic diastolic heart failure EF 50% on 01/01/2025 # extensive occlusive thrombus in right IJ, subclavian, axillary, brachial and radial # secondary hypercoagulable state # history of atrial flutter # severe tricuspid regurgitation # severe pulmonary hypertension with PASP greater than 60 # severe right ventricular enlargement and right ventricular dysfunction # essential hypertension # dyslipidemia - right upper extremity Doppler: Possible occlusive thrombus identified within the internal jugular, subclavian, axillary, brachial and radial veins. - holding antihypertensives as blood pressure on the softer side - therapeutic Lovenox 170 mg subcutaneous b.i.d. - resumed home medication flecainide 50 mg p.o. b.i.d. - IV Lasix 40 mg b.i.d. - aspirin 81 mg Respiratory Acute on chronic hypoxic respiratory failure, on home O2 4 L Chronic respiratory failure due to pulmonary fibrosis Obesity hypoventilation syndrome/JESSIE on CPAP, noncompliant Respiratory acidosis due to above History of pulmonary embolism - ipratropium and albuterol med nebs - BiPAP in the night - therapeutic Lovenox GI # obesity, BMI 59.8 # Peptic ulcer prophylaxis -Pantoprazole 40 mg p.o. daily # Mary catheter Infectious disease # acute complicated UTI - IV ceftriaxone Endocrine # thyroid nodules # severe hypothyroidism with TSH of 6 - thyroid ultrasound: 3.2 x 2.8 x 2.5 cm complex nodule comprising solid and cystic competence demonstrating vascularity - outpatient follow up with Endocrinology and Oncology recommended Psychiatry # history of anxiety # history of depression # chronic pain due to osteoarthritis - Broadalbin 10 q.4 hours as needed - resumed home medication paroxetine DVT prophylaxis On therapeutic Lovenox Nutrition - clear liquid diet Physical therapy ordered Critical care time 48 minutes excluding procedure. Code status discussed greater than 20 minutes: Full CODE STATUS. Family at bedside explained about the condition of the patient Plan discussed with Dr. Bazan Plan discussed with: Patient, Other (RN) My Orders My Orders Orders - ADRIÁN FORTE RESIDENT Procedure Category Date Status Time BIPAP RT 03/01/25 Logged 10:09 Levetiracetam 1000 PHA 03/01/25 In Process Mg/100ml (Levetiracet 10:30 Abg W/ Co-Ox RT 03/01/25 Logged 14:14 Mrsa Screen SEBAS 03/01/25 Logged 15:47 Respiratory Culture SEBAS 03/01/25 Logged W/ Gs 15:47 Sputum Induction RT 03/01/25 Logged 15:47 Complete Blood Count LAB 03/02/25 Transmitted 06:50 Comprehensive LAB 03/02/25 Transmitted Metabolic Panel 06:50 Chest Portable XY 03/02/25 Transmitted 06:50 Date of Service: Mar 02, 2025 Billing Provider: JUSTA BAZAN MD Common Visit Codes: [id number] CARE-EACH +30MIN ADRIÁN FORTE Mar 02, 2025 06:51
[2025-03-02 07:04] LABS: Hemoglobin 10.4 g/dL (12.2-16.2)
[2025-03-02 07:05] LABS: Hematocrit 36.4 % (36.0-46.0); Mean Corpuscular Hemoglobin 23.9 pg (28.0-32.0); Mean Corpuscular Volume 83.4 fL (80.0-100.0)
[2025-03-02 07:20] LABS: Alanine Aminotransferase 10 U/L (7-40); Albumin 3.4 g/dL (3.2-4.8); Anion Gap 12 (5-15); BUN/Creatinine Ratio 18.8 (10.0-20.0); Bilirubin, Total 0.6 mg/dL (0.2-1.0); Blood Urea Nitrogen 19 mg/dL (9-23); Carbon Dioxide 25 mmol/L (20-31); Chloride 103 mmol/L (98-107); Glucose 96 mg/dL (74-106); Potassium 4.9 mmol/L (3.5-5.1); Sodium 140 mmol/L (136-145); Total Protein 6.8 g/dL (5.7-8.2)
[2025-03-02 07:25] LABS: Alkaline Phosphatase 138 U/L (46-116); Calcium 8.4 mg/dL (8.7-10.4)
--- NOTE | 2025-03-02 08:26 | DVH ---
INDICATION: pna TECHNIQUE: Single frontal view of the chest was obtained COMPARISON: XY CHEST PORTABLE on DOS: 02/28/25, XY CHEST PORTABLE on DOS: 01/01/25, CT CT ANGIO CHEST CONTRAST on DOS: 12/31/24, XY CHEST PORTABLE on DOS: 12/31/24, CT CT ANGIO CHEST CONTRAST on DOS: 5, XY CHEST PORTABLE on DOS: 02/28/25 FINDINGS: Lines and Tubes: None Lungs: Clear Pleura: No effusion. No pneumothorax. Cardiomediastinal contours: Cardiomegaly Bones: Unremarkable IMPRESSION: Cardiomegaly
[2025-03-02 08:47] LABS: Anisocytosis Slight
[2025-03-02 08:48] LABS: Ovalocytes FEW; Total Cells Counted 100.0 (100)
--- NOTE | 2025-03-02 11:22 | ECG ---
[facility] Test Date: 2025-03-01 Test Time: 04:05:33 Pat Name: WICHO SMITH Department: [facility] ED Patient ID: [facility]-[id number] Room: [address] [place] [id number] Gender: F Criminal Records Technician: DARRICK : 1960 Requested By: MARIKA MORAN Order Number: [id number] Reading MD: Measurements Intervals [place] Rate: 110 P: 56 MO: 143 QRS: 131 QRSD: 81 T: 45 QT: 358 QTc: 485 Interpretive Statements Sinus tachycardia Right axis deviation Low voltage, extremity and precordial leads Please click the below link to view image of tracing.
--- NOTE | 2025-03-02 19:26 | DVHPN2 ---
Progress Note - Dictate Date Seen: Mar 02, 2025 Medical Necessity Reason Pt with a Central, PICC or Fol: Yes The following are medically ne: Mary Catheter vital signs Vital Sign Date Time Temp Pulse Resp B/P (MAP) Pulse Ox O2 Delivery O2 Flow Rate FiO2 03/02/25 18:35 73 17 90 Nasal Cannula* 2 28 03/02/25 18:00 106/76 03/02/25 17:26 98.3 98.3 Total Intake and Output 03/01/25 03/01/25 03/02/25 15:00 23:00 07:00 Output Total 1000 ml Balance -1000 ml medications Current Medications Medications Dose Ordered Sig/Marck Route Start Time Stop Time Status Last Admin Dose Admin Sodium Chloride 10 ml Q8HR IV 02/28/25 22:00 03/02/25 14:00 10 ML Hydromorphone HCl 0.25 mg Q4HPRN PRN IV 02/28/25 22:00 Hold 03/01/25 16:01 0.25 MG Albuterol 2.5 mg Q6HPRN PRN NEB 02/28/25 22:00 Ipratropium [place] 0.5 mg Q6HPRN PRN NEB 02/28/25 22:00 Enoxaparin Sodium 170 mg Q12HR SC 03/01/25 10:00 03/02/25 10:29 170 MG Aspirin 81 mg DAILY PO 03/01/25 10:00 03/01/25 10:45 81 MG Patient Own Medication 1 tab DAILY PO 03/01/25 10:00 UNV Patient Own Medication 0.5 tab BID PO 03/01/25 10:00 UNV Patient Own Medication 1 tab Q12HR PO 03/01/25 10:00 UNV Metoprolol Succinate 25 mg DAILY PO 03/01/25 10:00 Hold Pantoprazole Sodium 40 mg DAILY PO 03/01/25 10:00 Patient Own Medication 1 tab DAILY PO 03/01/25 10:00 UNV Amlodipine Besylate 10 mg DAILY PO 03/01/25 10:00 Hold Flecainide Acetate 50 mg BID PO 03/01/25 10:00 03/02/25 01:00 50 MG Paroxetine HCl 40 mg DAILY PO 03/01/25 10:00 03/01/25 10:45 40 MG Ceftriaxone Sodium 50 ml @ 100 mls/hr DAILY@09 IV 10/21/25 09:00 UNV Ceftriaxone Sodium 50 ml @ 100 mls/hr DAILY@09 IV 03/02/25 09:00 03/02/25 10:26 100 MLS/HR Furosemide 40 mg BIDD IV 03/01/25 06:00 03/02/25 18:00 40 MG Ipratropium [place] 0.5 mg Q4HR NEB 03/01/25 10:00 Cancel Levalbuterol HCl 1.25 mg Q6HR NEB 03/01/25 12:00 Cancel Levetiracetam 100 ml @ 400 mls/hr BID IV 03/01/25 10:30 03/02/25 11:03 400 MLS/HR Acetaminophen/ Hydrocodone Bitart 1 tab Q4HP PRN PO 03/02/25 15:30 laboratory and microbiology Laboratory Tests 03/02/25 06:47 Test 03/02/25 06:47 Range/Units Serum Glucose 96 74-106 mg/dL Assessment/Plan Impression Acute hypoxemic respiratory failure Altered mental status Morbid obesity Hx of PE Patient seen and examined in the ER Events used bipap overnight 28/02 improving Labs and imaging reviewed CTA from 12/2024 shows pulmonary embolism- transitioned to LMWH Chest x-ray shows pulmonology congestion ABG reviewed Management Supplemental oxygen Titrate to maintain sats 90% or above Incentive spirometry Prn bipap Antibiotics Bronchodilators Monitor renal function Monitor electrolytes Supplement as needed DVT prophylaxis ok to downgrade Critical care time 35 minutes Plan discussed with: Patient CHERYL VALDES MD Mar 02, 2025 19:26
[2025-03-02] MEDS: HYDROcodone-ACET 10/325MG TAB PO PRN (21:52)
[2025-03-03 01:00] VITALS: BP 110/71; PULSE 97; RESP 18; TEMP 97.2; O2SAT 90
[2025-03-03 05:00] VITALS: BP_SYST 101; BP_SYST 110; BP_DIAS 63; BP_DIAS 68; PULSE 104; PULSE 91; RESP 18; TEMP 96.8; TEMP 98.2; O2SAT 90; O2SAT 91
[2025-03-03 06:38] VITALS: O2SAT 96
[2025-03-03 08:00] VITALS: PULSE 92
[2025-03-03 09:00] VITALS: BP 113/74; PULSE 91; RESP 20; TEMP 98.1; O2SAT 100
[2025-03-03] MEDS ORDERED: AMIO200T13 PO (09:40)
[2025-03-03] MEDS ORDERED: CIPR-273 PO (09:40)
--- NOTE | 2025-03-03 11:41 | DVHDSRES ---
Discharge Summary Date of Admission Resident Creating Document: ADRIÁN SALAZAR RESIDENT Feb 28, 2025 at 21:51 Date of Discharge: Mar 03, 2025 Labs/Diagnostic Data: Laboratory Results Test 03/03/25 11:10 03/02/25 06:47 03/01/25 17:37 03/01/25 15:00 White Blood Count 7.4 10^3/uL (4.4-10.8) Red Blood Count 4.37 10^6/uL (4.0-5.20) Hemoglobin 10.4 g/dL (12.2-16.2) Hematocrit 36.4 % (36.0-46.0) Mean Corpuscular Volume 83.4 fL (80.0-100.0) Mean Corpuscular Hemoglobin 23.9 pg (28.0-32.0) Mean Corpuscular Hemoglobin Concent 28.6 g/dL (32.0-36.0) Red Cell Distribution Width 23.9 % (11.8-14.3) Platelet Count 180 10^3/uL (140-450) Mean Platelet Volume 7.2 fL (6.9-10.8) Neutrophils (%) (Auto) % (37.0-80.0) Lymphocytes (%) (Auto) % (10.0-50.0) Monocytes (%) (Auto) % (0.0-12.0) Basophils (%) (Auto) % (0.0-2.0) Neutrophils # (Auto) 10 ^3/uL (1.6-8.6) Lymphocytes # (Auto) 10 ^3/uL (0.4-5.4) Monocytes # (Auto) 10 ^3/uL (0-1.3) Differential Total Cells Counted 100.0 (100) Neutrophils % (Manual) 58 (37.0-80.0) Band Neutrophils % (Manual) 2 Lymphocytes % (Manual) 14 (10.0-50.0) Monocytes % (Manual) 20 (0-12) Eosinophils % (Manual) 3 (0-7) Basophils % (Manual) 0 (0.0-2.0) Metamyelocytes % (manual) 0 Myelocytes % (Manual) 3 Promyelocytes % (Manual) 0 Blast Cells % (Manual) 0 Reactive Lymphocytes 0 Platelet Estimate Adequate Hypochromasia (manual) Slight Anisocytosis (manual) Slight Ovalocytes Few Sodium Level 140 mmol/L (136-145) Potassium Level 4.9 mmol/L (3.5-5.1) Chloride Level 103 mmol/L (98-107) Carbon Dioxide Level 25 mmol/L (20-31) Anion Gap 12 (5-15) Blood Urea Nitrogen 19 mg/dL (9-23) Creatinine 1.01 mg/dL (0.550-1.02) Glomerular Filtration Rate Calc 62 mL/min (>90) BUN/Creatinine Ratio 18.8 (10.0-20.0) Serum Glucose 96 mg/dL (74-106) Calcium Level 8.4 mg/dL (8.7-10.4) Total Bilirubin 0.6 mg/dL (0.2-1.0) Aspartate Amino Transferase (AST) 20 U/L (13-40) Alanine Aminotransferase (ALT) 10 U/L (7-40) Alkaline Phosphatase 138 U/L (46-116) Total Protein 6.8 g/dL (5.7-8.2) Albumin 3.4 g/dL (3.2-4.8) Influenza Type A Antigen Negative (Negative) Influenza Type B Antigen Negative (Negative) SARS-CoV-2 Antigen (Rapid) Negative (NEGATIVE) Blood Gas Specimen Type Arterial Blood Gas Sample Site Left radial Blood Gas Patient Temperature 37.0 Arterial Blood Date Drawn Arterial Blood pH 7.293 (7.350-7.450) Arterial Blood Partial Pressure CO2 50.9 mmHg (32.0-45.0) Arterial Blood Partial Pressure O2 59.4 mmHg (83.0-108.0) Arterial Blood HCO3 24.1 mmol/L (21.0-28.0) Arterial Blood Oxygen Saturation 85.9 % (94.0-98.0) Arterial Blood Base Excess -2.8 mmol/L (-2.0-3.0) Arterial Blood Oxyhemoglobin 84.3 % (94.0-98.0) Arterial Blood Carboxyhemoglobin 1.1 % (0.5-1.5) Arterial Blood Methemoglobin 0.8 % (0.0-1.5) Yassine Test Yes Blood Gas Total Hemoglobin 11.70 g/dL (12.0-16.0) Blood Gas Modality Mask - bipap FiO2 % 30.0 Blood Gas Pressure Support 10 Blood Gas EPAP 5 Blood Gas IPAP 15 Test 03/01/25 10:04 03/01/25 09:24 03/01/25 07:31 03/01/25 05:22 Blood Gas Critical Value Read Back Yes Blood Gas Notified Whom Dr. salazar Blood Gas Notified Time [id number] Blood Gas Notified By Silvino boyd, automatic spooler operator POC Glucose 110 mg/dl (70-106) Blood Gas Liter Flow 6.00 Lactic Acid Level 1.4 mmol/L (0.4-2.0) Test 03/01/25 04:13 03/01/25 03:21 02/28/25 23:05 02/28/25 19:30 Eosinophils (%) (Auto) 2.2 % (0.0-7.0) Eosinophils # (Auto) 0.2 10 ^3/uL (0-0.8) Basophils # (Auto) 0.1 10 ^3/uL (0-0.2) Nucleated Red Blood Cells 0.5 % Thyroid Stimulating Hormone (TSH) 6.39 uIU/mL (0.55-4.78) Free Thyroxine (T4) Calculated 1.32 ng/dL (0.89-1.76) Total Triiodothyronine (TT3) 0.68 ng/mL (0.60-1.81) Urine Color Yellow (Yellow) Urine Clarity Turbid (Clear) Urine pH 5.5 (5.0-9.0) Urine Specific [place] 1.020 (1.001-1.035) Urine Protein 1+ (Negative) Urine Ketones Trace (Negative) Urine Blood Negative /uL (Negative) Urine Nitrite Negative (Negative) Urine Bilirubin Negative (Negative) Urine Urobilinogen 3 mg/dL (Negative) Urine Leukocyte Esterase 3+ /uL (Negative) Urine RBC 2 /hpf (0 - 4) Urine Microscopic WBC 70 /HPF (0-5) Urine Squamous Epithelial Cells Many /hpf (<5) Urine Amorphous Crystals Few /hpf (None Seen) Urine Bacteria Few /hpf (None Seen) Urine Hyaline Casts Few /lpf (0 - 2) Urine Mucus Few (None Seen) Urine Glucose Normal mg/dL (Normal) Urine Opiates Screen Neg (NEGATIVE) Urine Fentanyl Screen Neg (NEGATIVE) Urine Barbiturates Screen Neg (NEGATIVE) Urine Phencyclidine Screen Neg (NEGATIVE) Urine Amphetamines Screen Neg (NEGATIVE) Urine Benzodiazepines Screen Neg (NEGATIVE) Urine Cocaine Screen Neg (NEGATIVE) Urine Cannabinoids Screen Neg (NEGATIVE) Erythrocyte Sedimentation Rate 4 mm/hr (0-20) Prothrombin Time 17.2 sec (9.3-11.8) Prothrombin Time INR 1.71 (0.9-1.15) Activated Partial Thromboplast Time 26.8 SEC (24.5-34.5) Iron Level 30 ug/dL (50-170) Total Iron Binding Capacity 346 ug/dL (250-425) Percent Iron Saturation 8.7 % (15-50) Ferritin 49.6 ng/mL (10-291) Direct Bilirubin 0.5 mg/dL (<0.3) C-Reactive Protein High Sensitivity 10.66 mg/dL (<1.0) B-Type Natriuretic Peptide 497.48 pg/mL (0-100) Troponin I High Sensitivity 43 ng/L (</=34) Test 02/28/25 16:38 Poikilocytosis (manual) Slight Microcytosis Slight Other Laboratory Tests 03/02/25 06:47 Brief Hx & Hospital Course: Brief history on admission & hospital course: Patient is a 64-year-old female with past medical history of paroxysmal atrial fibrillation on Eliquis, atrial flutter, hypertension, hyperlipidemia, pulmonary embolism, pulmonary fibrosis on 3 L home oxygen, stroke, paraplegia, JESSIE, bed- bound, presented with complaints of body pain and worsening right arm weakness. 2 days ago, the patient awoke with an inability to move both arms and legs, with more pronounced weakness on the right side. She also reported 1 episode of hematemesis and right-sided neck pain. She complains of intermittent fever, chills, nausea, diarrhea, unable to further elaborate on the symptoms. The patient described profound generalized weakness, stating she was too weak to get out of bed. She denied dysuria, polyuria, or sick contacts. Initial labs show significant normocytic anemia, elevated troponin level. Head CT shows no acute intracranial abnormality seen. U/S shows 3.2 x 2.8 x 2.5 cm complex nodule comprised of solid and cystic components demonstrating vascularity. Right Upper Extremity Venous Duplex shows possible occlusive thrombus identified within the internal jugular, subclavian, axillary, brachial and radial veins. No hemodynamically significant stenosis noted on Carotid Duplex. CXR shows Cardiomegaly. During her stay, she was treated with IV ceftriaxone, therapeutic Lovenox, supportive management with pain medications, Zofran, BiPAP. Home medications were restarted. Conditions treated during stay: Acute metabolic encephalopathy, now improving Ruled out stroke History of seizures History of anxiety and depression History of CVA, residual paraplegia and deficits Bed-bound at baseline Chronic diastolic heart failure EF 50% on 01/01/2025 Extensive occlusive thrombus in right IJ, subclavian, axillary, brachial and radial Secondary hypercoagulable state History of atrial flutter Severe tricuspid regurgitation Severe pulmonary hypertension with PASP greater than 60 Severe right ventricular enlargement and right ventricular dysfunction Essential hypertension Dyslipidemia Acute on chronic hypoxic respiratory failure, on home O2 4 L Chronic respiratory failure due to pulmonary fibrosis Obesity hypoventilation syndrome/JESSIE on CPAP, noncompliant Respiratory acidosis due to above History of pulmonary embolism Obesity, BMI 59.8 Peptic ulcer prophylaxis Thyroid nodules Severe hypothyroidism with TSH of 6 History of anxiety History of depression Chronic pain due to osteoarthritis Plan: Continue home medications Follow up with PCP in one week Folow up with endocrinology as outpatient for thyroid mass Condition at Discharge: Stable Final Diagnosis/Problems List Acute metabolic encephalopathy, now improving Ruled out stroke History of seizures History of anxiety and depression History of CVA, residual paraplegia and deficits Bed-bound at baseline Chronic diastolic heart failure EF 50% on 01/01/2025 Extensive occlusive thrombus in right IJ, subclavian, axillary, brachial and radial Secondary hypercoagulable state History of atrial flutter Severe tricuspid regurgitation Severe pulmonary hypertension with PASP greater than 60 Severe right ventricular enlargement and right ventricular dysfunction Essential hypertension Dyslipidemia Acute on chronic hypoxic respiratory failure, on home O2 4 L Chronic respiratory failure due to pulmonary fibrosis Obesity hypoventilation syndrome/JESSIE on CPAP, noncompliant Respiratory acidosis due to above History of pulmonary embolism Obesity, BMI 59.8 Peptic ulcer prophylaxis Thyroid nodules Severe hypothyroidism with TSH of 6 History of anxiety History of depression Chronic pain due to osteoarthritis Discharge Disposition: Home with Health Services Discharge Instruct/Medications Diet: Cardiac 2g Na,low cholest Activity: No Restrictions, As Tolerated Follow Up/Referral: Follow up with PCP in one week Folow up with endocrinology as outpatient for thyroid mass Medications: As per EHR New Medications: Amiodarone HCl (Amiodarone HCl) 200 Mg Tab 200 MG PO DAILY for 30 Days, #30 TAB Ciprofloxacin Hcl (Cipro) 250 Mg Tab 250 MG PO BID for 5 Days, #10 TAB Continued Medications: Amlodipine Besylate (Amlodipine Besylate) 10 Mg Tab 1 TAB PO DAILY for 30 Days, #30 Apixaban Base (Eliquis) 5 Mg Tab 5 MG PO BID for 30 Days, #60 TAB 5 Refills Aspirin (Aspir-Low) 81 Mg Tab 1 TAB PO DAILY for 30 Days, #30 Esomeprazole Magnesium Trihydr (Nexium) 40 Mg Cap Flecainide Acetate (Flecainide Acetate) 100 Mg Tab 0.5 TAB PO BID, #60 TAB 5 Refills Fluticasone-Salmeterol (Advair Diskus) 250/50 Mis Furosemide (Lasix) 40 Mg Tab 40 MG PO DAILY for 30 Days, #30 TAB 5 Refills Gabapentin (Gabapentin) 300 Mg Cap 1 CAP PO TID for 30 Days, #90 Hydrocodone-Acetaminophen (Hydrocodone Bitartrate/AC 5-325 mg) 1 Tab Tab 1 TAB PO QID PRN, #40 TAB Levetiracetam (Levetiracetam) 1,000 Mg Tab 1 TAB PO Q12HR for 30 Days, #60 Magnesium Oxide (Magnesium Oxide) 400 Mg Tab 500 MG PO DAILY, TAB Meclizine HCl (Meclizine Hydrochloride) 25 Mg Tab 1 TAB PO TID PRN for 30 Days, #90 Metoprolol Succinate (Metoprolol Succinate Er) 25 Mg Tab 1 TAB PO DAILY, #30 TAB 5 Refills Multiple Vitamin (Multivitamin) 1 Tab Tab 1 TAB PO DAILY for 30 Days, #30 Omeprazole (Omeprazole Dr) 40 Mg Cap 1 CAP PO DAILY for 90 Days, #90 Oxcarbazepine (Trileptal) 300 Mg Tab Paroxetine Hydrochloride (Paroxetine Hydrochloride) 40 Mg Tab 1 TAB PO DAILY Potassium Chloride (Klor-Con M10) 10 Meq Tab 1 TAB PO BID, #30 TAB 5 Refills Rosuvastatin Calcium (Crestor) 10 Mg Tab Temazepam (Restoril) 15 Mg Cp 1 CAP PO QPM Valsartan-Hydrochlorothiazide (Diovan Hct) 160 Mg/25 Mg Tab Discontinued Medications: Amiodarone Hcl (Amiodarone Hcl) 200 Mg Tab 1 TAB PO BID, #90 TAB 1 Refill Apixaban Base (Eliquis) 5 Mg Tab 5 MG PO BID, #180 TAB Apixaban Base (Eliquis) 5 Mg Tab 10 MG PO BID for 7 Days, #28 TAB 10MG BID X 7 DAYS THEN 5MG PO BID FOR AT LEAST 6 MONTHS FOR DVT/PE TREATMENT Diphenhydramine Hcl (Twilite) 50 Mg Tab Escitalopram Oxalate (Lexapro) 10 Mg Tab 1 TAB PO DAILY Fluoxetine HCl (Fluoxetine HCl) 20 Mg Cap 1 CAP PO DAILY for 30 Days, #30 Hydrocodone-Acetaminophen (Hydrocodone/Acetaminophen 10-325 mg) 1 Tab Tab 1 TAB PO Q6HR PRN for PAIN IN THORACIC SPINE for 30 Days, #120 Hydroxyzine Hcl (Hydroxyzine Hcl) 25 Mg Tab 1 TAB PO DAILY, #30 TAB Scheduled Amiodarone HCl (Amiodarone HCl), 200 MG PO DAILY Amiodarone Hcl (Amiodarone Hcl), 1 TAB PO BID Amlodipine Besylate (Amlodipine Besylate), 1 TAB PO DAILY, (Reported) Apixaban Base (Eliquis), 5 MG PO BID Apixaban Base (Eliquis), 5 MG PO BID Apixaban Base (Eliquis), 10 MG PO BID Aspirin (Aspir-Low), 1 TAB PO DAILY, (Reported) Ciprofloxacin Hcl (Cipro), 250 MG PO BID Escitalopram Oxalate (Lexapro), 1 TAB PO DAILY, (Reported) Flecainide Acetate (Flecainide Acetate), 0.5 TAB PO BID Fluoxetine HCl (Fluoxetine HCl), 1 CAP PO DAILY, (Reported) Furosemide (Lasix), 40 MG PO DAILY Gabapentin (Gabapentin), 1 CAP PO TID, (Reported) Hydroxyzine Hcl (Hydroxyzine Hcl), 1 TAB PO DAILY, (Reported) Levetiracetam (Levetiracetam), 1 TAB PO Q12HR, (Reported) Magnesium Oxide (Magnesium Oxide), 500 MG PO DAILY, (Reported) Meclizine HCl (Meclizine Hydrochloride), 1 TAB PO TID PRN, (Reported) Metoprolol Succinate (Metoprolol Succinate Er), 1 TAB PO DAILY Multiple Vitamin (Multivitamin), 1 TAB PO DAILY, (Reported) Omeprazole (Omeprazole Dr), 1 CAP PO DAILY, (Reported) Paroxetine Hydrochloride (Paroxetine Hydrochloride), 1 TAB PO DAILY, (Reported) Potassium Chloride (Klor-Con M10), 1 TAB PO BID, (Reported) Temazepam (Restoril), 1 CAP PO QPM, (Reported) Scheduled PRN Hydrocodone-Acetaminophen (Hydrocodone/Acetaminophen 10-325 mg), 1 TAB PO Q6HR PRN for PAIN IN THORACIC SPINE, (Reported) Hydrocodone-Acetaminophen (Hydrocodone Bitartrate/AC 5-325 mg), 1 TAB PO QID PRN Miscellaneous Medications Diphenhydramine Hcl (Twilite), (Reported) Esomeprazole Magnesium Trihydr (Nexium), (Reported) Fluticasone-Salmeterol (Advair Diskus), (Reported) Oxcarbazepine (Trileptal), (Reported) Rosuvastatin Calcium (Crestor), (Reported) Valsartan-Hydrochlorothiazide (Diovan Hct), (Reported) Discharge Statement: "Patient was advised to return to the ER or call 911 if any headaches, dizziness, shortness of breath, chest pain, abdominal pain, bleeding, fevers, or worsening of medical condition. Patient was counseled about treatment plan, medications, possible side effects, patientverbalized understanding. All questions were answered to the best of my ability. This discharge took greater then 30 minutes in planning, reviewing documentation, counseling the patient, and discussing with other team members." ASSESSMENT ASSESSMENT Assessment Right upper extremity DVT History of PE Paroxysmal atrial fibrillation on Eliquis History of Atrial flutter Acute hypoxic respiratory failure Obesity hypoventilation, possible Pulmonary fibrosis on 3 L home oxygen Acute CHF exacerbation HFpEF, EF 50% (01/01/25) Hypertension Hyperlipidemia History of seizures History of stroke Paraplegia JESSIE on CPAP Noncompliance History of MRSA nose Anxiety and depression Thyroid nodules Complicated UTI Date of Service: Mar 03, 2025 Billing Provider: JUSTA POWELL MD Common Visit Codes: 23289-YPW/OBS DISCH DAY >30min BUCKY BARRIGA RESIDENT Mar 03, 2025 11:41
[2025-03-03 12:38] VITALS: BP 105/68; PULSE 95; RESP 18; TEMP 97.7; O2SAT 92
--- NOTE | 2025-03-03 23:01 | DVHPN2 ---
Subjective DOS: 03/03/2025 Patient seen and examined at bedside. Remains on supplemental oxygen Overnight events reviewed. Changes from previous H/P or p: No Changes Objective Vitals Vital Signs Date Time Temp Pulse Resp B/P (MAP) Pulse Ox O2 Delivery O2 Flow Rate FiO2 03/03/25 12:38 97.7 95 18 105/68 (80) 92 97.7 03/03/25 08:00 Nasal Cannula* 2 28 Intake/Output Intake and Output 03/03/25 07:00 Intake Total 345 ml Output Total 1000 ml Balance -655 ml Intake Oral 345 ml Output Urine Total 1000 ml Exam Gen.: Patient lying in bed in no apparent distress. On supplemental oxygen. Head: Normocephalic, atraumatic. Eyes: EOMI/PERRLA. Ears: Normal hearing. Normal anatomy. Neck/trachea: Trachea midline, supple. Nose: Normal external anatomy. Mouth: Moist mucous membranes. Chest: Decreased air entry bilaterally. No wheezing or rhonchi. Cardiovascular: Positive S1, positive S2. Regular rate and rhythm. Abdomen: Positive bowel sounds in all 4 quadrants. Soft, non-tender, non- distended. : Deferred. Rectal: Deferred. Skin: Warm, dry. Intact. Extremities: 2+ radial pulses bilaterally. No lower extremity edema. Neuro: Awake, alert, oriented x3. No gross motor or sensory deficits. Cranial nerves II through XII intact. Gait not assessed. Medications Current Medications Medications Dose Ordered Sig/Marck Route Start Time Stop Time Status Last Admin Dose Admin Patient Own Medication 1 tab DAILY PO 03/01/25 10:00 UNV Patient Own Medication 0.5 tab BID PO 03/01/25 10:00 UNV Patient Own Medication 1 tab Q12HR PO 03/01/25 10:00 UNV Patient Own Medication 1 tab DAILY PO 03/01/25 10:00 UNV Ceftriaxone Sodium 50 ml @ 100 mls/hr DAILY@09 IV 03/01/25 09:00 UNV Ipratropium [place] 0.5 mg Q4HR NEB 03/01/25 10:00 Cancel Levalbuterol HCl 1.25 mg Q6HR NEB 03/01/25 12:00 Cancel Laboratory Results Laboratory Tests 03/02/25 06:47 Urinalysis Test 03/01/25 03:21 Urine Color Yellow (Yellow) Urine Clarity Turbid (Clear) H Urine pH 5.5 (5.0-9.0) Urine Specific [place] 1.020 (1.001-1.035) Urine Protein 1+ (Negative) H Urine Ketones Trace (Negative) Urine Blood Negative /uL (Negative) Urine Nitrite Negative (Negative) Urine Bilirubin Negative (Negative) Urine Urobilinogen 3 mg/dL (Negative) H Urine Leukocyte Esterase 3+ /uL (Negative) Urine RBC 2 /hpf (0 - 4) Urine Microscopic WBC 70 /HPF (0-5) H Urine Squamous Epithelial Cells Many /hpf (<5) Urine Amorphous Crystals Few /hpf (None Seen) Urine Bacteria Few /hpf (None Seen) H Urine Hyaline Casts Few /lpf (0 - 2) Urine Mucus Few (None Seen) Urine Glucose Normal mg/dL (Normal) Microbiology Microbiology Date/Time Source Procedure Growth Status 03/01/25 05:22 Blood Blood Culture - Preliminary NO GROWTH AFTER 48 HOURS OF INCUBATION. Resulted 03/01/25 03:21 Voided Urine Urine Culture - Final Complete Assessment/Plan Assessment/Plan Impression: Acute hypoxic respiratory failure Dependence on supplemental oxygen Altered mental status Morbid obesity Hx of pulmonary embolism. Plan: Supplemental oxygen Titrate to keep O2 sats above 92%. Currently on 4 LPM NC Taper O2 as tolerated. BiPAP PRN. Head of bed elevation Aspiration precautions Bronchodilators PRN. Continue antibiotics Antiepileptic with Keppra Pain control Avoid oversedation Protonix for GI ppx Monitor renal function. Monitor electrolytes. Supplement as necessary. Monitor ins and outs. Recommend diet and lifestyle modifications for weight reduction Obesity complicates all care Patient is stable for discharge from the pulmonary standpoint. GI/DVT prophylaxis. Prognosis: Guarded given patient's multiple co-morbidities. Rest of plan per hospitalist and other consultants. Thank you for allowing me to participate in this patient's care. Further recommendations will depend on the patient's clinical course. Please do not hesitate to contact me if you have any questions or concerns. This medical document was created using an electronic medical record system with [employer] system. Although these documentations are being carefully reviewed, there may still be some phonetic and typographical changes. The errors are purely typographical, due to imperfection on the software program, and do not reflect any compromise in the patient's medical care. Plan discussed with: Patient, Other (MAYE Boykin) Visit Coding Pulmonary Billing Provider: CHRIS FREEMAN MD Date of Service if different f: Mar 03, 2025 Common Visit Codes: [id number] INP/OBS CARE(HIGH) CHRIS FREEMAN MD Mar 03, 2025 23:01
[2025-03-04 12:01] LABS: Hepatitis B Surface Antigen Negative (Negative); Hepatitis C Antibody Negative (Negative)
== END 2025-03-03 16:45 | disposition home health service (06) | DRG 299 ==
LOC: EDBD 15:34 → ER 15:34 → EDSEX 15:34 → OVERFLOW 21:51 → TELE-WESTW 03-02 16:47
PROVIDERS: ADMIT Internal Medicine Geriatric Medicine; ATTEND Internal Medicine Geriatric Medicine
PROC: 5A09357 Assistance with Respiratory Ventilation, Less than 24 Consecutive Hours, Continuous Positive Airway Pressure (ICD-10-PCS; principal; 2025-03-01)
DX: I82.621 Acute embolism and thrombosis of deep veins of right upper extremity (principal); G93.41 Metabolic encephalopathy; J96.21 Acute and chronic respiratory failure with hypoxia; E66.2 Morbid (severe) obesity with alveolar hypoventilation; N39.0 Urinary tract infection, site not specified; Z68.43 Body mass index [BMI] 50.0-59.9, adult; D68.69 Other thrombophilia; I50.32 Chronic diastolic (congestive) heart failure; I11.0 Hypertensive heart disease with heart failure; E04.1 Nontoxic single thyroid nodule; I48.0 Paroxysmal atrial fibrillation; E78.5 Hyperlipidemia, unspecified; F41.9 Anxiety disorder, unspecified; F32.A Depression, unspecified; K21.9 Gastro-esophageal reflux disease without esophagitis; I82.C11 Acute embolism and thrombosis of right internal jugular vein; I82.B11 Acute embolism and thrombosis of right subclavian vein; I82.A11 Acute embolism and thrombosis of right axillary vein; G89.29 Other chronic pain; E03.9 Hypothyroidism, unspecified; I07.1 Rheumatic tricuspid insufficiency; I27.20 Pulmonary hypertension, unspecified; J44.89 Other specified chronic obstructive pulmonary disease; E11.9 Type 2 diabetes mellitus without complications; Z79.899 Other long term (current) drug therapy; Z88.6 Allergy status to analgesic agent; Z79.82 Long term (current) use of aspirin; Z79.01 Long term (current) use of anticoagulants; Z86.73 Personal history of transient ischemic attack (TIA), and cerebral infarction without residual deficits; Z99.81 Dependence on supplemental oxygen; Z86.711 Personal history of pulmonary embolism; Z91.199 Patient's noncompliance with other medical treatment and regimen due to unspecified reason; Z74.01 Bed confinement status; Z83.3 Family history of diabetes mellitus; Z82.49 Family history of ischemic heart disease and other diseases of the circulatory system
CPT/HCPCS: 36415; 36600; 70450; 70496; 70498; 71045; 76536; 80048; 80053; 80076; 80307; 81001; 82728; 82805; 82962; 83540; 83550; 83605; 83880; 84439; 84443; 84480; 84484; 85007; 85014; 85018; 85025; 85027; 85610; 85652; 85730; 86141; 86803; 87040; 87086; 87340; 87426; 87804; 93005; 93886; 93971; 94660; 96365; 96374; 96375; 99291; G0378